=== PATIENT | female | born 1970 | race African-American/Black ===

== ENCOUNTER 2016-11-18 11:47 | Inpatient (IN) | payer OTHER ==
[2016-11-18 12:18] VITALS: BMI 35.2
--- NOTE | 2016-11-18 12:35 | PDOC ---
History of Present Illness - History of Present Illness Initial Comments: 11/18/16 12:42 The patient is a 46 year old female with a past medical hx of lung, liver, and colon cancer stage IV with recent resections who presents to the ED complaining of dizziness and nausea for three days. The patient states she has a hx of liver and colon cancer that has resolved after 12 weeks of chemotherapy. She reports her recent CT scan shows a small spot on her lung. She started her first round of chemo on Tuesday. She reports since then she has been vomiting and been feeling dizzy. She states she has not been able to tolerate and liquid or food and notes no relief of nausea with Zofran. She states she was at her Oncologist office today to remove her pump when she had a syncopal episode. The patient reports an intermittent nose bleed since Tuesday. She states her symptoms were not this severe the first time she received chemo. She reports weakness, tingling in her hands and feet. The patient denies chest pain, fever, chills Allergies: Sulfa Surgical:[facility] 09/11/2014; 03/2015 liver surgery Social: No toxic habits reported Oncologist: Dr. Almaguer <Cherry Dailey - Last Filed: 11/18/16 13:37> <Faraz Buckley - Last Filed: 11/18/16 17:28> - General Chief Complaint: Nausea/Vomiting Stated Complaint: DIZZINESS Time Seen by Provider: 11/18/16 12:35 Past History <Cherry Dailey - Last Filed: 11/18/16 13:37> - Past Medical History Anemia: Yes Asthma: No Cancer: Yes ([facility] 09/11/2014 LUNG) Cardiac Disorders: Yes (tachycardia) CVA: No COPD: No CHF: No Dementia: No Diabetes: No GI Disorders: Yes (gerd) Disorders: No HTN: No Hypercholesterolemia: No Liver Disease: Yes (mets to liver) Psychiatric Problems: Yes (ANXIETY) Suicide Attempt (Hx): No Seizures: No Thyroid Disease: No Lung CA: Yes (bilateral lung) - Surgical History Abdominal Surgery: Yes ([facility] 09/11/2014;03/2015 liver surgery) Appendectomy: No Cardiac Surgery: No Cholecystectomy: No GI Surgery: Yes ([facility]ERY 09/11/2014) Lung Surgery: No Neurologic Surgery: No Orthopedic Surgery: No - Psycho/Social/Smoking Cessation Hx Anxiety: No Suicidal Ideation: No Smoking Status: No Smoking History: Never smoked Have you smoked in the past 12 months: No Number of Cigarettes Smoked Daily: 0 Information on smoking cessation initiated: No Hx Alcohol Use: No Drug/Substance Use Hx: No Substance Use Type: None Hx Substance Use Treatment: No <Faraz Buckley - Last Filed: 11/18/16 17:28> - Past Medical History Allergies/Adverse Reactions: Allergies Allergy/AdvReac Type Severity Reaction Status Date / Time latex Allergy Severe Itching Verified 07/16/16 17:48 Sulfa (Sulfonamide AdvReac generalized Verified 07/16/16 17:48 Antibiotics) weakness Home Medications: Ambulatory Orders Metoprolol Tartrate [Lopressor -] 25 mg PO DAILY 02/03/16 Pantoprazole Sodium [Protonix -] 40 mg PO DAILY #30 tablet.ec 02/06/16 Lorazepam [Ativan] 1 mg PO BID MDD 3mg 11/18/16 Review of Systems - Review of Systems Able to Perform ROS?: Yes Comments:: 11/18/16 12:42 CONSTITUTIONAL: +Weakness. Absent: fever, chills, diaphoresis, malaise, loss of appetite HEENT: +Epistaxis. Absent: rhinorrhea, nasal congestion, throat pain, throat swelling, difficulty swallowing, mouth swelling, ear pain, eye pain, visual Changes CARDIOVASCULAR: Absent: chest pain, syncope, palpitations, irregular heart rate, lightheadedness , peripheral edema RESPIRATORY: Absent: cough, shortness of breath, dyspnea with exertion, orthopnea, wheezing, stridor, hemoptysis GASTROINTESTINAL: +Nausea, vomiting. Absent: abdominal pain, abdominal distension, diarrhea, constipation, melena, hematochezia GENITOURINARY: Absent: dysuria, frequency, urgency, hesitancy, hematuria, flank pain, genital pain MUSCULOSKELETAL: Absent: myalgia, arthralgia, joint swelling SKIN: Absent: rash, itching, pallor HEMATOLOGIC/IMMUNOLOGIC: Absent: easy bleeding, easy bruising, lymphadenopathy, frequent infections ENDOCRINE: Absent: unexplained weight gain, unexplained weight loss, heat intolerance, cold intolerance NEUROLOGIC: +Dizziness, tingling in hands and feet. Absent: headache, unsteady gait, seizure , mental status changes, bladder or bowel incontinence PSYCHIATRIC: Absent: anxiety, depression, suicidal or homicidal ideation, hallucinations. <Cherry Dailey - Last Filed: 11/18/16 13:37> *Physical Exam - Vital Signs Last Vital Signs Temp Pulse Resp BP Pulse Ox 97.8 F 85 20 135/95 99 11/18/16 12:16 11/18/16 12:16 11/18/16 12:16 11/18/16 12:16 11/18/16 12:16 - Physical Exam Comments: 11/18/16 13:37 GENERAL: +Appears dehydrated. Well developed, well nourished. Awake and alert. In no acute distress. HEENT: + Dry mucous membranes. Normocephalic, atraumatic. PERRLA, EOMI. No conjunctival pallor. Sclera are non-icteric. Moist mucous membranes. Oropharynx is clear. NECK: Supple. Full ROM. No JVD. Carotid pulses 2+ and symmetric, without bruits. No thyromegaly. No lymphadenopathy. CARDIOVASCULAR: Regular rate and rhythm. No murmurs, rubs, or gallops. Distal pulses are 2+ and symmetric. PULMONARY: No evidence of respiratory distress. Lungs clear to auscultation bilaterally. No wheezing, rales or rhonchi. ABDOMINAL: Soft. Non-tender. Non-distended. No rebound or guarding. No organomegaly. Normoactive bowel sounds. MUSCULOSKELETAL Normal range of motion at all joints. No bony deformities or tenderness. No CVA tenderness. EXTREMITIES: No cyanosis. No clubbing. No edema. No calf tenderness. SKIN: Warm and dry. Normal capillary refill. No rashes. No jaundice. NEUROLOGICAL: Alert, awake, appropriate. Cranial nerves 2-12 intact. No deficits to light touch and temperature in face, upper extremities and lower extremities. No motor deficits in the in face, upper extremities and lower extremities. Normoreflexic in the upper and lower extremities. Normal speech. Toes are downgoing bilaterally. Gait is normal without ataxia. PSYCHIATRIC: Cooperative. Good eye contact. Appropriate mood and affect. <Cherry Dailey - Last Filed: 11/18/16 13:37> - Vital Signs Last Vital Signs Temp Pulse Resp BP Pulse Ox 97.8 F 85 20 135/95 99 11/18/16 12:16 11/18/16 12:16 11/18/16 12:16 11/18/16 12:16 11/18/16 12:16 <Faraz Buckley - Last Filed: 11/18/16 17:28> ED Treatment Course - LABORATORY CBC & Chemistry Diagram: 11/18/16 12:49 11/18/16 12:49 <Cherry Dailey - Last Filed: 11/18/16 13:37> - LABORATORY CBC & Chemistry Diagram: 11/18/16 12:49 11/18/16 12:49 <Faraz Buckley - Last Filed: 11/18/16 17:28> *DC/Admit/Observation/Transfer - Attestations Scribe Attestion: 11/18/16 12:43 Documentation prepared by Cherry Dailey, acting as medical receptionist assistant for Faraz Buckley MD, /DO. <Cherry Dailey - Last Filed: 11/18/16 13:37> - Discharge Dispostion Admit: Yes <Faraz Buckley - Last Filed: 11/18/16 17:28> Diagnosis at time of Disposition: Epigastric abdominal pain, Nausea and vomiting - Discharge Dispostion Condition at time of disposition: Stable
[2016-11-18] MEDS ORDERED: ONDANSETRON 4 MG/2 ML VIAL IVPUSH ONE (12:36)
[2016-11-18] MEDS ORDERED: SODIUM CHLORIDE 2,000 ML IV STA (12:36)
[2016-11-18] MEDS ORDERED: METOCLOPRAMIDE HCL INJECTION 10 MG/2 ML VIAL IVPUSH ONE (12:37)
[2016-11-18 13:12] LABS: BASOPHIL 0.5 % (0-2.0); EOSINOPHIL 0.7 % (0-4.5); MCH 29.2 pg (25.7-33.7); MEAN CELL VOLUME 88.5 fl (80-96); MEAN PLT VOLUME 9.1 fl (7.5-11.1); NEUTROPHILS 68.5 % (42.8-82.8); PLATELET COUNT 186 K/MM3 (134-434); RDW 13.9 % (11.6-15.6); WHITE BLOOD COUNT 7.4 K/mm3 (4.0-10.0)
[2016-11-18 13:26] LABS: ALBUMIN 3.7 g/dl (3.4-5.0); ANION GAP 8 (8-16); CALCIUM 8.7 mg/dL (8.5-10.1); CO2 28 mmol/L (21-32); CREATININE 0.7 mg/dL (0.55-1.02); GLUCOSE,RANDOM 95 mg/dL (74-106); SGOT/AST 13 U/L (15-37); SGPT/ALT 23 U/L (12-78)
[2016-11-18 13:28] LABS: ALK PHOS 73 U/L (45-117); BILIRUBIN,TOTAL 0.5 mg/dL (0.2-1.0); TOT PROT 7.3 g/dl (6.4-8.2)
[2016-11-18] MEDS ORDERED: ONDANSETRON 4 MG/2 ML VIAL ONE ×2 (13:47→20:29)
[2016-11-18] MEDS ORDERED: METOCLOPRAMIDE HCL INJECTION 10 MG/2 ML VIAL ONE (13:47)
--- NOTE | 2016-11-18 17:25 | CONSULT ---
Consult - text type - Consultation Consultation Note: The patient is a 46 year old female with a past medical hx colon cancer with lung and liver mets s/p resection who was sent in for nausea, vomiting for 3 days.She was noted to have recurrence at the site of wedge resection of rt. lung bnodule. She was started on FOLFIRI-08/16. She as extremely nauseous for last 2 days. She has been retching and not keeping anything down. today in the office she came in to get the pump disconnected.She developed nausea/retching. Was extremely tearful and then became presyncopal. She was sent to ER via ACLS. She felt better after IV fluids Allergies: Sulfa Surgical:[facility] Social: No toxic habits reported - Past Medical History Anemia: Yes Cancer: Yes ([facility] 09/11/2014 LUNG) Cardiac Disorders: Yes (tachycardia) GI Disorders: Yes (gerd) Liver Disease: Yes (mets to liver) Psychiatric Problems: Yes (ANXIETY) Lung CA: Yes (bilateral lung) - Surgical History Abdominal Surgery: Yes ([facility] 09/11/2014;03/2015 liver surgery) GI Surgery: Yes ([facility] 09/11/2014) - Psycho/Social/Smoking Cessation Hx Smoking History: Never smoked - Past Medical History Allergies/Adverse Reactions: Allergies Allergy/AdvReac Type Severity Reaction Status Date / Time latex Allergy Severe Itching Verified 07/16/16 17:48 Sulfa (Sulfonamide AdvReac generalized Verified 07/16/16 17:48 Antibiotics) weakness Home Medications: Ambulatory Orders Metoprolol Tartrate [Lopressor -] 25 mg PO DAILY 02/03/16 Pantoprazole Sodium [Protonix -] 40 mg PO DAILY #30 tablet.ec 02/06/16 Lorazepam [Ativan] 1 mg PO BID MDD 3mg 11/18/16 Current Medications Potassium Chloride/Dextrose/Sod Cl (D5-1/2ns+20 Meq Kcl -) 1,000 mls @ 60 mls/ hr IV ASDIR [facility] Last Admin: 11/18/16 19:00 Dose: 60 mls/hr Ondansetron HCl (Zofran Injection) 8 mg IVPB Q12H PRN PRN Reason: NAUSEA Prochlorperazine Maleate (Compazine -) 10 mg PO Q8H PRN PRN Reason: NAUSEA AND/OR VOMITING - Vital Signs Last Vital Signs Temp Pulse Resp BP Pulse Ox 97.8 F 85 20 135/95 99 11/18/16 12:16 11/18/16 12:16 11/18/16 12:16 11/18/16 12:16 11/18/16 12:16 HEENT: ELIDA, EOM Intact Oropharynx: No thrush, No mucositis Cor: RSR, No murmurs, No gallops Lungs: Clear to P&A Abd: Soft, Normal bowel sounds, No organomegaly, mid line incision + Ext:No significant edema Abnormal Lab Results 11/18/16 12:49 AST 13 L D A/P The patient is a 46 year old female with a past medical hx colon cancer with lung and liver mets s/p resection who was sent in for nausea, vomiting for 3 days.She was noted to have recurrence at the site of wedge resection of rt. lung nodule on recent PET-CT. She was started on FOLFIRI-08/16. She was extremely nauseous for last 2 days. She has been retching and not keeping anything down. HAd a near syncopal episode today in the office Not able to keep anything down IV hydration/antiemetics check cultures
[2016-11-18] MEDS ORDERED: D5-1/2NS+20 MEQ KCL - 1,000 ML IV SCH ×3 (18:45→20:41)
[2016-11-18] MEDS ORDERED: PROCHLORPERAZINE MALEATE 5 MG TABLET PO PRN (19:22)
[2016-11-18] MEDS ORDERED: LORazepam 1 MG TABLET PO PRN (19:42)
[2016-11-18] MEDS: ONDANSETRON 4 MG/2 ML VIAL IVPB PRN (20:31)
--- NOTE | 2016-11-18 20:36 | HP ---
Admitting History and Physical - Admission History of Present Illness: colon ca mets to lungs (bilateral nodules wedge resected 01/13 and 07/16?, now recurrent lesion on right per PET scan) and liver (resected 2014 no recurrence) sent to er from oncology office for severe nausea vomiting x 3 days severe retching after first round chemo she was very upset and presyncopal while in the office she went through one cycle of chemo one year ago PMHx HTN on metoprolol GERD on pantoprazole Anxiety on Ativan History Source: Patient, Medical Record - Past Medical History Cardiovascular: Yes: HTN, Other (tachycardia) Pulmonary: Yes: Other (resection of metasttic lung nodules on left , January 21, 2016) Gastrointestinal: Yes: Constipation, GERD Hepatobiliary: Yes: Other (liver mets s/p resection 2014.) ...LMP: 08/12/15 Heme/Onc: Yes: Anemia, Other (colon cancer) Psych: Yes: Anxiety Endocrine: Yes: Other (Thyroid Nodules) - Past Surgical History Past Surgical History: Yes: None - Smoking History Smoking history: Never smoked Have you smoked in the past 12 months: No Aproximately how many cigarettes per day: 0 - Alcohol/Substance Use Hx Alcohol Use: No History of Substance Use: reports: None - Social History 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 [employer] History of Recent Travel: No Home Medications - Allergies Allergies/Adverse Reactions: Allergies Allergy/AdvReac Type Severity Reaction Status Date / Time latex Allergy Severe Itching Verified 07/16/16 17:48 Sulfa (Sulfonamide AdvReac generalized Verified 07/16/16 17:48 Antibiotics) weakness - Home Medications Home Medications: Ambulatory Orders Metoprolol Tartrate [Lopressor -] 25 mg PO DAILY 02/03/16 Pantoprazole Sodium [Protonix -] 40 mg PO DAILY #30 tablet.ec 02/06/16 Lorazepam [Ativan] 1 mg PO BID MDD 3mg 11/18/16 Physical Examination Vital Signs: Vital Signs Temperature 97.8 F 11/18/16 12:16 Pulse Rate 80 11/18/16 20:08 Respiratory Rate 18 11/18/16 20:08 Blood Pressure 100/62 11/18/16 20:08 O2 Sat by Pulse Oximetry (%) 97 11/18/16 20:08 Constitutional: Yes: Well Nourished, No Distress, Calm Eyes: Yes: WNL, Conjunctiva Clear, EOM Intact HENT: Yes: WNL, Atraumatic, Normocephalic Neck: Yes: WNL, Supple, Trachea Midline Cardiovascular: Yes: WNL, Regular Rate and Rhythm Respiratory: Yes: WNL, Regular, CTA Bilaterally Gastrointestinal: Yes: WNL, Normal Bowel Sounds Musculoskeletal: Yes: WNL Extremities: Yes: WNL Edema: No Integumentary: Yes: WNL Neurological: Yes: WNL, Alert, Oriented ...Motor Strength: WNL Psychiatric: Yes: WNL Assessment/Plan colon ca mets to lungs and liver -recurrence in rt lung no recurrence in liver severe nausea vomiting x 3 days increased anxiety and psychological distress low BPs, ruling out sepsis HTN will hold BP meds for systolic less than 110l GERD continue pantoprazole Anxiety cont Ativan all meds IV for now discussed with dr sommer oncol consult appreciated
[2016-11-18] MEDS ORDERED: DEXAMETHASONE SOD PHOSPHATE 10 MG/1 ML VIAL IVPB ONE (20:57)
[2016-11-18] MEDS: LORAZEPAM CARPU-JECT 2 MG/ML DISP.SYRIN IVPB PRN (22:10)
[2016-11-19 08:05] LABS: INR 1.06 (0.82-1.09); PROTHROMBIN TIME (PATIENT) 11.7 SEC (9.98-11.88)
[2016-11-19 08:07] LABS: ACTIVATED PTT 30.3 SECONDS (26.9-34.4)
[2016-11-19 08:18] LABS: ALBUMIN 3.6 g/dl (3.4-5.0); ANION GAP 8 (8-16); CALCIUM 8.9 mg/dL (8.5-10.1); CO2 25 mmol/L (21-32); GLUCOSE,RANDOM 136 mg/dL (74-106); MAGNESIUM 2.3 mg/dL (1.8-2.4)
[2016-11-19 08:21] LABS: BASOPHIL 0.1 % (0-2.0); MCH 29.6 pg (25.7-33.7); MCHC 33.7 g/dl (32.0-36.0); MEAN CELL VOLUME 87.7 fl (80-96); MEAN PLT VOLUME 9.9 fl (7.5-11.1); NEUTROPHILS 85.7 % (42.8-82.8); PLATELET COUNT 197 K/MM3 (134-434); RDW 13.7 % (11.6-15.6); WHITE BLOOD COUNT 6.2 K/mm3 (4.0-10.0)
[2016-11-19 08:22] LABS: ALK PHOS 80 U/L (45-117); BILIRUBIN,TOTAL 0.4 mg/dL (0.2-1.0); CREATININE 0.8 mg/dL (0.55-1.02); LDH 189 U/L (84-246); SGOT/AST 13 U/L (15-37); SGPT/ALT 21 U/L (12-78); TOT PROT 7.5 g/dl (6.4-8.2)
[2016-11-19] MEDS ORDERED: PANTOPRAZOLE SODIUM 40 MG in SODIUM CHLORIDE 100 ML IVPB SCH (10:00)
[2016-11-19] MEDS ORDERED: METOPROLOL TARTRATE 25 MG TABLET (FP) PO SCH (10:00)
[2016-11-19] MEDS ORDERED: PANTOPRAZOLE 40 MG TABLET (FP) PO SCH (10:00)
[2016-11-19] MEDS: D5-1/2NS+20 MEQ KCL - 1,000 ML IV SCH ×2 (11:00→22:23)
[2016-11-19] MEDS: METOPROLOL TARTRATE 25 MG TABLET (FP) PO SCH (11:02)
[2016-11-19] MEDS: PANTOPRAZOLE SODIUM 40 MG/100 ML PRE-DOCKED IVPB SCH (11:02)
--- NOTE | 2016-11-19 11:10 | PN ---
Progress Note (short form) - Note Progress Note: Patient seen and examined Still with nausea and poor p.o. intake. No emesis, abdominal pains. No fevers. Remains on IV hydration. Last Vital Signs Temp Pulse Resp BP Pulse Ox 98.0 F 73 20 106/63 98 11/19/16 05:32 11/19/16 05:32 11/19/16 05:32 11/19/16 05:32 11/19/16 04:49 HEENT: ELIDA, EOM Intact Oropharynx: No thrush, No mucositis Cor: RSR, No murmurs, No gallops Lungs: Clear to P&A Abd: Soft, Normal bowel sounds, No organomegaly Ext:No significant edema Skin: No rashes, Integument intact CBC, BMP 11/19/16 06:25 11/19/16 06:25 Current Medications Generic Name Dose Route Start Last Admin Trade Name Freq PRN Reason Stop Dose Admin Potassium Chloride/Dextrose/Sod Cl 1,000 mls @ 75 mls/hr 11/19/16 09:45 11:00 D5-1/2ns+20 Meq Kcl - IV 75 mls/hr ASDIR RUTH Administration Lorazepam 0.5 mg 11/18/16 20:54 11/18/16 22:10 Ativan Injection - IVPB 0.5 mg BID PRN Administration ANXIETY Metoprolol Tartrate 25 mg 11/19/16 10:00 11/19/16 11:02 Lopressor - PO 25 mg DAILY RUTH Administration Ondansetron HCl 8 mg 11/18/16 18:33 11/18/16 20:31 Zofran Injection IVPB 8 mg Q12H PRN Administration NAUSEA Pantoprazole Sodium 40 mg 11/19/16 10:00 11/19/16 11:02 Protonix 40mg Ivpb (Pre-Docked) IVPB 40 mg DAILY RUTH Administration Prochlorperazine Maleate 10 mg 11/18/16 19:22 Compazine - PO Q8H PRN NAUSEA AND/OR VOMITING Impression: Recurrent metastatic colon ca s/p lung and liver resection S/P resumption of chemotherapy with FOLFIRI Near syncope GI toxicity from chemotherapy Dehydration and hypovolemia-improved with hydration Plan: Continue with hydration Afebrile - no obvious occult infection as ppt of hypovolemia Monitor cbc, chemistries , s/p chemotherapy. "Cultured" and I.D. f/u.
[2016-11-19] MEDS: LORAZEPAM CARPU-JECT 2 MG/ML DISP.SYRIN IVPB PRN ×2 (11:59→22:16)
[2016-11-19 12:54] LABS: URINE MARIJUANA THC NEGATIVE ng/ml (CUTOFF=50)
--- NOTE | 2016-11-19 13:27 | PN ---
Progress Note, Physician Chief Complaint: ID Full note dictated - Current Medication List Current Medications: Active Medications Potassium Chloride/Dextrose/Sod Cl (D5-1/2ns+20 Meq Kcl -) 1,000 mls @ 75 mls/ hr IV ASDIR [facility] Last Admin: 11/19/16 11:00 Dose: 75 mls/hr Lorazepam (Ativan Injection -) 0.5 mg IVPB BID PRN PRN Reason: ANXIETY Last Admin: 11/19/16 11:59 Dose: 0.5 mg Metoprolol Tartrate (Lopressor -) 25 mg PO DAILY [facility] Last Admin: 11/19/16 11:02 Dose: 25 mg Ondansetron HCl (Zofran Injection) 8 mg IVPB Q12H PRN PRN Reason: NAUSEA Last Admin: 11/18/16 20:31 Dose: 8 mg Pantoprazole Sodium (Protonix 40mg Ivpb (Pre-Docked)) 40 mg IVPB DAILY [facility] Last Admin: 11/19/16 11:02 Dose: 40 mg Prochlorperazine Maleate (Compazine -) 10 mg PO Q8H PRN PRN Reason: NAUSEA AND/OR VOMITING - Objective Vital Signs: Vital Signs Temperature 98.0 F 11/19/16 05:32 Pulse Rate 73 11/19/16 05:32 Respiratory Rate 20 11/19/16 05:32 Blood Pressure 106/63 11/19/16 05:32 O2 Sat by Pulse Oximetry (%) 98 11/19/16 04:49 Labs: CBC, BMP 11/19/16 06:25 11/19/16 06:25 INR, PTT INR 1.06 (0.82-1.09) 11/19/16 06:25 Fibrinogen 324.0 mg/dL (238-498) 11/19/16 06:25 Problem List - Problems (1) Colon cancer Code(s): C18.9 - MALIGNANT NEOPLASM OF COLON, UNSPECIFIED Assessment/Plan Microbiology Laboratory Tests 11/19/16 06:25 WBC 6.2 Hgb 11.5 Plt Count 197 Assessment Metastatic CA Hypotension resolved Doubt infection sepsis related Plan Reasurrance offered patient Cultures ordered per Dr Rosina Ibarra MD
--- NOTE | 2016-11-19 13:46 | PN ---
Progress Note (short form) - Note Progress Note: seen by ID discussed with Dr Ibarra- no indication of infection so far hold off abx coverage oncol f/u appreciated Active Medications Potassium Chloride/Dextrose/Sod Cl (D5-1/2ns+20 Meq Kcl -) 1,000 mls @ 75 mls/ hr IV ASDIR [facility] Last Admin: 11/19/16 11:00 Dose: 75 mls/hr Lorazepam (Ativan Injection -) 0.5 mg IVPB BID PRN PRN Reason: ANXIETY Last Admin: 11/19/16 11:59 Dose: 0.5 mg Metoprolol Tartrate (Lopressor -) 25 mg PO DAILY [facility] Last Admin: 11/19/16 11:02 Dose: 25 mg Ondansetron HCl (Zofran Injection) 8 mg IVPB Q12H PRN PRN Reason: NAUSEA Last Admin: 11/18/16 20:31 Dose: 8 mg Pantoprazole Sodium (Protonix 40mg Ivpb (Pre-Docked)) 40 mg IVPB DAILY [facility] Last Admin: 11/19/16 11:02 Dose: 40 mg Prochlorperazine Maleate (Compazine -) 10 mg PO Q8H PRN PRN Reason: NAUSEA AND/OR VOMITING Last Vital Signs Temp Pulse Resp BP Pulse Ox 98.0 F 73 20 106/63 98 11/19/16 05:32 11/19/16 05:32 11/19/16 05:32 11/19/16 05:32 11/19/16 04:49 alert in nad Lungs clear heart reg rate and rhythm Abd soft nontender Ext no edema CBC, BMP 11/19/16 06:25 11/19/16 06:25 IMP/Problems/Plan colon ca mets to lungs and liver -recurrence in rt lung- getting no recurrence in liver -admitted severe nausea vomiting x 3 days increased anxiety and psychological distress -low BPs persisting, ruling out sepsis Plan HTN will hold BP meds for systolic less than 110l GERD continue pantoprazole Anxiety cont Ativan continue all meds IV for now
--- NOTE | 2016-11-19 15:34 | CONS ---
DATE OF CONSULTATION: DATE OF DICTATION: 11/19/2016 INFECTIOUS DISEASE CONSULTATION HISTORY OF PRESENT ILLNESS: This is a 46-year-old -[place] female with metastatic colon cancer, who I am asked to see for evaluation of hypotension and possible sepsis. She is status post resection with known liver and lung metastases, and presented to the hospital for complaints of nausea and vomiting for several days. She was noted to have a recurrence at the site of a wedge resection of a right lung nodule. She was started on chemotherapy on August 16 and developed extreme nausea for the last 2 days. She has been retching and unable to keep anything down. In the office, she came to have her pump disconnected and appeared presyncopal according to Dr. Almaguer. She was brought to the hospital and given for intravenous fluid replacement. She denied any diarrhea, abdominal pain, hematemesis, or bleeding per rectum. She had no chills, shortness of breath, cough, or urinary complaints. 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 PAST MEDICAL HISTORY: Includes colon cancer with surgery August 2014 with lung resection. MEDICATION: Metoprolol, Protonix, and Ativan. ALLERGIES: BACTRIM. SOCIAL HISTORY: . Lives with a son. No travel. Never smoked. No history of substance abuse. HIV status unknown. FAMILY HISTORY: Reviewed and noncontributory. REVIEW OF SYSTEMS: Respiratory: No cough, shortness of breath. Cardiac: No chest pain, palpitations, syncope. Gastrointestinal: No nausea, vomiting, diarrhea. Currently, no abdominal pain. No blood per rectum. Genitourinary: No dysuria, hematuria. PHYSICAL EXAMINATION: General: She was a heavyset woman, alert, pleasant, in no acute distress. Vital signs: Temperature 98.0, pulse 73, blood pressure 106/63, respirations 20. Neck: Supple. Oropharynx: No thrush. Lungs: Clear. Heart: S1, S2. Regular rhythm. No murmur. Chest: Symmetrical with a right port. Abdomen: Soft. Nontender. No hepatosplenomegaly. Extremities: Without edema. LABORATORY: The white count was 6.2, hemoglobin 11.5, platelets 197. BUN of 9, creatinine 0.8, liver enzymes within normal limits. Chest x-ray was obtained which shows minimal increased density abutting the hemidiaphragm, marked improvement in the aeration of the left lung compared to previous studies . ASSESSMENT: A 46-year-old female with metastatic colon cancer with liver and lung metastases, recent chemotherapy, presents now with severe nausea and presyncope with apparently hypotension noted in Dr. Almaguer's office. There is nothing to indicate sepsis at this time, most likely hypotension related to intravascular volume depletion. Cultures were ordered for Dr. Almaguer, but I would elected to observe her off antibiotic therapy, as she appears well and afebrile at this time. WONG BRAGA M.D. [id number]
[2016-11-20] MEDS: PANTOPRAZOLE SODIUM 40 MG/100 ML PRE-DOCKED IVPB SCH (10:26)
[2016-11-20] MEDS: METOPROLOL TARTRATE 25 MG TABLET (FP) PO SCH (10:26)
[2016-11-20] MEDS: D5-1/2NS+20 MEQ KCL - 1,000 ML IV SCH (10:35)
--- NOTE | 2016-11-20 14:24 | PN ---
Progress Note (short form) - Note Progress Note: Oncology follow-up note Patient today has no dizziness, weakness but she did have nausea and vomitted after breakfast this am. Last Vital Signs Temp Pulse Resp BP Pulse Ox 98.2 F 76 18 126/73 100 11/20/16 06:00 11/20/16 06:00 11/20/16 12:00 11/20/16 06:00 11/20/16 12:00 HEENT: ELIDA, EOM Intact Oropharynx: No thrush, No mucositis Cor: RSR, No murmurs, No gallops Lungs: Clear to P&A Abd: Soft, Normal bowel sounds, No organomegaly, mid line incision + Ext:No significant edema A/P Labs CBC, BMP 11/19/16 06:25 11/19/16 06:25 Meds Current Medications Generic Name Dose Route Start Last Admin Trade Name Freq PRN Reason Stop Dose Admin Potassium Chloride/Dextrose/Sod Cl 1,000 mls @ 75 mls/hr 11/19/16 09:45 10:35 D5-1/2ns+20 Meq Kcl - IV 75 mls/hr ASDIR [facility] Administration Lorazepam 0.5 mg 11/18/16 20:54 11/19/16 22:16 Ativan Injection - IVPB 0.5 mg BID PRN Administration ANXIETY Metoprolol Tartrate 25 mg 11/19/16 10:00 11/20/16 10:26 Lopressor - PO 25 mg DAILY RUTH Administration Ondansetron HCl 8 mg 11/18/16 18:33 11/18/16 20:31 Zofran Injection IVPB 8 mg Q12H PRN Administration NAUSEA Pantoprazole Sodium 40 mg 11/19/16 10:00 11/20/16 10:26 Protonix 40mg Ivpb (Pre-Docked) IVPB 40 mg DAILY [facility] Administration Prochlorperazine Maleate 10 mg 11/18/16 19:22 Compazine - PO Q8H PRN NAUSEA AND/OR VOMITING A/P : 46 y/o female with Hx of metastatic colon cancer with new recurrence at site of previous lung nodule, was started on FOLFIRI chemotherapy on 08/16 with a lot of nausea, retching as an outpatient. Was admitted earlier this week when she came to have her pump disconnected in the office and had a near syncopal episode -weakness is improved, but nausea/vomitting and decreased appetite persist- on zofran and compazine, will monitor overnight and see how she feels tomorrow, patient is very eager to go home -continue IV fluids and electrolyte repletion as necessary -supportive care while inpatient -Has an appointment with on 11/23
[2016-11-20] MEDS: ONDANSETRON 4 MG/2 ML VIAL IVPB PRN (15:34)
[2016-11-20] MEDS: LORAZEPAM CARPU-JECT 2 MG/ML DISP.SYRIN IVPB PRN (21:01)
--- NOTE | 2016-11-20 21:36 | PN ---
Progress Note (short form) - Note Progress Note: feeling better will plan to d/c tomorrow tentatively seen by ID discussed with Dr Ibarra- no indication of infection so far hold off abx coverage oncol f/u appreciated Current Medications Potassium Chloride/Dextrose/Sod Cl (D5-1/2ns+20 Meq Kcl -) 1,000 mls @ 75 mls/ hr IV ASDIR [facility] Last Admin: 11/20/16 10:35 Dose: 75 mls/hr Lorazepam (Ativan Injection -) 0.5 mg IVPB BID PRN PRN Reason: ANXIETY Last Admin: 11/20/16 21:01 Dose: 0.5 mg Metoprolol Tartrate (Lopressor -) 25 mg PO DAILY [facility] Last Admin: 11/20/16 10:26 Dose: 25 mg Ondansetron HCl (Zofran Injection) 8 mg IVPB Q12H PRN PRN Reason: NAUSEA Last Admin: 11/20/16 15:34 Dose: 8 mg Pantoprazole Sodium (Protonix 40mg Ivpb (Pre-Docked)) 40 mg IVPB DAILY [facility] Last Admin: 11/20/16 10:26 Dose: 40 mg Prochlorperazine Maleate (Compazine -) 10 mg PO Q8H PRN PRN Reason: NAUSEA AND/OR VOMITING Last Vital Signs Temp Pulse Resp BP Pulse Ox 98.2 F 72 16 136/88 100 11/20/16 21:00 11/20/16 21:00 11/20/16 21:00 11/20/16 21:00 11/20/16 12:00 alert in nad Lungs clear heart reg rate and rhythm Abd soft nontender Ext no edema CBC, BMP 11/19/16 06:25 11/19/16 06:25 IMP/Problems/Plan colon ca mets to lungs and liver -recurrence in rt lung- getting no recurrence in liver -admitted severe nausea vomiting x 3 days increased anxiety and psychological distress -low BPs persisting, ruling out sepsis Plan HTN will hold BP meds for systolic less than 110l GERD continue pantoprazole Anxiety cont Ativan
[2016-11-20] MEDS ORDERED: LORazepam 1 MG TABLET PO PRN (21:37)
[2016-11-20] MEDS: PANTOPRAZOLE 40 MG TABLET (FP) PO SCH (22:21)
[2016-11-21 09:36] VITALS: BP 121/83; PULSE 79; TEMP 98.3
[2016-11-21] MEDS: PANTOPRAZOLE 40 MG TABLET (FP) PO SCH (09:54)
[2016-11-21] MEDS: METOPROLOL TARTRATE 25 MG TABLET (FP) PO SCH (09:54)
--- NOTE | 2016-11-21 11:54 | PN ---
Progress Note (short form) - Note Progress Note: Oncology follow-up note S : Patient feels well today, her nausea and appetite have both improved. She will be discharged today Last Vital Signs Temp Pulse Resp BP Pulse Ox 98.3 F 79 18 121/83 100 11/21/16 09:00 11/21/16 09:00 11/21/16 09:00 11/21/16 09:00 11/21/16 04:00 HEENT: ELIDA, EOM Intact Oropharynx: No thrush, No mucositis Cor: RSR, No murmurs, No gallops Lungs: Clear to P&A Abd: Soft, Normal bowel sounds, No organomegaly, mid line incision + Ext:No significant edema Labs : CBC, BMP 11/19/16 06:25 11/19/16 06:25 Current Medications Generic Name Dose Route Start Last Admin Trade Name Freq PRN Reason Stop Dose Admin Lorazepam 1 mg 11/20/16 21:37 11/21/16 09:54 Ativan - PO 1 mg BID PRN Administration ANXIETY Metoprolol Tartrate 25 mg 11/19/16 10:00 11/21/16 09:54 Lopressor - PO 25 mg DAILY RUTH Administration Ondansetron HCl 8 mg 11/18/16 18:33 11/20/16 15:34 Zofran Injection IVPB 8 mg Q12H PRN Administration NAUSEA Pantoprazole Sodium 40 mg 11/20/16 21:38 11/21/16 09:54 Protonix - PO 40 mg DAILY RUTH Administration Prochlorperazine Maleate 10 mg 11/18/16 19:22 Compazine - PO Q8H PRN NAUSEA AND/OR VOMITING A/P : 46 y/o female with Hx of metastatic colon cancer with new recurrence at site of previous lung nodule, was started on FOLFIRI chemotherapy on 08/16 with a lot of nausea, retching as an outpatient. Was admitted earlier this week when she came to have her pump disconnected in the office and had a near syncopal episode -weakness/nausea all improved today, plan for d/c today -Has an appointment with on 11/23
--- NOTE | 2016-11-21 20:13 | DS ---
Physical Examination Vital Signs: Vital Signs Temperature 98.3 F 11/21/16 09:00 Pulse Rate 79 11/21/16 09:00 Respiratory Rate 18 11/21/16 09:00 Blood Pressure 121/83 11/21/16 09:00 O2 Sat by Pulse Oximetry (%) 100 11/21/16 04:00 Constitutional: Yes: Well Nourished, No Distress, Calm Eyes: Yes: WNL, Conjunctiva Clear, EOM Intact HENT: Yes: WNL, Atraumatic, Normocephalic Neck: Yes: WNL, Supple, Trachea Midline Cardiovascular: Yes: WNL, Regular Rate and Rhythm Respiratory: Yes: WNL, Regular, CTA Bilaterally Gastrointestinal: Yes: WNL, Normal Bowel Sounds Musculoskeletal: Yes: WNL Extremities: Yes: WNL Edema: No Integumentary: Yes: WNL Neurological: Yes: WNL, Alert, Oriented ...Motor Strength: WNL Psychiatric: Yes: WNL Discharge Summary Reason For Visit: DEHYDRATION,HYPOTENSION,NAUSEA AND VOMITING Current Active Problems Abdominal pain (Acute) Adnexal cyst (Acute) Colitis (Acute) Colon cancer (Acute) Colon wall thickening (Acute) Epigastric abdominal pain (Acute) Nausea and vomiting (Acute) Hospital Course: admitted with hypotension, presyncope and history of vomiting and nausea x few days PMHx htn gerd anxiety she was r/o for sepsis kept on ivf and iv meds she gradually improved tolerated regular diet yeasterday dinnertime will d/c on po meds f/u pmd and oncology Condition: Stable - Instructions Referrals: Ann-Marie Kothari MD [Primary Care Provider] - Rosina Mandujano MD [Staff Physician] - Disposition: HOME - Home Medications Comprehensive Discharge Medication List: Ambulatory Orders Metoprolol Tartrate [Lopressor -] 25 mg PO DAILY 02/03/16 Pantoprazole Sodium [Protonix -] 40 mg PO DAILY #30 tablet.ec 02/06/16 Lorazepam [Ativan] 1 mg PO BID MDD 3mg 11/18/16 Ondansetron [Ondansetron Odt] 8 mg PO TID PRN #30 tab.rapdis 11/20/16
== END 2016-11-21 11:58 | disposition home or self-care (01) | DRG 312 ==
LOC: JER 11:47 → JERBED 17:53 → UNDOADMOB 17:53 → JERBED 20:48 → UNDOADMOB 20:48 → JERBED 21:13 → J7W 21:13 → INTOOBSV 11-20 21:29 → OBSVTOIN 11-20 21:29 → J7W 11-20 21:29 → JERBED 11-20 21:29
PROVIDERS: ADMIT Internal Medicine Nephrology; ATTEND Internal Medicine Nephrology
DX: I95.1 Orthostatic hypotension (principal); C78.02 Secondary malignant neoplasm of left lung; E86.0 Dehydration; R11.2 Nausea with vomiting, unspecified; T45.1X5A Adverse effect of antineoplastic and immunosuppressive drugs, initial encounter; K21.9 Gastro-esophageal reflux disease without esophagitis; Z85.118 Personal history of other malignant neoplasm of bronchus and lung; Z85.038 Personal history of other malignant neoplasm of large intestine; Z85.05 Personal history of malignant neoplasm of liver; D64.9 Anemia, unspecified; F41.9 Anxiety disorder, unspecified
CPT/HCPCS: 36415; 71010-TC; 80053; 80307; 83605; 83615; 83735; 85025; 85384; 85610; 85730; 87040; 87086; 99283-25

== ENCOUNTER 2016-11-22 08:27 | Inpatient (IN) | payer OTHER ==
[2016-11-22] MEDS ORDERED: SODIUM CHLORIDE 1,000 ML IV ONE ×2 (08:53→10:18)
--- NOTE | 2016-11-22 08:58 | PDOC ---
History of Present Illness - General History Source: Patient, Old Records Exam Limitations: No Limitations - History of Present Illness Initial Comments: 11/22/16 09:09 The patient is a 46-year-old woman, accompanied by family, with a significant past medical history of colon Ca stage IV with metastasis to the liver and bilateral lungs (status post colon partial resection and chemotherapy (08/2014, 03/2015;left lung resection with chest tube placement (12/2015)), tachycardia, hypertension, gastroesophageal reflux disease, anemia and anxiety who presents to the emergency department via EMS for further evaluation of generalized weakness. She was recently admitted for severe nausea and vomiting on 2016 after chemotherapy treatment. She was discharged yesteray and states she developed suparpubic abdominal cramping with associated cold sweats and loose watery stools that was initially intermittent but now constant (reported every 5 minutes). No nausea, vomiting. Patient denies experiencing diarrhea post chemotherapy and during admission. She denies fever, chest pain, shortness of breath, cough She denies dysuria, hematuria, hematochezia. Allergies: Latex. Sulfa. Past Surgical History: Colon Ca metastasis to the liver and lungs status post resection and chemotherapy (2013;2014;2015). Social History: No tobacco, ETOH and recreational drug use Primary Care Physician: Dr. Ann-Marie Kothari Caterer'S Aide: Dr. Riley Mcfarlane [phone] Clay Burner: Dr. Satinder Andre [phone] Oncology/Hematology: Dr. Nazia Almaguer [phone] <Chandrika Daniel - Last Filed: 11/22/16 11:23> <Toni Lovelace - Last Filed: 11/22/16 11:53> - General Chief Complaint: Weakness Stated Complaint: WEANKESS Time Seen by Provider: 11/22/16 08:34 Past History <Chandrika Daniel - Last Filed: 11/22/16 11:23> - Past Medical History Anemia: Yes Asthma: No Cancer: Yes (COLON CA-SURGERY 09/11/2014 LUNG) Cardiac Disorders: Yes (tachycardia) CVA: No COPD: No CHF: No Dementia: No Diabetes: No GI Disorders: Yes (gerd) Disorders: No HTN: No Hypercholesterolemia: No Liver Disease: Yes (mets to liver) Psychiatric Problems: Yes (ANXIETY) Suicide Attempt (Hx): No Seizures: No Thyroid Disease: No Lung CA: Yes (bilateral lung) - Surgical History Abdominal Surgery: Yes (COLON CA-SURGERY 09/11/2014;03/2015 liver surgery) Appendectomy: No Cardiac Surgery: No Cholecystectomy: No GI Surgery: Yes (COLON CA-SURGERY 09/11/2014) Lung Surgery: No Neurologic Surgery: No Orthopedic Surgery: No - Psycho/Social/Smoking Cessation Hx Anxiety: No Suicidal Ideation: No Smoking Status: No Smoking History: Never smoked Have you smoked in the past 12 months: No Number of Cigarettes Smoked Daily: 0 Information on smoking cessation initiated: No Hx Alcohol Use: No Drug/Substance Use Hx: No Substance Use Type: None Hx Substance Use Treatment: No <Toni Lovelace - Last Filed: 11/22/16 11:53> - Past Medical History Allergies/Adverse Reactions: Allergies Allergy/AdvReac Type Severity Reaction Status Date / Time latex Allergy Severe Itching Verified 07/16/16 17:48 Sulfa (Sulfonamide AdvReac generalized Verified 07/16/16 17:48 Antibiotics) weakness Home Medications: Ambulatory Orders Metoprolol Tartrate [Lopressor -] 25 mg PO DAILY 02/03/16 Pantoprazole Sodium [Protonix -] 40 mg PO DAILY #30 tablet.ec 02/06/16 Lorazepam [Ativan] 1 mg PO BID MDD 3mg 11/18/16 Ondansetron [Ondansetron Odt] 8 mg PO TID PRN #30 tab.rapdis 11/20/16 Review of Systems - Review of Systems Constitutional: Yes: Weakness. No: Chills, Fever Respiratory: No: Cough, Shortness of Breath ABD/GI: Yes: See HPI, Diarrhea : No: Dysuria All Other Systems: Reviewed and Negative <Toni Lovelace - Last Filed: 11/22/16 11:53> *Physical Exam - Vital Signs Last Vital Signs Temp Pulse Resp BP Pulse Ox 97.4 F L 91 H 18 117/88 100 11/22/16 08:45 11/22/16 08:45 11/22/16 08:45 11/22/16 08:45 11/22/16 08:45 - Physical Exam Comments: 11/22/16 09:09 GENERAL: The patient is awake, alert, and fully oriented, in no acute distress. HEAD: Normal with no signs of trauma. EYES: Pupils equal, round and reactive to light, extraocular movements intact, sclera anicteric, conjunctiva clear with no pallor. ENT: Ears normal, nares patent, oropharynx clear without exudates. Moist mucous membranes. NECK: Normal range of motion, supple without lymphadenopathy, JVD, or masses. LUNGS: Breath sounds equal, clear to auscultation bilaterally. No wheeze/ crackles. HEART: Regular rate and rhythm, normal S1 and S2 without murmur or rub. ABDOMEN: Soft. +There is some discomfort to palpation over the suprapubic area. nondistended. BS wnl. No guarding or rebound. No palpable masses. No hepatosplenomegaly. EXTREMITIES: Normal range of motion, no edema. No clubbing or cyanosis. No cords, erythema, or tenderness. NEUROLOGICAL: Cranial nerves II through XII grossly intact. Normal speech. PSYCH: Normal mood, normal affect. SKIN: Warm, Dry, normal turgor, no rashes or lesions noted. <Chandrika Daniel - Last Filed: 11/22/16 11:23> - Vital Signs Last Vital Signs Temp Pulse Resp BP Pulse Ox 97.4 F L 91 H 18 117/88 100 11/22/16 08:45 11/22/16 08:45 11/22/16 08:45 11/22/16 08:45 11/22/16 08:45 <Toni Lovelace - Last Filed: 11/22/16 11:53> Heart Score/ECG Review #1 ECG reviewed & interpreted by me at: 09:04 General ECG Interpretation: Sinus Rhythm, Normal Rate (83), Normal Intervals, No acute ischemic changes Compared to previous ECG there are: No significant change (02/03/16) <Toni Lovelace - Last Filed: 11/22/16 11:53> ED Treatment Course - LABORATORY CBC & Chemistry Diagram: 11/22/16 09:56 11/22/16 09:03 - RADIOLOGY Radiograph Interpretation: 11/22/16 10:17 EXAM: RAD/CHEST X-RAY PORTABLE IMPRESSION: Portable chest x-ray AP sitting. Since , there are mild atelectatic changes in the right lung base, medially without definite infiltrates. The rest of the lung is clear. Heart is within normal limits in size. Right internal jugular central venous catheter tip again seen in satisfactory position <DanielChandrika - Last Filed: 11/22/16 11:23> - LABORATORY CBC & Chemistry Diagram: 11/22/16 09:56 11/22/16 09:03 - RADIOLOGY Radiology Studies Ordered: Category Date Time Status CHEST X-RAY PORTABLE* [RAD] Stat Radiology 11/22/16 08:53 Ordered <Toni Lovelace - Last Filed: 11/22/16 11:53> Medical Decision Making - Medical Decision Making 11/22/16 10:37 A page was sent to covering physician, Ronny hCavez at [phone]. No answer. Left voicemail. 11/22/16 11:[address] Ronny Bosch. Case was discussed. Accepts case. <MaríaChandrika - Last Filed: 11/22/16 11:23> - Medical Decision Making 11/22/16 09:46 A portion of this note was documented by scribe services under my direction. I have reviewed the details of the note, within reason, and agree with the documentation with the following case summary and management plan written by me. 46-year-old female with history of metastatic colon cancer, recurrence recently noted now status post first round of chemotherapy last week, complicated by post chemotherapy nausea/vomiting requiring admission, discharged yesterday now presents for readmission sent by Dr. Almaguer for profuse watery diarrhea that began last night, associated with intermittent abdominal cramping. This is a known side effect of the chemotherapy, no other travel or recent antibiotics. Vitals as noted. Exam as noted. 46-year-old female with persistent diarrhea following chemotherapy, dehydrated and generally weak appearing. Afebrile, cultures sent including stool Will begin Imodium as directed by Dr. Almaguer IV fluid rehydration Check labs, then admit 11/22/16 10:18 Sodium 133, remaining chemistries and urinalysis are within normal limits. Lactate slightly elevated at 2.02. Receiving IV fluid resuscitation. CBC clotted, will repeat. Proceed with admission. 11/22/16 10:47 No leukocytosis, Hgb stable. Awaiting callback from Dr. Bosch for admission. 11/22/16 11:10 Accepted for inpatient med/surg by Dr. Bosch. Will consult ID. Discussed again with Dr. Almaguer, requests CTAP w/ IV contrast given elevated lactate. She will consult GI. <Toni Lovelace - Last Filed: 11/22/16 11:53> *DC/Admit/Observation/Transfer - Attestations Scribe Attestion: 11/22/16 09:10 Documentation prepared by Chandrika Daniel, acting as program medical director for Toni Lovelace MD. <Chandrika Daniel - Last Filed: 11/22/16 11:23> - Discharge Dispostion Admit: Yes <Toni Lovelace - Last Filed: 11/22/16 11:53> Diagnosis at time of Disposition: Diarrhea Qualifiers: Diarrhea type: unspecified type Qualified Code(s): R19.7 - Diarrhea, unspecified Colon cancer Qualifiers: Colon location: unspecified part of colon Qualified Code(s): C18.9 - Malignant neoplasm of colon, unspecified - Referrals Referrals: Ann-Marie Kothari MD [Primary Care Provider] -
[2016-11-22] MEDS ORDERED: LOPERAMIDE HCL 2 MG CAPSULE PO ONE (09:18)
[2016-11-22] MEDS ORDERED: LOPERAMIDE HCL 2 MG CAPSULE ONE ×2 (09:37→13:37)
[2016-11-22 10:05] LABS: ALBUMIN 3.8 g/dl (3.4-5.0); ANION GAP 4 (8-16); CALCIUM 8.8 mg/dL (8.5-10.1); CO2 24 mmol/L (21-32); GLUCOSE,RANDOM 119 mg/dL (74-106); SGPT/ALT 35 U/L (12-78)
[2016-11-22 10:09] LABS: URINE APPEARANCE CLEAR; URINE BILIRUBIN NEGATIVE (NEGATIVE); URINE BLOOD TRACE-INTA (NEGATIVE); URINE GLUCOSE (UA) NEGATIVE (NEGATIVE); URINE KETONE NEGATIVE (NEGATIVE); URINE LEUK ESTERASE NEGATIVE (NEGATIVE); URINE NITRITE NEGATIVE (NEGATIVE); URINE PROTEIN TRACE (NEGATIVE); URINE UROBILINOGEN 0.2 E.U/dl E.U./dl (0.2-1.0)
[2016-11-22 10:10] LABS: ALK PHOS 69 U/L (45-117); BILIRUBIN,TOTAL 0.3 mg/dL (0.2-1.0); CREATININE 0.8 mg/dL (0.55-1.02); SGOT/AST 22 U/L (15-37); TOT PROT 7.4 g/dl (6.4-8.2); TROPONIN I < 0.02 ng/ml (0.00-0.05)
[2016-11-22 10:11] LABS: INR 1.14 (0.82-1.09); PROTHROMBIN TIME (PATIENT) 12.6 SEC (9.98-11.88)
[2016-11-22 10:15] LABS: URINE COLOR LT. YELLOW
[2016-11-22 10:27] LABS: BASOPHIL 0.4 % (0-2.0); EOSINOPHIL 0.4 % (0-4.5); MCH 29.2 pg (25.7-33.7); MCHC 33.4 g/dl (32.0-36.0); MEAN CELL VOLUME 87.3 fl (80-96); MEAN PLT VOLUME 9.1 fl (7.5-11.1); NEUTROPHILS 80.8 % (42.8-82.8); PLATELET COUNT 194 K/MM3 (134-434); RDW 13.9 % (11.6-15.6); WHITE BLOOD COUNT 8.4 K/mm3 (4.0-10.0)
[2016-11-22] MEDS ORDERED: morphine CARPU-JECT 4 MG/1 ML DISP.SYRIN IVPUSH ONE (10:45)
[2016-11-22] MEDS ORDERED: morphine CARPU-JECT 4 MG/1 ML DISP.SYRIN ONE (10:47)
--- NOTE | 2016-11-22 10:59 | EKG ---
Test Reason : Blood Pressure : / mmHG Vent. Rate : 083 BPM Atrial Rate : 083 BPM P-R Int : 158 ms QRS Dur : 074 ms QT Int : 380 ms P-R-T Axes : 036 016 023 degrees QTc Int : 446 ms NORMAL SINUS RHYTHM POSSIBLE LEFT ATRIAL ENLARGEMENT BORDERLINE ECG WHEN COMPARED WITH ECG OF 03-FEB-2016 12:33, NO SIGNIFICANT CHANGE WAS FOUND Confirmed by ERIC FELIX MD ([id number]) on 11/22/2016 10:59:25 AM Referred By: Confirmed By:ERIC FELIX MD
[2016-11-22] MEDS ORDERED: LOPERAMIDE HCL 2 MG CAPSULE PO PRN (12:26)
[2016-11-22] MEDS ORDERED: METRONIDAZOLE 500 MG PREMIXED 100 ML IVPB SCH (12:30)
[2016-11-22] MEDS ORDERED: LORazepam 1 MG TABLET PO PRN (12:40)
--- NOTE | 2016-11-22 12:43 | CONSULT ---
Consult - text type - Consultation Consultation Note: The patient is a 46-year-old woman, a, with a significant past medical history of colon Ca stage IV with metastasis to the liver and bilateral lungs s/p resection of liver/lung mets, tachycardia, hypertension, gastroesophageal reflux disease, anemia and anxiety who presents for further evaluation of generalized weakness. She was recently admitted for severe nausea and vomiting on 11/18/2016 after chemotherapy treatment. She was discharged yesteray and states she developed suparpubic abdominal cramping with associated cold sweats and loose watery stools that was initially intermittent but now constant . No nausea, vomiting. She denies fever, chest pain, shortness of breath, cough She denies dysuria, hematuria, hematochezia. Allergies: Latex. Sulfa. Past Surgical History: Colon Ca metastasis to the liver and lungs status post resection and chemotherapy (2013;2014;2015). Social History: No tobacco, ETOH and recreational drug use - Past Medical History Anemia: Yes Cancer: Yes (COLON CA-SURGERY 09/11/2014 LUNG) Cardiac Disorders: Yes (tachycardia) GI Disorders: Yes (gerd) Liver Disease: Yes (mets to liver) Psychiatric Problems: Yes (ANXIETY) Lung CA: Yes (bilateral lung) - Surgical History Abdominal Surgery: Yes (COLON CA-SURGERY 09/11/2014;03/2015 liver surgery) GI Surgery: Yes (COLON CA-SURGERY 09/11/2014) - Psycho/Social/Smoking Cessation Hx Smoking History: Never smoked - Past Medical History Allergies/Adverse Reactions: Allergies Allergy/AdvReac Type Severity Reaction Status Date / Time latex Allergy Severe Itching Verified 07/16/16 17:48 Sulfa (Sulfonamide AdvReac generalized Verified 07/16/16 17:48 Antibiotics) weakness Home Medications: Ambulatory Orders Metoprolol Tartrate [Lopressor -] 25 mg PO DAILY 02/03/16 Pantoprazole Sodium [Protonix -] 40 mg PO DAILY #30 tablet.ec 02/06/16 Lorazepam [Ativan] 1 mg PO BID MDD 3mg 11/18/16 Ondansetron [Ondansetron Odt] 8 mg PO TID PRN #30 tab.rapdis 11/20/16 Current Medications Sodium Chloride (Normal Saline -) 1,000 mls @ 83 mls/hr IV ASDIR [facility] Last Admin: 11/23/16 01:55 Dose: 83 mls/hr Metronidazole (Flagyl 500mg Premixed Ivpb -) 100 mls @ 100 mls/hr IVPB Q8H-IV [facility] Last Admin: 11/23/16 01:55 Dose: 100 mls/hr Loperamide HCl (Imodium -) 2 mg PO Q4H PRN PRN Reason: DIARRHEA Lorazepam (Ativan -) 1 mg PO BID [facility] Last Admin: 11/22/16 21:57 Dose: 1 mg Metoprolol Tartrate (Lopressor -) 25 mg PO DAILY [facility] Ondansetron HCl (Zofran Odt -) 8 mg SL Q8H PRN Pantoprazole Sodium (Protonix -) 40 mg PO DAILY [facility] - Vital Signs Last Vital Signs Temp Pulse Resp BP Pulse Ox 97.4 F L 91 H 18 117/88 100 11/22/16 08:45 11/22/16 08:45 11/22/16 08:45 11/22/16 08:45 11/22/16 08:45 Cor: RSR, No murmurs, No gallops Lungs: Clear to P&A Abd: Soft, Normal bowel sounds, No organomegaly Ext:No significant edema Skin: No rashes, Integument intact A/P 46-year-old female with history of metastatic colon cancer, s/p resection of lung/liver mets. recurrence recently noted on PET-CT at site of wedge resection on rt. lung. Also with risingn CEA . s/p 1st round of FOLFIRI C1 D7 Recent admission upto 11/21 for n/v following chemotherapy. Now with profuse diarrhea started this am Abdominal cramping Lactic acid mildly elevated Irinotecan induced diarrhea. Patient didnot take immodiumas instructed previously. Also reports having eatedn food f/u CT scan F/u c.diff/ ova and parasites/blood cx IV hydration immodium empiric antibiotics will consult gi/ID
[2016-11-22] MEDS ORDERED: LEVOFLOXACIN 500 MG IVPB 100 ML IVPB SCH (13:00)
--- NOTE | 2016-11-22 13:17 | CONSULT ---
Consult Consult Specialty:: colorectal surgery Reason for Consultation:: diarrhea/abd pain/lactate - History of Present Illness Chief Complaint: abd pain/lactate History of Present Illness: pt is a 46F recently discharged from hospital. she had chemo recently. she comes back to ER with c/o diarrhea/crampy suprapubic pain. pain comes and goes. she had lactate 2 and now it is 1.7 CT scan in ER shows no acute pathology. she had initial colon resection (L [facility] dr townsend in 2013). she then developed liver mets and got resection in 2014. She had L lung mets resection and then R lung mets resection. the mets resections were done at [facility]. she had PET 1 mo ago showing small area in R lung and thats why she was on chemo again. - Past Medical History Cardio/Vascular: Yes: HTN, Other (tachycardia) Pulmonary: Yes: Other (resection of metasttic lung nodules on left , January 21, 2016) Gastrointestinal: Yes: Constipation, GERD Hepatobiliary: Yes: Other (liver mets s/p resection 2014.) ...LMP: 08/12/15 Psych: Yes: Anxiety Endocrine: Yes: Other (Thyroid Nodules) - Past Surgical History Past Surgical History: Yes: None - Alcohol/Substance Use Hx Alcohol Use: No History of Substance Use: reports: None - Smoking History Smoking history: Never smoked Have you smoked in the past 12 months: No Aproximately how many cigarettes per day: 0 - Social History Usual Living Arrangement: With Spouse 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 History of Recent Travel: No Home Medications - Allergies Allergies/Adverse Reactions: Allergies Allergy/AdvReac Type Severity Reaction Status Date / Time latex Allergy Severe Itching Verified 07/16/16 17:48 Sulfa (Sulfonamide AdvReac generalized Verified 07/16/16 17:48 Antibiotics) weakness - Home Medications Home Medications: Ambulatory Orders Metoprolol Tartrate [Lopressor -] 25 mg PO DAILY 02/03/16 Pantoprazole Sodium [Protonix -] 40 mg PO DAILY #30 tablet.ec 02/06/16 Lorazepam [Ativan] 1 mg PO BID MDD 3mg 11/18/16 Ondansetron [Ondansetron Odt] 8 mg PO TID PRN #30 tab.rapdis 11/20/16 Review of Systems - Review of Systems Constitutional: reports: Weakness. denies: Chills, Fever Eyes: denies: Blind Spots, Blurred Vision HENT: denies: Difficult Swallowing, Ear Discharge Neck: denies: Decreased ROM, Swollen Glands Cardiovascular: denies: Chest Pain, Edema Respiratory: denies: Cough, SOB Gastrointestinal: reports: Abdominal Pain, Diarrhea Breasts: denies: Breast Implants, Pain Musculoskeletal: denies: Crepitus, Joint Swelling Integumentary: denies: Blister, Bruising Neurological: reports: Other (tingling in fingers) Endocrine: denies: Excessive Sweating, Intolerance to Cold Hematology/Lymphatic: denies: Easily Bruised, Excessive Bleeding Psychiatric: denies: Altered Sleep Pattern, Anxiety Physical Exam Vital Signs: Vital Signs Temperature 97.4 F L 11/22/16 08:45 Pulse Rate 91 H 11/22/16 12:00 Respiratory Rate 20 11/22/16 12:00 Blood Pressure 121/83 11/22/16 12:00 O2 Sat by Pulse Oximetry (%) 100 11/22/16 12:00 Constitutional: Yes: No Distress, Calm Eyes: Yes: Conjunctiva Clear, EOM Intact HENT: Yes: Atraumatic, Normocephalic Neck: Yes: Supple, Trachea Midline Cardiovascular: Yes: Regular Rate and Rhythm Respiratory: Yes: Regular, CTA Bilaterally Gastrointestinal: Yes: Soft. No: Distention, Tenderness ...Rectal Exam: Yes: Deferred Renal/: No: CVA Tenderness - Left, CVA Tenderness - Right Breast(s): No: Gynecomastia, Mass Musculoskeletal: No: Back Pain, Joint Stiffness Extremities: No: Calf Tenderness, Erythema Integumentary: No: Bruising, Erythema Neurological: Yes: Alert, Oriented Psychiatric: Yes: Alert, Oriented Imaging - Results Cat Scan: Report Reviewed (reviewed with radiogist. no evidence of mets. no obvious colitis/enteritis or acute process. ovarian cysts/fibroids.), Image Reviewed Problem List - Problems (1) Abdominal pain Code(s): R10.9 - UNSPECIFIED ABDOMINAL PAIN (2) Adnexal cyst Code(s): N94.9 - UNSP COND ASSOC W FEMALE GENITAL ORGANS AND MENSTRUAL CYCLE (3) Colon cancer Code(s): C18.9 - MALIGNANT NEOPLASM OF COLON, UNSPECIFIED Qualifiers: Colon location: unspecified part of colon Qualified Code(s): C18.9 - Malignant neoplasm of colon, unspecified (4) Diarrhea Assessment/Plan: check Cdiff no surgical intervention planned IV hydration okay for regular diet reconsult prn Code(s): R19.7 - DIARRHEA, UNSPECIFIED Qualifiers: Diarrhea type: unspecified type Qualified Code(s): R19.7 - Diarrhea, unspecified (5) Fibroid Code(s): D25.9 - LEIOMYOMA OF UTERUS, UNSPECIFIED
[2016-11-22] MEDS ORDERED: LEVOFLOXACIN 500 MG IVPB 100 ML IVPB ONE (13:28)
[2016-11-22] MEDS: SODIUM CHLORIDE 1,000 ML IV SCH (13:29)
[2016-11-22] MEDS ORDERED: CIPROFLOXACIN 400 MG/D5W 200 ML IVPB ONE (13:55)
--- NOTE | 2016-11-22 15:22 | PN ---
Progress Note (short form) - Note Progress Note: Just discharged from the hospital after she developed dehydration with nausea and vomiting was here to 11/21 recent chemo last Tuesday this am developed profuse non bloody diarrhea had chicken soup last night, a muffin and jello later, no raw foods or seaf[place] multiple episodes, small quantitiy +sweats no recent antibiotics no abdominal pain, some cramping that has resolved received cipro and flagyl in the ED blood cultures sent Vital Signs Period Temp Pulse Resp BP Sys/[facility] Pulse Ox Last 24 Hr 97.4 F 87-91 18-20 117-122/78-88 100-100 no thrush cor-rrr lungs clear abd soft,nt ext no edema CBC, BMP 11/22/16 09:56 11/22/16 09:03 ct scan d/w Dr Davis- no evidence of typhilitis or colitis imp/reccd not neutropenic s/p chemo last week metastatic colon cancer profuse diarrhea- suspect due to chemotherapy f/u stool studies continue hydration will d/w Dr Almaguer need to continue antibiotics
--- NOTE | 2016-11-22 15:36 | CON.GI ---
Consult Consult Specialty:: Gastroenterology Referred by:: Dr Ann-Marie CABRERA - History of Present Illness History of Present Illness: pt is a 46F recently discharged from hospital. she had chemo recently. she comes back to ER with c/o diarrhea/crampy suprapubic pain. pain comes and goes. she had lactate 2 and now it is 1.7 CT scan in ER shows no acute pathology. she had initial colon resection (L j[facility] dr townsend in 2013). she then developed liver mets and got resection in 2014. She had L lung mets resection and then R lung mets resection. the mets resections were done at [facility]. she had PET 1 mo ago showing small area in R lung and thats why she was on chemo again. Diarrhea 10 times today. non-bloody,associated with abdominal cramping. No diarrhea athis time - Past Medical History Cardio/Vascular: Yes: HTN, Other (tachycardia) Pulmonary: Yes: Other (resection of metasttic lung nodules on left , January 21, 2016) Gastrointestinal: Yes: Constipation, GERD Hepatobiliary: Yes: Other (liver mets s/p resection 2014.) ...LMP: 08/12/15 Psych: Yes: Anxiety Endocrine: Yes: Other (Thyroid Nodules) - Past Surgical History Past Surgical History: Yes: None - Alcohol/Substance Use Hx Alcohol Use: No History of Substance Use: reports: None - Smoking History Smoking history: Never smoked Have you smoked in the past 12 months: No Aproximately how many cigarettes per day: 0 - Social History Usual Living Arrangement: With Spouse 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 History of Recent Travel: No Home Medications - Allergies Allergies/Adverse Reactions: Allergies Allergy/AdvReac Type Severity Reaction Status Date / Time latex Allergy Severe Itching Verified 07/16/16 17:48 Sulfa (Sulfonamide AdvReac generalized Verified 07/16/16 17:48 Antibiotics) weakness - Home Medications Home Medications: Ambulatory Orders Metoprolol Tartrate [Lopressor -] 25 mg PO DAILY 02/03/16 Pantoprazole Sodium [Protonix -] 40 mg PO DAILY #30 tablet.ec 02/06/16 Lorazepam [Ativan] 1 mg PO BID MDD 3mg 11/18/16 Ondansetron [Ondansetron Odt] 8 mg PO TID PRN #30 tab.rapdis 11/20/16 Physical Exam-GI Vital Signs: Vital Signs Temperature 97.4 F L 11/22/16 08:45 Pulse Rate 87 11/22/16 15:16 Respiratory Rate 20 11/22/16 15:16 Blood Pressure 122/78 11/22/16 15:16 O2 Sat by Pulse Oximetry (%) 100 11/22/16 15:16 Constitutional: Yes: Well Nourished, Poor Hygeine HENT: Yes: Atraumatic, Tonsillar Exudate Cardiovascular: Yes: Regular Rate and Rhythm Respiratory: Yes: CTA Bilaterally ...Palpate: Yes: Soft. No: Firm/Rigid, Guarding, Hepatomegaly, Mass, Pulsatile Mass, Splenomegaly, Tenderness Labs: INR, PTT INR 1.14 (0.82-1.09) 11/22/16 09:03 Problem List - Problems (1) Diarrhea Assessment/Plan: R>mostC.diff likely secondary to chemotherapy check for Code(s): R19.7 - DIARRHEA, UNSPECIFIED Qualifiers: Diarrhea type: unspecified type Qualified Code(s): R19.7 - Diarrhea, unspecified
[2016-11-22 17:30] VITALS: BMI 27.3
[2016-11-22] MEDS: METRONIDAZOLE 500 MG PREMIXED 100 ML IVPB SCH (17:49)
--- NOTE | 2016-11-22 20:04 | HP ---
Admitting History and Physical - Admission History of Present Illness: acute diarrhea, abd pains fecal incontinence at home admitted to r/o infectious diarrhea and to manage fluids discussed with dr sommer agree with plans for gi, ID, and gen surgery eval - Past Medical History Cardiovascular: Yes: HTN, Other (tachycardia) Pulmonary: Yes: Other (resection of metasttic lung nodules on left , January 21, 2016) Gastrointestinal: Yes: Constipation, GERD Hepatobiliary: Yes: Other (liver mets s/p resection 2015.) ...LMP: 08/12/15 ...: No Heme/Onc: Yes: Anemia, Other (colon cancer) Psych: Yes: Anxiety Endocrine: Yes: Other (Thyroid Nodules) - Past Surgical History Past Surgical History: Yes: None - Smoking History Smoking history: Never smoked Have you smoked in the past 12 months: No Aproximately how many cigarettes per day: 0 - Alcohol/Substance Use Hx Alcohol Use: No History of Substance Use: reports: None - Social History 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 History of Recent Travel: No Home Medications - Allergies Allergies/Adverse Reactions: Allergies Allergy/AdvReac Type Severity Reaction Status Date / Time latex Allergy Severe Itching Verified 07/16/16 17:48 Sulfa (Sulfonamide AdvReac generalized Verified 07/16/16 17:48 Antibiotics) weakness - Home Medications Home Medications: Ambulatory Orders Metoprolol Tartrate [Lopressor -] 25 mg PO DAILY 02/03/16 Pantoprazole Sodium [Protonix -] 40 mg PO DAILY #30 tablet.ec 02/06/16 Lorazepam [Ativan] 1 mg PO BID MDD 3mg 11/18/16 Ondansetron [Ondansetron Odt] 8 mg PO TID PRN #30 tab.rapdis 11/20/16 Physical Examination Vital Signs: Vital Signs Temperature 98.1 F 11/22/16 17:26 Pulse Rate 87 11/22/16 17:26 Respiratory Rate 18 11/22/16 17:26 Blood Pressure 119/83 11/22/16 17:26 O2 Sat by Pulse Oximetry (%) 100 11/22/16 16:00
[2016-11-22] MEDS ORDERED: PATIENT'S OWN MEDICATION (NON-FORMULARY) (Ondansetron [Zofran *Odt*] 8 MG) PO PRN (20:22)
[2016-11-22] MEDS ORDERED: ONDANSETRON *ODT* 4 MG TABLET SL PRN (20:42)
[2016-11-22] MEDS: LORazepam 1 MG TABLET PO SCH (21:57)
[2016-11-22] MEDS ORDERED: METOPROLOL TARTRATE 25 MG TABLET (FP) PO SCH (22:00)
[2016-11-22] MEDS ORDERED: CIPROFLOXACIN 400 MG/D5W 200 ML IVPB SCH (22:00)
[2016-11-22 23:12] LABS: ALBUMIN 3.1 g/dl (3.4-5.0); ANION GAP 6 (8-16); BILIRUBIN,TOTAL 0.5 mg/dL (0.2-1.0); CALCIUM 8.2 mg/dL (8.5-10.1); CO2 27 mmol/L (21-32); CREATININE 0.6 mg/dL (0.55-1.02); GLUCOSE,RANDOM 95 mg/dL (74-106); MAGNESIUM 1.9 mg/dL (1.8-2.4); SGOT/AST 12 U/L (15-37); SGPT/ALT 28 U/L (12-78); TOT PROT 6.4 g/dl (6.4-8.2)
[2016-11-22 23:13] LABS: ALK PHOS 68 U/L (45-117)
[2016-11-23] MEDS: METRONIDAZOLE 500 MG PREMIXED 100 ML IVPB SCH ×2 (01:55→09:47)
[2016-11-23] MEDS: SODIUM CHLORIDE 1,000 ML IV SCH ×2 (01:55→21:07)
[2016-11-23] MEDS ORDERED: LOPERAMIDE HCL 2 MG CAPSULE PO PRN (07:20)
[2016-11-23 08:47] LABS: ALBUMIN 3.2 g/dl (3.4-5.0); ANION GAP 9 (8-16); CALCIUM 8.5 mg/dL (8.5-10.1); CO2 26 mmol/L (21-32); CREATININE 0.7 mg/dL (0.55-1.02); GLUCOSE,RANDOM 106 mg/dL (74-106); SGOT/AST 11 U/L (15-37); SGPT/ALT 26 U/L (12-78)
[2016-11-23 08:50] LABS: ALK PHOS 61 U/L (45-117); BILIRUBIN,TOTAL 0.3 mg/dL (0.2-1.0); TOT PROT 6.3 g/dl (6.4-8.2)
[2016-11-23] MEDS: LORazepam 1 MG TABLET PO SCH ×2 (09:47→21:13)
[2016-11-23] MEDS: METOPROLOL TARTRATE 25 MG TABLET (FP) PO SCH (09:47)
[2016-11-23] MEDS: PANTOPRAZOLE 40 MG TABLET (FP) PO SCH (09:47)
[2016-11-23] MEDS ORDERED: PANTOPRAZOLE SODIUM 100 ML IVPB SCH (10:00)
--- NOTE | 2016-11-23 12:53 | PN ---
Progress Note (short form) - Note Progress Note: c/o mild cramping in upper quadrants no diarrhea since admission last imodium dose was yesterday tolerating liquid diet so far Current Medications Sodium Chloride (Normal Saline -) 1,000 mls @ 83 mls/hr IV ASDIR [facility] Last Admin: 11/23/16 01:55 Dose: 83 mls/hr Metronidazole (Flagyl 500mg Premixed Ivpb -) 100 mls @ 100 mls/hr IVPB Q8H-IV [facility] Last Admin: 11/23/16 09:47 Dose: 100 mls/hr Loperamide HCl (Imodium -) 2 mg PO Q4H PRN PRN Reason: DIARRHEA Lorazepam (Ativan -) 1 mg PO BID [facility] Last Admin: 11/23/16 09:47 Dose: 1 mg Metoprolol Tartrate (Lopressor -) 25 mg PO DAILY [facility] Last Admin: 11/23/16 09:47 Dose: 25 mg Ondansetron HCl (Zofran Odt -) 8 mg SL Q8H PRN Pantoprazole Sodium (Protonix -) 40 mg PO DAILY [facility] Last Admin: 11/23/16 09:47 Dose: 40 mg Last Vital Signs Temp Pulse Resp BP Pulse Ox 97.6 F 77 18 121/56 100 11/23/16 05:15 11/23/16 05:15 11/23/16 05:15 11/23/16 05:15 11/23/16 04:21 abd soft nontender CBC, BMP 11/22/16 09:56 11/23/16 07:00 IMP- acute diarrhea potassium trending down s/p chemo colon ca with mets Plan- continue iv support
--- NOTE | 2016-11-23 15:00 | PN ---
Progress Note (short form) - Note Progress Note: no complaints no diarrhea since ED no abdominal cramps hungry wants to eat Vital Signs Period Temp Pulse Resp BP Sys/[facility] Pulse Ox Last 24 Hr 97.4 F-98.1 F 77-93 17-20 118-125/56-83 100-100 cor-rrr lungs clear abd soft,nt ext no edema CBC, BMP 11/22/16 09:56 11/23/16 07:00 Microbiology 11/22/16 09:03 Blood - Peripheral Venous Blood Culture - Preliminary NO GROWTH OBTAINED AFTER 24 HOURS, INCUBATION TO CONTINUE FOR 4 DAYS. 11/22/16 09:03 Blood - Peripheral Venous Blood Culture - Preliminary NO GROWTH OBTAINED AFTER 24 HOURS, INCUBATION TO CONTINUE FOR 4 DAYS. a/p diarrhea resolved ct scan no acute pathology no stool studies sent would d/c flagyl and advance diet suspect diarrhea secondary to chemo- send stool studies if diarrhea recurs please call back if needed
--- NOTE | 2016-11-23 16:47 | PN ---
Progress Note (short form) - Note Progress Note: Patient seen and examined Received Immodium and no further diarrhea. Better spirits Last Vital Signs Temp Pulse Resp BP Pulse Ox 98.0 F 87 18 119/73 100 11/23/16 14:54 11/23/16 14:54 11/23/16 14:54 11/23/16 14:54 11/23/16 12:00 HEENT: ELIDA, EOM Intact Oropharynx: No thrush, No mucositis Neck: Supple Cor: RSR, No murmurs, No gallops Lungs: Clear to P&A Abd: Soft, Normal bowel sounds, No organomegaly, diminished bowel sounds Ext:No significant edema Skin: No rashes, Integument intact CBC, BMP 11/22/16 09:56 11/23/16 07:00 Current Medications Generic Name Dose Route Start Last Admin Trade Name Freq PRN Reason Stop Dose Admin Sodium Chloride 1,000 mls @ 83 mls/hr 11/22/16 12:45 11/23/16 01:55 Normal Saline - IV 83 mls/hr ASDIR [facility] Administration Loperamide HCl 2 mg 11/23/16 07:20 Imodium - PO Q4H PRN DIARRHEA Lorazepam 1 mg 11/22/16 22:00 11/23/16 09:47 Ativan - PO 1 mg BID [facility]UTH Administration Metoprolol Tartrate 25 mg 11/23/16 10:00 11/23/16 09:47 Lopressor - PO 25 mg DAILY [facility]UTH Administration Ondansetron HCl 8 mg 11/22/16 20:42 Zofran Odt - SL Q8H PRN Pantoprazole Sodium 40 mg 11/23/16 10:00 11/23/16 09:47 Protonix - PO 40 mg DAILY [facility]UTH Administration Impression: Diarrhea- likely secondary to CPT-11. Responsive to immodium To monitor.
[2016-11-24] MEDS: SODIUM CHLORIDE 1,000 ML IV SCH ×2 (04:23→22:22)
[2016-11-24] MEDS: METOPROLOL TARTRATE 25 MG TABLET (FP) PO SCH (09:40)
[2016-11-24] MEDS: LORazepam 1 MG TABLET PO SCH ×2 (09:40→22:23)
[2016-11-24] MEDS: PANTOPRAZOLE 40 MG TABLET (FP) PO SCH (09:40)
--- NOTE | 2016-11-24 14:39 | PN ---
Progress Note (short form) - Note Progress Note: eating more no bm yet she is apprehensive about leaving hosp without having a bm we will try prune juice and milk ID f/u appreciated- raymond;l d/c flagyl Oncology f/u appreciated- will plan to d/c in am if no further inpatient mgmt or procedure 11/23 c/o mild cramping in upper quadrants no diarrhea since admission last imodium dose was yesterday tolerating liquid diet so far Active Medications Sodium Chloride (Normal Saline -) 1,000 mls @ 83 mls/hr IV ASDIR [facility] Last Admin: 11/24/16 04:23 Dose: 83 mls/hr Lorazepam (Ativan -) 1 mg PO BID [facility] Last Admin: 11/24/16 09:40 Dose: 1 mg Metoprolol Tartrate (Lopressor -) 25 mg PO DAILY [facility] Last Admin: 11/24/16 09:40 Dose: 25 mg Ondansetron HCl (Zofran Odt -) 8 mg SL Q8H PRN Pantoprazole Sodium (Protonix -) 40 mg PO DAILY [facility] Last Admin: 11/24/16 09:40 Dose: 40 mg Last Vital Signs Temp Pulse Resp BP Pulse Ox 98.2 F 82 20 116/67 100 11/24/16 14:29 11/24/16 14:29 11/24/16 14:29 11/24/16 14:29 11/24/16 04:00 abd soft nontender CBC, BMP 11/22/16 09:56 11/23/16 07:00 IMP- acute diarrhea- resolved s/p chemo colon ca with mets Plan- continue iv support
--- NOTE | 2016-11-24 15:30 | PN ---
Progress Note (short form) - Note Progress Note: Patient seen and examined No diarrhea constipated Last Vital Signs Temp Pulse Resp BP Pulse Ox 98.2 F 82 20 116/67 100 11/24/16 14:29 11/24/16 14:29 11/24/16 14:29 11/24/16 14:29 11/24/16 04:00 Neck: Supple Cor: RSR, No murmurs, No gallops Lungs: Clear to P&A Abd: Soft, Normal bowel sounds, No organomegaly Ext:No significant edema Labs reviewed Current Medications Sodium Chloride (Normal Saline -) 1,000 mls @ 83 mls/hr IV ASDIR [facility] Last Admin: 11/24/16 04:23 Dose: 83 mls/hr Lorazepam (Ativan -) 1 mg PO BID [facility] Last Admin: 11/24/16 09:40 Dose: 1 mg Metoprolol Tartrate (Lopressor -) 25 mg PO DAILY [facility] Last Admin: 11/24/16 09:40 Dose: 25 mg Ondansetron HCl (Zofran Odt -) 8 mg SL Q8H PRN Pantoprazole Sodium (Protonix -) 40 mg PO DAILY [facility] Last Admin: 11/24/16 09:40 Dose: 40 mg A/P 46-year-old female with history of metastatic colon cancer, s/p resection of lung/liver mets. recurrence recently noted on PET-CT at site of wedge resection on rt. lung. Also with risingn CEA . s/p 1st round of FOLFIRI C1 D9 Recent admission upto 11/21 for n/v following chemotherapy. was admitted with diarrhea on 11/23 Irinotecan induced diarrhea. Patient did not take immodium as instructed previously. Also reports having eatedn food resolved with immodium now constipated no cramping on full diet continue gentle hydration discussed with PMD
[2016-11-25 07:18] LABS: BASOPHIL 0.2 % (0-2.0); EOSINOPHIL 1.7 % (0-4.5); MCH 29.3 pg (25.7-33.7); MCHC 33.3 g/dl (32.0-36.0); MEAN PLT VOLUME 8.8 fl (7.5-11.1); NEUTROPHILS 49.5 % (42.8-82.8); PLATELET COUNT 192 K/MM3 (134-434); RDW 13.7 % (11.6-15.6); WHITE BLOOD COUNT 5.7 K/mm3 (4.0-10.0)
[2016-11-25 08:10] LABS: ALBUMIN 3.3 g/dl (3.4-5.0); ALK PHOS 62 U/L (45-117); ANION GAP 12 (8-16); BILIRUBIN,TOTAL 0.3 mg/dL (0.2-1.0); CALCIUM 8.7 mg/dL (8.5-10.1); CO2 25 mmol/L (21-32); CREATININE 0.7 mg/dL (0.55-1.02); GLUCOSE,RANDOM 103 mg/dL (74-106); SGOT/AST 11 U/L (15-37); SGPT/ALT 22 U/L (12-78); TOT PROT 6.8 g/dl (6.4-8.2)
[2016-11-25] MEDS: METOPROLOL TARTRATE 25 MG TABLET (FP) PO SCH (09:20)
[2016-11-25] MEDS: PANTOPRAZOLE 40 MG TABLET (FP) PO SCH (09:20)
[2016-11-25] MEDS: LORazepam 1 MG TABLET PO SCH (09:20)
[2016-11-25 09:22] VITALS: BP 122/76; PULSE 83; TEMP 98.1
== END 2016-11-25 09:22 | disposition home or self-care (01) | DRG 394 ==
LOC: JER 08:27 → JERBED 11:45 → UNDOADMIN 11:45 → JERBED 15:40 → J7W 15:40 → JERBED 20:21
PROVIDERS: ADMIT Internal Medicine Nephrology; ATTEND Internal Medicine Nephrology
DX: K52.1 Toxic gastroenteritis and colitis (principal); C18.9 Malignant neoplasm of colon, unspecified; C78.7 Secondary malignant neoplasm of liver and intrahepatic bile duct; C78.02 Secondary malignant neoplasm of left lung; C78.01 Secondary malignant neoplasm of right lung; R53.1 Weakness; I10 Essential (primary) hypertension; K21.9 Gastro-esophageal reflux disease without esophagitis; D64.9 Anemia, unspecified; F41.8 Other specified anxiety disorders; T45.1X5A Adverse effect of antineoplastic and immunosuppressive drugs, initial encounter; Y92.098 Other place in other non-institutional residence as the place of occurrence of the external cause; N94.9 Unspecified condition associated with female genital organs and menstrual cycle; D25.9 Leiomyoma of uterus, unspecified; R10.9 Unspecified abdominal pain; E86.0 Dehydration
CPT/HCPCS: 36415; 71010-TC; 74177-TC; 80053; 81003; 82550; 83605; 83735; 84484; 85025; 85610; 85730; 86850; 86900; 86901; 87040; 87086; 93005; 93010; 99285-25

== ENCOUNTER 2016-12-21 06:30 | Day surgery (SDC) | payer OTHER ==
[~2016-12-21 06:30] MED LIST: ATROPINE SO4 0.4 MG/1 ML VIAL SQ ONE; DEXTROSE 5% IVPB ONE; FLUOROURACIL CP ONE; IRINOTECAN HCL IVPB ONE; LEUCOVORIN INJECTION - 852 MG in DEXTROSE 5%-WATER - 250 ML IVPB ONE; ONDANSETRON INJECTION 12 MG, DEXAMETHASONE INJECTION 10 MG in SODIUM CHLORIDE 100 ML IVPB ONE; SODIUM CHLORIDE CP ONE; WATER IVPB ONE
[2016-12-21] MEDS ORDERED: DEXAMETHASONE INJECTION 12 MG, ONDANSETRON INJECTION 8 MG in SODIUM CHLORIDE 100 ML IVPB ONE (08:00)
[2016-12-21] MEDS ORDERED: ATROPINE SO4 0.4 MG/1 ML VIAL IVPUSH ONE (08:00)
[2016-12-21] MEDS ORDERED: ATROPINE SO4 0.4 MG/1 ML VIAL SQ ONE (08:00)
[2016-12-21] MEDS ORDERED: WATER IVPB ONE (08:30)
[2016-12-21] MEDS ORDERED: DEXTROSE 5% IVPB ONE (08:30)
[2016-12-21] MEDS ORDERED: IRINOTECAN HCL 250 MG in DEXTROSE 5%-WATER - 500 ML IVPB ONE (08:30)
[2016-12-21] MEDS ORDERED: LEUCOVORIN IVPB ONE (08:30)
[2016-12-21] MEDS ORDERED: FLUOROURACIL CP ONE (10:00)
[2016-12-21] MEDS ORDERED: SODIUM CHLORIDE CP ONE (10:00)
[2016-12-21] MEDS ORDERED: ONDANSETRON 4 MG/2 ML VIAL IVPB ONE ×2 (15:15→15:30)
[2016-12-21] MEDS ORDERED: SODIUM CHLORIDE 1,000 ML IV SCH (15:30)
[2016-12-21] MEDS ORDERED: LORazepam 0.5 MG TABLET PO STA (15:32)
[2016-12-21 17:16] VITALS: BMI 32.2
[2016-12-21 18:11] VITALS: BP 136/84; PULSE 87; TEMP 98
== END 2016-12-21 16:50 | disposition home or self-care (01) ==
LOC: JONCCHEMO 06:30 → J7W 10:17 → JONCCHEMO 16:50
PROVIDERS: ATTEND Internal Medicine Hematology & Oncology
DX: Z51.11 Encounter for antineoplastic chemotherapy (principal); C18.7 Malignant neoplasm of sigmoid colon; C78.7 Secondary malignant neoplasm of liver and intrahepatic bile duct
CPT/HCPCS: 96413; 96415; G0498; J9190

== ENCOUNTER 2017-01-13 06:57 | Day surgery (SDC) | payer OTHER ==
[2017-01-13] MEDS ORDERED: ONDANSETRON INJECTION 12 MG, DEXAMETHASONE INJECTION 10 MG in SODIUM CHLORIDE 100 ML IVPB ONE (08:00)
[2017-01-13] MEDS ORDERED: ATROPINE SO4 0.4 MG/1 ML VIAL SQ ONE (08:00)
[2017-01-13] MEDS ORDERED: LEUCOVORIN IVPB ONE (09:30)
[2017-01-13] MEDS ORDERED: DEXTROSE 5% IVPB ONE ×3 (09:30→13:45)
[2017-01-13] MEDS ORDERED: WATER IVPB ONE ×3 (09:30→13:45)
[2017-01-13] MEDS ORDERED: IRINOTECAN HCL IVPB ONE ×2 (10:00→13:45)
[2017-01-13 10:24] LABS: MCH 26.8 pg (25.7-33.7); MCHC 32.4 g/dl (32.0-36.0); MEAN CELL VOLUME 82.8 fl (80-96); RDW 16.3 % (11.6-15.6); WHITE BLOOD COUNT 6.5 K/mm3 (4.0-10.0)
[2017-01-13 10:25] LABS: BASOPHIL 0.5 % (0-2.0); EOSINOPHIL 1.2 % (0-4.5); NEUTROPHILS 55.7 % (42.8-82.8); PLATELET COUNT 298 K/MM3 (134-434)
[2017-01-13 10:46] LABS: ALBUMIN 3.8 g/dl (3.4-5.0); ALK PHOS 83 U/L (45-117); ANION GAP 10 (8-16); BILIRUBIN,TOTAL 0.2 mg/dL (0.2-1.0); CALCIUM 9.8 mg/dL (8.5-10.1); CO2 22 mmol/L (21-32); CREATININE 0.7 mg/dL (0.55-1.02); GLUCOSE,RANDOM 118 mg/dL (74-106); MAGNESIUM 2.2 mg/dL (1.8-2.4); SGOT/AST 24 U/L (15-37); SGPT/ALT 35 U/L (12-78); TOT PROT 7.8 g/dl (6.4-8.2)
[2017-01-13 10:49] LABS: BILIRUBIN,DIRECT < 0.1 mg/dL (0.0-0.2)
[2017-01-13] MEDS ORDERED: SODIUM CHLORIDE CP ONE (11:30)
[2017-01-13] MEDS ORDERED: FLUOROURACIL CP ONE (11:30)
[2017-01-13] MEDS ORDERED: SODIUM CHLORIDE 500 ML IV ONE ×2 (11:45→15:30)
[2017-01-13 13:43] VITALS: TEMP 97.9
[2017-01-13 13:52] VITALS: BP 120/76; PULSE 74
--- NOTE | 2017-01-13 14:50 | CON.PSL ---
Psychology Consult Consult Specialty:: Psychology Referred by:: Reason for Consultation:: Patient depressed and anxious due to Cancer Diagnosis. History Provided By: Patient Limitations to Obtaining History: No Limitations Current Medications: Active Medications Fluorouracil 3,825 mg/ Sodium (Chloride) 92 mls @ 2 mls/hr CP ONCE ONE Stop: 01/15/17 09:29 Irinotecan HCl 200 mg/ (Dextrose) 394.6 mls @ 263.067 mls/hr IVPB ONCE ONE PRN Reason: Protocol Stop: 01/13/17 15:14 Last Admin: 01/13/17 13:20 Dose: 263.067 mls/hr Sodium Chloride (Normal Saline -) 500 mls @ 250 mls/hr IV ONCE ONE Stop: 01/13/17 17:29 Allergies: Allergies Allergy/AdvReac Type Severity Reaction Status Date / Time latex Allergy Severe Itching Verified 07/16/16 17:48 Sulfa (Sulfonamide AdvReac generalized Verified 07/16/16 17:48 Antibiotics) weakness Does patient have pain?: No (Pt. denied experiencing pain.) Hx Alcohol Use: No Hx Substance Use: No Hx Substance Use Treatment: No - Family History Family History: Denies (She lives with her huband and her son has his own apartment in the same building. She denied significant health issues in family members.) Current Medical Exam-Psy Orientation: Time, Person, Place Immediate Term Memory: 12/31 Expressive: Coherent Receptive: Age Appropriate Comprehension of Spoken Words Hallucinations: Absent Thought Process: Intact Depression: Severe (Pt. shared that she has no support from her or son. this too is adding to her depressed feelings.) Hopelessness: No Loss of Interest: No (She indicated that she does not have any particular interests.) Anxiety Level: Severe (She did mention that she has a history of anxiety prior to this admission.) Danger to Self and Others: No Sleep: Difficulty falling asleep Appetite: Good (She states that she has no loss of appetite.) Serial Sevens Intact: No (She was able to spell WORLD backwards. 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 HRV biofeedback will be employed for both anxiety and depression. The patient indicated that she was receptive to the interventions.
== END 2017-01-13 16:15 | disposition home or self-care (01) ==
LOC: JONCCHEMO 06:57 → J7W 11:09 → JONCCHEMO 16:15
PROVIDERS: ATTEND Internal Medicine Hematology & Oncology
PROC: 3E04305 Introduction of Other Antineoplastic into Central Vein, Percutaneous Approach (ICD-10-PCS; principal; 2017-01-13)
PROC: 3E04305 Introduction of Other Antineoplastic into Central Vein, Percutaneous Approach (ICD-10-PCS; 2017-01-13)
PROC: 3E043GC Introduction of Other Therapeutic Substance into Central Vein, Percutaneous Approach (ICD-10-PCS; 2017-01-13)
PROC: 3E0437Z Introduction of Electrolytic and Water Balance Substance into Central Vein, Percutaneous Approach (ICD-10-PCS; 2017-01-13)
DX: Z51.11 Encounter for antineoplastic chemotherapy (principal); C18.7 Malignant neoplasm of sigmoid colon; C78.7 Secondary malignant neoplasm of liver and intrahepatic bile duct; F32.9 Major depressive disorder, single episode, unspecified; F41.8 Other specified anxiety disorders; F06.31 Mood disorder due to known physiological condition with depressive features
CPT/HCPCS: 96361; 96375; 96413; 96415; 96416; 96417; J0640; J1100; J2405; J7030; J9190; J9206; 36415; 71010-TC; 80053; 80076; 83735; 85025; 96367; G0498

== ENCOUNTER 2017-01-14 00:07 | Inpatient (IN) | payer OTHER ==
[2017-01-14 00:21] VITALS: BMI 33.1
[2017-01-14] MEDS ORDERED: SODIUM CHLORIDE 1,000 ML IV STA (00:37)
[2017-01-14] MEDS ORDERED: ONDANSETRON 4 MG/2 ML VIAL IVPB ONE (00:37)
[2017-01-14] MEDS ORDERED: HYDROmorphone HCL CARPU-JECT 1 MG/1 ML DISP.SYRIN IVPB ONE (00:37)
[2017-01-14] MEDS ORDERED: HYDROmorphone HCL CARPU-JECT 1 MG/1 ML DISP.SYRIN ONE (00:38)
[2017-01-14] MEDS ORDERED: ONDANSETRON 4 MG/2 ML VIAL ONE (00:38)
[2017-01-14 01:08] LABS: BASOPHIL 0.5 % (0-2.0); MCH 26.8 pg (25.7-33.7); MCHC 32.3 g/dl (32.0-36.0); MEAN CELL VOLUME 82.9 fl (80-96); MEAN PLT VOLUME 8.6 fl (7.5-11.1); NEUTROPHILS 83.6 % (42.8-82.8); PLATELET COUNT 331 K/MM3 (134-434); RDW 16.6 % (11.6-15.6); WHITE BLOOD COUNT 8.7 K/mm3 (4.0-10.0)
[2017-01-14 01:21] LABS: INR 1.15 (0.82-1.09); PROTHROMBIN TIME (PATIENT) 12.7 SEC (9.98-11.88)
[2017-01-14 01:23] LABS: ACTIVATED PTT 30.7 SECONDS (26.9-34.4)
[2017-01-14 01:32] LABS: ALBUMIN 3.7 g/dl (3.4-5.0); ANION GAP 12 (8-16); CALCIUM 9.5 mg/dL (8.5-10.1); CO2 23 mmol/L (21-32); CREATININE 0.8 mg/dL (0.55-1.02); GLUCOSE,RANDOM 125 mg/dL (74-106); MAGNESIUM 1.9 mg/dL (1.8-2.4); PHOSPHOROUS 2.4 mg/dL (2.5-4.9); SGOT/AST 11 U/L (15-37); SGPT/ALT 28 U/L (12-78); URIC ACID 3.6 mg/dL (2.6-7.2)
[2017-01-14 01:34] LABS: ALK PHOS 83 U/L (45-117); BILIRUBIN,TOTAL 0.4 mg/dL (0.2-1.0); TOT PROT 7.4 g/dl (6.4-8.2); TROPONIN I < 0.02 ng/ml (0.00-0.05)
[2017-01-14] MEDS ORDERED: LORAZEPAM CARPU-JECT 2 MG/ML DISP.SYRIN IVPUSH ONE ×2 (01:43→13:05)
--- NOTE | 2017-01-14 01:53 | PDOC ---
History of Present Illness - General History Source: Patient Exam Limitations: No Limitations <Cm Eugene - Last Filed: 01/14/17 01:58> - History of Present Illness Initial Comments: 01/14/17 02:05 Patient is a 46 year old female with significant medical hx of anemia, colon CA stage IV w/ metastasis to the liver and bilateral lungs (see surgical hx below) , chemotherapy, HTN, GERD, and anxiety who is presenting to the ED with nausea and vomiting for two days. Yesterday the patient was started on IV fluorouracil via chest port by Dr. Almaguer and began developing symptoms afterwards. Since then, the patient endorses feeling tired and restless with some diffuse body aches. She complains of some anxiety as well. The patient states that the last time she was started on new chemotherapy she was hospitalized for nausea and vomiting. Allergies: Latex, sulfa Surgical Hx: partial colon resection secondary to colon CA (08/2014), left lung resection w/ chest tube placement (12/2015) secondary to colon CA w/ mets to lung Social Hx: Denies tobacco, ETOH and recreational drug use. PMD: Martin Erickson MD [phone] Roll Sheeting Cutter: Riley Mcfarlane MD [phone] Implant Polisher: Satinder Andre MD [phone] Oncology/Hematology: Nazia Almaguer MD [phone] <Mulu Cameron - Last Filed: 01/14/17 02:12> - General Chief Complaint: Nausea/Vomiting Stated Complaint: HEADACHE Time Seen by Provider: 01/14/17 00:33 Past History - Past Medical History Anemia: Yes Asthma: No Cancer: Yes (COLON CA-SURGERY 09/11/2014 LUNG) Cardiac Disorders: Yes (tachycardia) CVA: No COPD: No CHF: No Dementia: No Diabetes: No GI Disorders: Yes (gerd) Disorders: No HTN: No Hypercholesterolemia: No Liver Disease: Yes (mets to liver) Psychiatric Problems: Yes (ANXIETY) Suicide Attempt (Hx): No Seizures: No Thyroid Disease: No Lung CA: Yes (bilateral lung) - Surgical History Abdominal Surgery: Yes (COLON CA-SURGERY 09/11/2014;03/2015 liver surgery) Appendectomy: No Cardiac Surgery: No Cholecystectomy: No GI Surgery: Yes (COLON CA-SURGERY 09/11/2014) Lung Surgery: No Neurologic Surgery: No Orthopedic Surgery: No - Psycho/Social/Smoking Cessation Hx Anxiety: No Suicidal Ideation: No Smoking Status: No Smoking History: Never smoked Have you smoked in the past 12 months: No Number of Cigarettes Smoked Daily: 0 Hx Alcohol Use: No Drug/Substance Use Hx: No Substance Use Type: None Hx Substance Use Treatment: No <Cm Eugene - Last Filed: 01/14/17 01:58> <Mulu Cameron - Last Filed: 01/14/17 02:12> - Past Medical History Allergies/Adverse Reactions: Allergies Allergy/AdvReac Type Severity Reaction Status Date / Time latex Allergy Severe Itching Verified 01/14/17 00:18 Sulfa (Sulfonamide AdvReac generalized Verified 01/14/17 00:18 Antibiotics) weakness Home Medications: Ambulatory Orders Metoprolol Tartrate [Lopressor -] 25 mg PO DAILY 02/03/16 Pantoprazole Sodium [Protonix -] 40 mg PO DAILY #30 tablet.ec 02/06/16 Lorazepam [Ativan] 1 mg PO BID MDD 3mg 11/18/16 Ondansetron [Ondansetron Odt] 8 mg PO TID PRN #30 tab.rapdis 11/20/16 Loperamide HCl [Imodium -] 1 tab PO ASDIR PRN 12/21/16 Prochlorperazine Maleate 10 mg PO Q8H PRN 12/21/16 Review of Systems - Review of Systems Comments:: 01/14/17 02:09 GENERAL/CONSTITUTIONAL: Body aches, fatigue. No fever or chills. HEAD, EYES, EARS, NOSE AND THROAT: No change in vision. No ear pain or discharge. No sore throat. CARDIOVASCULAR: No chest pain or shortness of breath. RESPIRATORY: No cough, wheezing, or hemoptysis. GASTROINTESTINAL: Nausea, vomiting. No diarrhea or constipation. GENITOURINARY: No dysuria, frequency, or change in urination. MUSCULOSKELETAL: No joint or muscle swelling or pain. No neck or back pain. SKIN: No rash NEUROLOGIC: No headache, vertigo, loss of consciousness, or change in strength/ sensation. PSYCHIATRIC: Anxiety. <Mulu Cameron - Last Filed: 01/14/17 02:12> *Physical Exam - Vital Signs Last Vital Signs Temp Pulse Resp BP Pulse Ox 98.3 F 85 18 115/94 100 01/14/17 00:18 01/14/17 00:18 01/14/17 00:18 01/14/17 00:18 01/14/17 00:18 <ValorieCm - Last Filed: 01/14/17 01:58> - Vital Signs Last Vital Signs Temp Pulse Resp BP Pulse Ox 98.3 F 85 18 115/94 100 01/14/17 00:18 01/14/17 00:18 01/14/17 00:18 01/14/17 00:18 01/14/17 00:18 - Physical Exam Comments: 01/14/17 02:10 GENERAL: Uncomfortable appearing, crying. Awake, alert, and fully oriented HEAD: No signs of trauma EYES: PERRLA, EOMI, sclera anicteric, conjunctiva clear ENT: Auricles normal inspection, hearing grossly normal, nares patent, oropharynx clear without exudates. Dry mucosa NECK: Normal ROM, supple, no lymphadenopathy, JVD, or masses LUNGS: Breath sounds equal, clear to auscultation bilaterally. No wheezes, and no crackles CHEST: Right sided chest port that is clean, dry, and intact. HEART: Regular rate and rhythm, normal S1 and S2, no murmurs, rubs or gallops ABDOMEN: Soft, nontender, normoactive bowel sounds. No guarding, no rebound. No masses EXTREMITIES: Normal range of motion, no edema. No clubbing or cyanosis. No cords, erythema, or tenderness NEUROLOGICAL: Cranial nerves II through XII grossly intact. Normal speech, normal gait SKIN: Warm, Dry, normal turgor, no rashes or lesions noted. ENDOCRINE: No increased thirst. No abnormal weight change. HEMATOLOGIC/LYMPHATIC: No anemia, easy bleeding, or history of blood clots. ALLERGIC/IMMUNOLOGIC: No hives or skin allergy. <Mulu Cameron - Last Filed: 01/14/17 02:12> ED Treatment Course - LABORATORY CBC & Chemistry Diagram: 01/14/17 00:55 01/14/17 00:55 - ADDITIONAL ORDERS Additional order review: Laboratory Results 01/14/17 01/14/17 01/14/17 00:55 00:55 00:55 INR 1.15 H PTT (Actin FS) 30.7 Sodium 140 Potassium 3.8 Chloride 105 Carbon Dioxide 23 Anion Gap 12 BUN 13 Creatinine 0.8 Creat Clearance w eGFR > 60 Random Glucose 125 H Uric Acid 3.6 Calcium 9.5 Phosphorus 2.4 L Magnesium 1.9 Total Bilirubin 0.4 D AST 11 L D ALT 28 Alkaline Phosphatase 83 Creatine Kinase 133 Troponin I < 0.02 Total Protein 7.4 Albumin 3.7 Serum , Qual Negative 01/14/17 00:55 RBC 3.54 L MCV 82.9 MCHC 32.3 RDW 16.6 H MPV 8.6 Neutrophils % 83.6 H D Lymphocytes % 12.1 D Monocytes % 3.8 Eosinophils % 0.0 D Basophils % 0.5 - Medications Given in the ED: ED Medications Discontinued Medications Generic Name Dose Route Start Last Admin Trade Name Freq PRN Reason Stop Dose Admin Hydromorphone HCl 1 mg 01/14/17 00:37 01/14/17 00:40 Dilaudid Injection - IVPB 01/14/17 00:38 1 mg ONCE ONE Administration Sodium Chloride 1,000 mls @ 1,000 mls/hr 01/14/17 00:37 01/14/17 00:40 Normal Saline - IV 01/14/17 01:36 1,000 mls/hr ASDIR STA Administration Ondansetron HCl 4 mg 01/14/17 00:37 01/14/17 00:41 Zofran Injection IVPB 01/14/17 00:38 4 mg ONCE ONE Administration <Cm Eugene - Last Filed: 01/14/17 01:58> - LABORATORY CBC & Chemistry Diagram: 01/14/17 00:55 01/14/17 00:55 - ADDITIONAL ORDERS Additional order review: Laboratory Results 01/14/17 01/14/17 01/14/17 00:55 00:55 00:55 INR 1.15 H PTT (Actin FS) 30.7 Sodium 140 Potassium 3.8 Chloride 105 Carbon Dioxide 23 Anion Gap 12 BUN 13 Creatinine 0.8 Creat Clearance w eGFR > 60 Random Glucose 125 H Uric Acid 3.6 Calcium 9.5 Phosphorus 2.4 L Magnesium 1.9 Total Bilirubin 0.4 D AST 11 L D ALT 28 Alkaline Phosphatase 83 Creatine Kinase 133 Troponin I < 0.02 Total Protein 7.4 Albumin 3.7 Serum , Qual Negative 01/14/17 00:55 RBC 3.54 L MCV 82.9 MCHC 32.3 RDW 16.6 H MPV 8.6 Neutrophils % 83.6 H D Lymphocytes % 12.1 D Monocytes % 3.8 Eosinophils % 0.0 D Basophils % 0.5 - Medications Given in the ED: ED Medications Discontinued Medications Generic Name Dose Route Start Last Admin Trade Name Filibertoq PRN Reason Stop Dose Admin Hydromorphone HCl 1 mg 01/14/17 00:37 01/14/17 00:40 Dilaudid Injection - IVPB 01/14/17 00:38 1 mg ONCE ONE Administration Sodium Chloride 1,000 mls @ 1,000 mls/hr 01/14/17 00:37 01/14/17 00:40 Normal Saline - IV 01/14/17 01:36 1,000 mls/hr ASDIR STA Administration Ondansetron HCl 4 mg 01/14/17 00:37 01/14/17 00:41 Zofran Injection IVPB 01/14/17 00:38 4 mg ONCE ONE Administration <Mulu Cameron - Last Filed: 01/14/17 02:12> Medical Decision Making - Medical Decision Making 01/14/17 01:58 A portion of this note was documented by scribe services under my direction. I have reviewed the details of the note, within reason, and agree with the documentation with the following case summary and management plan written by me. Patient treated in the ED. Nursing notes are reviewed and incorporated into the medical decision-making. Vital signs reviewed. Peripheral IV access obtained by the nurse, laboratory studies are drawn and sent, reviewed and interpreted by myself. Vital Signs Temp Pulse Resp BP Pulse Ox 98.3 F 85 18 115/94 100 01/14/17 00:18 01/14/17 00:18 01/14/17 00:18 01/14/17 00:18 01/14/17 00:18 46 year old female with past medical history of colon ca stage IV with metastasis to the liver and bilateral lungs, currently on chemotherapy, presents with nausea, vomiting, and diffuse body aches. Yesterday, the patient was initiated on IV chemotherapy via port (fluouroacil) in an outpatient unit by Dr. Almaguer. Since leaving the unit, the patient was experiencing diffuse body aches and pains with persistent nausea and vomiting. The patient has been unable to tolerate PO. She reports that the last time she had chemotherapy, she had to be admitted for these symptoms. The patient still remains on continuous chemotherapy. She is unable to tolerate PO medications. These symptoms are likely a side effect from the chemotherapy itself. Labs reviewed. IVF ordered. Patient unable to tolerate PO here in the ED. Case discussed with Dr. Erickson. He accepts the patient to med/surg admission under Dr. Grace. Case discussed in detail with admitting physician including history, physical exam and ancillary studies. Admitting physician has assumed care for the patient, will follow all pending diagnostics and will complete the evaluation and treatment. <Cm Eugene - Last Filed: 01/14/17 01:58> *DC/Admit/Observation/Transfer - Discharge Dispostion Admit: Yes <Cm Eugene - Last Filed: 01/14/17 01:58> - Attestations Scribe Attestion: 01/14/17 02:12 Documentation prepared by Mulu Cameron, acting as mobile paramedical examiner for Cm Eugene MD. <Mulu Cameron - Last Filed: 01/14/17 02:12> Diagnosis at time of Disposition: Vomiting Qualifiers: Vomiting type: unspecified Vomiting Intractability: intractable Nausea presence : with nausea Qualified Code(s): R11.2 - Nausea with vomiting, unspecified
[2017-01-14] MEDS ORDERED: LORAZEPAM CARPU-JECT 2 MG/ML DISP.SYRIN ONE (01:55)
[2017-01-14] MEDS: HYDROmorphone HCL CARPU-JECT 1 MG/1 ML DISP.SYRIN IVPB PRN ×3 (05:06→17:42)
[2017-01-14] MEDS ORDERED: DEXAMETHASONE SOD PHOSPHATE 10 MG/1 ML VIAL IVPB ONE (09:00)
--- NOTE | 2017-01-14 09:36 | EKG ---
Test Reason : Blood Pressure : / mmHG Vent. Rate : 080 BPM Atrial Rate : 080 BPM P-R Int : 168 ms QRS Dur : 076 ms QT Int : 386 ms P-R-T Axes : 031 014 012 degrees QTc Int : 445 ms NORMAL SINUS RHYTHM WITH SINUS ARRHYTHMIA WHEN COMPARED WITH ECG OF 22-NOV-2016 09:04, NO SIGNIFICANT CHANGE WAS FOUND Confirmed by FAUSTINO REINA MD ([id number]) on 01/14/2017 9:35:54 AM Referred By: Confirmed By:FAUSTINO REINA MD
[2017-01-14] MEDS: LORazepam 1 MG TABLET PO PRN ×2 (10:16→21:39)
[2017-01-14] MEDS: ONDANSETRON 4 MG/2 ML VIAL IVPB PRN (10:16)
[2017-01-14] MEDS: PANTOPRAZOLE 40 MG TABLET (FP) PO SCH (10:16)
--- NOTE | 2017-01-14 10:34 | CONSULT ---
Consult Consult Specialty:: Oncology Referred by:: Dr. 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) Cardio/Vascular: Yes: HTN, Other (tachycardia) Pulmonary: Yes: Other (resection of metasttic lung nodules on left , January 21, 2016;) Gastrointestinal: Yes: Constipation, GERD Hepatobiliary: Yes: Other (liver mets s/p resection 2015.) ...LMP: 08/12/15 ...: No Psych: Yes: Anxiety Endocrine: Yes: Other (Thyroid Nodules) - Past Surgical History Past Surgical History: Yes: None Additional Surgical History: Prior history of colon resection, liver resection, and lung resection - Alcohol/Substance Use Hx Alcohol Use: No History of Substance Use: reports: None - Smoking History Smoking history: Never smoked Have you smoked in the past 12 months: No Aproximately how many cigarettes per day: 0 - Social History Usual Living Arrangement: With Spouse 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 History of Recent Travel: No Home Medications - Allergies Allergies/Adverse Reactions: Allergies Allergy/AdvReac Type Severity Reaction Status Date / Time latex Allergy Severe Itching Verified 01/14/17 00:18 Sulfa (Sulfonamide AdvReac generalized Verified 01/14/17 00:18 Antibiotics) weakness - Home Medications Home Medications: Ambulatory Orders Metoprolol Tartrate [Lopressor -] 25 mg PO DAILY 02/03/16 Pantoprazole Sodium [Protonix -] 40 mg PO DAILY #30 tablet.ec 02/06/16 Lorazepam [Ativan] 1 mg PO BID MDD 3mg 11/18/16 Ondansetron [Ondansetron Odt] 8 mg PO TID PRN #30 tab.rapdis 11/20/16 Loperamide HCl [Imodium -] 1 tab PO ASDIR PRN 12/21/16 Prochlorperazine Maleate 10 mg PO Q8H PRN 12/21/16 Review of Systems - Review of Systems Constitutional: reports: Malaise, Weakness Eyes: denies: Blurred Vision, Photophobia HENT: denies: Throat Pain Neck: denies: Pain on Movement, Swollen Glands, Tenderness Cardiovascular: denies: Chest Pain, Shortness of Breath Respiratory: denies: SOB, SOB on Exertion Gastrointestinal: reports: Vomiting Genitourinary: denies: Burning, Dysuria Breasts: reports: No Symptoms Reported Musculoskeletal: reports: Muscle Weakness Integumentary: reports: No Symptoms Neurological: reports: Weakness, Other (near syncope) Endocrine: reports: No Symptoms Hematology/Lymphatic: denies: Easily Bruised, Excessive Bleeding, Swollen Glands Psychiatric: reports: Anxiety Physical Exam Vital Signs: Vital Signs Temperature 98 F 01/14/17 05:15 Pulse Rate 88 01/14/17 05:15 Respiratory Rate 20 01/14/17 05:15 Blood Pressure 114/68 01/14/17 05:15 O2 Sat by Pulse Oximetry (%) 98 01/14/17 05:15 Constitutional: Yes: Anxious, Mild Distress Eyes: Yes: EOM Intact, PERRL. No: Diplopia, Ptosis, Sclera Icterus HENT: Yes: Atraumatic, Normocephalic. No: Tonsillar Exudate Neck: Yes: Supple, Trachea Midline. No: Lymphadenopathy, Thyromegaly Cardiovascular: Yes: Regular Rate and Rhythm Respiratory: Yes: Regular, CTA Bilaterally Gastrointestinal: Yes: Normal Bowel Sounds, Soft. No: Hepatomegaly, Splenomegaly Renal/: No: CVA Tenderness - Left, CVA Tenderness - Right Breast(s): Yes: WNL Musculoskeletal: No: Back Pain, Muscle Pain Extremities: Yes: WNL Edema: No Integumentary: No: Bruising, Erythema, Jaundice Neurological: Yes: WNL ...Motor Strength: WNL Psychiatric: Yes: WNL Problem List - Problems (1) Vomiting Assessment/Plan: On chemotherapy with FOLFIRI - developed nausea, emesis despite anti-emetics and presented to E.R. Code(s): R11.10 - VOMITING, UNSPECIFIED Qualifiers: Vomiting type: unspecified Vomiting Intractability: intractable Nausea presence: with nausea Qualified Code(s): R11.2 - Nausea with vomiting , unspecified (2) Colon cancer Assessment/Plan: Metastatic colon ca with liver mets, s/p resection. and lung mets, s/p resection. Recurrence of ca at surgical lung resection margin. Begun on FOLFIRI with GI toxicity, nausea, emesis ,near syncope requiring admission. Code(s): C18.9 - MALIGNANT NEOPLASM OF COLON, UNSPECIFIED Qualifiers: Colon location: unspecified part of colon Qualified Code(s): C18.9 - Malignant neoplasm of colon, unspecified (3) Intractable pain Assessment/Plan: Back pain- discogenic disease- for N.S. assessment. Code(s): R52 - PAIN, UNSPECIFIED
[2017-01-14] MEDS: METOPROLOL SUCCINATE 25 MG TAB.SR.24H (FP) PO SCH (13:19)
--- NOTE | 2017-01-14 17:06 | HP ---
Admitting History and Physical - Primary Care Physician PCP: Martin Erickson - Admission Chief Complaint: I am having an anxiety attack History of Present Illness: Ms Arreaga is a very pleasant 46 year old female who came in for severe nausea and vomiting after chemotherapy. She has a history of metastatic colon cancer and is currently undergoing chemotherapy. She has a history of having nausea/ vomiting after chemotherapy that is usually followed by diarrhea. She received chemotherapy yesterday at the [facility]. At first she was doing well and was able to go home. In the evening she developed severe nausea with intractable vomiting which forced her to come into the hospital. She is currently not having diarrhea. Upon seeing she says she is having a severe anxiety attack. She says she has a history of these and they are often severe. In speaking with her I was able to calm her down however she did require IV ativan. She says aside from the nausea/vomiting and anxiety she is doing well. She has anorexia secondary to the nausea. She denies fevers, chills, lightheadedness, dizziness, passing out, chest pain, shortness of breath, diarrhea, difficulty or pain on urination, or swelling. She is hopeful that she will feel better and be able to go home tomorrow. 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) Cardiovascular: Yes: HTN, Other (tachycardia) Pulmonary: Yes: Other (resection of metasttic lung nodules on left , January 21, 2016;) Gastrointestinal: Yes: Constipation, GERD Hepatobiliary: Yes: Other (liver mets s/p resection 2015.) ...LMP: 08/12/15 ...: No Heme/Onc: Yes: Anemia, Other (colon cancer) Psych: Yes: Anxiety Endocrine: Yes: Other (Thyroid Nodules) - Past Surgical History Past Surgical History: Yes: Colectomy (partial) Additional Past Surgical History: liver and lung resection - Smoking History Smoking history: Never smoked Have you smoked in the past 12 months: No Aproximately how many cigarettes per day: 0 - Alcohol/Substance Use Hx Alcohol Use: No History of Substance Use: reports: None - Social History Usual Living Arrangement: Yes: With Spouse ADL: Independent 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 History of Recent Travel: No Home Medications - Allergies Allergies/Adverse Reactions: Allergies Allergy/AdvReac Type Severity Reaction Status Date / Time latex Allergy Severe Itching Verified 01/14/17 00:18 Sulfa (Sulfonamide AdvReac generalized Verified 01/14/17 00:18 Antibiotics) weakness - Home Medications Home Medications: Ambulatory Orders Metoprolol Tartrate [Lopressor -] 25 mg PO DAILY 02/03/16 Pantoprazole Sodium [Protonix -] 40 mg PO DAILY #30 tablet.ec 02/06/16 Lorazepam [Ativan] 1 mg PO BID MDD 3mg 11/18/16 Ondansetron [Ondansetron Odt] 8 mg PO TID PRN #30 tab.rapdis 11/20/16 Loperamide HCl [Imodium -] 1 tab PO ASDIR PRN 12/21/16 Prochlorperazine Maleate 10 mg PO Q8H PRN 12/21/16 Family Disease History - Family Disease History Family History: Unremarkable Review of Systems Findings/Remarks: Full review of systems obtained, as per HPI and otherwise negative Physical Examination Vital Signs: Vital Signs Temperature 98.5 F 01/14/17 15:16 Pulse Rate 80 01/14/17 15:16 Respiratory Rate 18 01/14/17 15:16 Blood Pressure 134/74 01/14/17 15:16 O2 Sat by Pulse Oximetry (%) 98 01/14/17 09:00 Constitutional: Yes: Anxious Eyes: Yes: Conjunctiva Clear, EOM Intact, PERRL HENT: Yes: Atraumatic, Normocephalic Cardiovascular: Yes: Regular Rate and Rhythm. No: Gallop, Murmur, Rub Respiratory: Yes: Regular, CTA Bilaterally. No: Rales, Rhonchi, Wheezes Gastrointestinal: Yes: Normal Bowel Sounds, Soft. No: Distention, Tenderness Extremities: Yes: WNL Edema: No Labs: Laboratory Results - last 24 hr 01/14/17 01/14/17 01/14/17 00:55 00:55 00:55 WBC 8.7 D RBC 3.54 L Hgb 9.5 L D Hct 29.4 L MCV 82.9 MCHC 32.3 RDW 16.6 H Plt Count 331 MPV 8.6 Neutrophils % 83.6 H D Lymphocytes % 12.1 D Monocytes % 3.8 Eosinophils % 0.0 D Basophils % 0.5 INR 1.15 H PTT (Actin FS) 30.7 Sodium 140 Potassium 3.8 Chloride 105 Carbon Dioxide 23 Anion Gap 12 BUN 13 Creatinine 0.8 Creat Clearance w eGFR > 60 Random Glucose 125 H Uric Acid 3.6 Calcium 9.5 Phosphorus 2.4 L Magnesium 1.9 Total Bilirubin 0.4 D AST 11 L D ALT 28 Alkaline Phosphatase 83 Creatine Kinase 133 Troponin I < 0.02 Total Protein 7.4 Albumin 3.7 Serum , Qual 01/14/17 00:55 WBC RBC Hgb Hct MCV MCHC RDW Plt Count MPV Neutrophils % Lymphocytes % Monocytes % Eosinophils % Basophils % INR PTT (Actin FS) Sodium Potassium Chloride Carbon Dioxide Anion Gap BUN Creatinine Creat Clearance w eGFR Random Glucose Uric Acid Calcium Phosphorus Magnesium Total Bilirubin AST ALT Alkaline Phosphatase Creatine Kinase Troponin I Total Protein Albumin Serum , Qual Negative Problem List - Problems (1) Nausea and vomiting Assessment/Plan: -secondary to chemotherapy -admitted for control and hydration -on anti-emetics -monitor for improvement -appreciate oncology assistance Code(s): R11.2 - NAUSEA WITH VOMITING, UNSPECIFIED (2) Anxiety Assessment/Plan: -given IV ativan, much improved -continue oral ativan Code(s): F41.9 - ANXIETY DISORDER, UNSPECIFIED (3) Metastatic colorectal cancer Assessment/Plan: -oncology following and managing chemotherapy -metastatic to liver and lung Code(s): C78.5 - SECONDARY MALIGNANT NEOPLASM OF LARGE INTESTINE AND RECTUM (4) HTN (hypertension) Assessment/Plan: -continue toprol Code(s): I10 - ESSENTIAL (PRIMARY) HYPERTENSION (5) Herniated disc Assessment/Plan: -Dr Almaguer stated had recent MRI showing herniated disc -will request neurosurgical consult Code(s): [id number] - Qualifiers: Mid-cervical spinal level: unspecified
[2017-01-14] MEDS: PROCHLORPERAZINE MALEATE 5 MG TABLET PO PRN (17:49)
[2017-01-14 22:40] LABS: URINE APPEARANCE CLEAR; URINE BILIRUBIN NEGATIVE (NEGATIVE); URINE BLOOD NEGATIVE (NEGATIVE); URINE COLOR YELLOW; URINE GLUCOSE (UA) NEGATIVE (NEGATIVE); URINE KETONE NEGATIVE (NEGATIVE); URINE LEUK ESTERASE NEGATIVE (NEGATIVE); URINE NITRITE NEGATIVE (NEGATIVE); URINE PROTEIN NEGATIVE (NEGATIVE); URINE UROBILINOGEN NEGATIVE E.U./dl (0.2-1.0)
[2017-01-15 07:34] LABS: BASOPHIL 0.1 % (0-2.0); MCHC 32.8 g/dl (32.0-36.0); MEAN CELL VOLUME 82.3 fl (80-96); MEAN PLT VOLUME 9.1 fl (7.5-11.1); NEUTROPHILS 74.5 % (42.8-82.8); PLATELET COUNT 255 K/MM3 (134-434); WHITE BLOOD COUNT 7.9 K/mm3 (4.0-10.0)
[2017-01-15 08:58] LABS: MAGNESIUM 2.2 mg/dL (1.8-2.4)
[2017-01-15 09:01] LABS: CREATININE 0.7 mg/dL (0.55-1.02)
--- NOTE | 2017-01-15 09:19 | PN ---
Progress Note (short form) - Note Progress Note: NEUROSURGERY CONSULT DICTATED H/o metastatic colon cancer with mets to liver and lungs diagnosed initially 2 1 /2 years ago s/p colon resection and subsequent lung wedge resection, was undergoing chemotherapy c/o nausea/vomiting. She received chemotherapy 2 days ago at the infusion center. No diarrhea. c/o anorexia secondary to the nausea. She denies fevers, chills, lightheadedness, dizziness, passing out, chest pain, shortness of breath, diarrhea, difficulty or pain on urination, or swelling. Had fallen several months ago and c/o LBP. Fell again the other day secondary to mild dizziness with mild low back stiffness but none presently. No sciatica, leg weakness/numbness. No B/B incontinence. PE: AF, VSS HEENT- NC/AT; Neck -supple; Cor- RRR; Lungs- CTA B; Abd- mildly obese, benign; Ext- no sign of DVT A/A/Ox4; speech normal CN- intact; Motor- 5/5 B UE/LE; Sensation- intact LT/vibration; DTR- hyporeflexia B UE/LE Back- no significant tenderness, negative SLR to 50 degrees B MRI LS spine (07/2016)- L L5-S1 paracentral disc protrusion with mild thecal sac and L S1 root impingement Currently asymptomatic L L5-S1 HNP No neurosurgical intervention indicated nor recommended given pt is not currently symptomatic Pros and cons of potential future tx discussed Neurontin, PT and pain management if significant recurrence LBP/radiculopathy Fall precaution urged
--- NOTE | 2017-01-15 09:59 | PN ---
Progress Note (short form) - Note Progress Note: PATIENT ADMITTED WITH CHEMO INDUCED GASTRITIS <> NAUSEA / VOMITING / DIARRHEA. FEELS BETTER TODAY <> STILL WITH NAUSEA / HASN'T EATEN YET. PATIENT RECEIVING CHEMO FOR COLON CA WITH METS . FOLLOWED BY DR DEE. Selected Entries 01/15/17 05:41 Temperature 98.4 F Pulse Rate 74 Respiratory 20 Rate Blood Pressure 118/69 Laboratory Tests 01/14/17 01/14/17 01/15/17 00:55 21:55 06:00 WBC 7.9 RBC 3.45 L Hgb 9.3 L Hct 28.4 L Plt Count 255 D Sodium Potassium Chloride Carbon Dioxide Anion Gap BUN Creatinine Random Glucose Calcium Phosphorus Magnesium Serum , Qual Negative Urine Color Yellow Urine Appearance Clear Urine pH 6.0 Ur Specific [place] 1.025 Urine Protein Negative Urine Glucose (UA) Negative Urine Ketones Negative Urine Blood Negative Urine Nitrite Negative Urine Bilirubin Negative Urine Urobilinogen Negative Ur Leukocyte Esterase Negative 01/15/17 06:00 WBC RBC Hgb Hct Plt Count Sodium 138 Potassium 3.8 Chloride 104 Carbon Dioxide 27 Anion Gap 7 L BUN 17 D Creatinine 0.7 Random Glucose 101 Calcium 9.0 Phosphorus 4.0 D Magnesium 2.2 Serum , Qual Urine Color Urine Appearance Urine pH Ur Specific [place] Urine Protein Urine Glucose (UA) Urine Ketones Urine Blood Urine Nitrite Urine Bilirubin Urine Urobilinogen Ur Leukocyte Esterase P/E AWAKE / COMFORTABLE / NO RESP / NO CARDIAC DISTRESS. HEENT <> NECK SUPPLE / CAROTIDS 2 + COR <> S 1 S 2 <> NO M / NO GALLOPS CHEST <> NO RHONCHI / NO CREPS ABD <> SOFT / NON TENDER IMP <> CHEMO INDUCED GASTRITIS COLON CA / METS LIVER LUNG. S/P RESECTION LUNG / LIVER METS <> NOW RECURRENCE AT LUNG RESECTION SITE. HTN PLAN : PER ONCOLOGY CONTINUE TOPROL FOR HTN ZOFRAN FOR NAUSEA. AWAIT ONCOLOGY EVAL FOLLOW LABS.
--- NOTE | 2017-01-15 10:23 | CONS ---
DATE OF CONSULTATION: DATE OF DICTATION: 01/15/2017 REQUESTING PHYSICIAN: Alcides Grace MD MANAGER OF SUSTAINABILITY: Vik Nayak MD, Neurosurgery. CHIEF COMPLAINT: Status post fall, initially with lower back pain. HISTORY OF PRESENT ILLNESS: The patient is a 46-year-old right-handed female with history of stage 4 colon CA with metastasis to the liver and lungs undergoing chemotherapy regimen, anemia, hypertension, gastroesophageal reflux disease, anxiety disorder, who was presented to the emergency room for 2-day history of increasing nausea and vomiting after chemotherapy treatments she had received. She had started on IV flurouracil through a port. She has had to be under the care of Dr. Andrade and Dr. Almaguer. The patient had felt some dizziness after treatment and fallen. She previously had experienced some lower back pain after a fall several months ago and had an MRI back in July. She denies any lower extremity weakness, numbness or tingling, has no sciatica. She has no bowel or bladder dysfunction. She has no fever or chills. PAST MEDICAL HISTORY: Significant for a colon resection for colon CA about 2-1/ 2 years ago, left lung resection for colonic metastasis. MEDICATIONS: Compazine, Zofran, Toprol XL, Dilaudid p.r.n., Protix. ALLERGIES: LATEX and SULFA. SOCIAL HISTORY: She does not smoke or drink. She lives at home. She does not work. REVIEW OF SYSTEMS: Otherwise negative for other major cardiovascular, pulmonary , gastrointestinal, genitourinary, endocrinologic, neurologic, or psychologic problems except for the above. She has no fever or chills at this time or other recent infection. PHYSICAL EXAMINATION: Vital signs: Temperature is 98.4, blood pressure is 118/69 with pulse rate of 74, O2 saturation 98% on room air. HEENT: Examination shows her to be normocephalic, atraumatic, anicteric. Neck: Supple with no nuchal rigidity. There is no carotid bruit. Coronary: Examination demonstrates a regular rhythm. Lungs: Clear bilaterally. Abdomen: Benign. Extremities: Examination shows no signs of DVT. She has brisk capillary refill. Neurologic: She is awake, alert, and is oriented x4. Her speech is normal. There is no other higher cortical dysfunction. Cranial nerve examination is intact 2- 12. Motor examination shows 5/5 strength without drift. Sensory examination intact to light touch. Deep tendon reflexes are hyporeflexic throughout. There is no pathological long tract sign. Her gait was not tested for safety reasons. Examination of the lower back demonstrated minimal paraspinal muscle spasm. She had negative straight leg raise to 50 degrees bilaterally. LABORATORY EXAMINATION: Shows white blood cell count is 7900, hemoglobin is 9.3 , hematocrit is 28.4, platelet count is 255,000. INR is 1.15, PTT 30.7. Serum sodium is 1386, potassium 3.8, BUN 17, creatinine 0.7. LFTs are normal. Troponin is less than 0.02. Albumin is 3.7. Nuclear bone scan last July demonstrated no significant osteoblastic bony metastasis. Slight uptake between the left posterior 7th and 8th rib space was noted, which might be related to prior surgery. MRI of the lumbar spine from August 03, 2016, demonstrated L5-S1 degenerative disc disease with left L5-S1 paracentral disc protrusion with mild thecal sac of left S1 nerve root impingement. There is osteophyte formation near the implant at L5-S1, right greater than left. There is facet arthrosis on multiple levels, but there is no significant neurological impingement at the other levels. IMPRESSION: 1. Stage 4 colon cancer with metastasis to the liver and the lungs. 2. Left L5-S1 paracentral disc protrusion, asymptomatic presently. 3. Anxiety disorder. 4. Hypertension. 5. Gastroesophageal reflux disease. RECOMMENDATIONS: The patient presents with no significant lower back pain or lumbar radiculopathy at this time. She has a negative straight leg raise bilaterally and has no focal neurological deficit at the time of my examination of the lower extremities today. She has generalized hyporeflexia. MRI demonstrated essential and left-sided L4-S1 paracentral disc protrusion with mild thecal sac of the left S1 nerve root impingement. However, since she has minimal to no symptoms at this time, no neurosurgical intervention is recommended, nor indicated. If she has recurrent symptoms, of course, the medical treatment including pharmacologic treatment with Neurontin, physical therapy, and potential pain management could be considered. That is not the case, at this time, however. The above was discussed with the patient at bedside. All questions were answered. The pros and cons of treatment approaches were reviewed. VIK NAYAK M.D. [id number] MTDD
[2017-01-15] MEDS: METOPROLOL SUCCINATE 25 MG TAB.SR.24H (FP) PO SCH (10:41)
[2017-01-15] MEDS: PANTOPRAZOLE 40 MG TABLET (FP) PO SCH (10:41)
[2017-01-15] MEDS: LORazepam 1 MG TABLET PO PRN ×2 (10:46→20:06)
--- NOTE | 2017-01-15 13:05 | PN ---
Progress Note (short form) - Note Progress Note: Patient seen and examined Completed infusional chemotherapy and pump disconnected. Still with nausea and emesis. Anxious Last Vital Signs Temp Pulse Resp BP Pulse Ox 98.4 F 74 20 118/69 98 01/15/17 05:41 01/15/17 05:41 01/15/17 05:41 01/15/17 05:41 01/14/17 21:00 HEENT: ELIDA, EOM Intact Oropharynx: No thrush, No mucositis Neck: Supple Cor: RSR, No murmurs, No gallops Lungs: Clear to P&A Abd: Soft, Normal bowel sounds, No organomegaly Ext:No significant edema Skin: No rashes, Integument intact CBC, BMP 01/15/17 06:00 01/15/17 06:00 Current Medications Generic Name Dose Route Start Last Admin Trade Name Freq PRN Reason Stop Dose Admin Hydromorphone HCl 1 mg 01/14/17 04:41 01/14/17 17:42 Dilaudid Injection - IVPB 1 mg Q3H PRN Administration PAIN Lorazepam 1 mg 01/14/17 08:47 01/15/17 10:46 Ativan - PO 1 mg BID PRN Administration Metoprolol Succinate 25 mg 01/14/17 10:30 01/15/17 10:41 Toprol Xl - PO 25 mg DAILY RUTH Administration Ondansetron HCl 8 mg 01/14/17 04:42 01/14/17 10:16 Zofran Injection IVPB 8 mg Q8H PRN Administration NAUSEA AND/OR VOMITING Pantoprazole Sodium 40 mg 01/14/17 10:00 01/15/17 10:41 Protonix - PO 40 mg DAILY RUTH Administration Prochlorperazine Maleate 10 mg 01/14/17 08:49 01/14/17 17:49 Compazine - PO 10 mg Q8H PRN Administration Impression: Metastatic colon ca with lung and liver mets. S/P lung and liver resection Chemotherapy induced GI toxicity. Anemia secondary to chemotherapy Plan: Continue to monitor p.o.intake I.V.S and anti- emetics. Discharge when adequate p.o.and no longer vomiting. Problem List - Problems (1) Vomiting Code(s): R11.10 - VOMITING, UNSPECIFIED Qualifiers: Vomiting type: unspecified Vomiting Intractability: intractable Nausea presence: with nausea Qualified Code(s): R11.2 - Nausea with vomiting , unspecified (2) Colon cancer Code(s): C18.9 - MALIGNANT NEOPLASM OF COLON, UNSPECIFIED Qualifiers: Colon location: unspecified part of colon Qualified Code(s): C18.9 - Malignant neoplasm of colon, unspecified (3) Intractable pain Code(s): R52 - PAIN, UNSPECIFIED
[2017-01-15] MEDS: ONDANSETRON 4 MG/2 ML VIAL IVPB PRN (19:02)
[2017-01-16] MEDS: ONDANSETRON 4 MG/2 ML VIAL IVPB PRN ×2 (06:50→16:56)
[2017-01-16] MEDS: LORazepam 1 MG TABLET PO PRN ×2 (06:57→22:48)
[2017-01-16 07:27] LABS: BASOPHIL 0.9 % (0-2.0); EOSINOPHIL 0.8 % (0-4.5); MCH 27.1 pg (25.7-33.7); MCHC 32.8 g/dl (32.0-36.0); MEAN CELL VOLUME 82.7 fl (80-96); MEAN PLT VOLUME 8.7 fl (7.5-11.1); PLATELET COUNT 253 K/MM3 (134-434); RDW 16.3 % (11.6-15.6); WHITE BLOOD COUNT 5.7 K/mm3 (4.0-10.0)
[2017-01-16 07:50] LABS: ALBUMIN 3.7 g/dl (3.4-5.0); ANION GAP 10 (8-16); BILIRUBIN,TOTAL 0.4 mg/dL (0.2-1.0); CALCIUM 8.9 mg/dL (8.5-10.1); CO2 26 mmol/L (21-32); CREATININE 0.7 mg/dL (0.55-1.02); GLUCOSE,RANDOM 100 mg/dL (74-106); MAGNESIUM 2.2 mg/dL (1.8-2.4); SGOT/AST 11 U/L (15-37); SGPT/ALT 23 U/L (12-78); TOT PROT 7.3 g/dl (6.4-8.2)
[2017-01-16 07:51] LABS: ALK PHOS 74 U/L (45-117)
--- NOTE | 2017-01-16 08:57 | PN ---
Progress Note (short form) - Note Progress Note: PATIENT STILL NAUSEOUS / CLAMS SHE VOMITED THIS AM. K + LOW <> IV K + ORDERED. CBC STABLE / ONCOLOGY FOLLOWUP APPRECIATED. COMPLETED CHEMO FOR COLON CA . Selected Entries Laboratory Tests Selected Entries 01/15/17 01/16/17 21:00 02:00 Temperature 99.9 F H Pulse Rate 78 Respiratory 18 Rate Blood Pressure 103/50 O2 Sat by Pulse 98 Oximetry (%) Oxygen Delivery Room Air Method Laboratory Tests 01/16/17 01/16/17 06:15 06:15 WBC 5.7 RBC 3.70 Hgb 10.0 L Hct 30.5 L MCV 82.7 MCHC 32.8 RDW 16.3 H Plt Count 253 Sodium 139 Potassium 3.2 L Chloride 103 Carbon Dioxide 26 Anion Gap 10 BUN 16 Creatinine 0.7 Creat Clearance w eGFR > 60 Random Glucose 100 Calcium 8.9 Magnesium 2.2 Total Bilirubin 0.4 AST 11 L ALT 23 Alkaline Phosphatase 74 Total Protein 7.3 Albumin 3.7 P/E AWAKE / COMFORTABLE / NO RESP / NO CARDIAC DISTRESS. HEENT <> NECK SUPPLE / CAROTIDS 2 + COR <> S 1 S 2 <> NO M / NO GALLOPS CHEST <> CLEAR P & A . ABD <> SOFT / NON TENDER IMP <> CHEMO INDUCED GASTRITIS HYPOK+ COLON CA / METS LIVER LUNG. S/P RESECTION LUNG / LIVER METS <> NOW RECURRENCE AT LUNG RESECTION SITE. HTN PLAN :REPLACE K+ SHE STATES SHE WANTS TO TRY TO EAT TODAY <> MAY NEED IV FLUIDS IF UNABLE TO TOLERATE DIET. I.V. K+ ORDERED. ONCOLOGY FOLLOWUP. HTN WELL CONTROLLED <> CONTINUE TOPROL. CONTINUE ZOFRAN FOR NAUSEA. REPEAT LABS IN AM.
[2017-01-16] MEDS: PANTOPRAZOLE 40 MG TABLET (FP) PO SCH (09:12)
[2017-01-16] MEDS: METOPROLOL SUCCINATE 25 MG TAB.SR.24H (FP) PO SCH (09:12)
[2017-01-16] MEDS ORDERED: KCL 10 MEQ IVPB 100 ML IVPB SCH (09:15)
--- NOTE | 2017-01-16 09:35 | PN ---
Progress Note (short form) - Note Progress Note: NEUROSURGERY In telemetry Some nausea still No LBP. No sciatica, leg weakness/numbness. No B/B incontinence. PE: Tmax 99.9, AF, VSS HEENT- NC/AT; Neck -supple; Cor- RRR; Lungs- CTA B; Abd- mildly obese, benign; Ext- no sign of DVT A/A/Ox4; speech normal CN- intact; Motor- 5/5 B UE/LE; Sensation- intact LT/vibration; DTR- hyporeflexia B UE/LE Back- no significant tenderness. MRI LS spine (07/2016)- L L5-S1 paracentral disc protrusion with mild thecal sac and L S1 root impingement WBC 5,7 (down from 8.7); Hgb 10 Currently asymptomatic L L5-S1 HNP No neurosurgical intervention indicated nor recommended given pt is not currently symptomatic Pros and cons of potential future tx discussed previously Neurontin, PT and pain management if significant recurrence LBP/radiculopathy Blood culture x2 given recent chemo and low grade temp
--- NOTE | 2017-01-16 10:01 | PN ---
Progress Note (short form) - Note Progress Note: Patient seen and examined Sleepy, but has received Ativan. States she had 3 episodes of nausea and emesis. Receiving IV Zofran and IV's. Denies abdominal pains. Last Vital Signs Temp Pulse Resp BP Pulse Ox 99.9 F H 78 18 103/50 98 01/16/17 02:00 01/16/17 02:00 01/16/17 02:00 01/16/17 02:00 01/15/17 21:00 HEENT: ELIDA, EOM Intact Oropharynx: No thrush, No mucositis Cor: RSR, No murmurs, No gallops Lungs: Clear to P&A Abd: Soft, Normal bowel sounds, No organomegaly Ext:No significant edema Skin: No rashes, Integument intact CBC, BMP 01/16/17 06:15 01/16/17 06:15 Current Medications Generic Name Dose Route Start Last Admin Trade Name Freq PRN Reason Stop Dose Admin Hydromorphone HCl 1 mg 01/14/17 04:41 01/14/17 17:42 Dilaudid Injection - IVPB 1 mg Q3H PRN Administration PAIN Potassium Chloride 100 mls @ 100 mls/hr 01/16/17 09:15 01/16/17 09:13 Potassium Chloride 10 Meq Premix Ivpb - IVPB 01/16/17 10:14 100 mls/hr Q60M RUTH Administration Lorazepam 1 mg 01/14/17 08:47 01/16/17 06:57 Ativan - PO 1 mg BID PRN Administration Metoprolol Succinate 25 mg 01/14/17 10:30 01/16/17 09:12 Toprol Xl - PO 25 mg DAILY RUTH Administration Ondansetron HCl 8 mg 01/14/17 04:42 01/16/17 06:50 Zofran Injection IVPB 8 mg Q8H PRN Administration NAUSEA AND/OR VOMITING Pantoprazole Sodium 40 mg 01/14/17 10:00 01/16/17 09:12 Protonix - PO 40 mg DAILY RUTH Administration Prochlorperazine Maleate 10 mg 01/14/17 08:49 01/14/17 17:49 Compazine - PO 10 mg Q8H PRN Administration Impression: Metastatic colon ca with lung and liver mets. S/p lung and liver resection Recurrence at lung resection margin. S/p CHEMOTHERAPY WITH FOLFIRI GI toxicity with nausea and emesis. Anemia secondary to disease and chemotherapy Hypokalemia- secondary to emesis. Plan: Monitor p.o. Replete K+. IV's and anti-emetics as is necessary. Problem List - Problems (1) Vomiting Code(s): R11.10 - VOMITING, UNSPECIFIED Qualifiers: Vomiting type: unspecified Vomiting Intractability: intractable Nausea presence: with nausea Qualified Code(s): R11.2 - Nausea with vomiting , unspecified (2) Colon cancer Code(s): C18.9 - MALIGNANT NEOPLASM OF COLON, UNSPECIFIED Qualifiers: Colon location: unspecified part of colon Qualified Code(s): C18.9 - Malignant neoplasm of colon, unspecified (3) Intractable pain Code(s): R52 - PAIN, UNSPECIFIED
[2017-01-16] MEDS ORDERED: PT OWN MED DRAWER 7, Y5N ONE (16:20)
[2017-01-16] MEDS: PROCHLORPERAZINE MALEATE 5 MG TABLET PO PRN (16:24)
[2017-01-16] MEDS: HYDROmorphone HCL CARPU-JECT 1 MG/1 ML DISP.SYRIN IVPB PRN (16:38)
[2017-01-17 07:03] LABS: BASOPHIL 0.6 % (0-2.0); EOSINOPHIL 1.8 % (0-4.5); MCH 26.7 pg (25.7-33.7); MCHC 32.5 g/dl (32.0-36.0); MEAN CELL VOLUME 82.2 fl (80-96); MEAN PLT VOLUME 8.5 fl (7.5-11.1); NEUTROPHILS 58.1 % (42.8-82.8); PLATELET COUNT 254 K/MM3 (134-434); RDW 16.5 % (11.6-15.6); WHITE BLOOD COUNT 5.7 K/mm3 (4.0-10.0)
[2017-01-17 07:30] LABS: ALBUMIN 3.5 g/dl (3.4-5.0); ANION GAP 11 (8-16); BILIRUBIN,TOTAL 0.6 mg/dL (0.2-1.0); CALCIUM 8.9 mg/dL (8.5-10.1); CO2 27 mmol/L (21-32); CREATININE 0.7 mg/dL (0.55-1.02); GLUCOSE,RANDOM 105 mg/dL (74-106); SGOT/AST 16 U/L (15-37); SGPT/ALT 24 U/L (12-78)
[2017-01-17 07:31] LABS: ALK PHOS 69 U/L (45-117)
--- NOTE | 2017-01-17 08:57 | PN ---
Progress Note (short form) - Note Progress Note: NEUROSURGERY In telemetry Some nausea still No new back complaint or sciatica PE: Tmax 98.3, AF, VSS HEENT- NC/AT; Neck -supple; Cor- RRR; Lungs- CTA B; Abd- mildly obese, benign; Ext- no sign of DVT A/A/Ox4; speech normal CN- intact; Motor- 5/5 B UE/LE; Sensation- intact LT/vibration; DTR- hyporeflexia B UE/LE Back- no significant tenderness. MRI LS spine (07/2016)- L L5-S1 paracentral disc protrusion with mild thecal sac and L S1 root impingement WBC 5,7 (down from 8.7); Hgb 10 Blood culture pending Urine culture negative Currently asymptomatic L L5-S1 HNP No neurosurgical intervention indicated nor recommended given pt is not currently symptomatic Will sign off, reconsult PRN Neurontin, PT and pain management if significant recurrent LBP/radiculopathy
[2017-01-17] MEDS: PANTOPRAZOLE 40 MG TABLET (FP) PO SCH (09:28)
[2017-01-17] MEDS: METOPROLOL SUCCINATE 25 MG TAB.SR.24H (FP) PO SCH (09:28)
--- NOTE | 2017-01-17 12:39 | PN ---
Progress Note, Physician Chief Complaint: Mrs Arreaga says she is feeling better today. Nausea currently resolved and trying a regular diet. No cp or sob. - Current Medication List Current Medications: Active Medications Hydromorphone HCl (Dilaudid Injection -) 1 mg IVPB Q3H PRN PRN Reason: PAIN Last Admin: 01/16/17 16:38 Dose: 1 mg Lorazepam (Ativan -) 1 mg PO BID PRN Last Admin: 01/16/17 22:48 Dose: 1 mg Metoprolol Succinate (Toprol Xl -) 25 mg PO DAILY [facility] Last Admin: 01/17/17 09:28 Dose: 25 mg Ondansetron HCl (Zofran Injection) 8 mg IVPB Q8H PRN PRN Reason: NAUSEA AND/OR VOMITING Last Admin: 01/16/17 16:56 Dose: 8 mg Pantoprazole Sodium (Protonix -) 40 mg PO DAILY [facility] Last Admin: 01/17/17 09:28 Dose: 40 mg Prochlorperazine Maleate (Compazine -) 10 mg PO Q8H PRN Last Admin: 01/16/17 16:24 Dose: 10 mg - Objective Vital Signs: Vital Signs Temperature 98.5 F 01/17/17 10:00 Pulse Rate 83 01/17/17 10:00 Respiratory Rate 18 01/17/17 10:00 Blood Pressure 132/82 01/17/17 10:00 O2 Sat by Pulse Oximetry (%) 99 01/17/17 09:00 Constitutional: Yes: Well Nourished, No Distress, Calm Cardiovascular: Yes: Regular Rate and Rhythm. No: Gallop, Murmur, Rub Respiratory: Yes: Regular, CTA Bilaterally. No: Rales, Rhonchi, Wheezes Gastrointestinal: Yes: Normal Bowel Sounds, Soft. No: Distention, Tenderness Extremities: Yes: WNL Edema: No Labs: CBC, BMP 01/17/17 05:35 01/17/17 05:35 INR, PTT INR 1.15 (0.82-1.09) H 01/14/17 00:55 Problem List - Problems (1) Nausea and vomiting Code(s): R11.2 - NAUSEA WITH VOMITING, UNSPECIFIED (2) Anxiety Code(s): F41.9 - ANXIETY DISORDER, UNSPECIFIED (3) Metastatic colorectal cancer Code(s): C78.5 - SECONDARY MALIGNANT NEOPLASM OF LARGE INTESTINE AND RECTUM (4) HTN (hypertension) Code(s): I10 - ESSENTIAL (PRIMARY) HYPERTENSION (5) Herniated disc Code(s): [id number] - Qualifiers: Mid-cervical spinal level: unspecified Assessment/Plan (1) Nausea and vomiting Assessment/Plan: -much improved today -trying regular diet -possible discharge tomorrow Code(s): R11.2 - NAUSEA WITH VOMITING, UNSPECIFIED (2) Anxiety Assessment/Plan: -continue oral ativan Code(s): F41.9 - ANXIETY DISORDER, UNSPECIFIED (3) Metastatic colorectal cancer Assessment/Plan: -oncology following and managing chemotherapy -metastatic to liver and lung Code(s): C78.5 - SECONDARY MALIGNANT NEOPLASM OF LARGE INTESTINE AND RECTUM (4) HTN (hypertension) Assessment/Plan: -continue toprol Code(s): I10 - ESSENTIAL (PRIMARY) HYPERTENSION (5) Herniated disc Assessment/Plan: -appreciate neurosurgical assistance -no current intervention needed Code(s): [id number] - Qualifiers: Mid-cervical spinal level: unspecified
[2017-01-17] MEDS ORDERED: PT OWN MED DRAWER 7, Y5N ONE (16:38)
[2017-01-17] MEDS: PROCHLORPERAZINE MALEATE 5 MG TABLET PO PRN (16:39)
[2017-01-17] MEDS: LORazepam 1 MG TABLET PO PRN (16:44)
[2017-01-17] MEDS ORDERED: KCL 10 MEQ IVPB 100 ML IVPB SCH (18:00)
--- NOTE | 2017-01-17 18:12 | PN ---
Progress Note (short form) - Note Progress Note: PAtient seen and examined c/o nausea very tearful denies any cough/SOB/abdomnal pain/diarrhea very tearful and anxious and scared Last Vital Signs Temp Pulse Resp BP Pulse Ox 98.5 F 84 18 120/90 99 01/17/17 17:01 01/17/17 17:01 01/17/17 17:01 01/17/17 17:01 01/17/17 09:00 Cor: RSR, No murmurs, No gallops Lungs: Clear to P&A Abd: Soft, Normal bowel sounds, No organomegaly Ext:No significant edema Skin: No rashes, Integument intact Abnormal Lab Results 01/17/17 05:35 Hgb 9.9 L Hct 30.6 L RDW 16.5 H Monocytes % 2.9 L Current Medications Duloxetine HCl (Cymbalta -) 30 mg PO DAILY [facility] Hydromorphone HCl (Dilaudid Injection -) 1 mg IVPB Q3H PRN PRN Reason: PAIN Last Admin: 01/16/17 16:38 Dose: 1 mg Potassium Chloride (Potassium Chloride 10 Meq Premix Ivpb -) 100 mls @ 100 mls/ hr IVPB Q60M [facility] Stop: 01/17/17 18:59 Lorazepam (Ativan -) 1 mg PO BID PRN Last Admin: 01/17/17 16:44 Dose: 1 mg Metoprolol Succinate (Toprol Xl -) 25 mg PO DAILY [facility] Last Admin: 01/17/17 09:28 Dose: 25 mg Ondansetron HCl (Zofran Injection) 8 mg IVPB Q8H PRN PRN Reason: NAUSEA AND/OR VOMITING Last Admin: 01/16/17 16:56 Dose: 8 mg Pantoprazole Sodium (Protonix -) 40 mg PO DAILY [facility] Last Admin: 01/17/17 09:28 Dose: 40 mg Prochlorperazine Maleate (Compazine -) 10 mg PO Q8H PRN Last Admin: 01/17/17 16:39 Dose: 10 mg A/P 46 y/o patient with metastatic rectal cancer C3 D5 FOLFIRI, dose reduced, came in with nausea vomiting On Zofran. Slowly improving Will consult psych/palliative care regaring depression/anxiety. PAtient reports that she is very scared of her diagnosis and fearful about recurrence. Counselled her and asked her to take it day at a time. She is anxious about the PET scan thats coming up start cymbalta Replete potassium monitor lytes
[2017-01-18 06:58] LABS: BASOPHIL 0.6 % (0-2.0); EOSINOPHIL 1.6 % (0-4.5); MCH 26.7 pg (25.7-33.7); MCHC 32.4 g/dl (32.0-36.0); MEAN CELL VOLUME 82.5 fl (80-96); MEAN PLT VOLUME 9.1 fl (7.5-11.1); NEUTROPHILS 54.5 % (42.8-82.8); PLATELET COUNT 286 K/MM3 (134-434); RDW 15.9 % (11.6-15.6); WHITE BLOOD COUNT 5.9 K/mm3 (4.0-10.0)
[2017-01-18 07:12] LABS: ALBUMIN 3.6 g/dl (3.4-5.0); ALK PHOS 69 U/L (45-117); ANION GAP 10 (8-16); BILIRUBIN,TOTAL 0.4 mg/dL (0.2-1.0); CALCIUM 8.9 mg/dL (8.5-10.1); CO2 28 mmol/L (21-32); CREATININE 0.8 mg/dL (0.55-1.02); GLUCOSE,RANDOM 113 mg/dL (74-106); MAGNESIUM 2.3 mg/dL (1.8-2.4); PHOSPHOROUS 4.2 mg/dL (2.5-4.9); SGOT/AST 33 U/L (15-37); SGPT/ALT 42 U/L (12-78)
[2017-01-18] MEDS: PANTOPRAZOLE 40 MG TABLET (FP) PO SCH (09:38)
[2017-01-18] MEDS: METOPROLOL SUCCINATE 25 MG TAB.SR.24H (FP) PO SCH (09:38)
[2017-01-18] MEDS: LORazepam 1 MG TABLET PO PRN (09:38)
[2017-01-18] MEDS ORDERED: DULoxetine HCL 20 MG CAPSULE.DR (FP) PO SCH ×2 (10:00)
[2017-01-18] MEDS ORDERED: DULoxetine HCL 30 MG CAPSULE.DR (FP) PO SCH (10:00)
--- NOTE | 2017-01-18 10:40 | DS ---
Physical Examination Vital Signs: Vital Signs Temperature 98 F 01/18/17 05:59 Pulse Rate 78 01/18/17 05:59 Respiratory Rate 18 01/18/17 05:59 Blood Pressure 110/69 01/18/17 05:59 O2 Sat by Pulse Oximetry (%) 99 01/17/17 20:18 Constitutional: Yes: Well Nourished, No Distress, Calm Cardiovascular: Yes: Regular Rate and Rhythm. No: Gallop, Murmur, Rub Respiratory: Yes: Regular, CTA Bilaterally. No: Rales, Rhonchi, Wheezes Gastrointestinal: Yes: Normal Bowel Sounds, Soft. No: Distention, Tenderness Extremities: Yes: WNL Edema: No Labs: CBC, BMP 01/18/17 05:35 01/18/17 05:35 Discharge Summary Reason For Visit: UNCONTROLLABLE VOMITING Current Active Problems Abdominal pain (Acute) Adnexal cyst (Acute) Anxiety (Acute) Colitis (Acute) Colon wall thickening (Acute) Epigastric abdominal pain (Acute) HTN (hypertension) (Acute) Herniated disc (Acute) Metastatic colorectal cancer (Acute) Nausea and vomiting (Acute) Vomiting (Acute) Hospital Course: (1) Nausea and vomiting Code(s): R11.2 - NAUSEA WITH VOMITING, UNSPECIFIED (2) Anxiety Code(s): F41.9 - ANXIETY DISORDER, UNSPECIFIED (3) Metastatic colorectal cancer Code(s): C78.5 - SECONDARY MALIGNANT NEOPLASM OF LARGE INTESTINE AND RECTUM (4) HTN (hypertension) Code(s): I10 - ESSENTIAL (PRIMARY) HYPERTENSION (5) Herniated disc Code(s): [id number] - Qualifiers: Mid-cervical spinal level: unspecified Mrs Arreaga is a very pleasant 46 year old female who comes in with intractable nausea/vomiting secondary to chemotherapy. She was admitted and given IVF, IV antiemetics, and started on a clear liquid diet. She was continued on this and her diet was advanced. Today she says she is feeling better and tolerating a regular diet. She is only taking oral antiemtics as well. She was seen by neurosurgery and will be followed up as an outpatient. Psychiatry consult was broached but patient is currently declining. Can be done as an outpatient if patient feels she needs this. Currently stable for discharge home. Condition: Good - Instructions Diet, Activity, Other Instructions: resume previous diet and activity Referrals: Martin Erickson MD [Staff Physician] - Rosina Mandujano MD [Staff Physician] - Disposition: HOME - Home Medications Comprehensive Discharge Medication List: Ambulatory Orders Metoprolol Tartrate [Lopressor -] 25 mg PO DAILY 02/03/16 Pantoprazole Sodium [Protonix -] 40 mg PO DAILY #30 tablet.ec 02/06/16 Lorazepam [Ativan] 1 mg PO BID MDD 3mg 11/18/16 Ondansetron [Zofran *Odt*] 8 mg PO TID PRN #30 tab.rapdis 11/20/16 Loperamide HCl [Imodium -] 1 tab PO ASDIR PRN 12/21/16 Prochlorperazine Maleate 10 mg PO Q8H PRN 12/21/16
[2017-01-18 11:28] VITALS: BP 123/71; PULSE 96; TEMP 97.8
--- NOTE | 2017-01-18 12:09 | PN ---
Progress Note (short form) - Note Progress Note: The patient was seen today. She was smiling and communicative. She did not complain of pain and her mood was euthymic. She is accepting her diagnosis and intends to seek support through various resources. The patient will inquire of a support group for cancer patients. In addition, she indicated that she plans to continue with psychological counseling. We discussed the possible treatments available in psychological practice that can be of benefit to her. The patient was receptive to the suggestions. Zachariah Sharpe Psy.D.
== END 2017-01-18 14:09 | disposition home or self-care (01) | DRG 392 ==
LOC: JER 00:07 → JERBED 02:04 → UNDOADMIN 02:32 → J7W 04:50 → J4S 01-15 15:41
PROVIDERS: ADMIT Internal Medicine; ATTEND Internal Medicine
DX: K29.60 Other gastritis without bleeding (principal); C18.9 Malignant neoplasm of colon, unspecified; C78.7 Secondary malignant neoplasm of liver and intrahepatic bile duct; C78.02 Secondary malignant neoplasm of left lung; C78.01 Secondary malignant neoplasm of right lung; E87.6 Hypokalemia; D64.9 Anemia, unspecified; T45.1X5A Adverse effect of antineoplastic and immunosuppressive drugs, initial encounter; K21.9 Gastro-esophageal reflux disease without esophagitis; F41.9 Anxiety disorder, unspecified; R63.0 Anorexia; M51.27 Other intervertebral disc displacement, lumbosacral region; I10 Essential (primary) hypertension; D64.81 Anemia due to antineoplastic chemotherapy
CPT/HCPCS: 36415; 80048; 80053; 81003; 82550; 83735; 84100; 84484; 84550; 84703; 85025; 85610; 85730; 87040; 87086; 93005; 93010; 99282-25

== ENCOUNTER 2017-03-30 07:21 | Day surgery (SDC) | payer OTHER ==
[2017-03-29 10:35] VITALS: BMI 32.8
[2017-03-30 07:52] LABS: BASOPHIL 0.6 % (0-2.0); EOSINOPHIL 1.8 % (0-4.5); MCH 24.4 pg (25.7-33.7); MCHC 31.7 g/dl (32.0-36.0); MEAN CELL VOLUME 76.9 fl (80-96); MEAN PLT VOLUME 8.8 fl (7.5-11.1); PLATELET COUNT 236 K/MM3 (134-434); RDW 18.6 % (11.6-15.6); WHITE BLOOD COUNT 6.9 K/mm3 (4.0-10.0)
[2017-03-30 08:22] LABS: INR 1.04 (0.82-1.09); PROTHROMBIN TIME (PATIENT) 11.5 SEC (9.98-11.88)
[2017-03-30 13:47] VITALS: TEMP 98.2
[2017-03-30 15:23] VITALS: BP 137/79; PULSE 82
--- NOTE | 2017-04-01 14:29 | PATH ---
Surgical Pathology Report Patient Name: KARLA MORENO [facility]. Rec. #: [id number] /Age/Gender: 1970 (Age: 46) / F Account: [id number] Location: RADIOLOGY Taken: 03/30/2017 Received: 03/30/2017 Reported: 04/01/2017 Physicians: Jimbo Dial M.D. Genet Dial M.D. Specimen(s) Received RIGHT LUNG CORE BIOPSY Clinical History 46-year-old female with history of colon cancer and right lung mets status post wedge resection now with increased density in surgical bed (PET+). Final Diagnosis LUNG, RIGHT LOWER LOBE, CT GUIDED CORE BIOPSY: INVOLVEMENT BY ADENOCARCINOMA, CONSISTENT WITH LOWER GI ORIGIN (SEE COMMENT). Comment: Prior history of colon cancer with lung metastasis, s/p wedge resection is noted. Immunohistochemical stains performed and interpreted [facility] show the following: the tumor cells are positive for CK20 immunostain and are negative for CK7 and TTF1. Additional immunohistochemical stains performed at [place], [place] ([id number]) and interpreted at [facility] show that tumor cells are positive for CDX2 and SATB2 immunostains. The morphologic findings and the immunoprofile are consistent with involvement by metastatic adenocarcinoma of lower GI origin. The case was discussed with Dr. Mandujano on . Electronically Signed Juan Manuel Martinez M.D. Gross Description Received in formalin labeled "right lung biopsy" are 2 jack, cylindrical portions of soft tissue measuring 0.6 and 0.8 cm in length and averaging 0.1 cm in diameter. The specimens are submitted in toto in one cassette. DL/03/30/2017 saudi03/30/2017
== END 2017-03-30 15:05 | disposition home or self-care (01) ==
LOC: JRADIR 07:21
PROVIDERS: ATTEND Surgery
PROC: BB24ZZZ Computerized Tomography (CT Scan) of Bilateral Lungs (ICD-10-PCS; principal; 2017-03-30)
PROC: 0BBF3ZX Excision of Right Lower Lung Lobe, Percutaneous Approach, Diagnostic (ICD-10-PCS; 2017-03-30)
DX: D38.1 Neoplasm of uncertain behavior of trachea, bronchus and lung (principal); Z85.038 Personal history of other malignant neoplasm of large intestine; Z85.118 Personal history of other malignant neoplasm of bronchus and lung
CPT/HCPCS: 32405; 36415; 71010-TC; 77012-TC; 84703; 85025; 85610; 88305-TC; 88341-TC; 88342-TC

== ENCOUNTER 2017-05-14 11:53 | Day surgery (SDC) | payer OTHER, BC ==
[~2017-05-14 11:53] MED LIST changes: -ATROPINE SO4 0.4 MG/1 ML VIAL SQ ONE; -DEXTROSE 5% IVPB ONE; -FLUOROURACIL CP ONE; -IRINOTECAN HCL IVPB ONE; +IRON SUCROSE INJECTION 100 MG in SODIUM CHLORIDE 100 ML IVPB ONE; -LEUCOVORIN INJECTION - 852 MG in DEXTROSE 5%-WATER - 250 ML IVPB ONE; -ONDANSETRON INJECTION 12 MG, DEXAMETHASONE INJECTION 10 MG in SODIUM CHLORIDE 100 ML IVPB ONE; -SODIUM CHLORIDE CP ONE; -WATER IVPB ONE
[2017-05-14] MEDS ORDERED: IRON SUCROSE INJECTION 100 MG in SODIUM CHLORIDE 100 ML IVPB ONE (12:15)
[2017-05-14 12:30] VITALS: TEMP 98.7
[2017-05-14 12:31] LABS: MCH 25.2 pg (25.7-33.7); MCHC 31.6 g/dl (32.0-36.0); MEAN CELL VOLUME 79.6 fl (80-96); MEAN PLT VOLUME 9.1 fl (7.5-11.1); PLATELET COUNT 175 K/MM3 (134-434); RDW 22.3 % (11.6-15.6); WHITE BLOOD COUNT 6.6 K/mm3 (4.0-10.0)
[2017-05-14 12:49] LABS: INR 1.04 (0.82-1.09); PROTHROMBIN TIME (PATIENT) 11.4 SEC (9.98-11.88)
[2017-05-14 12:51] LABS: ACTIVATED PTT 33.2 SECONDS (26.9-34.4)
[2017-05-14 12:56] LABS: ALBUMIN 3.5 g/dl (3.4-5.0); ANION GAP 6 (8-16); BILIRUBIN,TOTAL 0.2 mg/dL (0.2-1.0); CALCIUM 8.5 mg/dL (8.5-10.1); CO2 26 mmol/L (21-32); CREATININE 0.6 mg/dL (0.55-1.02); GLUCOSE,RANDOM 96 mg/dL (74-106); SGOT/AST 15 U/L (15-37); SGPT/ALT 23 U/L (12-78); TOT PROT 6.9 g/dl (6.4-8.2)
[2017-05-14 12:57] LABS: ALK PHOS 61 U/L (45-117)
[2017-05-14 13:05] LABS: HYPOCHROMIA 1+
[2017-05-14 13:06] LABS: ANISOCYTOSIS 2+; PLATELET ESTIMATE ADEQUATE (NORMAL)
[2017-05-14 15:36] VITALS: BP 130/70; PULSE 74
== END 2017-05-14 14:58 | disposition home or self-care (01) ==
LOC: JONCNONCHE 11:53 → J7W 11:54 → JONCNONCHE 14:58
PROVIDERS: ATTEND Internal Medicine Hematology & Oncology
PROC: 3E033GC Introduction of Other Therapeutic Substance into Peripheral Vein, Percutaneous Approach (ICD-10-PCS; principal; 2017-05-14)
DX: D50.9 Iron deficiency anemia, unspecified (principal); C18.7 Malignant neoplasm of sigmoid colon; K90.9 Intestinal malabsorption, unspecified
CPT/HCPCS: 36415; 80053; 85027; 85610; 85730; 86850; 86900; 86901; 96365; J1756

== ENCOUNTER 2017-05-16 05:09 | Inpatient (IN) | payer OTHER, BC ==
[2017-05-13 11:21] VITALS: BMI 31.9
[2017-05-16] MEDS ORDERED: DESFLURANE GAS 240 ML BOTTLE IH ONE (06:56)
[2017-05-16] MEDS ORDERED: ROCURONIUM BROMIDE 50 MG/5 ML VIAL ONE ×3 (06:59→10:37)
[2017-05-16] MEDS ORDERED: PROPOFOL 20 ML ONE ×2 (06:59)
[2017-05-16] MEDS ORDERED: MIDAZOLAM HCL 2 MG/2 ML SINGLE DOSE VIAL ONE ×3 (07:00)
[2017-05-16] MEDS ORDERED: LIDOCAINE HCL 2% 100 MG/5 ML DISP.SYRIN ONE (07:00)
[2017-05-16] MEDS ORDERED: LIDOCAINE HCL/PF 2% SDV 5ML VIAL ONE (07:08)
[2017-05-16] MEDS ORDERED: BUPIVACAINE HCL/PF 0.5% (5MG/ML) 10 ML VIAL ONE (07:18)
[2017-05-16] MEDS ORDERED: ceFAZolin SODIUM 1 GM VIAL IVPB ONE (09:10)
[2017-05-16] MEDS ORDERED: BUPIVACAINE HCL/PF 0.5% (5MG/ML) 10 ML VIAL IJ ONE (09:14)
[2017-05-16] MEDS ORDERED: PHENYLEPHRINE HCL 10 MG/1 ML SINGLE DOSE VIAL ONE (09:42)
[2017-05-16] MEDS ORDERED: PROMETHAZINE HCL 25 MG/1 ML VIAL IVPUSH PRN (09:49)
[2017-05-16] MEDS ORDERED: ONDANSETRON 4 MG/2 ML VIAL IVPUSH PRN ×2 (09:49→14:38)
[2017-05-16] MEDS ORDERED: FENTANYL/BUPIVACAINE/NS/PF - PCEA - 50 ML DISP.SYRIN EP SCH (10:00)
[2017-05-16] MEDS ORDERED: LACTATED RINGERS SOLUTION 1,000 ML IV SCH ×2 (10:00→14:30)
[2017-05-16] MEDS ORDERED: BUPIVACAINE HCL/PF 0.25% (2.5MG/ML) 10 ML VIAL ONE (11:22)
[2017-05-16] MEDS ORDERED: GLYCOPYRROLATE 0.2 MG/1 ML VIAL ONE (13:05)
[2017-05-16] MEDS ORDERED: ONDANSETRON 4 MG/2 ML VIAL ONE (13:05)
[2017-05-16] MEDS ORDERED: NEOSTIGMINE METHYLSULFATE 0.5 MG/ML - 10 ML MDV ONE (13:06)
[2017-05-16] MEDS ORDERED: PROMETHAZINE HCL 25 MG/1 ML VIAL IVPB PRN (14:38)
[2017-05-16] MEDS ORDERED: HYDROmorphone *PCA* 10MG/50ML DISP.SYRIN PCA SCH (14:45)
[2017-05-16] MEDS ORDERED: HYDROmorphone HCL CARPU-JECT 2 MG/1 ML DISP.SYRIN ONE (15:05)
[2017-05-16] MEDS: HYDROmorphone HCL CARPU-JECT 1 MG/1 ML DISP.SYRIN IVPUSH PRN ×2 (15:07→15:40)
[2017-05-16] MEDS ORDERED: LORAZEPAM CARPU-JECT 2 MG/ML DISP.SYRIN IVPUSH PRN (15:49)
[2017-05-16] MEDS ORDERED: LORAZEPAM CARPU-JECT 2 MG/ML DISP.SYRIN ONE (16:01)
--- NOTE | 2017-05-16 17:24 | OP ---
Operative Note - Note: Operative Date: 05/16/17 Pre-Operative Diagnosis: Lung metastasis Operation: Bronchoscopy, reoperative right VATS, lower lobectomy Findings: Normal bronchoscopy; no pleural mets; margin negative on RLL Post-Operative Diagnosis: Same as Pre-op Surgeon: Derik Arenas Copying Machine Repairer: Daniel Menon Anesthesia: General Specimens Removed: RLL Estimated Blood Loss (mls): 200 Drains & Tubes with Location: 1 chest tube Operative Report Dictated: Yes
[2017-05-16] MEDS: IPRATROPIUM BR 0.02% 0.5 MG/2.5 ML VIAL.NEB. NEB SCH ×2 (17:57→20:07)
[2017-05-16] MEDS: METOPROLOL TARTRATE 50 MG TABLET (FP) PO SCH (18:36)
[2017-05-16] MEDS: HEPARIN NA (PORCINE) 5,000 UNITS/ML 1ML VIAL SQ SCH (18:36)
[2017-05-16] MEDS: LACTATED RINGERS SOLUTION 1,000 ML IV SCH (18:37)
--- NOTE | 2017-05-16 18:48 | CONSULT ---
Consult - text type - Consultation Consultation Note: Patient well known to our service 46 y/o patient with metastatic colon cancer, sigmoid cancer, s/p resection, FOLFOX, s/p resction of solitary liver metasatsis. s/p wedge resection of lung mets x2 --once on rt. and once on left. Most recently received FOLFIRI x 3 cycles--last in 01/14 s/p rt. lower lobectomy for biopsy proven metastasis c/o some pain at the operative site PMH colon cancer iron deficiency fibroid uterus HTN Anxiety PSH wedge resctions --Lt. lung/Rt. lung resection of liver lesion Last Vital Signs Temp Pulse Resp BP Pulse Ox 98 F 95 H 17 124/80 100 05/16/17 17:00 05/16/17 18:00 05/16/17 18:00 05/16/17 18:00 05/16/17 17:57 Cor: RSR, No murmurs, No gallops Lungs: Clear to P&A Abd: Soft, Normal bowel sounds, No organomegaly Ext:No significant edema Skin: No rashes, Integument intact Labs/Meds reviewed A/P 46 y/o patient with metastatic colon cancer --with recurrent solitary metastasis at site of previous RLL wedge resection. No evidence of disease else where s/p Rt. lower lobectomy Patient was diagnosed with colon cancer around 04/2014, when she presented with obstructive symptoms, anemia---s/p lt. hemicolectomy. Noted to have synchronous liver metastais. s/p FOLFOX x6 followed by resection of liver lesion. Received 6 more cycles of FOLFOX post op. LAst 4 wothout oxali due to neuropathy. She theen developed lung mets--s/p wedge resections of Lt. lung lesions and rt. lung lesions Patient has been very reluctant to get chemotherapy wAs in [place] for some time and more recently recurrence at rt. lower lobe wedge resection site. Received FOLFIRI 3 cycles --last December. Very reluctant to get any further chemotherapy. s/p Rt. lower lobectomy today will send path for next gen. sequencing. Was KRAS mutant and not MMR deficient. Iron deficiency anemia--on weekly iv iron will follow
[2017-05-16] MEDS: KETOROLAC TROMETHAMINE 30 MG/1 ML VIAL IVPUSH SCH (19:00)
--- NOTE | 2017-05-16 20:38 | CONSULT ---
Consult Consult Specialty:: Pulm/CCM Reason for Consultation:: colon ca w/ mets to lung s/p resection - History of Present Illness Chief Complaint: surgical site pain History of Present Illness: This is a 46 yo woman with metastatic colon cancer to liver and lung s/p multiple resections to lung and liver, s/p chemo: FOLFIRI last 12/2016 who is now POD# 0 s/p right sided VATS w/ right lower lobectomy. Patient received in ICU extubated on NC awake, alert and cooperative. Chest to to LWS w/o airleak. VSS: HR 80, BP 120/80, RR 18-20 sat 100%. Denies: HOBBS, CP, n/v, SOB. c/o mild pain at surgical site. - History Source History Provided By: Patient, Medical Record Limitations to Obtaining History: No Limitations - Past Medical History PMP: Yes: Other (near syncope) Cardio/Vascular: Yes: HTN, Other (tachycardia) Pulmonary: Yes: Other (resection of metasttic lung nodules on left , January 21, 2016;) Gastrointestinal: Yes: Constipation, GERD Hepatobiliary: Yes: Other (liver mets s/p resection 2014.) ...LMP: 03/04/17 ...: No Psych: Yes: Anxiety Endocrine: Yes: Other (Thyroid Nodules) - Past Surgical History Past Surgical History: Yes: Colectomy (partial) - Alcohol/Substance Use Hx Alcohol Use: No (rarely) History of Substance Use: reports: None - Smoking History Smoking history: Never smoked Have you smoked in the past 12 months: No Aproximately how many cigarettes per day: 0 - Social History Usual Living Arrangement: With Spouse ADL: Independent 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 History of Recent Travel: No Home Medications - Allergies Allergies/Adverse Reactions: Allergies Allergy/AdvReac Type Severity Reaction Status Date / Time latex Allergy Severe Itching Verified 05/16/17 06:33 carrot Allergy Verified 05/16/17 06:33 nut - unspecified Allergy Verified 05/16/17 06:33 Sulfa (Sulfonamide AdvReac generalized Verified 05/16/17 06:33 Antibiotics) weakness - Home Medications Home Medications: Ambulatory Orders Metoprolol Tartrate [Lopressor -] 25 mg PO DAILY 02/03/16 Pantoprazole Sodium [Protonix -] 40 mg PO DAILY #30 tablet.ec 02/06/16 Lorazepam [Ativan] 2 mg PO BID MDD 3mg 11/18/16 Family Disease History - Family Disease History Family History: Unremarkable Review of Systems - Review of Systems Constitutional: reports: No Symptoms Cardiovascular: reports: Chest Pain (at chest tube site) Respiratory: reports: No Symptoms Neurological: reports: No Symptoms Pain Intensity: 2 Physical Exam Vital Signs: Vital Signs Temperature 98 F 05/16/17 17:00 Pulse Rate 88 05/16/17 19:30 Respiratory Rate 16 05/16/17 19:30 Blood Pressure 118/88 05/16/17 19:30 O2 Sat by Pulse Oximetry (%) 100 05/16/17 17:57 Active Medications Diphenhydramine HCl (Benadryl Injection -) 12.5 mg IVPUSH ONCE PRN PRN Reason: FOR ITCHING Fentanyl (Sublimaze Injection -) 50 mcg IVPUSH [id number] PRN PRN Reason: PAIN Stop: 05/19/17 09:50 Last Admin: 05/16/17 14:48 Dose: 50 mcg Fentanyl/Bupivacaine/Sodium Chlor (Bupivicaine 0.125%/Fentanyl 2mcg/Ml Pcea -) 50 ml EP ASDIR [facility] PRN Reason: Protocol Last Admin: 05/16/17 20:06 Dose: Not Given Heparin Sodium (Porcine) (Heparin -) 5,000 unit SQ Q8H [facility] Last Admin: 05/16/17 18:36 Dose: 5,000 unit Hydromorphone HCl (Dilaudid [employer] -) 10 mg YARD CALLER YARD CALLER [facility] PRN Reason: Protocol Stop: 05/23/17 14:38 Last Admin: 05/16/17 17:30 Dose: 10 mg Hydromorphone HCl (Dilaudid Injection -) 1 mg IVPUSH [id number] PRN PRN Reason: PAIN Stop: 05/19/17 16:59 Last Admin: 05/16/17 15:40 Dose: 1 mg Lactated Ringer's (Lactated Ringers Solution) 1,000 mls @ 75 mls/hr IV ASDIR [facility] Last Admin: 05/16/17 18:37 Dose: 75 mls/hr Pantoprazole Sodium 40 mg/ (Sodium Chloride) 100 mls @ 200 mls/hr IVPB DAILY [facility] Ipratropium [place] (Atrovent 0.02% Nebulizer -) 1 amp NEB QIDR [facility] Last Admin: 05/16/17 20:07 Dose: Not Given Ketorolac Tromethamine (Toradol Injection -) 15 mg IVPUSH Q8H-IV RUTH Stop: 05/21/17 17:59 Last Admin: 05/16/17 19:00 Dose: 15 mg Lorazepam (Ativan Injection -) 0.5 mg IVPUSH ONCE PRN PRN Reason: ANXIETY Stop: 05/17/17 15:48 Last Admin: 05/16/17 16:05 Dose: 0.5 mg Metoprolol Tartrate (Lopressor -) 12.5 mg PO Q8H [facility] Last Admin: 05/16/17 18:36 Dose: 12.5 mg Ondansetron HCl (Zofran Injection) 4 mg IVPUSH Q4H PRN PRN Reason: NAUSEA AND/OR VOMITING Stop: 05/17/17 02:39 Promethazine HCl (Phenergan Injection -) 12.5 mg IVPB Q6H PRN PRN Reason: NAUSEA AND/OR VOMITING Constitutional: Yes: Well Nourished, Calm Eyes: Yes: Conjunctiva Clear, EOM Intact HENT: Yes: Normocephalic Neck: Yes: Trachea Midline Cardiovascular: Yes: Regular Rate and Rhythm, S1, S2 Respiratory: Yes: Diminished, Other (chest tube right side to LWS, sero-sang drainage, no air leak) Gastrointestinal: Yes: Normal Bowel Sounds, Soft, Abdomen, Obese Edema: No Wound/Incision: Yes: Clean/Dry Neurological: Yes: WNL, Alert, Oriented Psychiatric: Yes: Oriented Labs: Labs pending Imaging - Results Chest X-ray: Report Reviewed, Image Reviewed Problem List - Problems (1) Colon cancer Code(s): C18.9 - MALIGNANT NEOPLASM OF COLON, UNSPECIFIED (2) Constipation Code(s): K59.00 - CONSTIPATION, UNSPECIFIED (3) Lung nodule Code(s): R91.1 - SOLITARY PULMONARY NODULE (4) S/P lobectomy of lung Code(s): Z90.2 - ACQUIRED ABSENCE OF LUNG [PART OF] Assessment/Plan This is a 46 yo woman with metastatic colon cancer to liver and lung s/p multiple resections to lung and liver, s/p chemo: FOLFIRI last 12/2016 who is now POD# 0 s/p right sided VATS w/ right lower lobectomy. Patient received in ICU extubated on NC awake, alert and cooperative. Chest to to LWS w/o airleak. VSS: HR 80, BP 120/80, RR 18-20 sat 100%. Denies: HOBBS, CP, n/v, SOB. ? mild pain at surgical site. a/p: 46 yo woman with metastatic colon c/a s/p RLL ectomy for lung nodule -Oncology following -CT to LWS per surgery -CXR prn -advance diet -O2 for sat >90% -Incentive spirometry -prn bronchodilators -genital fluids -PT in AM -trend cbc -bowel regimen -pain management with YARD CALLER -DVT prophylaxis Boe[place] ACNP Pulm/CCM CCT: 35m
[2017-05-16 22:22] LABS: MCH 25.2 pg (25.7-33.7); MCHC 31.3 g/dl (32.0-36.0); MEAN CELL VOLUME 80.5 fl (80-96); MEAN PLT VOLUME 9.2 fl (7.5-11.1); PLATELET COUNT 169 K/MM3 (134-434); RDW 23.7 % (11.6-15.6); WHITE BLOOD COUNT 15.7 K/mm3 (4.0-10.0)
[2017-05-16 23:36] LABS: ANISOCYTOSIS 3+; MICROCYTOSIS 1+; PLATELET ESTIMATE DECREASED (NORMAL)
[2017-05-16 23:43] LABS: BASOPHIL 0.1 % (0-2.0); MCHC 31.3 g/dl (32.0-36.0); MEAN CELL VOLUME 79.9 fl (80-96); MEAN PLT VOLUME 9.2 fl (7.5-11.1); NEUTROPHILS 85.8 % (42.8-82.8); PLATELET COUNT 176 K/MM3 (134-434); RDW 23.3 % (11.6-15.6)
[2017-05-17] MEDS: IPRATROPIUM BR 0.02% 0.5 MG/2.5 ML VIAL.NEB. NEB SCH ×4 (00:06→18:59)
[2017-05-17 00:10] LABS: ALBUMIN 3.2 g/dl (3.4-5.0); ALK PHOS 56 U/L (45-117); ANION GAP 8 (8-16); BILIRUBIN,TOTAL 0.4 mg/dL (0.2-1.0); CO2 27 mmol/L (21-32); CREATININE 0.5 mg/dL (0.55-1.02); GLUCOSE,RANDOM 112 mg/dL (74-106); SGOT/AST 35 U/L (15-37); SGPT/ALT 27 U/L (12-78); TOT PROT 6.3 g/dl (6.4-8.2)
[2017-05-17] MEDS: HEPARIN NA (PORCINE) 5,000 UNITS/ML 1ML VIAL SQ SCH ×3 (01:16→19:05)
[2017-05-17] MEDS: METOPROLOL TARTRATE 50 MG TABLET (FP) PO SCH (01:16)
[2017-05-17] MEDS ORDERED: PT OWN MED DRAWER 7, Y5N ONE (04:03)
[2017-05-17] MEDS: KETOROLAC TROMETHAMINE 30 MG/1 ML VIAL IVPUSH SCH ×4 (04:12→19:00)
[2017-05-17 05:57] LABS: BASOPHIL 0.2 % (0-2.0); EOSINOPHIL 0.2 % (0-4.5); MCH 25.2 pg (25.7-33.7); MCHC 31.3 g/dl (32.0-36.0); MEAN CELL VOLUME 80.3 fl (80-96); MEAN PLT VOLUME 9.4 fl (7.5-11.1); NEUTROPHILS 82.2 % (42.8-82.8); PLATELET COUNT 176 K/MM3 (134-434); RDW 23.2 % (11.6-15.6)
[2017-05-17] MEDS: LACTATED RINGERS SOLUTION 1,000 ML IV SCH (06:17)
[2017-05-17 06:22] LABS: ALBUMIN 2.9 g/dl (3.4-5.0); ANION GAP 7 (8-16); CALCIUM 7.9 mg/dL (8.5-10.1); CO2 28 mmol/L (21-32); CREATININE 0.5 mg/dL (0.55-1.02); GLUCOSE,RANDOM 105 mg/dL (74-106); SGOT/AST 29 U/L (15-37); SGPT/ALT 23 U/L (12-78)
[2017-05-17 06:24] LABS: ALK PHOS 50 U/L (45-117); BILIRUBIN,TOTAL 0.5 mg/dL (0.2-1.0); TOT PROT 5.9 g/dl (6.4-8.2)
[2017-05-17] MEDS: METOPROLOL TARTRATE 25 MG TABLET (FP) PO SCH ×2 (09:12→16:00)
[2017-05-17] MEDS: PANTOPRAZOLE SODIUM 100 ML IVPB SCH (09:49)
--- NOTE | 2017-05-17 10:11 | PN ---
Progress Note (short form) - Note Progress Note: Thoracic Attending. POD#1 s/p vats reoperative RLLobectomy. Doing well. 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 Epidural not working. VSS/AF but slight episodic tachycardia. CXR lung well-expanded. Imp/Plan: Water seal tube since no air-leak (possibly tiny one). -Pain meds: std toradol and tylenol. oxycodone prn. senna colace on board. -DVT prophylaxis with GI protection. -Afib prophylaxis--can titrate lopressor up as bp tolerates. Tends to be low after major pulmonary resection. -OK to transfer to floor, to hospitalist service if Dr. Grace and Dr. Erickson prefer. -Daily cxr. Monitor 24 hour drainage. If no leak will probably dc chest tube on . --OOB tid with physical therapy, incentive spirometry.
--- NOTE | 2017-05-17 10:31 | HP ---
Admitting History and Physical - Primary Care Physician PCP: Martin Erickson - Admission Chief Complaint: I'm ok History of Present Illness: Mrs Arreaga is a very pleasant 46 year old female who is s/p lower lobectomy and VATS for lung cancer. This was a scheduled surgery. She says she is feeling better. She is having pain in her right side where the surgery and the chest tube is. Aside from this she is without complaint. She denies fevers, chills, lightheadedness, dizziness, chest pressure, shortness of breath, nausea, vomiting, diarrhea, difficulty or pain on urination (sal in place but no irritation), or swelling. 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) Cardiovascular: Yes: HTN, Other (tachycardia) Pulmonary: Yes: Other (resection of metasttic lung nodules on left , January 21, 2016;) Gastrointestinal: Yes: Constipation, GERD Hepatobiliary: Yes: Other (liver mets s/p resection 2014.) ...LMP: 03/04/17 ...: No Heme/Onc: Yes: Anemia, Other (colon cancer) Psych: Yes: Anxiety Endocrine: Yes: Other (Thyroid Nodules) - Past Surgical History Past Surgical History: Yes: Colectomy (partial) Additional Past Surgical History: Lobectomy - Smoking History Smoking history: Never smoked Have you smoked in the past 12 months: No Aproximately how many cigarettes per day: 0 - Alcohol/Substance Use Hx Alcohol Use: No (rarely) History of Substance Use: reports: None - Social History Usual Living Arrangement: Yes: With Spouse ADL: Independent 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 History of Recent Travel: No Home Medications - Allergies Allergies/Adverse Reactions: Allergies Allergy/AdvReac Type Severity Reaction Status Date / Time latex Allergy Severe Itching Verified 05/16/17 06:33 carrot Allergy Verified 05/16/17 06:33 nut - unspecified Allergy Verified 05/16/17 06:33 Sulfa (Sulfonamide AdvReac generalized Verified 05/16/17 06:33 Antibiotics) weakness - Home Medications Home Medications: Ambulatory Orders Metoprolol Tartrate [Lopressor -] 25 mg PO DAILY 02/03/16 Pantoprazole Sodium [Protonix -] 40 mg PO DAILY #30 tablet.ec 02/06/16 Lorazepam [Ativan] 2 mg PO BID MDD 3mg 11/18/16 Family Disease History - Family Disease History Family History: Unremarkable Review of Systems Findings/Remarks: Full review of systems obtained, as per HPI and otherwise negative Physical Examination Vital Signs: Vital Signs Temperature 98.5 F 05/17/17 05:50 Pulse Rate 88 05/17/17 07:21 Respiratory Rate 20 05/17/17 07:21 Blood Pressure 103/69 05/17/17 08:00 O2 Sat by Pulse Oximetry (%) 100 05/17/17 07:25 Constitutional: Yes: Well Nourished, No Distress, Calm Eyes: Yes: Conjunctiva Clear, EOM Intact, PERRL HENT: Yes: Atraumatic, Normocephalic Cardiovascular: Yes: Tachycardia. No: Gallop, Murmur, Rub Respiratory: Yes: Regular, Rhonchi, Other (chest tube in place). No: Rales, Wheezes Gastrointestinal: Yes: Normal Bowel Sounds, Soft. No: Distention, Tenderness Extremities: Yes: WNL Edema: Yes Edema: LLE: Trace, RLE: Trace Labs: CBC, BMP 05/17/17 05:10 05/17/17 05:10 Imaging - Results Chest X-ray: Report Reviewed, Image Reviewed Problem List - Problems (1) S/P lobectomy of lung Assessment/Plan: -case d/w Dr Arenas -chest tube in place, clamped -possible chest tube removal tomorrow -remove sal, up to ambulate -continue bronchodilators and I/S Code(s): Z90.2 - ACQUIRED ABSENCE OF LUNG [PART OF] (2) Anxiety Assessment/Plan: -on lower dose since on narcotics -monitor -currently well controlled Code(s): F41.9 - ANXIETY DISORDER, UNSPECIFIED (3) HTN (hypertension) Assessment/Plan: -low normal -can titrate metoprolol Code(s): I10 - ESSENTIAL (PRIMARY) HYPERTENSION (4) Lung cancer Assessment/Plan: -lobectomy Code(s): C34.90 - MALIGNANT NEOPLASM OF UNSP PART OF UNSP BRONCHUS OR LUNG (5) Anemia Assessment/Plan: -chronic -at baseline Code(s): D64.9 - ANEMIA, UNSPECIFIED Qualifiers: Anemia type: other cause Other causes of anemia: chronic disease, neoplastic Qualified Code(s): D63.0 - Anemia in neoplastic disease
[2017-05-17] MEDS ORDERED: BUPIVACAINE HCL/PF 0.25% (2.5MG/ML) 10 ML VIAL ONE ×2 (10:34→19:25)
[2017-05-17] MEDS: ACETAMINOPHEN 325 MG TABLET (FP) PO SCH ×3 (10:34→21:28)
[2017-05-17] MEDS: oxyCODONE HCL 5 MG TABLET PO PRN (10:35)
[2017-05-17] MEDS ORDERED: oxyCODONE HCL 5 MG TABLET PO PRN (11:12)
--- NOTE | 2017-05-17 12:43 | PN ---
Teaching Attending Note Name of Resident: Riley Hassan ATTENDING PHYSICIAN STATEMENT I saw and evaluated the patient. I reviewed the resident's note and discussed the case with the resident. I agree with the resident's findings and plan as documented. SUBJECTIVE: Patient seen and examined in the ICU. Awake and alert. Some mild discomfort at the CT site. No air leak noted. Intake & Output 05/14/17 05/15/17 05/16/17 05/17/17 23:59 23:59 23:59 23:59 Intake Total 2760 1030 Output Total 2345 985 Balance 415 45 Weight 234 lb 5 oz Last Vital Signs Temp Pulse Resp BP Pulse Ox 98.5 F 92 H 18 100/64 100 05/17/17 05:50 05/17/17 12:03 05/17/17 12:03 05/17/17 12:03 05/17/17 07:25 Active Medications Acetaminophen (Tylenol -) 650 mg PO Q6H [facility] Last Admin: 05/17/17 10:34 Dose: 650 mg Diphenhydramine HCl (Benadryl Injection -) 12.5 mg IVPUSH ONCE PRN PRN Reason: FOR ITCHING Diphenhydramine HCl (Benadryl Injection -) 25 mg IVPUSH Q4H PRN PRN Reason: FOR ITCHING Last Admin: 05/17/17 11:35 Dose: 25 mg Docusate Sodium (Colace Liquid -) 100 mg PO TID [facility] Heparin Sodium (Porcine) (Heparin -) 5,000 unit SQ Q8H [facility] Last Admin: 05/17/17 09:18 Dose: 5,000 unit Pantoprazole Sodium (Protonix 40mg Ivpb (Pre-Docked)) 100 mls @ 200 mls/hr IVPB DAILY [facility] Last Admin: 05/17/17 09:49 Dose: 200 mls/hr Ipratropium [place] (Atrovent 0.02% Nebulizer -) 1 amp NEB QIDR [facility] Last Admin: 05/17/17 11:38 Dose: 1 amp Ketorolac Tromethamine (Toradol Injection -) 15 mg IVPUSH Q8H-IV RUTH Stop: 05/21/17 17:59 Last Admin: 05/17/17 10:39 Dose: Not Given Lorazepam (Ativan -) 0.5 mg PO BID PRN PRN Reason: ANXIETY Metoprolol Tartrate (Lopressor -) 12.5 mg PO Q8H R[facility] Last Admin: 05/17/17 09:12 Dose: 12.5 mg Oxycodone HCl (Roxicodone -) 5 mg PO Q4H PRN PRN Reason: PAIN Last Admin: 05/17/17 10:35 Dose: 5 mg Oxycodone HCl (Roxicodone -) 10 mg PO Q4H PRN Promethazine HCl (Phenergan Injection -) 12.5 mg IVPB Q6H PRN PRN Reason: NAUSEA AND/OR VOMITING Senna (Senna -) 1 tab PO BID RUTH Constitutional: Yes: Awake and alert, NAD Eyes: Yes: Conjunctiva Clear, EOM Intact HENT: Yes: Normocephalic Neck: Yes: Trachea Midline Cardiovascular: Yes: Regular Rate and Rhythm, S1, S2 Respiratory: Yes: Diminished at the bases, Chest tube right side LWS, (+) sero- sang drainage/no air leak Gastrointestinal: Yes: Normal Bowel Sounds, Soft, Abdomen, Obese Edema: No Wound/Incision: Yes: Clean/Dry Neurological: Yes: WNL, Alert, Oriented Psychiatric: Yes: Oriented Labs: Laboratory Results - last 24 hr 05/16/17 05/16/17 05/16/17 22:00 22:00 23:00 WBC 15.7 H D RBC 3.94 Hgb 9.9 L Hct 31.7 L MCV 80.5 MCH 25.2 L MCHC 31.3 L RDW 23.7 H Plt Count 169 MPV 9.2 Neutrophils % Lymphocytes % Monocytes % Eosinophils % Basophils % Platelet Estimate Decreased Platelet Comment No clumping noted Basophilic Stippling 1+ Anisocytosis 3+ Microcytosis 1+ Sodium Cancelled 136 Potassium Cancelled 3.8 Chloride Cancelled 101 Carbon Dioxide Cancelled 27 Anion Gap Cancelled 8 BUN Cancelled 11 Creatinine Cancelled 0.5 L Creat Clearance w eGFR Cancelled > 60 Random Glucose Cancelled 112 H Calcium Cancelled 8.0 L Total Bilirubin Cancelled 0.4 D AST Cancelled 35 D ALT Cancelled 27 Alkaline Phosphatase Cancelled 56 Total Protein Cancelled 6.3 L Albumin Cancelled 3.2 L 05/16/17 05/17/17 05/17/17 23:00 05:10 05:10 WBC 15.0 H 13.0 H RBC 3.78 3.64 Hgb 9.5 L 9.2 L Hct 30.2 L 29.2 L MCV 79.9 L 80.3 MCH 25.0 L 25.2 L MCHC 31.3 L 31.3 L RDW 23.3 H 23.2 H Plt Count 176 176 MPV 9.2 9.4 Neutrophils % 85.8 H D 82.2 Lymphocytes % 5.8 L D 8.0 D Monocytes % 8.3 9.4 Eosinophils % 0.0 D 0.2 D Basophils % 0.1 0.2 Platelet Estimate Platelet Comment Basophilic Stippling Anisocytosis Microcytosis Sodium 137 Potassium 3.7 Chloride 102 Carbon Dioxide 28 Anion Gap 7 L BUN 11 Creatinine 0.5 L Creat Clearance w eGFR > 60 Random Glucose 105 Calcium 7.9 L Total Bilirubin 0.5 D AST 29 ALT 23 Alkaline Phosphatase 50 Total Protein 5.9 L Albumin 2.9 L Problem List - Problems (1) Colon cancer Code(s): C18.9 - MALIGNANT NEOPLASM OF COLON, UNSPECIFIED (2) Constipation Code(s): K59.00 - CONSTIPATION, UNSPECIFIED (3) Lung nodule Code(s): R91.1 - SOLITARY PULMONARY NODULE (4) S/P lobectomy of lung Code(s): Z90.2 - ACQUIRED ABSENCE OF LUNG [PART OF] Assessment/Plan S/P RLL lobectomy for suspected lung metastasis from primary colon CA History of liver metastasis S/P Lung wedge resection x 2 Pain control O2 as needed Incentive Spirometry PO as tolerated BD TX PRN Bowel regimen VTE prophylaxis Dr Tate CCTime 40"
--- NOTE | 2017-05-17 12:45 | PN ---
Physical Exam: SUBJECTIVE: Patient stated she felt OK overnight, a little restless, painful when taking deep breaths, still no bowel movement, but no fever, chills, severe chest pain or shortness of breath, abd pain, urinary symptoms. OBJECTIVE: Vital Signs Period Temp Pulse Resp BP Sys/[facility] Pulse Ox Last 24 Hr 97 F-98.7 F 80-107 14-24 97-124/55-88 96-100 GENERAL: AAO x 3, in good spirits, speak in full sentences, in no cardiopulmonary distress LUNGS: Decreased breath sounds in bases. Chest tube below right breast, non- erythematous, dressing in place, 400ml serosanguinous drainage since last night 930pm. HEART: Slightly tachycardic, S1, S2 without murmur, rub or gallop. ABDOMEN: Soft, nontender, nondistended, normoactive bowel sounds EXTREMITIES: no edema. SKIN: no rashes or lesions noted CBCD WBC 13.0 K/mm3 (4.0-10.0) H 05/17/17 05:10 RBC 3.64 M/mm3 (3.60-5.2) 05/17/17 05:10 Hgb 9.2 GM/dL (10.7-15.3) L 05/17/17 05:10 Hct 29.2 % (32.4-45.2) L 05/17/17 05:10 MCV 80.3 fl (80-96) 05/17/17 05:10 MCHC 31.3 g/dl (32.0-36.0) L 05/17/17 05:10 RDW 23.2 % (11.6-15.6) H 05/17/17 05:10 Plt Count 176 K/MM3 (134-434) 05/17/17 05:10 MPV 9.4 fl (7.5-11.1) 05/17/17 05:10 CMP Sodium 137 mmol/L (136-145) 05/17/17 05:10 Potassium 3.7 mmol/L (3.5-5.1) 05/17/17 05:10 Chloride 102 mmol/L (98-107) 05/17/17 05:10 Carbon Dioxide 28 mmol/L (21-32) 05/17/17 05:10 Anion Gap 7 (8-16) L 05/17/17 05:10 BUN 11 mg/dL (7-18) 05/17/17 05:10 Creatinine 0.5 mg/dL (0.55-1.02) L 05/17/17 05:10 Creat Clearance w eGFR > 60 (>60) 05/17/17 05:10 Calcium 7.9 mg/dL (8.5-10.1) L 05/17/17 05:10 Total Bilirubin 0.5 mg/dL (0.2-1.0) D 05/17/17 05:10 AST 29 U/L (15-37) 05/17/17 05:10 ALT 23 U/L (12-78) 05/17/17 05:10 Alkaline Phosphatase 50 U/L (45-117) 05/17/17 05:10 Total Protein 5.9 g/dl (6.4-8.2) L 05/17/17 05:10 Albumin 2.9 g/dl (3.4-5.0) L 05/17/17 05:10 Intake & Output 05/14/17 05/15/17 05/16/17 05/17/17 23:59 23:59 23:59 23:59 Intake Total 2760 1030 Output Total 2345 985 Balance 415 45 Weight 106.282 kg IMAGING CXR on 05/17: bibasilar atectalsis ASSESSMENT/PLAN: 46 yo F h/o metastatic colon cancer to liver and lung s/p multiple lung and liver resections. She's admitted to the ICU after bronchoscopy, right VATS and lower lobectomy. Pulm: s/p bronchoscopy, R VATS and RLL lobectomy - POD #1 - Chest tube clamped * remove tomorrow - Cont. atrovent - Pain control with toradol and tylenol * oxycodone PRN - OOB and incentive spirometer FEN - Not indicated - Normal lytes - Regular diet Prophylaxis - DVT: heparin SQ - GI: protonix Dispo - Cont. to monitor in ICU - Transfer to floor once CT removed Riley Hassan, ICU Resident PGY-2 Pager: [phone] Visit type - Emergency Visit Emergency Visit: No - New Patient This patient is new to me today: Yes Date on this admission: 05/17/17 - Critical Care Critical Care patient: Yes Total Critical Care Time (in minutes): 30 Critical Care Statement: The care of this patient involved high complexity decision making to prevent further life threatening deterioration of the patient 's condition and/or to evalute & treat vital organ system(s) failure or risk of failure.
[2017-05-17] MEDS ORDERED: DOCUSATE NA 100 MG/10 ML UNIT-DOSE CUPS PO SCH (14:00)
[2017-05-17] MEDS: LORazepam 0.5 MG TABLET PO PRN (14:20)
[2017-05-17] MEDS ORDERED: KETOROLAC TROMETHAMINE 15 MG/ML VIAL IVPUSH ONE (14:45)
--- NOTE | 2017-05-17 14:57 | CONSULT ---
Consult Consult Specialty:: Endocrinology Referred by:: Dr Barber Reason for Consultation:: Thyroid nodule - History of Present Illness Chief Complaint: S/P Rt lower lobe resection History of Present Illness: This is a 46 y/o patient with HTN, Fibroids, anemia, B/L Thyroid nodules metastatic colon cancer, s/p resection, s/p resction of solitary liver metasatsis. s/p wedge resection of lung mets x2 (once on rt. and once on left) admitted after Rt. lower lobectomy for biopsy proven metastasis. Pt was on chemo most recently received FOLFIRI x 3 cycles in in 01/14. Pt is referred for management of thyroid nodules. Denies any neck pain. No difficulty swallowing. No CP/SOB/Palpitations. 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) Cardio/Vascular: Yes: HTN, Other (tachycardia) Pulmonary: Yes: Other (resection of metasttic lung nodules on left , January 21, 2016;) Gastrointestinal: Yes: Constipation, GERD Hepatobiliary: Yes: Other (liver mets s/p resection 2014.) ...LMP: 03/04/17 ...: No Psych: Yes: Anxiety Endocrine: Yes: Other (Thyroid Nodules) - Past Surgical History Past Surgical History: Yes: Colectomy (partial) - Alcohol/Substance Use Hx Alcohol Use: No (rarely) History of Substance Use: reports: None - Smoking History Smoking history: Never smoked Have you smoked in the past 12 months: No Aproximately how many cigarettes per day: 0 - Social History Usual Living Arrangement: With Spouse ADL: Independent 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 History of Recent Travel: No Home Medications - Allergies Allergies/Adverse Reactions: Allergies Allergy/AdvReac Type Severity Reaction Status Date / Time latex Allergy Severe Itching Verified 05/16/17 06:33 carrot Allergy Verified 05/16/17 06:33 nut - unspecified Allergy Verified 05/16/17 06:33 Sulfa (Sulfonamide AdvReac generalized Verified 05/16/17 06:33 Antibiotics) weakness - Home Medications Home Medications: Ambulatory Orders Metoprolol Tartrate [Lopressor -] 25 mg PO DAILY 02/03/16 Pantoprazole Sodium [Protonix -] 40 mg PO DAILY #30 tablet.ec 02/06/16 Lorazepam [Ativan] 2 mg PO BID MDD 3mg 11/18/16 Family Disease History - Family Disease History Other Family History: Aunt has hyperthyroidism. No colon Ca in her mother's side of family. Doesn't know medical history of her father or his side of family Review of Systems - Review of Systems Constitutional: reports: No Symptoms Eyes: reports: No Symptoms HENT: reports: No Symptoms Neck: reports: No Symptoms Cardiovascular: reports: No Symptoms Respiratory: reports: Other (Pain at site of chest tube) Gastrointestinal: reports: No Symptoms Genitourinary: reports: No Symptoms Musculoskeletal: reports: No Symptoms Integumentary: reports: No Symptoms Endocrine: reports: No Symptoms Physical Exam Vital Signs: Vital Signs Temperature 97.6 F 05/17/17 14:26 Pulse Rate 86 05/17/17 14:26 Respiratory Rate 17 05/17/17 14:26 Blood Pressure 121/68 05/17/17 14:26 O2 Sat by Pulse Oximetry (%) 100 05/17/17 07:25 Constitutional: Yes: No Distress, Calm Eyes: Yes: Conjunctiva Clear, EOM Intact HENT: Yes: Atraumatic, Normocephalic Neck: Yes: Supple, Trachea Midline Cardiovascular: Yes: Regular Rate and Rhythm Respiratory: Yes: CTA Bilaterally, Other (Rt chest tube in place) Gastrointestinal: Yes: Normal Bowel Sounds, Soft Musculoskeletal: Yes: WNL Extremities: Yes: WNL Edema: No Neurological: Yes: Alert, Oriented Labs: CBC, BMP 05/17/17 05:10 05/17/17 05:10 Problem List - Problems (1) Anemia Code(s): D64.9 - ANEMIA, UNSPECIFIED Qualifiers: Anemia type: other cause Other causes of anemia: chronic disease, neoplastic Qualified Code(s): D63.0 - Anemia in neoplastic disease (2) HTN (hypertension) Code(s): I10 - ESSENTIAL (PRIMARY) HYPERTENSION (3) Metastatic colorectal cancer Code(s): C78.5 - SECONDARY MALIGNANT NEOPLASM OF LARGE INTESTINE AND RECTUM Assessment/Plan AP: Metastatic Colon Ca S/P b/l lung wedge resection s/p resection of liver lesion S/P Rt lower lobe lung resection HTN B/L Thyroid nodules: Chart reviewed. Sonogram done on 10.15.15 showed Rt nodule 1.4x1.2x1.3 and Left nodule 3.5x2.9x3.8, without significant change from 12.10.14 5 to 10% risk of malignancy discussed with patient. Will need to repeat sonogram of thyroid before deciding on further course of action. Will do once pt is off chest tube Check TFT. TSH 1.47 and FT4 1.49 on 02.26.15 Will f/u
--- NOTE | 2017-05-17 15:12 | PN ---
Progress Note, Physician Chief Complaint: s/p right lower lobectomy under general anesthesia. History of Present Illness: post op day one - Current Medication List Current Medications: Active Medications Acetaminophen (Tylenol -) 650 mg PO Q6H RUTH Last Admin: 05/17/17 10:34 Dose: 650 mg Diphenhydramine HCl (Benadryl Injection -) 12.5 mg IVPUSH ONCE PRN PRN Reason: FOR ITCHING Diphenhydramine HCl (Benadryl Injection -) 25 mg IVPUSH Q4H PRN PRN Reason: FOR ITCHING Last Admin: 05/17/17 11:35 Dose: 25 mg Docusate Sodium (Colace Liquid -) 100 mg PO TID RUTH Last Admin: 05/17/17 14:12 Dose: 100 mg Heparin Sodium (Porcine) (Heparin -) 5,000 unit SQ Q8H RUTH Last Admin: 05/17/17 09:18 Dose: 5,000 unit Pantoprazole Sodium (Protonix 40mg Ivpb (Pre-Docked)) 100 mls @ 200 mls/hr IVPB DAILY RUTH Last Admin: 05/17/17 09:49 Dose: 200 mls/hr Ipratropium [place] (Atrovent 0.02% Nebulizer -) 1 amp NEB QIDR RUTH Last Admin: 05/17/17 11:38 Dose: 1 amp Ketorolac Tromethamine (Toradol Injection -) 15 mg IVPUSH Q8H-IV RUTH Stop: 05/21/17 17:59 Last Admin: 05/17/17 10:39 Dose: Not Given Lorazepam (Ativan -) 0.5 mg PO BID PRN PRN Reason: ANXIETY Last Admin: 05/17/17 14:20 Dose: 0.5 mg Metoprolol Tartrate (Lopressor -) 12.5 mg PO Q8H RUTH Last Admin: 05/17/17 09:12 Dose: 12.5 mg Oxycodone HCl (Roxicodone -) 5 mg PO Q4H PRN PRN Reason: PAIN Last Admin: 05/17/17 10:35 Dose: 5 mg Oxycodone HCl (Roxicodone -) 10 mg PO Q4H PRN Last Admin: 05/17/17 14:11 Dose: 10 mg Promethazine HCl (Phenergan Injection -) 12.5 mg IVPB Q6H PRN PRN Reason: NAUSEA AND/OR VOMITING Senna (Senna -) 1 tab PO BID RUTH - Objective Vital Signs: Vital Signs Temperature 97.6 F 05/17/17 14:26 Pulse Rate 86 05/17/17 14:26 Respiratory Rate 17 05/17/17 14:26 Blood Pressure 121/68 05/17/17 14:26 O2 Sat by Pulse Oximetry (%) 100 05/17/17 07:25 Constitutional: Yes: Well Nourished, Mild Distress Cardiovascular: Yes: WNL Respiratory: Yes: WNL Gastrointestinal: Yes: WNL (Chest tube in place draining) Labs: CBC, BMP 05/17/17 05:10 05/17/17 05:10 Assessment/Plan Patient with no post anesthetic complications. complaining of pain but was not placed on epidural infusion overnight because of question of whether it was correctly placed. Today, the epidural was bolused with 10ml of 0.25% marcaine which seemed to lower the pain level to a 4/10. Might not have adequate spread because of multiple incisions on different levels. Patient given PO percocet for pain as well. will contact pharmacy to find if an infusion with only local anesthetic can be made so the patient can continue to receive PO percocet as well and continue the epidural analgesia. Dept of anesthesia will continue to follow.
--- NOTE | 2017-05-17 15:41 | OPR ---
Patient Name: Dea Arreaga MR#: [id number] Procedure Date: 05/16/2017 Preoperative Diagnosis: Metastatic colorectal cancer to lung Postoperative Diagnosis: Same Procedure: 1. Flexible bronchoscopy; 2. Right VATS; 3. Pneumolysis; 4. Intercostal nerve block; 5. Lymph node sampling. Indication: as above Surgeon(s): Dr. Derik Arenas; Cosurgeon: Dr. Daniel Menon. Anesthesia: General Endotracheal Wound Classification: Clean Antibiotic Prophylaxis: Cefazolin Findings: Normal bronchoscopy; middle lobe vein draining into lower lobe vein; adhesions of right lower lobe to posterior mediastinum; bronchial margin negative. Specimens Sent: right lower lobe. Complications: none Drains / Tubes / Catheters: 1 chest tube Hardware / Implants: n/a Blood / Fluid Losses: 200cc Blood / Fluids Administered: per anesthesia Post-Operative Condition: stable, extubated to PACU Indications: This patient is a 46 year-old female with metastatic colorectal cancer s/p partial colectomy, liver resection, and b/l lung wedge resections. She had confirmed local recurrence at the right lower lobe wedge resection site that grew after further chemotherapy. She was referred by Dr. Mandujano for resection. She was made aware of the risks, benefits, and alternatives of a bronchoscopy, right VATS lobectomy, and agreed and understood. Details of Procedure: The patient was taken into the operating room and placed supine on the table. She was monitored with pulse oximetry and blood pressure monitoring. She was given sedation and double-lumen endotracheal tube was placed. A bronchoscopy was performed to view her airway. A sal catheter was then placed. She was then positioned in the left lateral decubitus position and the tube position was reconfirmed. Her chest was prepared and draped in sterile fashion. We began with the careful insertion of three ports. We assessed the chest and saw no pleural metastases. We then lysed some adhesions from the right lower lobe to the posterior mediastinum, presumably from lymph node sampling in the last surgery at the inferior pulmonary ligament. We then dissected the inferior pulmonary vein, sparing the middle lobe vein which drained into the lower lobe vein. We divided this with the vascular stapler. Next, we divided the anterior major fissure with the pulmonary stapler. After this, we dissected the basilar and superior segment arteries and divided these. Finally, we divided the bronchus to the lower lobe, after test-clamping and being sure the middle lobe bronchus was not involved. We then removed the specimen with a sack. Hemostasis was obtained and there was no bronchial stump leak. The bronchial margin was negative on frozen. A chest tube was placed and secured. Absorbable sutures were placed in the muscle layers and subcutaneous tissues, and then the skin. Sterile dressings were placed. The patient was then awakened and extubated. She tolerated the procedure well and was taken to the PACU.
--- NOTE | 2017-05-17 15:59 | PN ---
Progress Note (short form) - Note Progress Note: Patient seen and examined. Pt is in tears as she was experiencing a lot of pain. She just then received percocet Cor: RSR, No murmurs, No gallops Lungs: Clear to P&A Abd: Soft, Normal bowel sounds, No organomegaly Ext:No significant edema Skin: No rashes, Integument intact CBC, BMP 05/17/17 05:10 05/17/17 05:10 Last Vital Signs Temp Pulse Resp BP Pulse Ox 97.6 F 86 17 121/68 100 05/17/17 14:26 05/17/17 14:26 05/17/17 14:26 05/17/17 14:26 05/17/17 07:25 Current Medications Generic Name Dose Route Start Last Admin Trade Name Freq PRN Reason Stop Dose Admin Acetaminophen 650 mg 05/17/17 10:00 05/17/17 10:34 Tylenol - PO 650 mg Q6H RUTH Administration Diphenhydramine HCl 12.5 mg 05/16/17 14:38 Benadryl Injection - IVPUSH ONCE PRN FOR ITCHING Diphenhydramine HCl 25 mg 05/17/17 12:08 05/17/17 11:35 Benadryl Injection - IVPUSH 25 mg Q4H PRN Administration FOR ITCHING Docusate Sodium 100 mg 05/17/17 14:00 05/17/17 14:12 Colace Liquid - PO 100 mg TID RUTH Administration Heparin Sodium (Porcine) 5,000 unit 05/16/17 17:30 05/17/17 09:18 Heparin - SQ 5,000 unit Q8H RUTH Administration Pantoprazole Sodium 100 mls @ 200 mls/hr 05/17/17 10:00 05/17/17 09:49 Protonix 40mg Ivpb (Pre-Docked) IVPB 200 mls/hr DAILY RUTH Administration Bupivacaine HCl 8.4 ml/ Sodium 50 mls @ 8 mls/hr 05/17/17 16:00 Chloride NR Q6H RUTH Ipratropium [place] 1 amp 05/16/17 14:15 05/17/17 11:38 Atrovent 0.02% Nebulizer - NEB 1 amp QIDR RUTH Administration Ketorolac Tromethamine 15 mg 05/16/17 18:00 05/17/17 10:39 Toradol Injection - IVPUSH 05/21/17 17:59 Not Given Q8H-IV RUTH Lorazepam 0.5 mg 05/17/17 10:06 05/17/17 14:20 Ativan - PO 0.5 mg BID PRN Administration ANXIETY Metoprolol Tartrate 12.5 mg 05/17/17 09:00 05/17/17 09:12 Lopressor - PO 12.5 mg Q8H RUTH Administration Oxycodone HCl 5 mg 05/17/17 10:00 05/17/17 10:35 Roxicodone - PO 5 mg Q4H PRN Administration PAIN Oxycodone HCl 10 mg 05/17/17 11:12 05/17/17 14:11 Roxicodone - PO 10 mg Q4H PRN Administration Promethazine HCl 12.5 mg 05/16/17 14:38 Phenergan Injection - IVPB Q6H PRN NAUSEA AND/OR VOMITING Senna 1 tab 05/17/17 22:00 Senna - PO BID RUTH A/P 46 y/o patient with metastatic colon cancer --with recurrent solitary metastasis at site of previous RLL wedge resection.No evidence of disease else where s/p Rt. lower lobectomy on 05/16. Onc Hx: Patient was diagnosed with colon cancer around 04/2014, when she presented with obstructive symptoms, anemia---s/p lt. hemicolectomy. Noted to have synchronous liver metastais. s/p FOLFOX x6 followed by resection of liver lesion. Received 6 more cycles of FOLFOX post op. 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 lung lesions and rt. lung lesions .Patient has been very reluctant to get chemotherapy wAs in [place] for some time and more recently recurrence at rt. lower lobe wedge resection site.Received FOLFIRI 3 cycles --last December. Very reluctant to get any further chemotherapy. s/p Rt. lower lobectomy on 05/16/2017. Likely chest tube removal tomorrow will send path for next gen. sequencing. Was KRAS mutant and not MMR deficient. Iron deficiency anemia--on weekly iv iron Pain control: Appreciate anethesiology input. on percocet Will follow through course.
[2017-05-17] MEDS: BUPIVACAINE HCL/PF 8.4 ML in SODIUM CHLORIDE 41.6 ML NR SCH ×2 (19:30→21:29)
[2017-05-17] MEDS ORDERED: LOPERAMIDE HCL 2 MG CAPSULE PO ONE (20:19)
[2017-05-17] MEDS ORDERED: LOPERAMIDE HCL 2 MG CAPSULE PO PRN (20:21)
[2017-05-17] MEDS ORDERED: SENNOSIDES 8.6MG TABLET (FP) PO SCH (22:00)
[2017-05-18] MEDS: IPRATROPIUM BR 0.02% 0.5 MG/2.5 ML VIAL.NEB. NEB SCH ×4 (00:11→18:17)
[2017-05-18] MEDS: HEPARIN NA (PORCINE) 5,000 UNITS/ML 1ML VIAL SQ SCH ×3 (01:26→17:14)
[2017-05-18] MEDS: METOPROLOL TARTRATE 25 MG TABLET (FP) PO SCH ×3 (01:26→17:15)
[2017-05-18] MEDS: KETOROLAC TROMETHAMINE 30 MG/1 ML VIAL IVPUSH SCH ×3 (01:32→17:12)
[2017-05-18] MEDS: BUPIVACAINE HCL/PF 8.4 ML in SODIUM CHLORIDE 41.6 ML NR SCH ×6 (04:00→23:05)
[2017-05-18 05:41] LABS: BASOPHIL 0.2 % (0-2.0); EOSINOPHIL 0.6 % (0-4.5); MCH 25.1 pg (25.7-33.7); MCHC 30.9 g/dl (32.0-36.0); MEAN CELL VOLUME 81.3 fl (80-96); MEAN PLT VOLUME 9.2 fl (7.5-11.1); NEUTROPHILS 80.9 % (42.8-82.8); PLATELET COUNT 169 K/MM3 (134-434); RDW 23.6 % (11.6-15.6); WHITE BLOOD COUNT 12.6 K/mm3 (4.0-10.0)
[2017-05-18 06:00] LABS: ANION GAP 9 (8-16); CALCIUM 8.1 mg/dL (8.5-10.1); CO2 27 mmol/L (21-32); CREATININE 0.5 mg/dL (0.55-1.02); GLUCOSE,RANDOM 90 mg/dL (74-106); PHOSPHOROUS 1.9 mg/dL (2.5-4.9)
[2017-05-18] MEDS: ACETAMINOPHEN 325 MG TABLET (FP) PO SCH ×4 (06:37→21:10)
[2017-05-18] MEDS: LORazepam 0.5 MG TABLET PO PRN ×2 (06:55→21:10)
--- NOTE | 2017-05-18 08:37 | PN ---
Progress Note (short form) - Note Progress Note: 46F POD2 s/p right VATS and RL lobectomy under general anesthesia with epidural for post operative pain. Pt states that pain is well controlled with epidural and oral narcotics. Recommend continuing current pain management regimen. As patient is on tid heparin, not only will heparin need to be held, but PTT will need to be checked prior to catheter removal.
[2017-05-18] MEDS: PANTOPRAZOLE SODIUM 100 ML IVPB SCH (09:19)
[2017-05-18] MEDS ORDERED: POTASSIUM CHLORIDE TABS 20 MEQ TABLET.ER (FP) PO SCH (10:15)
--- NOTE | 2017-05-18 10:28 | PN ---
Progress Note, Physician Chief Complaint: Mrs Arreaga says her pain is controlled currently. Walked yesterday. Tired today because did not sleep well. No cp, sob, n/v. - Current Medication List Current Medications: Active Medications Acetaminophen (Tylenol -) 650 mg PO Q6H RUTH Last Admin: 05/18/17 09:23 Dose: 650 mg Diphenhydramine HCl (Benadryl Injection -) 12.5 mg IVPUSH ONCE PRN PRN Reason: FOR ITCHING Diphenhydramine HCl (Benadryl Injection -) 25 mg IVPUSH Q4H PRN PRN Reason: FOR ITCHING Last Admin: 05/17/17 11:35 Dose: 25 mg Heparin Sodium (Porcine) (Heparin -) 5,000 unit SQ Q8H RUTH Last Admin: 05/18/17 09:19 Dose: 5,000 unit Pantoprazole Sodium (Protonix 40mg Ivpb (Pre-Docked)) 100 mls @ 200 mls/hr IVPB DAILY RUTH Last Admin: 05/18/17 09:19 Dose: 200 mls/hr Bupivacaine HCl 8.4 ml/ Sodium (Chloride) 50 mls @ 8 mls/hr NR Q6H RUTH Last Admin: 05/18/17 04:00 Dose: 8 mls/hr Ipratropium [place] (Atrovent 0.02% Nebulizer -) 1 amp NEB QIDR RUTH Last Admin: 05/18/17 06:17 Dose: 1 amp Ketorolac Tromethamine (Toradol Injection -) 15 mg IVPUSH Q8H-IV RUTH Stop: 05/21/17 17:59 Last Admin: 05/18/17 01:32 Dose: 15 mg Loperamide HCl (Imodium -) 2 mg PO Q8H PRN PRN Reason: DIARRHEA Lorazepam (Ativan -) 0.5 mg PO BID PRN PRN Reason: ANXIETY Last Admin: 05/18/17 06:55 Dose: 0.5 mg Metoprolol Tartrate (Lopressor -) 12.5 mg PO Q8H RUTH Last Admin: 05/18/17 09:20 Dose: 12.5 mg Oxycodone HCl (Roxicodone -) 5 mg PO Q4H PRN PRN Reason: PAIN Last Admin: 05/17/17 10:35 Dose: 5 mg Oxycodone HCl (Roxicodone -) 10 mg PO Q4H PRN Last Admin: 05/17/17 14:11 Dose: 10 mg Potassium Chloride (K-Dur -) 40 meq PO ONCE ONE Stop: 05/18/17 10:31 Potassium Phos/Sodium Phos (Phos-Nak Packet -) 1 packet PO TID RUTH Stop: 05/18/17 22:01 Promethazine HCl (Phenergan Injection -) 12.5 mg IVPB Q6H PRN PRN Reason: NAUSEA AND/OR VOMITING - Objective Vital Signs: Vital Signs Temperature 98.6 F 05/18/17 06:00 Pulse Rate 103 H 05/18/17 06:00 Respiratory Rate 19 05/18/17 06:00 Blood Pressure 123/77 05/18/17 06:00 O2 Sat by Pulse Oximetry (%) 100 05/17/17 22:00 Constitutional: Yes: Well Nourished, No Distress, Calm Cardiovascular: Yes: Regular Rate and Rhythm. No: Gallop, Murmur, Rub Respiratory: Yes: Regular, On Nasal O2, Rhonchi. No: Rales, Wheezes Gastrointestinal: Yes: Normal Bowel Sounds, Soft. No: Distention, Tenderness Extremities: Yes: WNL Edema: No Labs: CBC, BMP 05/18/17 05:05 05/18/17 05:05 Problem List - Problems (1) S/P lobectomy of lung Code(s): Z90.2 - ACQUIRED ABSENCE OF LUNG [PART OF] (2) Anxiety Code(s): F41.9 - ANXIETY DISORDER, UNSPECIFIED (3) HTN (hypertension) Code(s): I10 - ESSENTIAL (PRIMARY) HYPERTENSION (4) Lung cancer Code(s): C34.90 - MALIGNANT NEOPLASM OF UNSP PART OF UNSP BRONCHUS OR LUNG (5) Anemia Code(s): D64.9 - ANEMIA, UNSPECIFIED Qualifiers: Anemia type: other cause Other causes of anemia: chronic disease, neoplastic Qualified Code(s): D63.0 - Anemia in neoplastic disease Assessment/Plan (1) S/P lobectomy of lung Assessment/Plan: -improving -Dr Arenas following and managing chest tube -currently sealed -possible removal tomorrow Code(s): Z90.2 - ACQUIRED ABSENCE OF LUNG [PART OF] (2) Anxiety Assessment/Plan: -on lower dose since on narcotics -monitor -currently well controlled Code(s): F41.9 - ANXIETY DISORDER, UNSPECIFIED (3) HTN (hypertension) Assessment/Plan: -well controlled -continue current metoprolol dose Code(s): I10 - ESSENTIAL (PRIMARY) HYPERTENSION (4) Lung cancer Assessment/Plan: -lobectomy Code(s): C34.90 - MALIGNANT NEOPLASM OF UNSP PART OF UNSP BRONCHUS OR LUNG (5) Anemia Assessment/Plan: -chronic but decreasing as expected with surgical intervention -monitor, no need for transfusion at this time Code(s): D64.9 - ANEMIA, UNSPECIFIED Qualifiers: Anemia type: other cause Other causes of anemia: chronic disease, neoplastic Qualified Code(s): D63.0 - Anemia in neoplastic disease (6) Hypokalemia -replace -recheck in am
[2017-05-18] MEDS: NAPH,MB-DB/K PH,MBDB POWDER PACKET PO SCH ×2 (10:30→14:05)
[2017-05-18] MEDS ORDERED: POTASSIUM CHLORIDE TABS 20 MEQ TABLET.ER (FP) PO ONE (10:30)
--- NOTE | 2017-05-18 10:50 | PN ---
Teaching Attending Note Name of Resident: Riley Hassan ATTENDING PHYSICIAN STATEMENT I saw and evaluated the patient. I reviewed the resident's note and discussed the case with the resident. I agree with the resident's findings and plan as documented. SUBJECTIVE: Pt seen and examined in the ICU. Pain adequately controlled. Using incentive spirometer sparingly. Denies shortness of breath. No cough. OBJECTIVE: Last Vital Signs Temp Pulse Resp BP Pulse Ox 98.6 F 103 H 19 123/77 100 05/18/17 06:00 05/18/17 06:00 05/18/17 06:00 05/18/17 06:00 05/17/17 22:00 Intake & Output 05/15/17 05/16/17 05/17/17 05/18/17 23:59 23:59 23:59 23:59 Intake Total 2760 2380 378 Output Total 2345 1560 40 Balance 415 820 338 Weight 234 lb 5 oz 231 lb 12.8 oz Gen: NAD at rest Heart: tachycardic, regular Lung: decreased breath sounds at the bases Abd: soft, nontender Ext: no edema Chest tube: serous drainage, no air leak CBC, BMP 05/18/17 05:05 05/18/17 05:05 Active Medications Acetaminophen (Tylenol -) 650 mg PO Q6H RUTH Last Admin: 05/18/17 09:23 Dose: 650 mg Diphenhydramine HCl (Benadryl Injection -) 12.5 mg IVPUSH ONCE PRN PRN Reason: FOR ITCHING Diphenhydramine HCl (Benadryl Injection -) 25 mg IVPUSH Q4H PRN PRN Reason: FOR ITCHING Last Admin: 05/17/17 11:35 Dose: 25 mg Heparin Sodium (Porcine) (Heparin -) 5,000 unit SQ Q8H RUTH Last Admin: 05/18/17 09:19 Dose: 5,000 unit Pantoprazole Sodium (Protonix 40mg Ivpb (Pre-Docked)) 100 mls @ 200 mls/hr IVPB DAILY RUTH Last Admin: 05/18/17 09:19 Dose: 200 mls/hr Bupivacaine HCl 8.4 ml/ Sodium (Chloride) 50 mls @ 8 mls/hr NR Q6H RUTH Last Admin: 05/18/17 04:00 Dose: 8 mls/hr Ipratropium [place] (Atrovent 0.02% Nebulizer -) 1 amp NEB QIDR RUTH Last Admin: 05/18/17 06:17 Dose: 1 amp Ketorolac Tromethamine (Toradol Injection -) 15 mg IVPUSH Q8H-IV RUTH Stop: 05/21/17 17:59 Last Admin: 05/18/17 10:31 Dose: Not Given Loperamide HCl (Imodium -) 2 mg PO Q8H PRN PRN Reason: DIARRHEA Lorazepam (Ativan -) 0.5 mg PO BID PRN PRN Reason: ANXIETY Last Admin: 05/18/17 06:55 Dose: 0.5 mg Metoprolol Tartrate (Lopressor -) 12.5 mg PO Q8H RUTH Last Admin: 05/18/17 09:20 Dose: 12.5 mg Oxycodone HCl (Roxicodone -) 5 mg PO Q4H PRN PRN Reason: PAIN Last Admin: 05/17/17 10:35 Dose: 5 mg Oxycodone HCl (Roxicodone -) 10 mg PO Q4H PRN Last Admin: 05/17/17 14:11 Dose: 10 mg Potassium Phos/Sodium Phos (Phos-Nak Packet -) 1 packet PO TID RUTH Stop: 05/18/17 22:01 Promethazine HCl (Phenergan Injection -) 12.5 mg IVPB Q6H PRN PRN Reason: NAUSEA AND/OR VOMITING ASSESSMENT AND PLAN: Metastatic Colon Ca s/p R VATS/RLL lobectomy for solitary met HTN Anxiety - pain control - incentive spirometry - daily CXR while chest tube in - CT per thoracic surgery - OOB, ambulate - replete lytes - DVT prophylaxis - can monitor on 8W/4S
--- NOTE | 2017-05-18 10:57 | OP ---
DATE OF OPERATION: DATE OF DICTATION: 05/17/2017 SURGEON: Derik Arenas MD CO-SURGEON: Daniel Menon MD PROCEDURE: Bronchoscopy, right lower lobe video-assisted lobectomy (VATS lobectomy). INDICATION: Metastasectomy. ANESTHESIA: General endotracheal. FINDINGS: Normal airway by bronchoscopy, massive adhesions in the thoracic cavity, pleural cavity, and around the vascular structures and airway. SPECIMENS SENT: Right lower lobe. COMPLICATIONS: None. DRAINS: One 28-Irish chest tube. BLOOD/FLUID LOSS: 200 mL blood. POSTOPERATIVE CONDITION: Hemodynamically stable, transferred to PACU. INDICATION: This is a 46-year-old female with a history of colorectal cancer, previously had a wedge resection of metastases from right lung, now recurrence at the staple line. Because of the location of the metastasis, unable to do a wedge resection, it was decided with Dr. Arenas and patient that the patient should have a right lower lobe lobectomy. PROCEDURE IN DETAIL: Patient was taken into the operating room, placed in a supine position, was intubated with a double-lumen tube. Bronchoscopy was performed. No intrabronchial lesion. The position of the double-lumen tube was also confirmed with bronchoscopy. Hereafter, patient was turned on the left lateral decubitus position, right side up, flexed position and was prepped and draped in a sterile fashion. VATS lobectomy incisions were made at the IC7 anterior axillary line, IC8 mid-axillary line, IC7 at angular line, and IC4 anterior access port at the anterior axillary line. The scope was introduced into the pleural cavity. Adhesions were observed. Inferior pulmonary ligament was dissected free. Meticulous dissection of pulmonary structures, pulmonary vein and pulmonary artery was done. Pneumolysis was performed. Inferior pulmonary vein was isolated after identifying middle lobe vein that was originating from right lower lobe from the inferior pulmonary vein and was respected here after the inferior pulmonary vein was transected after isolation with a vascular staple. Dissection was performed at the fissure, the pulmonary artery branches to the right lower lobe were identified, and they were sequentially isolated and transected using vascular stapler. At the end, bronchus to right lower lobe was isolated, dissected, and transected using stapler. It has to be noted, also anterior and posterior fissure were transected using a stapler. The lobe was taken out in an Endobag from the anterior access port. The hemostasis was performed. Lung was inflated. Both upper lobe and middle lobe were inflated without any problems. The incisions were closed using 0 Vicryl at the level of fascia, 2-0 Vicryl subcutaneous, and 3-0 Monocryl at the level of skin. Again, 28-Irish chest tube was placed prior to closing the incision line. No air leak was observed after surgery. Patient was transferred to PACU in stable condition and extubated. Genet [id number]
--- NOTE | 2017-05-18 13:11 | PN ---
Physical Exam: SUBJECTIVE: Patient stated she feels the same. Denies fever, chills, severe chest pain or shortness of breath, abd pain, urinary symptoms. OBJECTIVE: Vital Signs Period Temp Pulse Resp BP Sys/Kaiser Pulse Ox Last 24 Hr 97.6 F-98.9 F 80-104 14-24 104-124/59-80 100-100 GENERAL: AAO x 3, in good spirits, speak in full sentences, in no cardiopulmonary distress LUNGS: Decreased breath sounds in bases. HEART: Slightly tachycardic, S1, S2 without murmur, rub or gallop. ABDOMEN: Soft, nontender, nondistended, normoactive bowel sounds EXTREMITIES: no edema. SKIN: no rashes or lesions noted Laboratory Results - last 24 hr 05/18/17 05/18/17 05:05 05:05 WBC 12.6 H RBC 3.51 L Hgb 8.8 L Hct 28.5 L MCV 81.3 MCH 25.1 L MCHC 30.9 L RDW 23.6 H Plt Count 169 MPV 9.2 Neutrophils % 80.9 Lymphocytes % 7.7 L Monocytes % 10.6 H Eosinophils % 0.6 D Basophils % 0.2 Sodium 138 Potassium 3.2 L Chloride 102 Carbon Dioxide 27 Anion Gap 9 BUN 9 Creatinine 0.5 L Random Glucose 90 Calcium 8.1 L Phosphorus 1.9 L D Magnesium 2.0 Active Medications Generic Name Dose Route Start Last Admin Trade Name Freq PRN Reason Stop Dose Admin Acetaminophen 650 mg 05/17/17 10:00 05/18/17 09:23 Tylenol - PO 650 mg Q6H RUTH Administration Diphenhydramine HCl 12.5 mg 05/16/17 14:38 Benadryl Injection - IVPUSH ONCE PRN FOR ITCHING Diphenhydramine HCl 25 mg 05/17/17 12:08 05/17/17 11:35 Benadryl Injection - IVPUSH 25 mg Q4H PRN Administration FOR ITCHING Heparin Sodium (Porcine) 5,000 unit 05/16/17 17:30 05/18/17 09:19 Heparin - SQ 5,000 unit Q8H RUTH Administration Pantoprazole Sodium 100 mls @ 200 mls/hr 05/17/17 10:00 05/18/17 09:19 Protonix 40mg Ivpb (Pre-Docked) IVPB 200 mls/hr DAILY RUTH Administration Bupivacaine HCl 8.4 ml/ Sodium 50 mls @ 8 mls/hr 05/17/17 16:00 05/18/17 09:30 Chloride NR 8 mls/hr Q6H RUTH Administration Ipratropium [place] 1 amp 05/16/17 14:15 05/18/17 11:44 Atrovent 0.02% Nebulizer - NEB 1 amp QIDR RUTH Administration Ketorolac Tromethamine 15 mg 05/16/17 18:00 05/18/17 10:31 Toradol Injection - IVPUSH 05/21/17 17:59 Not Given Q8H-IV RUTH Loperamide HCl 2 mg 05/17/17 20:21 Imodium - PO Q8H PRN DIARRHEA Lorazepam 0.5 mg 05/17/17 10:06 05/18/17 06:55 Ativan - PO 0.5 mg BID PRN Administration ANXIETY Metoprolol Tartrate 12.5 mg 05/17/17 09:00 05/18/17 09:20 Lopressor - PO 12.5 mg Q8H RUTH Administration Oxycodone HCl 5 mg 05/17/17 10:00 05/17/17 10:35 Roxicodone - PO 5 mg Q4H PRN Administration PAIN Oxycodone HCl 10 mg 05/17/17 11:12 05/17/17 14:11 Roxicodone - PO 10 mg Q4H PRN Administration Potassium Phos/Sodium Phos 1 packet 05/18/17 10:15 05/18/17 10:30 Phos-Nak Packet - PO 05/18/17 22:01 1 packet TID RUTH Administration Promethazine HCl 12.5 mg 05/16/17 14:38 Phenergan Injection - IVPB Q6H PRN NAUSEA AND/OR VOMITING ASSESSMENT/PLAN: 46 yo F h/o metastatic colon cancer to liver and lung s/p multiple lung and liver resections. She's admitted to the ICU after bronchoscopy, right VATS and lower lobectomy. Pulm: s/p bronchoscopy, R VATS and RLL lobectomy - POD #2 - Chest tube removal tomorrow - Cont. atrovent - Pain control with toradol and tylenol * oxycodone PRN - OOB and incentive spirometer FEN - Not indicated - Normal lytes - Regular diet Prophylaxis - DVT: heparin SQ - GI: protonix Dispo - Transfer to floor Riley Hassan, ICU Resident PGY-2 Pager: [phone] Visit type - Emergency Visit Emergency Visit: No - New Patient This patient is new to me today: No - Critical Care Critical Care patient: Yes Total Critical Care Time (in minutes): 30 Critical Care Statement: The care of this patient involved high complexity decision making to prevent further life threatening deterioration of the patient 's condition and/or to evalute & treat vital organ system(s) failure or risk of failure.
--- NOTE | 2017-05-18 13:59 | PN ---
Progress Note (short form) - Note Progress Note: Patient seen and examined. Pt is feeling much better than yesterday interms of her pain. Seen by Endo Cor: RSR, No murmurs, No gallops Lungs: Clear to P&A Abd: Soft, Normal bowel sounds, No organomegaly Ext:No significant edema Skin: No rashes, Integument intact Last Vital Signs Temp Pulse Resp BP Pulse Ox 98.7 F 84 18 126/69 98 05/18/17 13:21 05/18/17 13:21 05/18/17 13:21 05/18/17 13:21 05/18/17 13:21 Current Medications Generic Name Dose Route Start Last Admin Trade Name Freq PRN Reason Stop Dose Admin Acetaminophen 650 mg 05/17/17 10:00 05/18/17 09:23 Tylenol - PO 650 mg Q6H RUTH Administration Diphenhydramine HCl 12.5 mg 05/16/17 14:38 Benadryl Injection - IVPUSH ONCE PRN FOR ITCHING Diphenhydramine HCl 25 mg 05/17/17 12:08 05/17/17 11:35 Benadryl Injection - IVPUSH 25 mg Q4H PRN Administration FOR ITCHING Heparin Sodium (Porcine) 5,000 unit 05/16/17 17:30 05/18/17 09:19 Heparin - SQ 5,000 unit Q8H RUTH Administration Pantoprazole Sodium 100 mls @ 200 mls/hr 05/17/17 10:00 05/18/17 09:19 Protonix 40mg Ivpb (Pre-Docked) IVPB 200 mls/hr DAILY RUTH Administration Bupivacaine HCl 8.4 ml/ Sodium 50 mls @ 8 mls/hr 05/17/17 16:00 05/18/17 09:30 Chloride NR 8 mls/hr Q6H RUTH Administration Ipratropium [place] 1 amp 05/16/17 14:15 05/18/17 11:44 Atrovent 0.02% Nebulizer - NEB 1 amp QIDR RUTH Administration Ketorolac Tromethamine 15 mg 05/16/17 18:00 05/18/17 10:31 Toradol Injection - IVPUSH 05/21/17 17:59 Not Given Q8H-IV RUTH Loperamide HCl 2 mg 05/17/17 20:21 Imodium - PO Q8H PRN DIARRHEA Lorazepam 0.5 mg 05/17/17 10:06 05/18/17 06:55 Ativan - PO 0.5 mg BID PRN Administration ANXIETY Metoprolol Tartrate 12.5 mg 05/17/17 09:00 05/18/17 09:20 Lopressor - PO 12.5 mg Q8H RUTH Administration Oxycodone HCl 5 mg 05/17/17 10:00 05/17/17 10:35 Roxicodone - PO 5 mg Q4H PRN Administration PAIN Oxycodone HCl 10 mg 05/17/17 11:12 05/17/17 14:11 Roxicodone - PO 10 mg Q4H PRN Administration Potassium Phos/Sodium Phos 1 packet 05/18/17 10:15 05/18/17 10:30 Phos-Nak Packet - PO 05/18/17 22:01 1 packet TID RUTH Administration Promethazine HCl 12.5 mg 05/16/17 14:38 Phenergan Injection - IVPB Q6H PRN NAUSEA AND/OR VOMITING Abnormal Lab Results 05/18/17 05/18/17 05:05 05:05 WBC 12.6 H RBC 3.51 L Hgb 8.8 L Hct 28.5 L MCH 25.1 L MCHC 30.9 L RDW 23.6 H Lymphocytes % 7.7 L Monocytes % 10.6 H Potassium 3.2 L Creatinine 0.5 L Calcium 8.1 L Phosphorus 1.9 L D A/P 46 y/o patient with metastatic colon cancer --with recurrent solitary metastasis at site of previous RLL wedge resection.No evidence of disease else where s/p Rt. lower lobectomy on 05/16. Onc Hx: Patient was diagnosed with colon cancer around 04/2014, when she presented with obstructive symptoms, anemia---s/p lt. hemicolectomy. Noted to have synchronous liver metastais. s/p FOLFOX x6 followed by resection of liver lesion. Received 6 more cycles of FOLFOX post op. 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 lung lesions and rt. lung lesions .Patient has been very reluctant to get chemotherapy wAs in [facility] for some time and more recently recurrence at rt. lower lobe wedge resection site.Received FOLFIRI 3 cycles --last December. Very reluctant to get any further chemotherapy. s/p Rt. lower lobectomy on 05/16/2017. Has chest tube will send path for next gen. sequencing. Was KRAS mutant and not MMR deficient. Iron deficiency anemia--on weekly iv iron,received last week, will check iron studies and if needed will re-dose withIV iron in the hospital Pain control: Appreciate anethesiology input. on percocet Thyroid nodule: appreciate Dr. Cox consult, will need US neck Will follow through course.
--- NOTE | 2017-05-18 17:43 | PATH ---
Surgical Pathology Report Patient Name: KARLA MORENO [facility]. Rec. #: [id number] /Age/Gender: 1970 (Age: 46) / F Account: [id number] Location: 4 SO PEDS/ADOL Taken: 05/16/2017 Received: 05/16/2017 Reported: 05/18/2017 Physicians: Genet Dial M.D. Specimen(s) Received RIGHT LOWER LOBE Clinical History Lung tumor Intraoperative Consult Diagnosis Right lower lobe, frozen section: Bronchial margin is negative for carcinoma. Dr. Martinez, 05/16/17. Final Diagnosis LUNG, RIGHT LOWER LOBE, LOBECTOMY: INVOLVEMENT BY METASTATIC ADENOCARCINOMA, MODERATELY DIFFERENTIATED, CONSISTENT WITH LOWER GI ORIGIN (2.5 CM). SURGICAL RESECTION MARGINS: BRONCHIAL AND VASCULAR RESECTION MARGINS ARE NEGATIVE FOR CARCINOMA (CARCINOMA IS 0.8 CM AWAY FROM BOTH MARGINS). SURROUNDING LUNG TISSUE: MILD PERITUMORAL INFLAMMATION. Comment: History of metastatic colon carcinoma is noted (refer to prior cases [id number], [id number], and [id number]). Immunohistochemical stains performed at [place], [place] ([id number]) on block #7 and interpreted [facility] show the following: The tumor cells are positive for CK20, CDX2, and SATB2 immunostains and that negative for CK7 and TTF1 immunostains. EVG elastin stain highlights intact pleura. The morphologic finding and the immunoprofile are consistent with involvement by metastatic carcinoma of lower GI origin. Electronically Signed Juan Manuel Martinez M.D. Gross Description Received fresh labeled "right lower lobe" is a 156 g, 13.5 x 9.2 x 7.5 cm lung lobectomy with a stapled margin of resection. The pleura is red-brown, smooth with focal scar-like area, appears intact. Sectioning reveals a 2.5 x 2.0 x 1.8 cm jack, well demarcated mass at 0.8 cm from the bronchial margin and is at 0.8 cm from the pleura. The remaining lung parenchyma is red-brown and unremarkable. There are possible black lymph nodes identified at the hilum. A sales representative door to door portion of the bronchial/vascular margins and staple line is submitted for frozen section. Heavy Equipment [employer] sections are submitted in 11 cassettes as follows: 1-frozen section residue from staple line; 2-frozen section residue from bronchial margin; 3-frozen section residue from deeper bronchus and vascular margin; 4-tumor; 5-tumor to hilum; 6-7-tumor to pleura; 8-uninvolved lung parenchyma; 5-61-pmhgbwyk lymph nodes; 11-additional staple line; 12-15- additional section of the hilum. 05/16/2017 saudi05/16/2017
[2017-05-18] MEDS ORDERED: PT OWN MED DRAWER 7, Y5N ONE (20:20)
[2017-05-18] MEDS: MEROPENEM 1 GM in DEXTROSE 5%-WATER - 100 ML IVPB SCH (22:27)
[2017-05-18] MEDS: oxyCODONE HCL 5 MG TABLET PO PRN (23:25)
[2017-05-19] MEDS: IPRATROPIUM BR 0.02% 0.5 MG/2.5 ML VIAL.NEB. NEB SCH ×4 (00:05→17:43)
[2017-05-19] MEDS ORDERED: PT OWN MED DRAWER 7, Y5N ONE ×5 (01:28→17:41)
[2017-05-19] MEDS: METOPROLOL TARTRATE 25 MG TABLET (FP) PO SCH ×3 (01:41→18:01)
[2017-05-19] MEDS: MEROPENEM 1 GM in DEXTROSE 5%-WATER - 100 ML IVPB SCH ×3 (01:41→17:43)
[2017-05-19] MEDS: KETOROLAC TROMETHAMINE 30 MG/1 ML VIAL IVPUSH SCH ×3 (01:42→18:01)
[2017-05-19] MEDS: BUPIVACAINE HCL/PF 8.4 ML in SODIUM CHLORIDE 41.6 ML NR SCH ×5 (02:30→21:39)
[2017-05-19] MEDS: ACETAMINOPHEN 325 MG TABLET (FP) PO SCH ×5 (02:59→21:40)
[2017-05-19] MEDS ORDERED: LOPERAMIDE HCL 2 MG CAPSULE PO PRN (03:35)
[2017-05-19] MEDS ORDERED: PROMETHAZINE HCL 25 MG/1 ML VIAL IVPB PRN (03:35)
[2017-05-19] MEDS ORDERED: oxyCODONE HCL 5 MG TABLET PO PRN (03:35)
[2017-05-19] MEDS: oxyCODONE HCL 5 MG TABLET PO PRN (04:39)
[2017-05-19 06:10] LABS: BASOPHIL 0.2 % (0-2.0); EOSINOPHIL 1.4 % (0-4.5); MCH 25.3 pg (25.7-33.7); MCHC 31.4 g/dl (32.0-36.0); MEAN CELL VOLUME 80.7 fl (80-96); MEAN PLT VOLUME 8.9 fl (7.5-11.1); NEUTROPHILS 66.9 % (42.8-82.8); PLATELET COUNT 167 K/MM3 (134-434); WHITE BLOOD COUNT 8.8 K/mm3 (4.0-10.0)
[2017-05-19 06:25] LABS: INR 1.17 (0.82-1.09); PROTHROMBIN TIME (PATIENT) 12.9 SEC (9.98-11.88)
[2017-05-19 06:40] LABS: ANION GAP 6 (8-16); CALCIUM 7.9 mg/dL (8.5-10.1); CO2 30 mmol/L (21-32); GLUCOSE,RANDOM 86 mg/dL (74-106)
[2017-05-19 06:41] LABS: CREATININE 0.6 mg/dL (0.55-1.02); PHOSPHOROUS 2.4 mg/dL (2.5-4.9)
--- NOTE | 2017-05-19 07:48 | PN ---
Progress Note (short form) - Note Progress Note: POD #3 s/p Bronchoscopy, reoperative right VATS, lower lobectomy Resting comfortably in bed. C/o mild incisional tenderness. Pain controlled well via narcotic and non-narcotic meds. On NC 3LPM. Pleurovac off suction x24hrs. Denies n/v/f/c, CP, SOB. Last Vital Signs Temp Pulse Resp BP Pulse Ox 98.9 F 78 18 114/79 99 05/19/17 06:00 05/19/17 06:00 05/19/17 06:00 05/19/17 06:00 05/18/17 21:00 CBC, BMP 05/19/17 05:05 05/19/17 05:05 INR, PTT INR 1.17 (0.82-1.09) H 05/19/17 05:05 Chest Tube Output 05/18/17 05/18/17 05/19/17 06:00 20:30 05:20 CxT 40 20 40 CXR 05/19: No ptx General: alert. nad. Pulm: Dressing c/d/i. CxT remains on waterseal. No airleak. Cor: RRR LE: SCDs b/l. Soft. NT. No edema Problem List - Problems (1) S/P lobectomy of lung Assessment/Plan: Spinal cath being managed by anesthesia Diet as tolerated Replete potassium CxT removed on rounds f/u CXR --> post-pull CxT Pain management Downgrade to floor at ICU discretion Above plan discussed with Dr. Arenas and agrees Code(s): Z90.2 - ACQUIRED ABSENCE OF LUNG [PART OF]
[2017-05-19 07:57] LABS: ANISOCYTOSIS 3+; MICROCYTOSIS 3+
--- NOTE | 2017-05-19 09:10 | PN ---
Progress Note (short form) - Note Progress Note: Feels better chest tube removed today Vital Signs Period Temp Pulse Resp BP Sys/Kaiser Pulse Ox Last 24 Hr 98.2 F-100.3 F 72-104 14-18 108-143/66-98 94-99 PE: AOx3 Neck: Supple, No JVD HEENT: EOMI Lungs: CTA Abd: Benign Ext: No edema Neuro: No focal deficit CMP Sodium 139 mmol/L (136-145) 05/19/17 05:05 Potassium 3.4 mmol/L (3.5-5.1) L 05/19/17 05:05 Chloride 103 mmol/L (98-107) 05/19/17 05:05 Carbon Dioxide 30 mmol/L (21-32) 05/19/17 05:05 Anion Gap 6 (8-16) L 05/19/17 05:05 BUN 8 mg/dL (7-18) 05/19/17 05:05 Creatinine 0.6 mg/dL (0.55-1.02) 05/19/17 05:05 Creat Clearance w eGFR > 60 (>60) 05/17/17 05:10 Random Glucose 86 mg/dL (74-106) 05/19/17 05:05 Calcium 7.9 mg/dL (8.5-10.1) L 05/19/17 05:05 Phosphorus 2.4 mg/dL (2.5-4.9) L D 05/19/17 05:05 Magnesium 2.0 mg/dL (1.8-2.4) 05/19/17 05:05 Total Bilirubin 0.5 mg/dL (0.2-1.0) D 05/17/17 05:10 AST 29 U/L (15-37) 05/17/17 05:10 ALT 23 U/L (12-78) 05/17/17 05:10 Alkaline Phosphatase 50 U/L (45-117) 05/17/17 05:10 Total Protein 5.9 g/dl (6.4-8.2) L 05/17/17 05:10 Albumin 2.9 g/dl (3.4-5.0) L 05/17/17 05:10 Current Medications Generic Name Dose Route Start Last Admin Trade Name Freq PRN Reason Stop Dose Admin Acetaminophen 650 mg 05/19/17 04:00 05/19/17 03:00 Tylenol - PO 650 mg Q6H RUTH Administration Diphenhydramine HCl 25 mg 05/19/17 03:35 Benadryl Injection - IVPUSH Q4H PRN FOR ITCHING Heparin Sodium (Porcine) 5,000 unit 05/19/17 09:30 Heparin - SQ Q8H RUTH Meropenem 1 gm/ Dextrose 100 mls @ 200 mls/hr 05/18/17 21:45 05/19/17 01:41 IVPB 200 mls/hr Q8H-IV RUTH Administration Bupivacaine HCl 8.4 ml/ Sodium 50 mls @ 8 mls/hr 05/19/17 04:00 05/19/17 02:30 Chloride NR 8 mls/hr Q6H RUTH Administration Pantoprazole Sodium 100 mls @ 200 mls/hr 05/19/17 10:00 Protonix 40mg Ivpb (Pre-Docked) IVPB DAILY RUTH Ipratropium [place] 1 amp 05/19/17 06:00 05/19/17 07:36 Atrovent 0.02% Nebulizer - NEB 1 amp QIDR RUTH Administration Ketorolac Tromethamine 15 mg 05/19/17 10:00 Toradol Injection - IVPUSH 05/21/17 17:59 Q8H-IV RUTH Loperamide HCl 2 mg 05/19/17 03:35 Imodium - PO Q8H PRN DIARRHEA Lorazepam 0.5 mg 05/19/17 03:35 Ativan - PO BID PRN ANXIETY Metoprolol Tartrate 12.5 mg 05/19/17 09:00 Lopressor - PO Q8H RUTH Oxycodone HCl 5 mg 05/19/17 03:35 05/19/17 04:39 Roxicodone - PO 5 mg Q4H PRN Administration PAIN Oxycodone HCl 10 mg 05/19/17 03:35 Roxicodone - PO Q4H PRN Promethazine HCl 12.5 mg 05/19/17 03:35 Phenergan Injection - IVPB Q6H PRN NAUSEA AND/OR VOMITING AP: Metastatic Colon Ca S/P b/l lung wedge resection s/p resection of liver lesion S/P Rt lower lobe lung resection HTN B/L Thyroid nodules: Sonogram done on 10.15.15 showed Rt nodule 1.4x1.2x1.3 and Left nodule 3.5x2.9x3.8, without significant change from 10.09.14 TFT done as outpt on 05.11.2107 by her oncologist shows TSH of 1.19 With Free T4 of 1.34 Thyroid nodules have 5 to 10% risk of malignancy. Will need to repeat sonogram of thyroid before deciding on further course of action. Pt to get sonogram as outpt and call office for appt. Will decide on FNA once results are available. Order for sonogram given to pt. Will f/u Problem List - Problems (1) Anemia Code(s): D64.9 - ANEMIA, UNSPECIFIED Qualifiers: Anemia type: other cause Other causes of anemia: chronic disease, neoplastic Qualified Code(s): D63.0 - Anemia in neoplastic disease (2) HTN (hypertension) Code(s): I10 - ESSENTIAL (PRIMARY) HYPERTENSION (3) Metastatic colorectal cancer Code(s): C78.5 - SECONDARY MALIGNANT NEOPLASM OF LARGE INTESTINE AND RECTUM
[2017-05-19] MEDS ORDERED: PANTOPRAZOLE SODIUM 100 ML IVPB SCH (10:00)
[2017-05-19 10:06] LABS: URINE APPEARANCE CLEAR; URINE BILIRUBIN NEGATIVE (NEGATIVE); URINE BLOOD NEGATIVE (NEGATIVE); URINE COLOR YELLOW; URINE GLUCOSE (UA) NEGATIVE (NEGATIVE); URINE KETONE 2+ (NEGATIVE); URINE LEUK ESTERASE NEGATIVE (NEGATIVE); URINE NITRITE NEGATIVE (NEGATIVE); URINE PROTEIN 1+ (NEGATIVE)
[2017-05-19 10:15] LABS: URINE MUCUS RARE; URINE RBC 3 /hpf (0-3); URINE WBC 1 /hpf (3-5)
[2017-05-19] MEDS: HEPARIN NA (PORCINE) 5,000 UNITS/ML 1ML VIAL SQ SCH ×2 (10:47→17:31)
[2017-05-19] MEDS: LORazepam 0.5 MG TABLET PO PRN (11:09)
--- NOTE | 2017-05-19 12:21 | PN ---
Teaching Attending Note Name of Resident: Riley Hassan ATTENDING PHYSICIAN STATEMENT I saw and evaluated the patient. I reviewed the resident's note and discussed the case with the resident. I agree with the resident's findings and plan as documented. SUBJECTIVE: Patient seen and examined in the ICU. Awake and alert. CT has been removed : CXR : No PTX Intake & Output 05/16/17 05/17/17 05/18/17 05/19/17 23:59 23:59 23:59 23:59 Intake Total 2760 2380 952 364 Output Total 2345 1560 60 40 Balance 415 820 892 324 Weight 234 lb 5 oz 231 lb 12.8 oz 240 lb 1.6 oz Last Vital Signs Temp Pulse Resp BP Pulse Ox 98.9 F 98 H 18 114/79 100 05/19/17 06:00 05/19/17 11:38 05/19/17 06:00 05/19/17 06:00 05/19/17 11:38 Active Medications Acetaminophen (Tylenol -) 650 mg PO Q6H [facility] Last Admin: 05/19/17 03:00 Dose: 650 mg Diphenhydramine HCl (Benadryl Injection -) 25 mg IVPUSH Q4H PRN PRN Reason: FOR ITCHING Heparin Sodium (Porcine) (Heparin -) 5,000 unit SQ Q8H [facility] Last Admin: 05/19/17 10:47 Dose: 5,000 unit Meropenem 1 gm/ Dextrose 100 mls @ 200 mls/hr IVPB Q8H-IV RUTH Last Admin: 05/19/17 01:41 Dose: 200 mls/hr Bupivacaine HCl 8.4 ml/ Sodium (Chloride) 50 mls @ 8 mls/hr NR Q6H RUTH Last Admin: 05/19/17 10:46 Dose: 8 mls/hr Pantoprazole Sodium (Protonix 40mg Ivpb (Pre-Docked)) 100 mls @ 200 mls/hr IVPB DAILY [facility] Last Admin: 05/19/17 10:48 Dose: 200 mls/hr Ipratropium [place] (Atrovent 0.02% Nebulizer -) 1 amp NEB QIDR [facility] Last Admin: 05/19/17 11:38 Dose: Not Given Ketorolac Tromethamine (Toradol Injection -) 15 mg IVPUSH Q8H-IV RUTH Stop: 05/21/17 17:59 Last Admin: 05/19/17 10:54 Dose: 15 mg Loperamide HCl (Imodium -) 2 mg PO Q8H PRN PRN Reason: DIARRHEA Lorazepam (Ativan -) 0.5 mg PO BID PRN PRN Reason: ANXIETY Last Admin: 05/19/17 11:09 Dose: 0.5 mg Metoprolol Tartrate (Lopressor -) 12.5 mg PO Q8H RUTH Last Admin: 05/19/17 10:49 Dose: 12.5 mg Oxycodone HCl (Roxicodone -) 5 mg PO Q4H PRN PRN Reason: PAIN Last Admin: 05/19/17 04:39 Dose: 5 mg Oxycodone HCl (Roxicodone -) 10 mg PO Q4H PRN Promethazine HCl (Phenergan Injection -) 12.5 mg IVPB Q6H PRN PRN Reason: NAUSEA AND/OR VOMITING Constitutional: Yes: Awake and alert, NAD Eyes: Yes: Conjunctiva Clear, EOM Intact HENT: Yes: Normocephalic Neck: Yes: Trachea Midline Cardiovascular: Yes: Regular Rate and Rhythm, S1, S2 Respiratory: Yes: Diminished at the bases Gastrointestinal: Yes: Normal Bowel Sounds, Soft, Abdomen, Obese Edema: No Wound/Incision: Yes: Clean/Dry Neurological: Yes: WNL, Alert, Oriented Psychiatric: Yes: Oriented Labs: Laboratory Results - last 24 hr 05/19/17 05/19/17 05/19/17 05:05 05:05 05:05 WBC 8.8 D RBC 3.20 L Hgb 8.1 L Hct 25.9 L MCV 80.7 MCH 25.3 L MCHC 31.4 L RDW 24.0 H Plt Count 167 MPV 8.9 Neutrophils % 66.9 Lymphocytes % 19.4 D Monocytes % 12.1 H Eosinophils % 1.4 D Basophils % 0.2 Anisocytosis 3+ Microcytosis 3+ INR PTT (Actin FS) 33.5 Sodium 139 Potassium 3.4 L Chloride 103 Carbon Dioxide 30 Anion Gap 6 L BUN 8 Creatinine 0.6 Random Glucose 86 Calcium 7.9 L Phosphorus 2.4 L D Magnesium 2.0 Urine Color Urine Appearance Urine pH Urine Protein Urine Glucose (UA) Urine Ketones Urine Blood Urine Nitrite Urine Bilirubin Urine Urobilinogen Ur Leukocyte Esterase Urine RBC Urine WBC Ur Epithelial Cells Urine Mucus 05/19/17 05/19/17 05:05 08:00 WBC RBC Hgb Hct MCV MCH MCHC RDW Plt Count MPV Neutrophils % Lymphocytes % Monocytes % Eosinophils % Basophils % Anisocytosis Microcytosis INR 1.17 H PTT (Actin FS) Sodium Potassium Chloride Carbon Dioxide Anion Gap BUN Creatinine Random Glucose Calcium Phosphorus Magnesium Urine Color Yellow Urine Appearance Clear Urine pH 6.0 Urine Protein 1+ H Urine Glucose (UA) Negative Urine Ketones 2+ H Urine Blood Negative Urine Nitrite Negative Urine Bilirubin Negative Urine Urobilinogen 2.0 H Ur Leukocyte Esterase Negative Urine RBC 3 Urine WBC 1 Ur Epithelial Cells Rare Urine Mucus Rare Problem List - Problems (1) Colon cancer Code(s): C18.9 - MALIGNANT NEOPLASM OF COLON, UNSPECIFIED (2) Constipation Code(s): K59.00 - CONSTIPATION, UNSPECIFIED (3) Lung nodule Code(s): R91.1 - SOLITARY PULMONARY NODULE (4) S/P lobectomy of lung Code(s): Z90.2 - ACQUIRED ABSENCE OF LUNG [PART OF] Assessment/Plan S/P RLL lobectomy for suspected lung metastasis from primary colon CA History of liver metastasis S/P Lung wedge resection x 2 Pain control O2 as needed Incentive Spirometry PO as tolerated BD TX PRN Bowel regimen VTE prophylaxis Dr Tate
--- NOTE | 2017-05-19 12:38 | PN ---
Physical Exam: SUBJECTIVE: Patient stated she was transferred back in the Unit because the [employer] pump wasn't working. Per nurse, she had a fever of 100.5F and chest tube was removed this AM. No chest pain, sob, abd pain, urinary symptoms. OBJECTIVE: Vital Signs Period Temp Pulse Resp BP Sys/Kaiser Pulse Ox Last 24 Hr 98.2 F-100.3 F 72-99 14-18 108-143/69-98 94-100 GENERAL: AAO x 3, in good spirits, speak in full sentences, in no cardiopulmonary distress LUNGS: Chest tube removed. Poor air entry, decreased breath sounds HEART: RRR, S1, S2 without murmur, rub or gallop. ABDOMEN: Soft, nontender, nondistended, normoactive bowel sounds EXTREMITIES: no edema. SKIN: no rashes or lesions noted CBCD WBC 8.8 K/mm3 (4.0-10.0) D 05/19/17 05:05 RBC 3.20 M/mm3 (3.60-5.2) L 05/19/17 05:05 Hgb 8.1 GM/dL (10.7-15.3) L 05/19/17 05:05 Hct 25.9 % (32.4-45.2) L 05/19/17 05:05 MCV 80.7 fl (80-96) 05/19/17 05:05 MCHC 31.4 g/dl (32.0-36.0) L 05/19/17 05:05 RDW 24.0 % (11.6-15.6) H 05/19/17 05:05 Plt Count 167 K/MM3 (134-434) 05/19/17 05:05 MPV 8.9 fl (7.5-11.1) 05/19/17 05:05 CMP Sodium 139 mmol/L (136-145) 05/19/17 05:05 Potassium 3.4 mmol/L (3.5-5.1) L 05/19/17 05:05 Chloride 103 mmol/L (98-107) 05/19/17 05:05 Carbon Dioxide 30 mmol/L (21-32) 05/19/17 05:05 Anion Gap 6 (8-16) L 05/19/17 05:05 BUN 8 mg/dL (7-18) 05/19/17 05:05 Creatinine 0.6 mg/dL (0.55-1.02) 05/19/17 05:05 Creat Clearance w eGFR > 60 (>60) 05/17/17 05:10 Calcium 7.9 mg/dL (8.5-10.1) L 05/19/17 05:05 Total Bilirubin 0.5 mg/dL (0.2-1.0) D 05/17/17 05:10 AST 29 U/L (15-37) 05/17/17 05:10 ALT 23 U/L (12-78) 05/17/17 05:10 Alkaline Phosphatase 50 U/L (45-117) 05/17/17 05:10 Total Protein 5.9 g/dl (6.4-8.2) L 05/17/17 05:10 Albumin 2.9 g/dl (3.4-5.0) L 05/17/17 05:10 Intake & Output 05/16/17 05/17/17 05/18/17 05/19/17 23:59 23:59 23:59 23:59 Intake Total 2760 2380 952 364 Output Total 2345 1560 60 40 Balance 415 820 892 324 Weight 106.282 kg 105.143 kg 108.908 kg ASSESSMENT/PLAN: 46 yo F h/o metastatic colon cancer to liver and lung s/p multiple lung and liver resections. She's admitted to the ICU after bronchoscopy, right VATS and lower lobectomy. Pulm: s/p bronchoscopy, R VATS and RLL lobectomy - POD #3 - Chest tube removed - Cont. atrovent - Pain control with toradol and tylenol * oxycodone PRN - OOB and incentive spirometer FEN - Not indicated - Normal lytes - Regular diet Prophylaxis - DVT: heparin SQ - GI: protonix Dispo - Transfer to floor Riley Hassan, ICU Resident PGY-2 Pager: [phone] Visit type - Emergency Visit Emergency Visit: No - New Patient This patient is new to me today: No - Critical Care Critical Care patient: Yes Total Critical Care Time (in minutes): 30 Critical Care Statement: The care of this patient involved high complexity decision making to prevent further life threatening deterioration of the patient 's condition and/or to evalute & treat vital organ system(s) failure or risk of failure.
--- NOTE | 2017-05-19 12:42 | PN ---
Progress Note (short form) - Note Progress Note: Patient seen and examined. pt mentioned that she feels tired. She had a brief stay out of the ICU last evening and then returned back to ICU. No events though. Cor: RSR, No murmurs, No gallops Lungs: Clear to P&A Abd: Soft, Normal bowel sounds, No organomegaly Ext:No significant edema Skin: No rashes, Integument intact Last Vital Signs Temp Pulse Resp BP Pulse Ox 98.9 F 98 H 18 114/79 100 05/19/17 06:00 05/19/17 11:38 05/19/17 06:00 05/19/17 06:00 05/19/17 11:38 Abnormal Lab Results 05/19/17 05/19/17 05/19/17 05:05 05:05 05:05 RBC 3.20 L Hgb 8.1 L Hct 25.9 L MCH 25.3 L MCHC 31.4 L RDW 24.0 H Monocytes % 12.1 H INR 1.17 H Potassium 3.4 L Anion Gap 6 L Calcium 7.9 L Phosphorus 2.4 L D Urine Protein Urine Ketones Urine Urobilinogen 05/19/17 08:00 RBC Hgb Hct MCH MCHC RDW Monocytes % INR Potassium Anion Gap Calcium Phosphorus Urine Protein 1+ H Urine Ketones 2+ H Urine Urobilinogen 2.0 H Current Medications Generic Name Dose Route Start Last Admin Trade Name Freq PRN Reason Stop Dose Admin Acetaminophen 650 mg 05/19/17 04:00 05/19/17 03:00 Tylenol - PO 650 mg Q6H RUTH Administration Diphenhydramine HCl 25 mg 05/19/17 03:35 Benadryl Injection - IVPUSH Q4H PRN FOR ITCHING Heparin Sodium (Porcine) 5,000 unit 05/19/17 09:30 05/19/17 10:47 Heparin - SQ 5,000 unit Q8H RUTH Administration Meropenem 1 gm/ Dextrose 100 mls @ 200 mls/hr 05/18/17 21:45 05/19/17 01:41 IVPB 200 mls/hr Q8H-IV RUTH Administration Bupivacaine HCl 8.4 ml/ Sodium 50 mls @ 8 mls/hr 05/19/17 04:00 05/19/17 10:46 Chloride NR 8 mls/hr Q6H RUTH Administration Pantoprazole Sodium 100 mls @ 200 mls/hr 05/19/17 10:00 05/19/17 10:48 Protonix 40mg Ivpb (Pre-Docked) IVPB 200 mls/hr DAILY RUTH Administration Ipratropium [place] 1 amp 05/19/17 06:00 05/19/17 11:38 Atrovent 0.02% Nebulizer - NEB Not Given QIDR RUTH Ketorolac Tromethamine 15 mg 05/19/17 10:00 05/19/17 10:54 Toradol Injection - IVPUSH 05/21/17 17:59 15 mg Q8H-IV RUTH Administration Loperamide HCl 2 mg 05/19/17 03:35 Imodium - PO Q8H PRN DIARRHEA Lorazepam 0.5 mg 05/19/17 03:35 05/19/17 11:09 Ativan - PO 0.5 mg BID PRN Administration ANXIETY Metoprolol Tartrate 12.5 mg 05/19/17 09:00 05/19/17 10:49 Lopressor - PO 12.5 mg Q8H RUTH Administration Oxycodone HCl 5 mg 05/19/17 03:35 05/19/17 04:39 Roxicodone - PO 5 mg Q4H PRN Administration PAIN Oxycodone HCl 10 mg 05/19/17 03:35 Roxicodone - PO Q4H PRN Promethazine HCl 12.5 mg 05/19/17 03:35 Phenergan Injection - IVPB Q6H PRN NAUSEA AND/OR VOMITING A/P 46 y/o patient with metastatic colon cancer --with recurrent solitary metastasis at site of previous RLL wedge resection.No evidence of disease else where s/p Rt. lower lobectomy on 05/16. Onc Hx: Patient was diagnosed with colon cancer around 04/2014, when she presented with obstructive symptoms, anemia---s/p lt. hemicolectomy. Noted to have synchronous liver metastais. s/p FOLFOX x6 followed by resection of liver lesion. Received 6 more cycles of FOLFOX post op. 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 lung lesions and rt. lung lesions .Patient has been very reluctant to get chemotherapy wAs in [place] for some time and more recently recurrence at rt. lower lobe wedge resection site.Received FOLFIRI 3 cycles --last December. Very reluctant to get any further chemotherapy. s/p Rt. lower lobectomy on 05/16/2017. s/p removal of chest tube.post CXR report reviewed will send path for next gen. sequencing. Was KRAS mutant and not MMR deficient. will follow-up pt in the office post discharge Iron deficiency anemia--on weekly iv iron,received last week, will follow-up on iron studies and if needed will re-dose with IV iron in the hospital Pain control: Appreciate anethesiology input., continues to receive epidural Thyroid nodule: appreciate Dr. Cox consult, will need US neck likely to be done as an OP Will follow through course.
--- NOTE | 2017-05-19 16:29 | CONSULT ---
Consult Consult Specialty:: infectious diseases Referred by:: dr lisa Reason for Consultation:: fever - History of Present Illness Chief Complaint: fever History of Present Illness: 46 y/o patient with HTN, Fibroids, anemia, B/L Thyroid nodules metastatic colon cancer, s/p resection, s/p resction of solitary liver metasatsis. s/p wedge resection of lung mets x2 (once on rt. and once on left) admitted after Rt. lower lobectomy for biopsy proven metastasis. Pt was on chemo most recently received FOLFIRI x 3 cycles in in 01/14. Pt is referred for management of thyroid nodules. 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) Cardio/Vascular: Yes: HTN, Other (tachycardia) Pulmonary: Yes: Other (resection of metasttic lung nodules on left , January 21, 2016;) Gastrointestinal: Yes: Constipation, GERD Hepatobiliary: Yes: Other (liver mets s/p resection 2014.) ...LMP: 03/04/17 ...: No Psych: Yes: Anxiety Endocrine: Yes: Other (Thyroid Nodules) - Past Surgical History Past Surgical History: Yes: Colectomy (partial) - Alcohol/Substance Use Hx Alcohol Use: No (rarely) History of Substance Use: reports: None - Smoking History Smoking history: Never smoked Have you smoked in the past 12 months: No Aproximately how many cigarettes per day: 0 - Social History Usual Living Arrangement: With Spouse ADL: Independent 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 History of Recent Travel: No Home Medications - Allergies Allergies/Adverse Reactions: Allergies Allergy/AdvReac Type Severity Reaction Status Date / Time latex Allergy Severe Itching Verified 05/16/17 06:33 carrot Allergy Verified 05/16/17 06:33 nut - unspecified Allergy Verified 05/16/17 06:33 Sulfa (Sulfonamide AdvReac generalized Verified 05/16/17 06:33 Antibiotics) weakness - Home Medications Home Medications: Ambulatory Orders Metoprolol Tartrate [Lopressor -] 25 mg PO DAILY 02/03/16 Pantoprazole Sodium [Protonix -] 40 mg PO DAILY #30 tablet.ec 02/06/16 Lorazepam [Ativan] 2 mg PO BID MDD 3mg 11/18/16 Family Disease History - Family Disease History Other Family History: Aunt has hyperthyroidism. No colon Ca in her mother's side of family. Doesn't know medical history of her father or his side of family Review of Systems - Review of Systems Constitutional: reports: Fever, Other Eyes: reports: No Symptoms HENT: reports: No Symptoms Neck: reports: No Symptoms Cardiovascular: reports: No Symptoms Respiratory: reports: No Symptoms Gastrointestinal: reports: No Symptoms Genitourinary: reports: No Symptoms Breasts: reports: No Symptoms Reported Musculoskeletal: reports: No Symptoms Integumentary: reports: No Symptoms Neurological: reports: No Symptoms Endocrine: reports: No Symptoms Hematology/Lymphatic: reports: No Symptoms Psychiatric: reports: No Symptoms Physical Exam Vital Signs: Vital Signs Temperature 98.1 F 05/19/17 12:00 Pulse Rate 87 05/19/17 14:00 Respiratory Rate 18 05/19/17 14:00 Blood Pressure 125/91 05/19/17 14:00 O2 Sat by Pulse Oximetry (%) 100 05/19/17 11:38 Constitutional: Yes: Well Nourished, Calm, Mild Distress, Obese Eyes: Yes: Conjunctiva Clear HENT: Yes: Atraumatic Neck: Yes: Supple, Trachea Midline Cardiovascular: Yes: Regular Rate and Rhythm Respiratory: Yes: Regular, Poor Air Entry (rt side) Gastrointestinal: Yes: Normal Bowel Sounds, Soft Musculoskeletal: Yes: WNL Extremities: Yes: WNL Wound/Incision: Yes: Well Approximated, Other Neurological: Yes: Alert, Oriented Psychiatric: Yes: Alert, Oriented Labs: CBC, BMP 05/19/17 05:05 05/19/17 05:05 Imaging - Results Chest X-ray: Report Reviewed, Image Reviewed X-ray: Report Reviewed, Image Reviewed Assessment/Plan Problem List - Problems (1) Colon cancer Code(s): C18.9 - MALIGNANT NEOPLASM OF COLON, UNSPECIFIED (2) Constipation Code(s): K59.00 - CONSTIPATION, UNSPECIFIED (3) Lung nodule Code(s): R91.1 - SOLITARY PULMONARY NODULE (4) S/P lobectomy of lung Code(s): Z90.2 - ACQUIRED ABSENCE OF LUNG [PART OF] fever S/P RLL lobectomy for suspected lung metastasis from primary colon CA History of liver metastasis S/P Lung wedge resection x 2 now spiking fever epidural catheter and chest tube removed plan conitnue abx pain controi await all cx reports rest as per primary continue to monitor cc time 40 min
--- NOTE | 2017-05-19 16:55 | PN ---
Progress Note, Physician Chief Complaint: Mrs Arreaga says her pain is controlled. No sob or n/v. Still with some pain from surgery but improving. - Current Medication List Current Medications: Active Medications Acetaminophen (Tylenol -) 650 mg PO Q6H RUTH Last Admin: 05/19/17 03:00 Dose: 650 mg Diphenhydramine HCl (Benadryl Injection -) 25 mg IVPUSH Q4H PRN PRN Reason: FOR ITCHING Heparin Sodium (Porcine) (Heparin -) 5,000 unit SQ Q8H RUTH Last Admin: 05/19/17 10:47 Dose: 5,000 unit Meropenem 1 gm/ Dextrose 100 mls @ 200 mls/hr IVPB Q8H-IV RUTH Last Admin: 05/19/17 01:41 Dose: 200 mls/hr Bupivacaine HCl 8.4 ml/ Sodium (Chloride) 50 mls @ 8 mls/hr NR Q6H RUTH Last Admin: 05/19/17 10:46 Dose: 8 mls/hr Pantoprazole Sodium (Protonix 40mg Ivpb (Pre-Docked)) 100 mls @ 200 mls/hr IVPB DAILY [facility] Last Admin: 05/19/17 10:48 Dose: 200 mls/hr Ipratropium [place] (Atrovent 0.02% Nebulizer -) 1 amp NEB QIDR [facility] Last Admin: 05/19/17 11:38 Dose: Not Given Ketorolac Tromethamine (Toradol Injection -) 15 mg IVPUSH Q8H-IV RUTH Stop: 05/21/17 17:59 Last Admin: 05/19/17 10:54 Dose: 15 mg Loperamide HCl (Imodium -) 2 mg PO Q8H PRN PRN Reason: DIARRHEA Lorazepam (Ativan -) 0.5 mg PO BID PRN PRN Reason: ANXIETY Last Admin: 05/19/17 11:09 Dose: 0.5 mg Metoprolol Tartrate (Lopressor -) 12.5 mg PO Q8H RUTH Last Admin: 05/19/17 10:49 Dose: 12.5 mg Oxycodone HCl (Roxicodone -) 5 mg PO Q4H PRN PRN Reason: PAIN Last Admin: 05/19/17 04:39 Dose: 5 mg Oxycodone HCl (Roxicodone -) 10 mg PO Q4H PRN Promethazine HCl (Phenergan Injection -) 12.5 mg IVPB Q6H PRN PRN Reason: NAUSEA AND/OR VOMITING - Objective Vital Signs: Vital Signs Temperature 98.1 F 05/19/17 12:00 Pulse Rate 87 05/19/17 14:00 Respiratory Rate 18 05/19/17 14:00 Blood Pressure 125/91 05/19/17 14:00 O2 Sat by Pulse Oximetry (%) 100 05/19/17 11:38 Constitutional: Yes: Well Nourished, No Distress, Calm Cardiovascular: Yes: Regular Rate and Rhythm. No: Gallop, Murmur, Rub Respiratory: Yes: Regular, Rhonchi (bibasilar), Other (chest tube removed). No : CTA Bilaterally, Rales, Wheezes Gastrointestinal: Yes: Normal Bowel Sounds, Soft. No: Distention, Tenderness Extremities: Yes: WNL Edema: No Labs: CBC, BMP 05/19/17 05:05 05/19/17 05:05 INR, PTT INR 1.17 (0.82-1.09) H 05/19/17 05:05 Problem List - Problems (1) S/P lobectomy of lung Code(s): Z90.2 - ACQUIRED ABSENCE OF LUNG [PART OF] (2) Anxiety Code(s): F41.9 - ANXIETY DISORDER, UNSPECIFIED (3) HTN (hypertension) Code(s): I10 - ESSENTIAL (PRIMARY) HYPERTENSION (4) Lung cancer Code(s): C34.90 - MALIGNANT NEOPLASM OF UNSP PART OF UNSP BRONCHUS OR LUNG (5) Anemia Code(s): D64.9 - ANEMIA, UNSPECIFIED Qualifiers: Qualified Code(s): D63.0 - Anemia in neoplastic disease Assessment/Plan (1) S/P lobectomy of lung Assessment/Plan: -improving -Dr Arenas following and managing chest tube -chest tube removed Code(s): Z90.2 - ACQUIRED ABSENCE OF LUNG [PART OF] (2) Anxiety Assessment/Plan: -on lower dose since on narcotics -monitor -currently well controlled Code(s): F41.9 - ANXIETY DISORDER, UNSPECIFIED (3) HTN (hypertension) Assessment/Plan: -well controlled -continue current metoprolol dose Code(s): I10 - ESSENTIAL (PRIMARY) HYPERTENSION (4) Lung cancer Assessment/Plan: -lobectomy Code(s): C34.90 - MALIGNANT NEOPLASM OF UNSP PART OF UNSP BRONCHUS OR LUNG (5) Anemia Assessment/Plan: -chronic but decreasing as expected with surgical intervention -monitor, no need for transfusion at this time -receives weekly iron infusions Code(s): D64.9 - ANEMIA, UNSPECIFIED Qualifiers: Anemia type: other cause Other causes of anemia: chronic disease, neoplastic Qualified Code(s): D63.0 - Anemia in neoplastic disease (6) Hypokalemia -replace -recheck in am (7) Fevers -occurred overnight -ID consulted -on meropenem currently
--- NOTE | 2017-05-19 21:05 | PN ---
Progress Note (short form) - Note Progress Note: Thoracic Attending: Pt seen and examined. POD #3. CT removed. Doing well except for episodic nausea and temp to 100.3 last PM. PE: Wounds clean CXR: shows bilateral atelectasis WBC wnl. Suspect atelectasis but abx started. UTI also possible. ABX as per ID. Titrate b -blockade up as tolerated. Encourage spirometery. Needs to walk more. Spending too much time in bed, not enough in chair and ambulating. Appreciate help of other physicians.
--- NOTE | 2017-05-19 22:40 | PN ---
Progress Note (short form) - Note Progress Note: Anesthesiology Pain Service POD#3 s/p Thoracotomy under GA with thoracic epidural. Pt. seen earlier this afternoon in ICU. At that time, she was resting comfortably in bed, complaining only of some pain at port site otherwise comfortable. Chest tube was removed this morning and pt. is tolerating PO. I d/c'd epidural; catheter tip was intact upon removal, epidural site clean and dry. I had ordered PO oxycodone for pain management. VSS.
[2017-05-20] MEDS: IPRATROPIUM BR 0.02% 0.5 MG/2.5 ML VIAL.NEB. NEB SCH ×4 (00:01→17:10)
[2017-05-20] MEDS ORDERED: PT OWN MED DRAWER 7, Y5N ONE ×3 (00:29→16:57)
[2017-05-20] MEDS: HEPARIN NA (PORCINE) 5,000 UNITS/ML 1ML VIAL SQ SCH ×3 (00:33→17:00)
[2017-05-20] MEDS: METOPROLOL TARTRATE 25 MG TABLET (FP) PO SCH ×3 (00:33→16:59)
[2017-05-20] MEDS: LORazepam 0.5 MG TABLET PO PRN ×2 (00:45→17:08)
[2017-05-20] MEDS: KETOROLAC TROMETHAMINE 30 MG/1 ML VIAL IVPUSH SCH ×3 (01:33→21:07)
[2017-05-20] MEDS: MEROPENEM 1 GM in DEXTROSE 5%-WATER - 100 ML IVPB SCH ×3 (01:34→17:01)
[2017-05-20] MEDS: oxyCODONE HCL 5 MG TABLET PO PRN (03:03)
[2017-05-20] MEDS: BUPIVACAINE HCL/PF 8.4 ML in SODIUM CHLORIDE 41.6 ML NR SCH (05:54)
[2017-05-20] MEDS: ACETAMINOPHEN 325 MG TABLET (FP) PO SCH ×2 (07:43→21:07)
[2017-05-20 08:07] LABS: SERUM IRON 19 ug/dL (27-159); TOTAL IRON BINDING CAPACITY 211 ug/dL (250-450); UIBC 192 ug/dL (131-425)
[2017-05-20] MEDS: PANTOPRAZOLE 40 MG TABLET (FP) PO SCH (10:06)
[2017-05-20] MEDS ORDERED: KETOROLAC TROMETHAMINE 30 MG/1 ML VIAL IVPUSH PRN (10:09)
[2017-05-20] MEDS: ACETAMINOPHEN 325 MG TABLET (FP) PO PRN ×2 (10:23→22:12)
[2017-05-20 10:30] LABS: BASOPHIL 0.3 % (0-2.0); EOSINOPHIL 1.8 % (0-4.5); MCH 25.6 pg (25.7-33.7); MCHC 32.1 g/dl (32.0-36.0); MEAN PLT VOLUME 8.8 fl (7.5-11.1); NEUTROPHILS 67.8 % (42.8-82.8); PLATELET COUNT 217 K/MM3 (134-434); RDW 23.3 % (11.6-15.6); WHITE BLOOD COUNT 7.5 K/mm3 (4.0-10.0)
[2017-05-20 10:33] LABS: ANION GAP 9 (8-16); CALCIUM 8.4 mg/dL (8.5-10.1); CO2 28 mmol/L (21-32); CREATININE 0.6 mg/dL (0.55-1.02); GLUCOSE,RANDOM 125 mg/dL (74-106); MAGNESIUM 2.1 mg/dL (1.8-2.4)
[2017-05-20] MEDS ORDERED: POTASSIUM CHLORIDE TABS 20 MEQ TABLET.ER (FP) PO ONE (11:27)
--- NOTE | 2017-05-20 11:35 | PN ---
Progress Note, Physician Chief Complaint: Mrs Arreaga says she is feeling really good today. She is not having pain. She has been walking around multiple times a day. She is also using her I/S. No cp, sob, n/v. - Current Medication List Current Medications: Active Medications Acetaminophen (Tylenol -) 650 mg PO Q6H PRN PRN Reason: PAIN Last Admin: 05/20/17 10:23 Dose: 650 mg Diphenhydramine HCl (Benadryl Injection -) 25 mg IVPUSH Q4H PRN PRN Reason: FOR ITCHING Heparin Sodium (Porcine) (Heparin -) 5,000 unit SQ Q8H RUTH Last Admin: 05/20/17 10:05 Dose: 5,000 unit Meropenem 1 gm/ Dextrose 100 mls @ 200 mls/hr IVPB Q8H-IV RUTH Last Admin: 05/20/17 10:05 Dose: 200 mls/hr Ipratropium [place] (Atrovent 0.02% Nebulizer -) 1 amp NEB QIDR [facility] Last Admin: 05/20/17 05:32 Dose: Not Given Ketorolac Tromethamine (Toradol Injection -) 15 mg IVPUSH Q8H-IV PRN PRN Reason: PAIN Stop: 05/21/17 17:59 Loperamide HCl (Imodium -) 2 mg PO Q8H PRN PRN Reason: DIARRHEA Lorazepam (Ativan -) 0.5 mg PO BID PRN PRN Reason: ANXIETY Last Admin: 05/20/17 00:45 Dose: 0.5 mg Metoprolol Tartrate (Lopressor -) 12.5 mg PO Q8H [facility] Last Admin: 05/20/17 10:05 Dose: 12.5 mg Oxycodone HCl (Roxicodone -) 5 mg PO Q4H PRN PRN Reason: PAIN Last Admin: 05/20/17 03:03 Dose: 5 mg Oxycodone HCl (Roxicodone -) 10 mg PO Q4H PRN Pantoprazole Sodium (Protonix -) 40 mg PO DAILY [facility] Last Admin: 05/20/17 10:06 Dose: 40 mg Potassium Chloride (K-Dur -) 40 meq PO ONCE ONE Stop: 05/20/17 11:28 Potassium Phos/Sodium Phos (Phos-Nak Packet -) 1 packet PO TID RUTH Stop: 05/22/17 06:01 Promethazine HCl (Phenergan Injection -) 12.5 mg IVPB Q6H PRN PRN Reason: NAUSEA AND/OR VOMITING Last Admin: 05/19/17 18:05 Dose: 12.5 mg - Objective Vital Signs: Vital Signs Temperature 98.7 F 05/20/17 11:23 Pulse Rate 72 05/20/17 11:23 Respiratory Rate 16 05/20/17 11:23 Blood Pressure 133/84 05/20/17 11:23 O2 Sat by Pulse Oximetry (%) 98 05/20/17 09:00 Constitutional: Yes: Well Nourished, No Distress, Calm Cardiovascular: Yes: Regular Rate and Rhythm. No: Gallop, Murmur, Rub Respiratory: Yes: Regular, CTA Bilaterally. No: Rales, Rhonchi, Wheezes Gastrointestinal: Yes: Normal Bowel Sounds, Soft. No: Distention, Tenderness Extremities: Yes: WNL Edema: No Labs: CBC, BMP 05/20/17 09:50 05/20/17 09:50 INR, PTT INR 1.17 (0.82-1.09) H 05/19/17 05:05 Problem List - Problems (1) S/P lobectomy of lung Code(s): Z90.2 - ACQUIRED ABSENCE OF LUNG [PART OF] (2) Anxiety Code(s): F41.9 - ANXIETY DISORDER, UNSPECIFIED (3) HTN (hypertension) Code(s): I10 - ESSENTIAL (PRIMARY) HYPERTENSION (4) Lung cancer Code(s): C34.90 - MALIGNANT NEOPLASM OF UNSP PART OF UNSP BRONCHUS OR LUNG (5) Anemia Code(s): D64.9 - ANEMIA, UNSPECIFIED Qualifiers: Anemia type: other cause Other causes of anemia: chronic disease, neoplastic Qualified Code(s): D63.0 - Anemia in neoplastic disease Assessment/Plan (1) S/P lobectomy of lung Assessment/Plan: -much improved -suspect stable for discharge for this Code(s): Z90.2 - ACQUIRED ABSENCE OF LUNG [PART OF] (2) Anxiety Assessment/Plan: -very well controlled -continue current medicatin Code(s): F41.9 - ANXIETY DISORDER, UNSPECIFIED (3) HTN (hypertension) Assessment/Plan: -controlled, but slightly elevated -normally on metoprolol 25 mg daily at home, receiving more here (metoprolol 12.5mg tid) -may benefit from increase, will monitor today if maintains elevation will change to metoprolol 25mg bid Code(s): I10 - ESSENTIAL (PRIMARY) HYPERTENSION (4) Lung cancer Assessment/Plan: -lobectomy Code(s): C34.90 - MALIGNANT NEOPLASM OF UNSP PART OF UNSP BRONCHUS OR LUNG (5) Anemia Assessment/Plan: -chronic but decreasing as expected with surgical intervention -no need for transfusion -consider iron infusion before discharge Code(s): D64.9 - ANEMIA, UNSPECIFIED Qualifiers: Anemia type: other cause Other causes of anemia: chronic disease, neoplastic Qualified Code(s): D63.0 - Anemia in neoplastic disease (6) Hypokalemia -replace -recheck in am (7) Fevers -? if infectious -ID following and on merrem -will d/w ID about possible cessation Possible discharge tomorrow
--- NOTE | 2017-05-20 12:14 | PN ---
Teaching Attending Note Name of Resident: Riley Hassan ATTENDING PHYSICIAN STATEMENT I saw and evaluated the patient. I reviewed the resident's note and discussed the case with the resident. I agree with the resident's findings and plan as documented. SUBJECTIVE: Patient seen and examined in the ICU. Awake and alert. Feels a little better today. Had some mild discomfort around her port site earlier when it accessed. Now feels better and I see no gross swelling in the area. Intake & Output 05/17/17 05/18/17 05/19/17 05/20/17 23:59 23:59 23:59 23:59 Intake Total 2380 952 1484 Output Total 1560 60 290 Balance 515 824 4842 Weight 234 lb 5 oz 231 lb 12.8 oz 240 lb 1.6 oz 240 lb 9.6 oz Last Vital Signs Temp Pulse Resp BP Pulse Ox 98.7 F 72 16 133/84 95 05/20/17 11:23 05/20/17 11:23 05/20/17 11:23 05/20/17 11:23 05/20/17 10:20 Active Medications Acetaminophen (Tylenol -) 650 mg PO Q6H PRN PRN Reason: PAIN Last Admin: 05/20/17 10:23 Dose: 650 mg Diphenhydramine HCl (Benadryl Injection -) 25 mg IVPUSH Q4H PRN PRN Reason: FOR ITCHING Heparin Sodium (Porcine) (Heparin -) 5,000 unit SQ Q8H RUTH Last Admin: 05/20/17 10:05 Dose: 5,000 unit Meropenem 1 gm/ Dextrose 100 mls @ 200 mls/hr IVPB Q8H-IV RUTH Last Admin: 05/20/17 10:05 Dose: 200 mls/hr Ipratropium [place] (Atrovent 0.02% Nebulizer -) 1 amp NEB QIDR RUTH Last Admin: 05/20/17 11:05 Dose: 1 amp Ketorolac Tromethamine (Toradol Injection -) 15 mg IVPUSH Q8H-IV PRN PRN Reason: PAIN Stop: 05/21/17 17:59 Loperamide HCl (Imodium -) 2 mg PO Q8H PRN PRN Reason: DIARRHEA Lorazepam (Ativan -) 0.5 mg PO BID PRN PRN Reason: ANXIETY Last Admin: 05/20/17 00:45 Dose: 0.5 mg Metoprolol Tartrate (Lopressor -) 12.5 mg PO Q8H RUTH Last Admin: 05/20/17 10:05 Dose: 12.5 mg Oxycodone HCl (Roxicodone -) 5 mg PO Q4H PRN PRN Reason: PAIN Last Admin: 05/20/17 03:03 Dose: 5 mg Oxycodone HCl (Roxicodone -) 10 mg PO Q4H PRN Pantoprazole Sodium (Protonix -) 40 mg PO DAILY RUTH Last Admin: 05/20/17 10:06 Dose: 40 mg Potassium Phos/Sodium Phos (Phos-Nak Packet -) 1 packet PO TID RUTH Stop: 05/22/17 06:01 Promethazine HCl (Phenergan Injection -) 12.5 mg IVPB Q6H PRN PRN Reason: NAUSEA AND/OR VOMITING Last Admin: 05/19/17 18:05 Dose: 12.5 mg Constitutional: Yes: Awake and alert, NAD Eyes: Yes: Conjunctiva Clear, EOM Intact HENT: Yes: Normocephalic Neck: Yes: Trachea Midline Cardiovascular: Yes: Regular Rate and Rhythm, S1, S2 Respiratory: Yes: Diminished at the bases Gastrointestinal: Yes: Normal Bowel Sounds, Soft, Abdomen, Obese Edema: No Wound/Incision: Yes: Clean/Dry Neurological: Yes: WNL, Alert, Oriented Psychiatric: Yes: Oriented Labs: Laboratory Results - last 24 hr 05/19/17 05/19/17 05/20/17 05:05 08:00 09:50 WBC 7.5 RBC 3.77 Hgb 9.7 L D Hct 30.1 L D MCV 80.0 MCH 25.6 L MCHC 32.1 RDW 23.3 H Plt Count 217 D MPV 8.8 Neutrophils % 67.8 Lymphocytes % 18.6 Monocytes % 11.5 H Eosinophils % 1.8 Basophils % 0.3 Sodium Potassium Chloride Carbon Dioxide Anion Gap BUN Creatinine Random Glucose Calcium Phosphorus Magnesium Iron 19 L TIBC 211 L Iron Saturation 9 L Urine Color Yellow Urine Appearance Clear Urine pH 6.0 Ur Specific [place] 1.020 Urine Protein 1+ H Urine Glucose (UA) Negative Urine Ketones 2+ H Urine Blood Negative Urine Nitrite Negative Urine Bilirubin Negative Urine Urobilinogen 2.0 H Ur Leukocyte Esterase Negative Urine RBC 3 Urine WBC 1 Ur Epithelial Cells Rare Urine Mucus Rare 05/20/17 09:50 WBC RBC Hgb Hct MCV MCH MCHC RDW Plt Count MPV Neutrophils % Lymphocytes % Monocytes % Eosinophils % Basophils % Sodium 137 Potassium 3.1 L Chloride 100 Carbon Dioxide 28 Anion Gap 9 BUN 8 Creatinine 0.6 Random Glucose 125 H D Calcium 8.4 L Phosphorus 2.0 L Magnesium 2.1 Iron TIBC Iron Saturation Urine Color Urine Appearance Urine pH Ur Specific [place] Urine Protein Urine Glucose (UA) Urine Ketones Urine Blood Urine Nitrite Urine Bilirubin Urine Urobilinogen Ur Leukocyte Esterase Urine RBC Urine WBC Ur Epithelial Cells Urine Mucus Problem List - Problems (1) Colon cancer Code(s): C18.9 - MALIGNANT NEOPLASM OF COLON, UNSPECIFIED (2) Constipation Code(s): K59.00 - CONSTIPATION, UNSPECIFIED (3) Lung nodule Code(s): R91.1 - SOLITARY PULMONARY NODULE (4) S/P lobectomy of lung Code(s): Z90.2 - ACQUIRED ABSENCE OF LUNG [PART OF] Assessment/Plan S/P RLL lobectomy for suspected lung metastasis from primary colon CA History of liver metastasis S/P Lung wedge resection x 2 Pain control O2 as needed Incentive Spirometry PO as tolerated BD TX PRN Bowel regimen VTE prophylaxis Dr Tate
[2017-05-20] MEDS ORDERED: PROMETHAZINE HCL 25 MG/1 ML VIAL IVPB PRN (12:55)
[2017-05-20] MEDS ORDERED: LOPERAMIDE HCL 2 MG CAPSULE PO PRN (12:55)
[2017-05-20] MEDS ORDERED: oxyCODONE HCL 5 MG TABLET PO PRN ×2 (12:55)
[2017-05-20] MEDS ORDERED: IRON SUCROSE INJECTION 100 MG in SODIUM CHLORIDE 95 ML IVPB ONE (14:08)
--- NOTE | 2017-05-20 14:11 | PN ---
Progress Note (short form) - Note Progress Note: Patient seen and examined. She feels well. s/p removal of the epidural catheter yesterday Pt says that there was a difficult with port access. Cor: RSR, No murmurs, No gallops Lungs: Clear to P&A Abd: Soft, Normal bowel sounds, No organomegaly Ext:No significant edema Skin: No rashes, Integument intact Last Vital Signs Temp Pulse Resp BP Pulse Ox 98.7 F 72 16 133/84 95 05/20/17 11:23 05/20/17 11:23 05/20/17 11:23 05/20/17 11:23 05/20/17 10:20 CBC, BMP 05/20/17 09:50 05/20/17 09:50 Current Medications Generic Name Dose Route Start Last Admin Trade Name Freq PRN Reason Stop Dose Admin Acetaminophen 650 mg 05/20/17 10:09 05/20/17 10:23 Tylenol - PO 650 mg Q6H PRN Administration PAIN Diphenhydramine HCl 25 mg 05/20/17 12:55 Benadryl Injection - IVPUSH Q4H PRN FOR ITCHING Heparin Sodium (Porcine) 5,000 unit 05/20/17 17:30 Heparin - SQ Q8H RUTH Meropenem 1 gm/ Dextrose 100 mls @ 200 mls/hr 05/20/17 18:00 IVPB Q8H-IV RUTH Iron Sucrose 100 mg/ Sodium 100 mls @ 200 mls/hr 05/20/17 14:08 Chloride IVPB 05/20/17 14:37 ONCE ONE Ipratropium [place] 1 amp 05/20/17 18:00 Atrovent 0.02% Nebulizer - NEB QIDR RUTH Ketorolac Tromethamine 15 mg 05/20/17 10:09 Toradol Injection - IVPUSH 05/21/17 17:59 Q8H-IV PRN PAIN Loperamide HCl 2 mg 05/20/17 12:55 Imodium - PO Q8H PRN DIARRHEA Lorazepam 0.5 mg 05/20/17 12:55 Ativan - PO BID PRN ANXIETY Metoprolol Tartrate 12.5 mg 05/20/17 17:00 Lopressor - PO Q8H RUTH Oxycodone HCl 5 mg 05/20/17 12:55 Roxicodone - PO Q4H PRN PAIN Oxycodone HCl 10 mg 05/20/17 12:55 Roxicodone - PO Q4H PRN Pantoprazole Sodium 40 mg 05/20/17 10:00 05/20/17 10:06 Protonix - PO 40 mg DAILY RUTH Administration Potassium Phos/Sodium Phos 1 packet 05/20/17 14:00 Phos-Nak Packet - PO 05/22/17 06:01 TID RUTH Promethazine HCl 12.5 mg 05/20/17 12:55 Phenergan Injection - IVPB Q6H PRN NAUSEA AND/OR VOMITING A/P 46 y/o patient with metastatic colon cancer --with recurrent solitary metastasis at site of previous RLL wedge resection.No evidence of disease else where s/p Rt. lower lobectomy on 05/16. Onc Hx: Patient was diagnosed with colon cancer around 04/2014, when she presented with obstructive symptoms, anemia---s/p lt. hemicolectomy. Noted to have synchronous liver metastais. s/p FOLFOX x6 followed by resection of liver lesion. Received 6 more cycles of FOLFOX post op. 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 lung lesions and rt. lung lesions .Patient has been very reluctant to get chemotherapy wAs in [place] for some time and more recently recurrence at rt. lower lobe wedge resection site.Received FOLFIRI 3 cycles --last December. Very reluctant to get any further chemotherapy. s/p Rt. lower lobectomy on 05/16/2017. s/p removal of chest tube.post CXR report reviewed will send path for next gen. sequencing. Was KRAS mutant and not MMR deficient. will follow-up pt in the office post discharge Iron deficiency anemia--on weekly iv iron,received last week, will re-dose with IV iron x 1 ,in the hospital, ordered for today Pain control: she prefers just tylenol. Thyroid nodule: appreciate Dr. Cox consult, will need US neck likely to be done as an OP Port site issue? while accessing , no problem reported though. Will follow through course.
[2017-05-20] MEDS ORDERED: POTASSIUM CHLORIDE ORAL LIQUID 20 MEQ/15 ML PO ONE (14:43)
[2017-05-20] MEDS: NAPH,MB-DB/K PH,MBDB POWDER PACKET PO SCH ×2 (15:02→22:00)
--- NOTE | 2017-05-20 16:13 | PN ---
Physical Exam: SUBJECTIVE: Patient stated pain has been under control. Tolerating diet, no bowel movement in last 24 hours, no problem urinating. Denies fever, chills, chest pain, shortness of breath. OBJECTIVE: Vital Signs Period Temp Pulse Resp BP Sys/[facility] Pulse Ox Last 24 Hr 98.2 F-100.3 F 70-94 12-20 113-153/67-92 94-98 GENERAL: AAO x 3, in good spirits, speak in full sentences, in no cardiopulmonary distress LUNGS: Chest tube removed. Poor air entry, decreased breath sounds HEART: RRR, S1, S2 without murmur, rub or gallop. ABDOMEN: Soft, nontender, nondistended, normoactive bowel sounds EXTREMITIES: no edema. SKIN: no rashes or lesions noted CBCD WBC 7.5 K/mm3 (4.0-10.0) 05/20/17 09:50 RBC 3.77 M/mm3 (3.60-5.2) 05/20/17 09:50 Hgb 9.7 GM/dL (10.7-15.3) L D 05/20/17 09:50 Hct 30.1 % (32.4-45.2) L D 05/20/17 09:50 MCV 80.0 fl (80-96) 05/20/17 09:50 MCHC 32.1 g/dl (32.0-36.0) 05/20/17 09:50 RDW 23.3 % (11.6-15.6) H 05/20/17 09:50 Plt Count 217 K/MM3 (134-434) D 05/20/17 09:50 MPV 8.8 fl (7.5-11.1) 05/20/17 09:50 CMP Sodium 137 mmol/L (136-145) 05/20/17 09:50 Potassium 3.1 mmol/L (3.5-5.1) L 05/20/17 09:50 Chloride 100 mmol/L (98-107) 05/20/17 09:50 Carbon Dioxide 28 mmol/L (21-32) 05/20/17 09:50 Anion Gap 9 (8-16) 05/20/17 09:50 BUN 8 mg/dL (7-18) 05/20/17 09:50 Creatinine 0.6 mg/dL (0.55-1.02) 05/20/17 09:50 Creat Clearance w eGFR > 60 (>60) 05/17/17 05:10 Calcium 8.4 mg/dL (8.5-10.1) L 05/20/17 09:50 Total Bilirubin 0.5 mg/dL (0.2-1.0) D 05/17/17 05:10 AST 29 U/L (15-37) 05/17/17 05:10 ALT 23 U/L (12-78) 05/17/17 05:10 Alkaline Phosphatase 50 U/L (45-117) 05/17/17 05:10 Total Protein 5.9 g/dl (6.4-8.2) L 05/17/17 05:10 Albumin 2.9 g/dl (3.4-5.0) L 05/17/17 05:10 Intake & Output 05/17/17 05/18/17 05/19/17 05/20/17 23:59 23:59 23:59 23:59 Intake Total 2380 952 1484 Output Total 1560 60 290 Balance 181 238 9580 Weight 106.282 kg 105.143 kg 108.908 kg 109.134 kg ASSESSMENT/PLAN: 46 yo F h/o metastatic colon cancer to liver and lung s/p multiple lung and liver resections. She's admitted to the ICU after bronchoscopy, right VATS and lower lobectomy. Pulm: s/p bronchoscopy, R VATS and RLL lobectomy - POD #4 - Epidural removed - Cont. atrovent - Pain control with toradol and tylenol and oxycodone PRN - OOB and incentive spirometer FEN - Not indicated - Hypokalemia; repleted - Regular diet Prophylaxis - DVT: heparin SQ - GI: protonix Dispo - Transfer to floor Riley Hassan, ICU Resident PGY-2 Pager: [phone] Visit type - Emergency Visit Emergency Visit: No - New Patient This patient is new to me today: No - Critical Care Critical Care patient: Yes Total Critical Care Time (in minutes): 30 Critical Care Statement: The care of this patient involved high complexity decision making to prevent further life threatening deterioration of the patient 's condition and/or to evalute & treat vital organ system(s) failure or risk of failure.
--- NOTE | 2017-05-20 17:08 | PN ---
Progress Note, Physician History of Present Illness: patient doing well had a low grade fever no complaints patient says she is feeling well - Current Medication List Current Medications: Active Medications Acetaminophen (Tylenol -) 650 mg PO Q6H PRN PRN Reason: PAIN Last Admin: 05/20/17 10:23 Dose: 650 mg Diphenhydramine HCl (Benadryl Injection -) 25 mg IVPUSH Q4H PRN PRN Reason: FOR ITCHING Heparin Sodium (Porcine) (Heparin -) 5,000 unit SQ Q8H [facility] Last Admin: 05/20/17 17:00 Dose: 5,000 unit Meropenem 1 gm/ Dextrose 100 mls @ 200 mls/hr IVPB Q8H-IV RUTH Last Admin: 05/20/17 17:01 Dose: 200 mls/hr Ipratropium [place] (Atrovent 0.02% Nebulizer -) 1 amp NEB QIDR RUTH Ketorolac Tromethamine (Toradol Injection -) 15 mg IVPUSH Q8H-IV PRN PRN Reason: PAIN Stop: 05/21/17 17:59 Loperamide HCl (Imodium -) 2 mg PO Q8H PRN PRN Reason: DIARRHEA Lorazepam (Ativan -) 0.5 mg PO BID PRN PRN Reason: ANXIETY Metoprolol Tartrate (Lopressor -) 12.5 mg PO Q8H [facility] Last Admin: 05/20/17 16:59 Dose: 12.5 mg Oxycodone HCl (Roxicodone -) 5 mg PO Q4H PRN PRN Reason: PAIN Oxycodone HCl (Roxicodone -) 10 mg PO Q4H PRN Pantoprazole Sodium (Protonix -) 40 mg PO DAILY [facility] Last Admin: 05/20/17 10:06 Dose: 40 mg Potassium Phos/Sodium Phos (Phos-Nak Packet -) 1 packet PO TID [facility] Stop: 05/22/17 06:01 Last Admin: 05/20/17 15:02 Dose: Not Given Promethazine HCl (Phenergan Injection -) 12.5 mg IVPB Q6H PRN PRN Reason: NAUSEA AND/OR VOMITING - Objective Vital Signs: Vital Signs Temperature 99.1 F 05/20/17 13:00 Pulse Rate 72 05/20/17 15:00 Respiratory Rate 16 05/20/17 15:00 Blood Pressure 130/92 05/20/17 15:00 O2 Sat by Pulse Oximetry (%) 95 05/20/17 10:20 Constitutional: Yes: No Distress, Calm, Obese Cardiovascular: Yes: Regular Rate and Rhythm Respiratory: Yes: Regular, CTA Bilaterally Gastrointestinal: Yes: Normal Bowel Sounds, Soft Musculoskeletal: Yes: WNL Extremities: Yes: WNL Wound/Incision: Yes: Clean/Dry Neurological: Yes: Alert, Oriented Psychiatric: Yes: Alert Labs: CBC, BMP 05/20/17 09:50 05/20/17 09:50 INR, PTT INR 1.17 (0.82-1.09) H 05/19/17 05:05 Assessment/Plan Problem List - Problems (1) Colon cancer Code(s): C18.9 - MALIGNANT NEOPLASM OF COLON, UNSPECIFIED (2) Constipation Code(s): K59.00 - CONSTIPATION, UNSPECIFIED (3) Lung nodule Code(s): R91.1 - SOLITARY PULMONARY NODULE (4) S/P lobectomy of lung Code(s): Z90.2 - ACQUIRED ABSENCE OF LUNG [PART OF] fever S/P RLL lobectomy for suspected lung metastasis from primary colon CA History of liver metastasis S/P Lung wedge resection x 2 now spiking fever epidural catheter and chest tube removed plan conitnue abx pain controi blood cx result noted urine awaited rest as per primary continue to monitor cc time 40 min
--- NOTE | 2017-05-20 18:27 | PN ---
Progress Note (short form) - Note Progress Note: POD#4 s/p Right vats lower lobectomy. Doing well. No fever x 24 hours, but on abx. CXR improved, less atelectasis. OK for dc. Abx per ID/Lesly/Georgina-although wbc normal and appeared to be atelectasis but UCX pending (UA normal) Can shower. F/U with me in 1-2 weeks.
[2017-05-20] MEDS ORDERED: POTASSIUM PHOSPHATE 10 MM in DEXTROSE 5%-WATER - 250 ML IVPB ONE (21:54)
[2017-05-21] MEDS ORDERED: PT OWN MED DRAWER 7, Y5N ONE ×2 (00:40→08:53)
[2017-05-21] MEDS: MEROPENEM 1 GM in DEXTROSE 5%-WATER - 100 ML IVPB SCH ×2 (01:56→12:40)
[2017-05-21] MEDS: HEPARIN NA (PORCINE) 5,000 UNITS/ML 1ML VIAL SQ SCH ×2 (01:56→10:14)
[2017-05-21] MEDS: METOPROLOL TARTRATE 25 MG TABLET (FP) PO SCH ×2 (01:57→10:13)
[2017-05-21] MEDS: LORazepam 0.5 MG TABLET PO PRN (02:06)
[2017-05-21 05:49] LABS: BASOPHIL 0.3 % (0-2.0); EOSINOPHIL 2.4 % (0-4.5); MCH 25.5 pg (25.7-33.7); MEAN CELL VOLUME 79.5 fl (80-96); MEAN PLT VOLUME 8.5 fl (7.5-11.1); NEUTROPHILS 58.2 % (42.8-82.8); PLATELET COUNT 256 K/MM3 (134-434); RDW 23.7 % (11.6-15.6); WHITE BLOOD COUNT 8.1 K/mm3 (4.0-10.0)
[2017-05-21] MEDS: IPRATROPIUM BR 0.02% 0.5 MG/2.5 ML VIAL.NEB. NEB SCH ×3 (06:05→11:38)
[2017-05-21 06:11] LABS: ANION GAP 6 (8-16); CALCIUM 8.4 mg/dL (8.5-10.1); CO2 27 mmol/L (21-32); CREATININE 0.5 mg/dL (0.55-1.02); GLUCOSE,RANDOM 108 mg/dL (74-106); PHOSPHOROUS 2.7 mg/dL (2.5-4.9)
[2017-05-21] MEDS: NAPH,MB-DB/K PH,MBDB POWDER PACKET PO SCH ×2 (06:20→14:05)
[2017-05-21 07:21] LABS: FERRITIN 148.728 ng/ml (6.9-282.5)
[2017-05-21 09:48] VITALS: BP 120/73; TEMP 98.9
[2017-05-21] MEDS: PANTOPRAZOLE 40 MG TABLET (FP) PO SCH (10:12)
--- NOTE | 2017-05-21 10:36 | PN ---
Progress Note (short form) - Note Progress Note: Resting in NAD. No acute events overnight. No CP or SOB. No discomfort or swelling around Medi-port. Intake & Output 05/18/17 05/19/17 05/20/17 05/21/17 23:59 23:59 23:59 23:59 Intake Total 952 1484 1130 50 Output Total 60 290 Balance 892 1194 1130 50 Weight 231 lb 12.8 oz 240 lb 1.6 oz 240 lb 9.6 oz Last Vital Signs Temp Pulse Resp BP Pulse Ox 98.9 F 76 20 120/73 97 05/21/17 09:00 05/21/17 09:00 05/21/17 09:00 05/21/17 09:00 05/20/17 21:00 Active Medications Acetaminophen (Tylenol -) 650 mg PO Q6H PRN PRN Reason: PAIN Last Admin: 05/20/17 22:12 Dose: 650 mg Diphenhydramine HCl (Benadryl Injection -) 25 mg IVPUSH Q4H PRN PRN Reason: FOR ITCHING Heparin Sodium (Porcine) (Heparin -) 5,000 unit SQ Q8H RUTH Last Admin: 05/21/17 10:14 Dose: 5,000 unit Meropenem 1 gm/ Dextrose 100 mls @ 200 mls/hr IVPB Q8H-IV RUTH Last Admin: 05/21/17 01:56 Dose: 200 mls/hr Ipratropium [place] (Atrovent 0.02% Nebulizer -) 1 amp NEB QIDR RUTH Last Admin: 05/21/17 06:05 Dose: 1 amp Ketorolac Tromethamine (Toradol Injection -) 15 mg IVPUSH Q8H-IV PRN PRN Reason: PAIN Stop: 05/21/17 17:59 Loperamide HCl (Imodium -) 2 mg PO Q8H PRN PRN Reason: DIARRHEA Lorazepam (Ativan -) 0.5 mg PO BID PRN PRN Reason: ANXIETY Last Admin: 05/21/17 02:06 Dose: 0.5 mg Metoprolol Tartrate (Lopressor -) 12.5 mg PO Q8H [facility] Last Admin: 05/21/17 10:13 Dose: 12.5 mg Oxycodone HCl (Roxicodone -) 5 mg PO Q4H PRN PRN Reason: PAIN Last Admin: 05/20/17 22:13 Dose: 5 mg Oxycodone HCl (Roxicodone -) 10 mg PO Q4H PRN Pantoprazole Sodium (Protonix -) 40 mg PO DAILY [facility] Last Admin: 05/21/17 10:12 Dose: 40 mg Potassium Phos/Sodium Phos (Phos-Nak Packet -) 1 packet PO TID RUTH Stop: 05/22/17 06:01 Last Admin: 05/21/17 06:20 Dose: Not Given Promethazine HCl (Phenergan Injection -) 12.5 mg IVPB Q6H PRN PRN Reason: NAUSEA AND/OR VOMITING Last Admin: 05/21/17 07:03 Dose: 12.5 mg Constitutional: Yes: Awake and alert, NAD Eyes: Yes: Conjunctiva Clear, EOM Intact HENT: Yes: Normocephalic Neck: Yes: Trachea Midline Cardiovascular: Yes: Regular Rate and Rhythm, S1, S2 Respiratory: Yes: Diminished at the bases Gastrointestinal: Yes: Normal Bowel Sounds, Soft, Abdomen, Obese Edema: No Wound/Incision: Yes: Clean/Dry Neurological: Yes: WNL, Alert, Oriented Psychiatric: Yes: Oriented Labs: Laboratory Results - last 24 hr 05/21/17 05/21/17 05:10 05:10 WBC 8.1 RBC 3.52 L Hgb 9.0 L Hct 28.0 L MCV 79.5 L MCH 25.5 L MCHC 32.0 RDW 23.7 H Plt Count 256 MPV 8.5 Neutrophils % 58.2 Lymphocytes % 27.5 D Monocytes % 11.6 H Eosinophils % 2.4 Basophils % 0.3 Sodium 138 Potassium 3.7 Chloride 105 Carbon Dioxide 27 Anion Gap 6 L BUN 8 Creatinine 0.5 L Random Glucose 108 H Calcium 8.4 L Phosphorus 2.7 D Magnesium 2.0 Ferritin 148.728 Problem List - Problems (1) Colon cancer Code(s): C18.9 - MALIGNANT NEOPLASM OF COLON, UNSPECIFIED (2) Constipation Code(s): K59.00 - CONSTIPATION, UNSPECIFIED (3) Lung nodule Code(s): R91.1 - SOLITARY PULMONARY NODULE (4) S/P lobectomy of lung Code(s): Z90.2 - ACQUIRED ABSENCE OF LUNG [PART OF] Assessment/Plan S/P RLL lobectomy for suspected lung metastasis from primary colon CA History of liver metastasis S/P Lung wedge resection x 2 Pain control O2 as needed Incentive Spirometry PO as tolerated BD TX PRN Bowel regimen VTE prophylaxis D/C planning Dr Tate
--- NOTE | 2017-05-21 11:26 | PN ---
Progress Note (short form) - Note Progress Note: Patient seen and examined. She feels well. fells well. couldn't sleep last night, she wanted to take rest Cor: RSR, No murmurs, No gallops Lungs: Clear to P&A Abd: Soft, Normal bowel sounds, No organomegaly Ext:No significant edema Skin: No rashes, Integument intact Last Vital Signs Temp Pulse Resp BP Pulse Ox 98.9 F 76 20 120/73 97 05/21/17 09:00 05/21/17 09:00 05/21/17 09:00 05/21/17 09:00 05/20/17 21:00 Current Medications Generic Name Dose Route Start Last Admin Trade Name Freq PRN Reason Stop Dose Admin Acetaminophen 650 mg 05/20/17 10:09 05/20/17 22:12 Tylenol - PO 650 mg Q6H PRN Administration PAIN Diphenhydramine HCl 25 mg 05/20/17 12:55 Benadryl Injection - IVPUSH Q4H PRN FOR ITCHING Heparin Sodium (Porcine) 5,000 unit 05/20/17 17:30 05/21/17 10:14 Heparin - SQ 5,000 unit Q8H RUTH Administration Meropenem 1 gm/ Dextrose 100 mls @ 200 mls/hr 05/20/17 18:00 05/21/17 01:56 IVPB 200 mls/hr Q8H-IV RUTH Administration Ipratropium [place] 1 amp 05/20/17 18:00 05/21/17 06:05 Atrovent 0.02% Nebulizer - NEB 1 amp QIDR RUTH Administration Ketorolac Tromethamine 15 mg 05/20/17 10:09 Toradol Injection - IVPUSH 05/21/17 17:59 Q8H-IV PRN PAIN Loperamide HCl 2 mg 05/20/17 12:55 Imodium - PO Q8H PRN DIARRHEA Lorazepam 0.5 mg 05/20/17 12:55 05/21/17 02:06 Ativan - PO 0.5 mg BID PRN Administration ANXIETY Metoprolol Tartrate 12.5 mg 05/20/17 17:00 05/21/17 10:13 Lopressor - PO 12.5 mg Q8H RUTH Administration Oxycodone HCl 5 mg 05/20/17 12:55 05/20/17 22:13 Roxicodone - PO 5 mg Q4H PRN Administration PAIN Oxycodone HCl 10 mg 05/20/17 12:55 Roxicodone - PO Q4H PRN Pantoprazole Sodium 40 mg 05/20/17 10:00 05/21/17 10:12 Protonix - PO 40 mg DAILY RUTH Administration Potassium Phos/Sodium Phos 1 packet 05/20/17 14:00 05/21/17 06:20 Phos-Nak Packet - PO 05/22/17 06:01 Not Given TID RUTH Promethazine HCl 12.5 mg 05/20/17 12:55 05/21/17 07:03 Phenergan Injection - IVPB 12.5 mg Q6H PRN Administration NAUSEA AND/OR VOMITING Abnormal Lab Results 05/21/17 05/21/17 05:10 05:10 RBC 3.52 L Hgb 9.0 L Hct 28.0 L MCV 79.5 L MCH 25.5 L RDW 23.7 H Monocytes % 11.6 H Anion Gap 6 L Creatinine 0.5 L Random Glucose 108 H Calcium 8.4 L A/P 46 y/o patient with metastatic colon cancer --with recurrent solitary metastasis at site of previous RLL wedge resection.No evidence of disease else where s/p Rt. lower lobectomy on 05/16. Onc Hx: Patient was diagnosed with colon cancer around 04/2014, when she presented with obstructive symptoms, anemia---s/p lt. hemicolectomy. Noted to have synchronous liver metastais. s/p FOLFOX x6 followed by resection of liver lesion. Received 6 more cycles of FOLFOX post op. 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 lung lesions and rt. lung lesions .Patient has been very reluctant to get chemotherapy wAs in [place] for some time and more recently recurrence at rt. lower lobe wedge resection site.Received FOLFIRI 3 cycles --last December. Very reluctant to get any further chemotherapy. s/p Rt. lower lobectomy on 05/16/2017. s/p removal of chest tube.post CXR report reviewed will send path for next gen. sequencing. Was KRAS mutant and not MMR deficient. will follow-up pt in the office post discharge Iron deficiency anemia--on weekly iv iron,received last week, s/p IV iron on . Pain control: she prefers just tylenol. Thyroid nodule: appreciate Dr. Cox consult, will need US neck likely to be done as an OP d/c planning, will need to follow up in our office upon discharge
[2017-05-21 11:38] VITALS: PULSE 78
--- NOTE | 2017-05-21 12:41 | DS ---
Physical Examination Vital Signs: Vital Signs Temperature 98.9 F 05/21/17 09:00 Pulse Rate 78 05/21/17 11:37 Respiratory Rate 20 05/21/17 09:00 Blood Pressure 120/73 05/21/17 09:00 O2 Sat by Pulse Oximetry (%) 99 05/21/17 11:37 Labs: CBC, BMP 05/21/17 05:10 05/21/17 05:10 Discharge Summary Reason For Visit: LUNG CANCER Current Active Problems Abdominal pain (Acute) Adnexal cyst (Acute) Colitis (Acute) Colon wall thickening (Acute) Epigastric abdominal pain (Acute) Nausea and vomiting (Acute) S/P lobectomy of lung (Acute) Condition: Good - Instructions Diet, Activity, Other Instructions: resume previous diet Referrals: Martin Erickson MD [Staff Physician] - Derik Arenas MD [Staff Physician] - Disposition: HOME - Home Medications Comprehensive Discharge Medication List: Ambulatory Orders Metoprolol Tartrate [Lopressor -] 25 mg PO DAILY 02/03/16 Pantoprazole Sodium [Protonix -] 40 mg PO DAILY #30 tablet.ec 02/06/16 Lorazepam [Ativan] 2 mg PO BID MDD 3mg 11/18/16 Oxycodone HCl [Roxicodone -] 5 mg PO Q4H PRN #30 tablet MDD 30mg 05/21/17
== END 2017-05-21 14:00 | disposition home or self-care (01) | DRG 164 ==
LOC: JSAMEDAYSX 05:09 → EDSTATUS 07:30 → JICU 16:48 → J4S 05-18 13:07 → JICU 05-18 22:13 → J7W 05-21 06:12
PROVIDERS: ADMIT Internal Medicine; ATTEND Internal Medicine
PROC: 07B74ZX Excision of Thorax Lymphatic, Percutaneous Endoscopic Approach, Diagnostic (ICD-10-PCS; 2017-05-16)
PROC: 0W9940Z Drainage of Right Pleural Cavity with Drainage Device, Percutaneous Endoscopic Approach (ICD-10-PCS; 2017-05-16)
PROC: 0BJ08ZZ Inspection of Tracheobronchial Tree, Via Natural or Artificial Opening Endoscopic (ICD-10-PCS; 2017-05-16)
PROC: 0WP9X0Z Removal of Drainage Device from Right Pleural Cavity, External Approach (ICD-10-PCS; 2017-05-16)
PROC: 0BBF8ZZ Excision of Right Lower Lung Lobe, Via Natural or Artificial Opening Endoscopic (ICD-10-PCS; principal; 2017-05-16 07:30)
PROC: 0BNF4ZZ Release Right Lower Lung Lobe, Percutaneous Endoscopic Approach (ICD-10-PCS; 2017-05-16 07:30)
DX: C78.01 Secondary malignant neoplasm of right lung (principal); C78.7 Secondary malignant neoplasm of liver and intrahepatic bile duct; J98.11 Atelectasis; C19 Malignant neoplasm of rectosigmoid junction; I10 Essential (primary) hypertension; F41.9 Anxiety disorder, unspecified; D25.9 Leiomyoma of uterus, unspecified; D50.9 Iron deficiency anemia, unspecified; K59.00 Constipation, unspecified; K21.9 Gastro-esophageal reflux disease without esophagitis; E04.1 Nontoxic single thyroid nodule; E87.6 Hypokalemia; D63.0 Anemia in neoplastic disease; E66.9 Obesity, unspecified; R50.9 Fever, unspecified; Z88.2 Allergy status to sulfonamides; Z91.040 Latex allergy status; Z68.36 Body mass index [BMI] 36.0-36.9, adult
CPT/HCPCS: 36415; 71010-TC; 80048; 80053; 81003; 81015; 82728; 83540; 83550; 83735; 84100; 85025; 85027; 85610; 85730; 87040; 87086; 88309-TC; 88331-TC; 94640; 94760; 97116-GP; 97162-GP; J1644; J1756

== ENCOUNTER 2017-07-12 07:22 | Day surgery (SDC) | payer OTHER, BC ==
[2017-07-12] MEDS ORDERED: IRON SUCROSE INJECTION 100 MG in SODIUM CHLORIDE 100 ML IVPB ONE (08:00)
[2017-07-12 08:45] VITALS: BP 131/91; PULSE 89; TEMP 97.5
[2017-07-12] MEDS ORDERED: PORTA CATH FLUSH 10 ML IVPUSH ONE (08:50)
[2017-07-12 09:12] LABS: MCH 28.1 pg (25.7-33.7); MCHC 32.6 g/dl (32.0-36.0); MEAN PLT VOLUME 9.2 fl (7.5-11.1); PLATELET COUNT 194 K/MM3 (134-434); RDW 20.3 % (11.6-15.6)
[2017-07-12 09:30] LABS: ALBUMIN 3.7 g/dl (3.4-5.0); ALK PHOS 62 U/L (45-117); ANION GAP 11 (8-16); BILIRUBIN,TOTAL 0.2 mg/dL (0.2-1.0); CO2 25 mmol/L (21-32); CREATININE 0.6 mg/dL (0.55-1.02); GLUCOSE,RANDOM 105 mg/dL (74-106); SGOT/AST 14 U/L (15-37); SGPT/ALT 42 U/L (12-78); TOT PROT 7.2 g/dl (6.4-8.2)
== END 2017-07-12 09:06 | disposition home or self-care (01) ==
LOC: JONCNONCHE 07:22 → J7W 08:13 → JONCNONCHE 09:06
PROVIDERS: ATTEND Internal Medicine Hematology & Oncology
PROC: 3E033GC Introduction of Other Therapeutic Substance into Peripheral Vein, Percutaneous Approach (ICD-10-PCS; principal; 2017-07-12)
DX: D50.9 Iron deficiency anemia, unspecified (principal); K90.9 Intestinal malabsorption, unspecified
CPT/HCPCS: 36415; 80053; 82378; 82728; 85027; 96365; J1756

== ENCOUNTER 2017-09-30 07:25 | Day surgery (SDC) | payer OTHER, BC ==
[2017-09-30] MEDS ORDERED: IRON SUCROSE INJECTION 100 MG in SODIUM CHLORIDE 100 ML IVPB ONE (09:00)
[2017-09-30 09:07] VITALS: TEMP 98.2
[2017-09-30 10:58] VITALS: BP 129/88; PULSE 79
[2017-09-30] MEDS ORDERED: PORTA CATH FLUSH 10 ML IVPUSH ONE (11:04)
== END 2017-09-30 10:00 | disposition home or self-care (01) ==
LOC: JONCNONCHE 07:25 → J7W 08:22 → JONCNONCHE 10:00
PROVIDERS: ATTEND Internal Medicine Hematology & Oncology
PROC: 3E043GC Introduction of Other Therapeutic Substance into Central Vein, Percutaneous Approach (ICD-10-PCS; principal; 2017-09-30)
DX: D50.9 Iron deficiency anemia, unspecified (principal); K90.9 Intestinal malabsorption, unspecified; C18.9 Malignant neoplasm of colon, unspecified
CPT/HCPCS: 96365; J1756

== ENCOUNTER 2018-09-02 11:18 | Emergency (ER) | payer BC, OTHER ==
[2018-09-02 11:33] VITALS: BP 122/84; PULSE 80; TEMP 97.6; BMI 33.4
[2018-09-02] MEDS ORDERED: LORazepam 2 MG/ML SDV VIAL ONE (12:10)
--- NOTE | 2018-09-02 12:14 | PDOC ---
History of Present Illness - General Chief Complaint: Chest Pain Stated Complaint: VOMITING/CHEST PAIN Time Seen by Provider: 09/02/18 11:35 History Source: Patient Exam Limitations: Clinical Condition - History of Present Illness Initial Comments: 09/02/18 12:08 Patient with history of anxiety disorder present with complain of palpitations, intermittent shortness of breath, nausea and one episode of vomiting this morning after going out last night and unable to sleep overnight. Patient reported she was forcing herself to sleep and could not sleep and started having a panic attack. Patient reported taking a usual Ativan 1 mg by mouth which usually resolve her panic attack but did not help this time. Patient's reported patient have recurrent anxiety attacks and had advised her to follow up with psychology but patient never does. Patient with history of colon cancer on remission 3 years ago. Timing/Duration: 24 hours Past History - Past Medical History Allergies/Adverse Reactions: Allergies Allergy/AdvReac Type Severity Reaction Status Date / Time latex Allergy Severe Itching Verified 09/02/18 11:31 carrot Allergy Verified 09/02/18 11:31 nut - unspecified Allergy Verified 09/02/18 11:31 Sulfa (Sulfonamide AdvReac generalized Verified 09/02/18 11:31 Antibiotics) weakness Home Medications: Ambulatory Orders Metoprolol Tartrate [Lopressor -] 25 mg PO DAILY 02/03/16 Pantoprazole Sodium [Protonix -] 40 mg PO DAILY #30 tablet.ec 02/06/16 LORazepam [Ativan] 2 mg PO BID MDD 3mg 11/18/16 oxyCODONE HCL [Roxicodone -] 5 mg PO Q4H PRN #30 tablet MDD 30mg 05/21/17 Anemia: Yes Asthma: No Cancer: Yes (Metastatic Colon) Cardiac Disorders: Yes (tachycardia) CVA: No COPD: No CHF: No Dementia: No Diabetes: No GI Disorders: Yes (GERD) Disorders: No HTN: No Hypercholesterolemia: No Liver Disease: Yes (Liver metastasis) Psychiatric Problems: Yes (ANXIETY) Seizures: No Thyroid Disease: No Lung CA: Yes (bilateral lung) - Surgical History Abdominal Surgery: Yes (Colon resection (2013), liver resection (2014)) Appendectomy: No Cardiac Surgery: No Cholecystectomy: No GI Surgery: Yes (COLON CA-SURGERY 09/11/2014) Lung Surgery: Yes (thoracoscopy 12/2015) Neurologic Surgery: No Orthopedic Surgery: No - Suicide/Smoking/Psychosocial Hx Smoking Status: No Smoking History: Never smoked Have you smoked in the past 12 months: No Number of Cigarettes Smoked Daily: 0 Information on smoking cessation initiated: No Hx Alcohol Use: No Drug/Substance Use Hx: No Substance Use Type: None Hx Substance Use Treatment: No Review of Systems - Review of Systems Able to Perform ROS?: Yes Is the patient limited Thai proficient: No Constitutional: No: Chills, Fever, Night Sweats, Weakness HEENTM: No: Eye Pain, Blurred Vision, Tearing, Recent change in vision, Double Vision, Cataracts, Ear Pain, Ocular Prothesis, Ear Discharge, Nose Pain, Nose Congestion, Tinnitus, Nose Bleeding, Hearing Loss, Throat Pain, Throat Swelling , Mouth Pain, Dental Problems, Difficulty Swallowing, Mouth Swelling, Other Respiratory: Yes: Symptoms reported, See HPI, Shortness of Breath. No: Cough, Orthopnea, SOB with Exertion, SOB at Rest, Stridor, Wheezing, Productive cough, Hemoptysis, Other Cardiac (ROS): Yes: See HPI, Irregular Heart Rate, Palpitations. No: Chest Pain , Lightheadedness, Syncope, Chest Tightness ABD/GI: Yes: Nausea, Vomiting. No: Constipated, Diarrhea, Difficulty Swallowing , Rectal Bleeding, Abdominal cramping Neurological: Yes: Tremors. No: Headache, Numbness, Paresthesia, Tingling, Weakness, Unsteady Gait, Dizziness All Other Systems: Reviewed and Negative *Physical Exam - Vital Signs Last Vital Signs Temp Pulse Resp BP Pulse Ox 97.6 F 80 16 122/84 100 09/02/18 11:20 09/02/18 11:20 09/02/18 11:20 09/02/18 11:20 09/02/18 11:20 - Physical Exam Comments: 09/02/18 12:12 GENERAL: Well developed, well nourished. Awake and alert. No acute distress. anxious and crying HEENT: Normocephalic, atraumatic. PERRLA, EOMI. No conjunctival pallor. Sclera are non- icteric. Moist mucous membranes. Oropharynx is clear. NECK: Supple. Full ROM. No JVD. Carotid pulses 2+ and symmetric, without bruits. No thyromegaly. No lymphadenopathy. CARDIOVASCULAR: Regular rate and rhythm. No murmurs, rubs, or gallops. Distal pulses are 2+ and symmetric. PULMONARY: No evidence of respiratory distress. Lungs clear to auscultation bilaterally. No wheezing, rales or rhonchi. ABDOMINAL: Soft. Non-tender. Non-distended. No rebound or guarding. No organomegaly. Normoactive bowel sounds. MUSCULOSKELETAL Normal range of motion at all joints. No bony deformities or tenderness. No CVA tenderness. EXTREMITIES: No cyanosis. No clubbing. No edema. No calf tenderness. SKIN: Warm and dry. Normal capillary refill. No rashes. No jaundice. NEUROLOGICAL: Alert, awake, appropriate. Cranial nerves 2-12 intact. No deficits to light touch and temperature in face, upper extremities and lower extremities. No motor deficits in the in face, upper extremities and lower extremities. Normoreflexic in the upper and lower extremities. Normal speech. Toes are down- going bilaterally. Gait is normal without ataxia. PSYCHIATRIC: Cooperative. Good eye contact. Appropriate mood and affect. General Appearance: Yes: Nourished, Appropriately Dressed, Other (anxious and hysterical crying) ED Treatment Course - LABORATORY CBC & Chemistry Diagram: 09/02/18 13:50 09/02/18 13:50 Medical Decision Making - Medical Decision Making 09/02/18 12:13 Patient with history of anxiety disorder present with complain of palpitation, intermittent shortness of breath, nausea, vomiting and feeling very anxious since this morning. Patient taking a dose of home Ativan 1 mg with no improvement. On exams patient is very anxious and hysterically crying. EKG shows no acute pathology with normal sinus rhythm. Ativan 2 mg IM ordered for anxiety. CBC, CMP and cardiac profile ordered. Symptoms likely anxiety attack will be treated with psychologist follow-up if negative labs. 09/02/18 14:11 Patient reported feeling better after 2 mg Ativan. Patient reported no more shortness of breath, palpitations or feeling anxious. Patient reports she just wants to sleep for a few. For going home. Labs still pending 09/02/18 14:58 labs with no acute findings. patient symptoms now completely resolved. Patient stable for discharge with psychologist follow-up. advised patient on the importance of follow-up to help control anxiety *DC/Admit/Observation/Transfer Diagnosis at time of Disposition: Anxiety disorder Qualifiers: Anxiety disorder type: generalized anxiety disorder Qualified Code(s): F41.1 - Generalized anxiety disorder - Discharge Dispostion Disposition: HOME Condition at time of disposition: Improved Decision to Admit order: No - Referrals Referrals: Martin Erickson MD [Primary Care Provider] - Geeta Mckeon [Staff Physician] - - Patient Instructions Printed Discharge Instructions: Generalized Anxiety Disorder, Yoga May Help Reduce Anxiety and Stress, Anxiety and Panic Attacks (Alternative Therapy) Additional Instructions: Take home anxiety medication as prescribed. Follow up with preferred psychologist as soon as possible to help manage anxiety. It is important that you follow up with their psychologist to help prevent recurrent anxiety attacks. - Post Discharge Activity
--- NOTE | 2018-09-02 12:28 | EKG ---
Test Reason : Blood Pressure : / mmHG Vent. Rate : 080 BPM Atrial Rate : 080 BPM P-R Int : 164 ms QRS Dur : 076 ms QT Int : 392 ms P-R-T Axes : 021 019 018 degrees QTc Int : 452 ms NORMAL SINUS RHYTHM NORMAL ECG WHEN COMPARED WITH ECG OF 14-JAN-2017 00:55, NO SIGNIFICANT CHANGE WAS FOUND Confirmed by FAUSTINO REINA MD ([id number]) on 09/02/2018 12:28:42 PM Referred By: Confirmed By:FAUSTINO REINA MD
[2018-09-02 13:57] LABS: BASO % 0.7 % (0-2.0); EOS % 0.6 % (0-4.5); HEMATOCRIT 26.9 % (32.4-45.2); HEMOGLOBIN 8.8 GM/dL (10.7-15.3); LYMPH % 13.8 % (8-40); MCH 22.7 pg (25.7-33.7); MCHC 32.6 g/dl (32.0-36.0); MEAN CELL VOLUME 69.7 fl (80-96); MEAN PLT VOLUME 8.1 fl (7.5-11.1); MONO % 4.5 % (3.8-10.2); NEUT % 80.4 % (42.8-82.8); PLATELET COUNT 345 K/MM3 (134-434); RBC 3.86 M/mm3 (3.60-5.2); RDW 20.9 % (11.6-15.6); WHITE BLOOD COUNT 8.1 K/mm3 (4.0-10.0)
[2018-09-02 14:25] LABS: ALBUMIN 3.9 g/dl (3.4-5.0); ALK PHOS 59 U/L (45-117); ANION GAP 7 MMOL/L (8-16); BILIRUBIN,TOTAL 0.2 mg/dL (0.2-1); BLOOD UREA NITROGEN 14 mg/dL (7-18); CALCIUM 9.1 mg/dL (8.5-10.1); CHLORIDE 106 mmol/L (98-107); CO2 25 mmol/L (21-32); CREATININE 0.7 mg/dL (0.55-1.3); GLUCOSE,RANDOM 98 mg/dL (74-106); POTASSIUM 3.9 mmol/L (3.5-5.1); SGOT/AST 17 U/L (15-37); SGPT/ALT 19 U/L (13-61); SODIUM 138 mmol/L (136-145); TOT PROT 8.1 g/dl (6.4-8.2)
[2018-09-02 15:12] LABS: ANISOCYTOSIS 1+; MACROCYTOSIS 1+; OVALOCYTE 1+
== END 2018-09-02 15:47 | disposition home or self-care (01) ==
LOC: JER 11:18
PROC: 3E033NZ Introduction of Analgesics, Hypnotics, Sedatives into Peripheral Vein, Percutaneous Approach (ICD-10-PCS; principal; 2018-09-02)
DX: F41.1 Generalized anxiety disorder (principal); Z85.038 Personal history of other malignant neoplasm of large intestine; Z85.05 Personal history of malignant neoplasm of liver; Z86.2 Personal history of diseases of the blood and blood-forming organs and certain disorders involving the immune mechanism; K21.9 Gastro-esophageal reflux disease without esophagitis
CPT/HCPCS: 36415; 80053; 82550; 82553; 84484; 85025; 93005; 93010; 99282-25

== ENCOUNTER 2018-11-13 10:12 | Emergency (ER) | payer BC ==
[2018-11-13 10:46] VITALS: BP 137/94; PULSE 89; TEMP 98.1; BMI 31.9
--- NOTE | 2018-11-13 11:05 | PDOC ---
History of Present Illness <Sierra Arredondo - Last Filed: 11/13/18 12:13> - General History Source: Patient <Eli Ferro - Last Filed: 11/13/18 15:10> - General Chief Complaint: Lightheaded Stated Complaint: VOMITING Time Seen by Provider: 11/13/18 10:54 Past History <Sierra Arredondo - Last Filed: 11/13/18 12:13> - Past Medical History Anemia: Yes Asthma: No Cancer: Yes (Metastatic Colon) Cardiac Disorders: Yes (tachycardia) CVA: No COPD: No CHF: No Dementia: No Diabetes: No GI Disorders: Yes (GERD) Disorders: No HTN: No Hypercholesterolemia: No Liver Disease: Yes (Liver metastasis) Psychiatric Problems: Yes (ANXIETY) Seizures: No Thyroid Disease: No Lung CA: Yes (bilateral lung) - Surgical History Abdominal Surgery: Yes (Colon resection (2013), liver resection (2014)) Appendectomy: No Cardiac Surgery: No Cholecystectomy: No GI Surgery: Yes (COLON CA-SURGERY 09/11/2014) Lung Surgery: Yes (thoracoscopy 12/2015) Neurologic Surgery: No Orthopedic Surgery: No - Immunization History Immunization Up to Date: Yes - Suicide/Smoking/Psychosocial Hx Smoking Status: No Smoking History: Never smoked Have you smoked in the past 12 months: No Number of Cigarettes Smoked Daily: 0 Hx Alcohol Use: No Drug/Substance Use Hx: No Substance Use Type: None Hx Substance Use Treatment: No <Eli Ferro - Last Filed: 11/13/18 15:10> - Past Medical History Allergies/Adverse Reactions: Allergies Allergy/AdvReac Type Severity Reaction Status Date / Time latex Allergy Severe Itching Verified 11/13/18 10:42 carrot Allergy Verified 11/13/18 10:42 nut - unspecified Allergy Verified 11/13/18 10:42 Sulfa (Sulfonamide AdvReac generalized Verified 11/13/18 10:42 Antibiotics) weakness Home Medications: Ambulatory Orders Metoprolol Tartrate [Lopressor -] 25 mg PO DAILY 02/03/16 Pantoprazole Sodium [Protonix -] 40 mg PO DAILY #30 tablet.ec 02/06/16 LORazepam [Ativan] 2 mg PO BID MDD 3mg 11/18/16 oxyCODONE HCL [Roxicodone -] 5 mg PO Q4H PRN #30 tablet MDD 30mg 05/21/17 Review of Systems - Review of Systems Constitutional: No: Chills, Fever Respiratory: No: Cough, Shortness of Breath Cardiac (ROS): No: Chest Pain ABD/GI: Yes: Nausea, Vomiting. No: Diarrhea, Abdominal cramping : No: Burning, Dysuria, Frequency, Flank Pain, Hematuria Neurological: No: Headache <BahrainiEli - Last Filed: 11/13/18 15:10> *Physical Exam - Vital Signs Last Vital Signs Temp Pulse Resp BP Pulse Ox 98.1 F 89 18 137/94 98 11/13/18 10:43 11/13/18 10:43 11/13/18 10:43 11/13/18 10:43 11/13/18 10:43 <Sierra Arredondo - Last Filed: 11/13/18 12:13> - Vital Signs Last Vital Signs Temp Pulse Resp BP Pulse Ox 98.1 F 89 18 137/94 98 11/13/18 10:43 11/13/18 10:43 11/13/18 10:43 11/13/18 10:43 11/13/18 10:43 - Physical Exam General Appearance: Yes: Appropriately Dressed. No: Apparent Distress HEENT: positive: Normal Voice Neck: positive: Supple Respiratory/Chest: positive: Lungs Clear, Normal Breath Sounds. negative: Respiratory Distress Cardiovascular: positive: Regular Rate, S1, S2 Gastrointestinal/Abdominal: positive: Soft. negative: Tender Musculoskeletal: negative: CVA Tenderness Extremity: positive: Normal Inspection Integumentary: positive: Dry, Warm Neurologic: positive: Fully Oriented, Alert, Normal Mood/Affect <BahrainiEli - Last Filed: 11/13/18 15:10> Moderate Sedation - Procedure Monitoring Vital Signs: Procedure Monitoring Vital Signs Temperature 98.1 F 11/13/18 10:43 Pulse Rate 89 11/13/18 10:43 Respiratory Rate 18 11/13/18 10:43 Blood Pressure 137/94 11/13/18 10:43 O2 Sat by Pulse Oximetry (%) 98 11/13/18 10:43 <Sierra Arredondo - Last Filed: 11/13/18 12:13> - Procedure Monitoring Vital Signs: Procedure Monitoring Vital Signs Temperature 98.1 F 11/13/18 10:43 Pulse Rate 89 11/13/18 10:43 Respiratory Rate 18 11/13/18 10:43 Blood Pressure 137/94 11/13/18 10:43 O2 Sat by Pulse Oximetry (%) 98 11/13/18 10:43 <Eli Ferro - Last Filed: 11/13/18 15:10> ED Treatment Course - LABORATORY CBC & Chemistry Diagram: 11/13/18 11:40 11/13/18 11:40 - ADDITIONAL ORDERS Additional order review: 11/13/18 11:40 RBC 4.40 MCV 76.5 L MCHC 32.7 RDW 22.9 H MPV 9.2 D Neutrophils % 77.4 Lymphocytes % 13.5 Monocytes % 7.3 Eosinophils % 0.9 Basophils % 0.9 - Medications Given in the ED: ED Medications Discontinued Medications Generic Name Dose Route Start Last Admin Trade Name Freq PRN Reason Stop Dose Admin Sodium Chloride 1,000 mls @ 1,000 mls/hr 11/13/18 11:07 11/13/18 11:57 Normal Saline - IV 11/13/18 12:06 1,000 mls/hr ASDIR STA Administration Metoclopramide HCl 10 mg 11/13/18 11:07 11/13/18 11:57 Reglan Injection - IVPB 11/13/18 11:08 10 mg ONCE ONE Administration <Sierra Arredondo - Last Filed: 11/13/18 12:13> - LABORATORY CBC & Chemistry Diagram: 11/13/18 11:40 11/13/18 11:40 <Eli Ferro - Last Filed: 11/13/18 15:10> Medical Decision Making - Medical Decision Making The patient was seen and evaluated in conjunction with midlevel provider under my direct supervision, ancillary studies were reviewed. I agree with the plan as outlined by J LUIS Ferro. HPI, workup/dispo as outlined. ancillary testing reviewed - reassuring, wnl. well appearing in vertical chair, VS wnl. discharge in stable condition, return precautions provided. 11/13/18 12:13 <Sierra Arredondo - Last Filed: 11/13/18 12:13> - Medical Decision Making 11/13/18 11:04 48 yo F, h/o colon ca w/ mets to liver and lungs (s/p L lung resection), no longer on chemo, currently receiving frequent PET scans w/ "some spots" seen but are not growing per pt, hypertension, anxiety, here with nausea, vomiting. Patient states last night she developed sudden onset nausea, vomiting that improved until she went to work and had some coffee after which she vomited again per patient. Complaining of mild dizziness. No abdominal pain, diarrhea, fever or chills and denies chest pain or shortness of breath. Denies unusual food or sick contacts. Also c/o possible foul smell to urine per pt. No dysuria , freq, flank pain, n/v/f/c See exam N/V Etiology unclear at this time -ekg -cxr -labs -IVF -reglan -reassess ?urine odor -ua/cx 11/13/18 13:39 Labs unremarkable. Case discussed with Dr. Erickson who states patient running low on B12 and recommend IM injection here. States patient can be discharged and follow-up with him in office <Eli Ferro - Last Filed: 11/13/18 15:10> *DC/Admit/Observation/Transfer <Maria ElenaSierra Angie - Last Filed: 11/13/18 12:13> <Eli Ferro - Last Filed: 11/13/18 15:10> Diagnosis at time of Disposition: Nausea and vomiting Qualifiers: Vomiting type: unspecified Vomiting Intractability: non-intractable Qualified Code(s): R11.2 - Nausea with vomiting, unspecified - Discharge Dispostion Disposition: HOME Condition at time of disposition: Improved - Referrals Referrals: Martin Erickson MD [Primary Care Provider] - - Patient Instructions Additional Instructions: The cause of your symptoms are unclear at this time, but your labs were normal. Please follow-up with Dr. Erickson - Post Discharge Activity
[2018-11-13] MEDS ORDERED: METOCLOPRAMIDE HCL INJECTION 10 MG/2 ML VIAL IVPB ONE (11:07)
[2018-11-13] MEDS ORDERED: SODIUM CHLORIDE 1,000 ML IV STA (11:07)
[2018-11-13] MEDS ORDERED: METOCLOPRAMIDE HCL INJECTION 10 MG/2 ML VIAL ONE (11:19)
[2018-11-13 12:02] LABS: BASO % 0.9 % (0-2.0); EOS % 0.9 % (0-4.5); HEMATOCRIT 33.7 % (32.4-45.2); LYMPH % 13.5 % (8-40); MCHC 32.7 g/dl (32.0-36.0); MEAN CELL VOLUME 76.5 fl (80-96); MEAN PLT VOLUME 9.2 fl (7.5-11.1); MONO % 7.3 % (3.8-10.2); NEUT % 77.4 % (42.8-82.8); PLATELET COUNT 290 K/MM3 (134-434); RDW 22.9 % (11.6-15.6); WHITE BLOOD COUNT 8.7 K/mm3 (4.0-10.0)
[2018-11-13 12:50] LABS: ALBUMIN 3.9 g/dl (3.4-5.0); ALK PHOS 65 U/L (45-117); ANION GAP 7 MMOL/L (8-16); BILIRUBIN,TOTAL 0.4 mg/dL (0.2-1); BLOOD UREA NITROGEN 15 mg/dL (7-18); CALCIUM 9.5 mg/dL (8.5-10.1); CHLORIDE 103 mmol/L (98-107); CO2 26 mmol/L (21-32); CREATININE 0.8 mg/dL (0.55-1.3); GLUCOSE,RANDOM 100 mg/dL (74-106); LIPASE 156 U/L (73-393); POTASSIUM 5.1 mmol/L (3.5-5.1); SGOT/AST 56 U/L (15-37); SGPT/ALT 30 U/L (13-61); SODIUM 135 mmol/L (136-145); TOT PROT 8.5 g/dl (6.4-8.2)
[2018-11-13] MEDS ORDERED: CYANOCOBALAMIN (VITAMIN B-12) 1000 MCG/1 ML VIAL IM ONE (13:38)
[2018-11-13 13:55] LABS: HCG,QUALITATIVE URINE Negative
[2018-11-13 14:05] LABS: URINE APPEARANCE SLCLOUDY; URINE BILIRUBIN NEGATIVE (<2.0 mg/dL); URINE COLOR YELLOW; URINE GLUCOSE (UA) NEGATIVE (NEGATIVE); URINE KETONE TRACE (NEGATIVE); URINE LEUK ESTERASE NEGATIVE (NEGATIVE); URINE NITRITE NEGATIVE (NEGATIVE); URINE PROTEIN 2+ (NEGATIVE); URINE UROBILINOGEN NEGATIVE mg/dL (0.2-1.0)
[2018-11-13 14:12] LABS: EPI CELLS RARE /HPF (FEW); URINE BACTERIA RARE /hpf (NONE SEEN); URINE MUCUS MODERATE
[2018-11-13 14:24] LABS: ANISOCYTOSIS 1+; MACROCYTOSIS 0; PLATELET ESTIMATE NORMAL
== END 2018-11-13 14:20 | disposition home or self-care (01) ==
LOC: JER 10:12
PROC: 3E033GC Introduction of Other Therapeutic Substance into Peripheral Vein, Percutaneous Approach (ICD-10-PCS; principal; 2018-11-13)
PROC: 3E023GC Introduction of Other Therapeutic Substance into Muscle, Percutaneous Approach (ICD-10-PCS; 2018-11-13)
DX: R11.2 Nausea with vomiting, unspecified (principal); E53.8 Deficiency of other specified B group vitamins; Z85.038 Personal history of other malignant neoplasm of large intestine; Z85.05 Personal history of malignant neoplasm of liver; Z85.118 Personal history of other malignant neoplasm of bronchus and lung; K21.9 Gastro-esophageal reflux disease without esophagitis; F41.9 Anxiety disorder, unspecified; Z88.2 Allergy status to sulfonamides; Z91.040 Latex allergy status
CPT/HCPCS: 36415; 71046-TC-FY; 80053; 81003; 81015; 82550; 82553; 83690; 84484; 84703; 85025; 87086; 87186; 99281-25; J7030

== ENCOUNTER 2019-04-25 21:39 | Emergency (ER) | payer OTHER, BC ==
[2019-04-25 21:58] VITALS: BMI 28.8
[2019-04-25] MEDS ORDERED: methylPREDNISolone NA SUCC 125 MG/2 ML VIAL IVPB ONE (22:06)
--- NOTE | 2019-04-25 22:10 | PDOC ---
Documentation entered by Pennie Oden SCRIBE, acting as scribe for Jonnie Munoz MD. Jonnie Munoz MD: This documentation has been prepared by the Akshat briggs Sammi, SCRIBE, under my direction and personally reviewed by me in its entirety. I confirm that the documentation accurately reflects all work, treatment, procedures, and medical decision making performed by me. History of Present Illness - General Chief Complaint: Allergic Reaction Stated Complaint: ALLERGIC REACTION History Source: Patient Exam Limitations: No Limitations - History of Present Illness Initial Comments: 04/25/19 21:43 The patient is a 48 year old female who presents to the emergency department for evaluation of an allergic reaction after eating a sandwich from [employer]. The patient complains of trouble breathing and diffuse itching. She notes an allergy to many nuts and that she realized there were nuts on the sandwich after the reaction had started. The patient had taken 2 Benadryl prior to arrival to the ED with little relief. PAST MEDICAL HISTORY: cancer PAST SURGICAL HISTORY: no significant history FAMILY HISTORY: no pertinent history SOCIAL HISTORY: Pt lives with family and is employed. MEDICATIONS: reviewed ALLERGIES: As per nursing notes Adult ROS General: No fevers or chills, no weakness, no weight loss HEENT: (+) Throat swelling. No change in vision. No ear pain CardioVascular: No chest pain. Respiratory: (+)SOB Gastrointestinal: no nausea, vomiting, diarrhea or constipation, No rectal bleeding Genitourinary: No dysuria, hematuria, or frequency Musculoskeletal: No joint or muscle pain or swelling Neurologic: No headache, vertigo, dizziness or loss of consciousness Psychiatric: nor depression Skin: No rashes or easy bruising Endocrine: no increased thirst or abnormal weight change Allergic: (+)diffuse itching All other systems reviewed and normal Adult Exam: General: Well-nourished well-developed individual, no acute distress HEENT: Throat: mild angioedema posterior oral pharynx and uvula. Neck: Supple, no meningeal signs, no lymphadenopathy Eyes::Pupils equal reactive and round, extraocular motion intact Chest: Nontender to palpation Cardiac: S1-S2 normal, regular rate and rhythm, no murmurs rubs or gallops Respiratory: Lungs clear to auscultation bilateral. No wheezing, no stridor. Abdomen: Soft, nondistended, normal bowel sounds, nontender to palpation diffusely Extremities: Warm, dry, no cyanosis, clubbing, or edema Skin: No rashes Neuro: Alert and oriented x3, nonfocal exam, grossly intact, normal gait Psych: Normal mood and affect Assessment and plan: This is a 48 her old female who comes in complaining of an ALLERGIC reaction to nuts. Patient was treated with Solu-Medrol and Benadryl and observed for 2 hours. Patient's symptoms resolved she felt better and was discharged home on a Solu-Medrol Dosepak 04/26/19 20:47 Past History - Past Medical History Allergies/Adverse Reactions: Allergies Allergy/AdvReac Type Severity Reaction Status Date / Time latex Allergy Severe Itching Verified 04/25/19 21:44 carrot Allergy Verified 04/25/19 21:44 nut - unspecified Allergy Verified 04/25/19 21:44 Sulfa (Sulfonamide AdvReac generalized Verified 04/25/19 21:44 Antibiotics) weakness Home Medications: Ambulatory Orders Metoprolol Tartrate [Lopressor -] 25 mg PO DAILY 02/03/16 Pantoprazole Sodium [Protonix -] 40 mg PO DAILY #30 tablet.ec 02/06/16 LORazepam [Ativan] 2 mg PO BID MDD 3mg 11/18/16 Gabapentin 300 mg PO DAILY 04/25/19 Methylprednisolone [Medrol Dose Joey] 4 mg PO ASDIR #21 tablet 04/25/19 Anemia: Yes Asthma: No Cancer: Yes (Metastatic Colon) Cardiac Disorders: Yes (tachycardia) CVA: No COPD: No CHF: No Dementia: No Diabetes: No GI Disorders: Yes (GERD) Disorders: No HTN: No Hypercholesterolemia: No Liver Disease: Yes (Liver metastasis) Psychiatric Problems: Yes (ANXIETY) Seizures: No Thyroid Disease: No Lung CA: Yes (bilateral lung) - Surgical History Abdominal Surgery: Yes (Colon resection (2013), liver resection (2014)) Appendectomy: No Cardiac Surgery: No Cholecystectomy: No GI Surgery: Yes (COLON CA-SURGERY 09/11/2014) Lung Surgery: Yes (thoracoscopy 12/2015) Neurologic Surgery: No Orthopedic Surgery: No - Immunization History Immunization Up to Date: Yes - Suicide/Smoking/Psychosocial Hx Smoking Status: No Smoking History: Never smoked Have you smoked in the past 12 months: No Number of Cigarettes Smoked Daily: 0 Hx Alcohol Use: No Drug/Substance Use Hx: No Substance Use Type: None Hx Substance Use Treatment: No *Physical Exam - Vital Signs Last Vital Signs Temp Pulse Resp BP Pulse Ox 112 H 20 144/98 98 04/25/19 21:54 04/25/19 21:54 04/25/19 21:54 04/25/19 21:54 *DC/Admit/Observation/Transfer Diagnosis at time of Disposition: Allergic reaction Qualifiers: Encounter type: initial encounter Qualified Code(s): T78.40XA - Allergy, unspecified, initial encounter - Discharge Dispostion Disposition: HOME Condition at time of disposition: Stable Decision to Admit order: No - Prescriptions Prescriptions: Methylprednisolone [Medrol Dose Joey] 4 mg PO ASDIR #21 tablet - Referrals - Patient Instructions Additional Instructions: Take the Medrol Dosepak and taper as directed on the pack. You can also take Benadryl 1 or 2 tablets every 4-6 hours if needed. Return to the emergency department immediately with ANY new, persistent or worsening symptoms. Continue any medications as previously prescribed by your physician. You should follow up with your primary doctor as soon as possible regarding today's emergency department visit. . Please make sure your doctor reviews the results of your emergency evaluation. Thank you for coming to the Emergency Department today for your care. It was a pleasure to see you today. Please note that your evaluation is INCOMPLETE until you follow-up with your doctor. - Post Discharge Activity
[2019-04-26 00:08] VITALS: BP 127/85; PULSE 90
== END 2019-04-26 00:07 | disposition home or self-care (01) ==
LOC: FER 21:39
PROC: 3E033GC Introduction of Other Therapeutic Substance into Peripheral Vein, Percutaneous Approach (ICD-10-PCS; principal; 2019-04-25)
DX: T78.40XA Allergy, unspecified, initial encounter (principal); K21.9 Gastro-esophageal reflux disease without esophagitis; Z85.05 Personal history of malignant neoplasm of liver; F41.9 Anxiety disorder, unspecified; Z85.118 Personal history of other malignant neoplasm of bronchus and lung
CPT/HCPCS: 99282-25

== ENCOUNTER 2019-06-01 15:47 | Inpatient (IN) | payer OTHER, BC ==
[2019-06-01] MEDS ORDERED: SODIUM CHLORIDE 1,000 ML IV STA (17:03)
[2019-06-01] MEDS ORDERED: morphine CARPU-JECT 4 MG/1 ML DISP.SYRIN IVPUSH ONE (17:03)
--- NOTE | 2019-06-01 17:37 | PDOC ---
History of Present Illness - General Chief Complaint: Back Pain Stated Complaint: ANXIETY,BACK AND SPINE PAIN Time Seen by Provider: 06/01/19 16:31 History Source: Patient Exam Limitations: No Limitations - History of Present Illness Initial Comments: 06/01/19 17:31 48yo F with PMH of Colon Ca s/p resection 2013 with metastasis to liver s/p resection 2013, Lung CA s/p thoracoscopy 2016, Chemo and Radiation therapy, Anxiety presenting to ED with complaints of generalized weakness, not feeling herself and pain at surgical sites. Pt states for the past 2 weeks she has been feeling down, not herself, decreased appetite, feelings of worthlessness, anhedonia. She has never felt like this before and does not know why she is feeling this way when she is usually energetic. She is also endorsing 10/10 pain at the surgical sites on her chest and abdomen that is intermittent. Pain started yesterday and is associated with pain during inspiration. She tried taking Tylenol but it did not help when it usually does. She states that for the past 2 weeks she has been seeing her father in her dreams who due to "broken heart". She denies fever, chills, chest pain, headache, fever, chills, abdominal pain, n/v/d, SI/HI, AH/VH. She states she had burning with urination and was prescribed Cipro; has been on it for 1-2days. PMD: Georgina Psych: Jj PMH: see hpi PSH: see hpi Meds: see med rec Allergies: sulfa Social: denies Past History - Past Medical History Allergies/Adverse Reactions: Allergies Allergy/AdvReac Type Severity Reaction Status Date / Time latex Allergy Severe Itching Verified 04/25/19 21:44 carrot Allergy Verified 04/25/19 21:44 nut - unspecified Allergy Verified 04/25/19 21:44 Sulfa (Sulfonamide AdvReac generalized Verified 04/25/19 21:44 Antibiotics) weakness Home Medications: Ambulatory Orders Metoprolol Tartrate [Lopressor -] 25 mg PO DAILY 02/03/16 Pantoprazole Sodium [Protonix -] 40 mg PO DAILY #30 tablet.ec 02/06/16 LORazepam [Ativan] 2 mg PO BID MDD 3mg 11/18/16 Gabapentin 300 mg PO DAILY 04/25/19 Anemia: Yes Asthma: No Cancer: Yes (Metastatic Colon) Cardiac Disorders: Yes (tachycardia) CVA: No COPD: No CHF: No Dementia: No Diabetes: No GI Disorders: Yes (GERD) Disorders: No HTN: No Hypercholesterolemia: No Liver Disease: Yes (Liver metastasis) Psychiatric Problems: Yes (ANXIETY) Seizures: No Thyroid Disease: No Lung CA: Yes (bilateral lung) - Surgical History Abdominal Surgery: Yes (Colon resection (2013), liver resection (2014)) Appendectomy: No Cardiac Surgery: No Cholecystectomy: No GI Surgery: Yes (COLON CA-SURGERY 09/11/2014) Lung Surgery: Yes (thoracoscopy 12/2015) Neurologic Surgery: No Orthopedic Surgery: No - Immunization History Immunization Up to Date: Yes - Suicide/Smoking/Psychosocial Hx Smoking Status: No Smoking History: Never smoked Have you smoked in the past 12 months: No Number of Cigarettes Smoked Daily: 0 Information on smoking cessation initiated: No Hx Alcohol Use: No Drug/Substance Use Hx: No Substance Use Type: None Hx Substance Use Treatment: No Review of Systems - Review of Systems Constitutional: Yes: Loss of Appetite, Weakness. No: Chills, Fever HEENTM: No: Symptoms Reported Respiratory: Yes: See HPI Cardiac (ROS): Yes: See HPI ABD/GI: No: Constipated, Diarrhea, Nausea, Vomiting, Abdominal cramping : Yes: Burning Musculoskeletal: No: Symptoms Reported Integumentary: No: Symptoms Reported Neurological: No: Symptoms reported Psychiatric: Yes: Anxiety, Depression, Frequent Crying, Sleep Pattern Change, Change in Appetite *Physical Exam - Vital Signs Last Vital Signs Temp Pulse Resp BP Pulse Ox 98.2 F 115 H 24 H 122/81 98 06/01/19 16:21 06/01/19 16:21 06/01/19 16:21 06/01/19 16:21 06/01/19 16:21 - Physical Exam General Appearance: Yes: Nourished, Appropriately Dressed, Moderate Distress, Other (tearful) HEENT: positive: EOMI, MARY KAY Neck: positive: Trachea midline, Supple. negative: Lymphadenopathy (R), Lymphadenopathy (L) Respiratory/Chest: positive: Lungs Clear, Normal Breath Sounds. negative: Crackles, Rales, Rhonchi, Wheezing Cardiovascular: positive: Regular Rhythm, S1, S2, Tachycardia. negative: Edema , JVD, Murmur Vascular Pulses: Dorsalis-Pedis (R): 2+, Doralis-Pedis (L): 2+ Gastrointestinal/Abdominal: positive: Normal Bowel Sounds, Soft, Other (old surgical incision). negative: Tender Musculoskeletal: negative: CVA Tenderness Extremity: positive: Normal Capillary Refill. negative: Swelling, Calf Tenderness Integumentary: positive: Normal Color, Dry, Warm, Other (mass on R upper back, not ttp. 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 negative: Normal Mood/Affect (tearful) ED Treatment Course - LABORATORY CBC & Chemistry Diagram: 06/01/19 17:26 06/01/19 17:26 Medical Decision Making - Medical Decision Making 06/01/19 18:41 48yo F with PMH of Colon Ca s/p resection 2013 with metastasis to liver s/p resection 2013, Lung CA s/p thoracoscopy 2015, Chemo and Radiation therapy, Anxiety presenting to ED with complaints of generalized weakness, not feeling herself and pain at surgical sites. Pt states for the past 2 weeks she has been feeling down, not herself, decreased appetite, feelings of worthlessness, anhedonia. She has never felt like this before and does not know why she is feeling this way when she is usually energetic. She is also endorsing 10/10 pain at the surgical sites on her chest and abdomen that is intermittent. Pain started yesterday and is associated with pain during inspiration. She tried taking Tylenol but it did not help when it usually does. She states that for the past 2 weeks she has been seeing her father in her dreams who due to "broken heart". She denies fever, chills, chest pain, headache, fever, chills, abdominal pain, n/v/d, SI/HI, AH/VH. She states she had burning with urination and was prescribed Cipro. Vitals: tachycardia, tachypnea, saturating well on RA, bp wnl PE: tearful, old, well healed surgical incisions on abdomen and chest no swelling, lungs cta. Ddx includes but not limited to MDD, anxiety, msk pain due to cancer. Pt likely has pain due to malignancy with superimposed anxiety/depression however given vital signs and h/o cancer, cannot rule out pe. Labs ordered, CTA, ekg. order ua and ucx bc of history of uti. iv fluids, morphine, ativan. pt vomited in ed, will give zofran. ekg: sinus tachycardia at 109. pr 148 qtc 455. no wendie or depressions. labs significant for wbc 15. all other labs wnl. d dimer elevated. pending ua. pt could be failing outpt therapy for uti. Called Dr. Wasserman, will be able to assess patient tomorrow am. Placed constant supervision due to patient stating she would be ok with dying. pending CTA. Dr. Erickson (PMD) came to ED, thinks patient would benefit from admission. Pending CTA and UA. Pt endorsed to Dr. Peña. *DC/Admit/Observation/Transfer Diagnosis at time of Disposition: Pain Depressed Qualifiers: Depression Type: unspecified Qualified Code(s): F32.9 - Major depressive disorder, single episode, unspecified Anxiety disorder Qualifiers: Anxiety disorder type: unspecified anxiety disorder Qualified Code(s): F41.9 - Anxiety disorder, unspecified - Referrals - Patient Instructions - Post Discharge Activity
[2019-06-01] MEDS ORDERED: ONDANSETRON 4 MG/2 ML VIAL IVPUSH ONE (17:44)
[2019-06-01 17:47] LABS: BASO % 0.6 % (0-2.0); EOS % 0.6 % (0-4.5); HEMATOCRIT 28.7 % (32.4-45.2); HEMOGLOBIN 9.1 GM/dL (10.7-15.3); LYMPH % 6.9 % (8-40); MCH 23.9 pg (25.7-33.7); MCHC 31.8 g/dl (32.0-36.0); MEAN CELL VOLUME 75.3 fl (80-96); MEAN PLT VOLUME 9.3 fl (7.5-11.1); MONO % 8.8 % (3.8-10.2); NEUT % 83.1 % (42.8-82.8); PLATELET COUNT 288 K/MM3 (134-434); RBC 3.81 M/mm3 (3.60-5.2); RDW 22.8 % (11.6-15.6); WHITE BLOOD COUNT 15.8 K/mm3 (4.0-10.0)
--- NOTE | 2019-06-01 17:57 | PDOC ---
Documentation entered by Sera Balderrama SCRIBE, acting as scribe for Aiden Flores MD. Aiden Flores MD: This documentation has been prepared by the Tacos briggs Xhesika, SCRIBE, under my direction and personally reviewed by me in its entirety. I confirm that the documentation accurately reflects all work, treatment, procedures, and medical decision making performed by me. Attending Attestation - Resident Resident Name: Lian Mclain - ED Attending Attestation I have performed the following: I have examined & evaluated the patient, The case was reviewed & discussed with the resident, I agree w/resident's findings & plan, Exceptions are as noted - HPI HPI: 06/01/19 17:48 The patient is a 48 year old female with a significant PMH of Colon Ca s/p resection 2013 with metastasis to liver s/p resection 2013, Lung CA s/p Chemo and Radiation therapy, hypertension, and anxiety, who presents to the emergency department with 2 weeks of weakness, anxiety, and 10/10, severe pain at her old surgical incisions from 2013. She states that she has chronic pain at these sites that is usually controlled with tylenol. However, the pain has worsened recently. Patient states her pain is worsened with deep breathing. Patient notes she has been feeling depressed, not like herself, and is endorsing decreased appetite. Patient states she has never experienced this type of pain before. Patient states that she would be ok with not waking up but denies any plans to hurt herself. Denies auditory or visual hallucinations. The patient denies shortness of breath, headache and dizziness. Denies fever, chills, cough, nausea, vomiting, diarrhea and constipation. Denies dysuria, frequency, urgency and hematuria. - Physicial Exam PE: 06/01/19 17:50 GENERAL: Awake, alert, and fully oriented, in no acute distress. HEAD: No signs of trauma EYES: PERRLA, EOMI, sclera anicteric, conjunctiva clear ENT: Auricles normal inspection, hearing grossly normal, nares patent, oropharynx clear without exudates. Moist mucosa NECK: Nontender, no stepoffs, Normal ROM, supple, no lymphadenopathy, JVD, or masses LUNGS: Breath sounds equal, clear to auscultation bilaterally. No wheezes, and no crackles HEART: Regular rate and rhythm, normal S1 and S2, no murmurs, rubs or gallops ABDOMEN: Soft, nontender, normoactive bowel sounds. No guarding, no rebound. No masses EXTREMITIES: Normal range of motion, no edema. No clubbing or cyanosis. No cords, erythema, or tenderness NEUROLOGICAL: Cranial nerves II through XII intact. 5/5 strength and sensation in all extremities, Normal speech, normal gait, normal cerebellar function SKIN: Warm, Dry, normal turgor, no rashes or lesions noted. - Medical Decision Making 06/01/19 18:08 48 F with anxiety, depression, suicidal ideation, and severe pain at old surgical incisions. Pt reports that her pain is worse with deep inspiration. Pt is tachypneic and tachycardic, likely 2/2 emotional distress, but will evaluate for PE. - Labs - CXR, UA - Ativan - Pain control - Psych consult
[2019-06-01] MEDS ORDERED: LORazepam 2 MG/ML SDV VIAL ONE (18:24)
[2019-06-01] MEDS ORDERED: ONDANSETRON 4 MG/2 ML VIAL ONE (18:25)
[2019-06-01] MEDS ORDERED: MORPHINE SULFATE 2 MG/ML VIAL ONE (18:25)
[2019-06-01 18:30] LABS: ALBUMIN 3.5 g/dl (3.4-5.0); ALK PHOS 65 U/L (45-117); ANION GAP 9 MMOL/L (8-16); BILIRUBIN,TOTAL 0.5 mg/dL (0.2-1); BLOOD UREA NITROGEN 12.2 mg/dL (7-18); CALCIUM 9.5 mg/dL (8.5-10.1); CHLORIDE 105 mmol/L (98-107); CO2 24 mmol/L (21-32); CREATININE 0.7 mg/dL (0.55-1.3); GLUCOSE,RANDOM 96 mg/dL (74-106); POTASSIUM 3.9 mmol/L (3.5-5.1); SGOT/AST 24 U/L (15-37); SGPT/ALT 21 U/L (13-61); SODIUM 138 mmol/L (136-145); TOT PROT 7.4 g/dl (6.4-8.2)
[2019-06-01 20:02] LABS: ANISOCYTOSIS 3+; MACROCYTOSIS 1+; OVALOCYTE 1+; PLATELET ESTIMATE ADEQUATE
--- NOTE | 2019-06-01 20:51 | PDOC ---
*Physical Exam - Vital Signs Last Vital Signs Temp Pulse Resp BP Pulse Ox 98.2 F 115 H 24 H 122/81 98 06/01/19 16:21 06/01/19 16:21 06/01/19 16:21 06/01/19 16:21 06/01/19 16:21 - Physical Exam Comments: Received sign out from Dr. Mclain ED Treatment Course - LABORATORY CBC & Chemistry Diagram: 06/02/19 05:25 06/02/19 05:25 - ADDITIONAL ORDERS Additional order review: Laboratory Results 06/01/19 06/01/19 06/01/19 18:00 17:35 17:26 D-Dimer 830 H Sodium Potassium Chloride Carbon Dioxide Anion Gap BUN Creatinine Est GFR (CKD-EPI)AfAm Est GFR (CKD-EPI)NonAf Random Glucose Calcium Total Bilirubin AST ALT Alkaline Phosphatase Troponin I < 0.02 Total Protein Albumin TSH 0.38 Serum , Qual Negative Salicylates Acetaminophen 06/01/19 17:26 D-Dimer Sodium 138 Potassium 3.9 Chloride 105 Carbon Dioxide 24 Anion Gap 9 BUN 12.2 Creatinine 0.7 Est GFR (CKD-EPI)AfAm 120.43 Est GFR (CKD-EPI)NonAf 103.90 Random Glucose 96 Calcium 9.5 Total Bilirubin 0.5 AST 24 ALT 21 Alkaline Phosphatase 65 Troponin I Total Protein 7.4 Albumin 3.5 TSH Serum , Qual Salicylates < 1.7 L Acetaminophen < 2.0 L 06/01/19 17:26 RBC 3.81 MCV 75.3 L MCHC 31.8 L RDW 22.8 H MPV 9.3 Neutrophils % 83.1 H Lymphocytes % 6.9 L D Monocytes % 8.8 Eosinophils % 0.6 Basophils % 0.6 - Medications Given in the ED: ED Medications Discontinued Medications Generic Name Dose Route Start Last Admin Trade Name Freq PRN Reason Stop Dose Admin Sodium Chloride 1,000 mls @ 1,000 mls/hr 06/01/19 17:03 06/01/19 18:34 Normal Saline - IV 06/01/19 18:02 1,000 mls/hr ASDIR STA Administration Lorazepam 2 mg 06/01/19 17:38 06/01/19 18:34 Ativan Injection - IVPUSH 06/01/19 17:39 2 mg ONCE ONE Administration Morphine Sulfate 2 mg 06/01/19 17:03 06/01/19 18:33 Morphine Injection - IVPUSH 06/01/19 17:04 2 mg ONCE ONE Administration Ondansetron HCl 8 mg 06/01/19 17:44 06/01/19 18:55 Zofran Injection IVPUSH 06/01/19 17:45 8 mg ONCE ONE Administration Medical Decision Making - Medical Decision Making 06/01/19 21:15 CT with IV contrast shows no evidence of pulmonary embolism. In comparison to a 2017 study, she had development of "very numerous bilateral upper and lower lobe pulmonary masses/nodules. Several of the lower lobe pulmonary nodules demonstrate central cavitation. Development of confluent mediastinal and right hilar lymphadenopathy is also noted with associated compression and narrowing of the right lower lobe bronchus and right pulmonary". Patient reassessed. Vitals 99/64, 91 bpm, and 100% O2 on RA. Spoke to Dr. Erickson who strongly suggests admission given her generalized weakness in the setting of metastatic colon cancer with last chemo in March (next one due in July). Per Dr. Erickson, will want admission for pain control, consultation placed to pulmonology (Dr. Tate), IV rocephin, and additional IV fluids. 06/01/19 21:37 *DC/Admit/Observation/Transfer Diagnosis at time of Disposition: Pain Depressed Qualifiers: Depression Type: unspecified Qualified Code(s): F32.9 - Major depressive disorder, single episode, unspecified Anxiety disorder Qualifiers: Anxiety disorder type: unspecified anxiety disorder Qualified Code(s): F41.9 - Anxiety disorder, unspecified - Referrals - Patient Instructions - Post Discharge Activity
[2019-06-01] MEDS ORDERED: CEFTRIAXONE 1,000 MG in DEXTROSE 5%-WATER - 50 ML IVPB ONE (21:42)
[2019-06-01] MEDS ORDERED: CEFTRIAXONE 1 GM/50 ML BAG ONE (21:56)
[2019-06-01] MEDS ORDERED: PIPERACILLIN/TAZOB 3.375 GM 3.375 GM/50 ML BAG IVPB ONE (22:50)
--- NOTE | 2019-06-01 23:11 | HP ---
<Mattie Weber - Last Filed: 06/05/19 06:33> CHIEF COMPLAINT: decreased appetite, back pain PCP: Dr. Erickson HISTORY OF PRESENT ILLNESS: 48F w/ significant pmhx for colon cx s/p resection 2013 with mets to liver and lung (s/p RLL lobectomy 2016) presents to the ED with 2 week hx of loss of appetite and fatigue. Pt was seen today by her PCP who advised prompt visit to the ED. She reports increase fatigue, depressed mood, chronic but worsening back pain as well as decreased appetite over the past 2 weeks. States she sees a psychiatrist and was recently prescribed anti-depressant med yesterday which she has not yet taken. Of not, Pt currently follows up with her oncologist at [facility] and has recently undergone 1 session of chemotherapy in March 2019 as well as 5 sessions of radiation therapy in April 2019. Also admits to recent onset cough. Denies f/c. Was recently started on Ciprofloxacin for treatment of UTI today; complains of dysuria. ER course was notable for: (1) Initial VS: HR 118, RR 24, WBC 15.8, H/H 9.1/28.7. (2) Morphine 2, Zofran 8 given (3) CTA showed no evid of PE. +cavitations Recent Travel: Denies PAST MEDICAL HISTORY: Colon cancer with lung and liver mets Depression PAST SURGICAL HISTORY: colonic resection in 2013 RLL lobectomy 2016 Social History: Smoking: Denies Alcohol: Denies Drugs: Denies Family History: Denies Allergies latex Allergy (Severe, Verified 04/25/19 21:44) Itching carrot Allergy (Verified 04/25/19 21:44) cannot be raw nut - unspecified Allergy (Verified 04/25/19 21:44) Sulfa (Sulfonamide Antibiotics) Adverse Reaction (Verified 04/25/19 21:44) generalized weakness HOME MEDICATIONS: Home Medications Medication Instructions Recorded Metoprolol Tartrate [Lopressor -] 25 mg PO DAILY 02/03/16 Pantoprazole Sodium [Protonix -] 40 mg PO DAILY #30 tablet.ec 02/06/16 LORazepam [Ativan] 2 mg PO BID MDD 3mg 11/18/16 Gabapentin 300 mg PO DAILY 04/25/19 REVIEW OF SYSTEMS CONSTITUTIONAL: +loss of appetite Absent: fever, chills, diaphoresis, generalized weakness, malaise,, weight change HEENT: Absent: rhinorrhea, nasal congestion, throat pain, throat swelling, difficulty swallowing, mouth swelling, ear pain, eye pain, visual changes CARDIOVASCULAR: Absent: chest pain, syncope, palpitations, irregular heart rate, lightheadedness , peripheral edema RESPIRATORY: +cough, +shortness of breath Absent: , dyspnea with exertion, orthopnea, wheezing, stridor, hemoptysis GASTROINTESTINAL: Absent: abdominal pain, abdominal distension, nausea, vomiting, diarrhea, constipation, melena, hematochezia GENITOURINARY: Absent: dysuria, frequency, urgency, hesitancy, hematuria, flank pain, genital pain MUSCULOSKELETAL: +back pain Absent: myalgia, arthralgia, joint swelling, neck pain SKIN: Absent: rash, itching, pallor HEMATOLOGIC/IMMUNOLOGIC: Absent: easy bleeding, easy bruising, lymphadenopathy, frequent infections ENDOCRINE: Absent: unexplained weight gain, unexplained weight loss, heat intolerance, cold intolerance NEUROLOGIC: Absent: headache, focal weakness or paresthesias, dizziness, unsteady gait, seizure, mental status changes, bladder or bowel incontinence PSYCHIATRIC: +depression Absent: anxiety, suicidal or homicidal ideation, hallucinations. PHYSICAL EXAMINATION Vital Signs - 24 hr 06/01/19 06/01/19 16:21 23:05 Temperature 98.2 F Pulse Rate 115 H Pulse Rate [ 98 H Right] Respiratory 24 H 18 Rate Blood Pressure 122/81 Blood Pressure 111/77 [Right Arm] O2 Sat by Pulse 98 98 Oximetry (%) AAOx3. NAD. AT/NC. Moist mucus membranes. Mild droop on L eyelid +Crackles b/l. Symmetric chest rise. Multiple well-healed surgical incisions noted on R side of abd and flank. RRR. Normal S1, S2. No murmurs noted. Soft, NT/ND. Hypoactive bowel sounds. R abd tenderness and R flank tenderness upon palpation No peripheral edema noted. 2+ dorsalis pedis pulses b/l. Neurologically intact. Laboratory Results - last 24 hr 06/01/19 06/01/19 06/01/19 17:26 17:26 17:26 WBC 15.8 H RBC 3.81 Hgb 9.1 L Hct 28.7 L MCV 75.3 L MCH 23.9 L MCHC 31.8 L RDW 22.8 H Plt Count 288 MPV 9.3 Absolute Neuts (auto) 13.1 H Neutrophils % 83.1 H Lymphocytes % 6.9 L D Monocytes % 8.8 Eosinophils % 0.6 Basophils % 0.6 Nucleated RBC % 0 Platelet Estimate Adequate Platelet Comment Polychromasia 1+ Poikilocytosis 1+ Anisocytosis 3+ Microcytosis 1+ Macrocytosis 1+ Ovalocytes 1+ D-Dimer Sodium 138 Potassium 3.9 Chloride 105 Carbon Dioxide 24 Anion Gap 9 BUN 12.2 Creatinine 0.7 Est GFR (CKD-EPI)AfAm 120.43 Est GFR (CKD-EPI)NonAf 103.90 Random Glucose 96 Calcium 9.5 Total Bilirubin 0.5 AST 24 ALT 21 Alkaline Phosphatase 65 Troponin I < 0.02 Total Protein 7.4 Albumin 3.5 TSH 0.38 Serum , Qual Salicylates < 1.7 L Acetaminophen < 2.0 L 06/01/19 06/01/19 17:35 18:00 WBC RBC Hgb Hct MCV MCH MCHC RDW Plt Count MPV Absolute Neuts (auto) Neutrophils % Lymphocytes % Monocytes % Eosinophils % Basophils % Nucleated RBC % Platelet Estimate Platelet Comment Polychromasia Poikilocytosis Anisocytosis Microcytosis Macrocytosis Ovalocytes D-Dimer 830 H Sodium Potassium Chloride Carbon Dioxide Anion Gap BUN Creatinine Est GFR (CKD-EPI)AfAm Est GFR (CKD-EPI)NonAf Random Glucose Calcium Total Bilirubin AST ALT Alkaline Phosphatase Troponin I Total Protein Albumin TSH Serum , Qual Negative Salicylates Acetaminophen IMAGING: * CTA: No CT evid of PE. Compared to 2017, development of numerous b/l u/l lobe pulm richy/nodules. Several LLL pulm nodules with central cavitation. Mediastinal and R hilar LAD noted with compression and narrowing of RLL bronchus and R pulm. 1.7 cm hepatic lobe lesion seen. * Head CT: (Initial read) No acute IC hemorrhage mass effect or midline shift. No evid of large territory of subacute stroke. Cannot exclude small acute stroke. ASSESSMENT/PLAN: 48F w/ significant pmhx for colon cx s/p resection 2013 with mets to liver and lung (s/p RLL lobectomy 2016) presents to the ED #Sepsis likely 2/2 Post-obstructive PNA vs. GB etiology -CTA chest showed +compression of bronchus. Contacted [facility] and spoke to physician at facility regarding CT finding of compression on bronchus; they noted that this is not a new finding and emergent transfer was not needed at this time. -Abd U/S (prelim read) showed increased echogenicity c/w hepatic steatosis. Cholelithiasis in GB neck w/ mod GB distension borderline GB wall thickening most likely a/w GB dysmotility. HIDA scan recommended if clinically indicated. -Given Abd u/s findings, will consult surg (Dr. Mehta) -HIDA scan ordered -IVf -empiric Zosyn 3.375 Q8H; will cover both pna and GB etiology -BCx, UCx pending -ID consult (Dr. Skinner) #Anorexia; could be 2/2 depression vs. GB etiology -Mirtazapine to treat depression; also will help with appetite stimulant #Hx of Colon ca +mets to liver/lung -recently underwent chemo and RT at [facility]; follow up outpatient -Oxycodone 5 Q6H PO for pain -Pulm consult ordered (Dr. Tate) #GB wall thickening; found on abd U/S -Surg consulted (Dr. Mehta) -Hepatic lesion noted, consider MRCP however may need to obtain previous records of this was already worked up #Anemia; has had hx of multiples blood transfusions in the past -H/H 9.1/28.7; continue to trend -Normal transfusion threshold; transfuse if <7 #Depression/Anxiety; expressed to ED staff that she does not want to live; however no suicidal ideation. -will start on Mirtazipine 15 mg PO HS as it is also an appetite stimulant -Constant supervision (suicide watch) with 1:1 -Psych consult ordered (Dr. Wasserman) -Cont home med: Ativan 1 mg PO BID #R Eye Mild Droop -Head CT (prelim read) showed no evid of acute IC pathology; may consider MRI give history Prophylaxis DVT: Lovenox 40 FEN -LR @ 100 -recheck lytes in AM -regular diet Dispo -Admit to med surg Visit type - Emergency Visit Emergency Visit: Yes ED Registration Date: 06/01/19 Care time: The patient presented to the Emergency Department on the above date and was hospitalized for further evaluation of their emergent condition. - New Patient This patient is new to me today: No - Critical Care Critical Care patient: No ATTENDING PHYSICIAN STATEMENT I saw and evaluated the patient. I reviewed the resident's note and discussed the case with the resident. I agree with the resident's findings and plan as documented. SUBJECTIVE: OBJECTIVE: ASSESSMENT AND PLAN: <Juan Manuel Fuentes - Last Filed: 07/26/19 03:11> Seen and examined,Please refer to my notes for further details. Agree with above , verified an was present for all lisa parts of history and physical exam PMH PSH,reviewed and are as per chart Social history is negative for active IVDU, red-flag social concerns. Family history negative for sudden cardiac , discussed at length and was otherwise noncontributory. ATTENDING PHYSICIAN STATEMENT I saw and evaluated the patient. I reviewed the resident's note and discussed the case with the resident. I agree with the resident's findings and plan as documented. SUBJECTIVE: OBJECTIVE: ASSESSMENT AND PLAN:
[2019-06-01] MEDS ORDERED: oxyCODONE HCL 5 MG TABLET ONE (23:16)
--- NOTE | 2019-06-01 23:16 | PN ---
Teaching Attending Note Name of Resident: Mattie Weber ATTENDING PHYSICIAN STATEMENT I saw and evaluated the patient. I reviewed the resident's note and discussed the case with the resident. I agree with the resident's findings and plan as documented. Seen and examined; please refer to the resident note for further historical details. Briefly, this is a 48 y/o female presenting to the ER with a CC of abdominal pain; she mentions her chronic back pain which has been worsening overall but is not acutely the issue. She was recently started on antidepressants (venlafaxine?) for her persistent depressive sx. She did make a vaguely suicidal remark in the ER but denies vania SI; is on 1:1 during our encounter. She is noted to have a somewhat of a L-eye droop with no prior neuroimaging avialable. She has metastatic colon cancer, follows at [facility] and has gotten chemo/rad/sgy with last radiation 04/2019 and chemo 03/2019. I spoke with their ER physician about the case; she is s/p RLL lobectomy, and in the R- middle lobe she has known compressive changes to the bronchi and pulm A. due to mass that were known at [facility] and no interventional pulmonary procedure was undertaken (prior to abd US being done with GB, etc.). They felt that her current presentation was unlikely related and recommended admission at our institution. She is agreeable, hemodynamically stable, and appropriate for the floor. VS, labs, imaging reviewed NAD, AAO, resting in bed Odd affect, normal mood, appropriate behavior. RRR s1/2 no mgr Lungs CTAB, w/ sym exp NT ND +BS CN2-12 wnl aside from droopy right eye and less robust but still present R- lower facial weakness on puffing cheeks out but had just woken up, no fnd EKG reviewed Prelim CT head shows no acute intracranial abnormalities US liver prelim shows steatosis with cholelithiasis in the GB neck with moderate GB distention and borderline GB wall thickening most likely 2/2 dysmotility. 5mm CBD with small R-pleural effusion. Recommended MRI for further workup of presumed liver mass seen on CT. Recommended HIDA as well with GB EF% ASSESSMENT AND PLAN: Patient with metastatic carcinoma of the colon presents to the ER with stated anorexia and was evaluated for depressive symptoms. She was found to have a cholecystitis with GB distention and has a cough with a white count, tachcardia , and tachypnea with some findings suspicious for potential post-obstructive process. # Sepsis -WBC+tachy+tachypnea; sources would be post obstructive pna vs. GB; both are adequately covered by zosyn so will broadly cover and followup cultures. Continue maintance fluids. Consulting Dr. Skinner given abx choice (he has seen in past; appreciate specialist input). # Anorexia -May be 2/2 depressive issues, but incidental finding of GB must not be ignored. Will place on liquid diet and control for nausea; can start mirtazapine and consult psych (never took home meds and this would help with sleep, appetite and depressive sx). -HIDA w/ EF ordered; consulting Dr. Mehta -Hepatic mass noted; holding off MRCP until ascertained if she had this recently done at [facility]. -Nutrition consult at [place], measure weights and lytes # Metastatic CA -Full records [facility] pending; consider oncology consult in AM for corrdinating care # GB thickening, likely 2/2 dysmotility, with cholelithiasis -HIDA scan w/ EF and sgy consult as per above # R-eye mild droop -Serial neuro exams; consider MRI given history. She just woke up and suspects it may be related to this; her partner only noted subtle difference. # Elevated D-dimer # Microcytic Anemia
[2019-06-01] MEDS ORDERED: LORazepam 1 MG TABLET PO PRN (23:30)
[2019-06-01] MEDS: oxyCODONE HCL 5 MG TABLET PO PRN (23:31)
[2019-06-01] MEDS: LACTATED RINGERS SOLUTION 1,000 ML IV SCH (23:47)
[2019-06-02] MEDS ORDERED: MIRTAZAPINE 15 MG TABLET (FP) ONE (01:06)
[2019-06-02] MEDS: MIRTAZAPINE 15 MG TABLET (FP) PO SCH ×4 (01:10→21:17)
[2019-06-02] MEDS ORDERED: PIPERACILLIN/TAZOBACTAM 3.375 GM VIAL IVPB ONE ×3 (03:30→16:51)
[2019-06-02] MEDS ORDERED: DEXTROSE 5%-WATER - 50 ML IVPB ONE ×3 (03:31→16:51)
[2019-06-02] MEDS: PIPERACILLIN/TAZOB 3.375 GM 3.375 GM in DEXTROSE 5%-WATER - 50 ML IVPB SCH ×3 (03:41→17:06)
[2019-06-02 04:05] VITALS: BMI 25.9
[2019-06-02 07:25] LABS: HEMATOCRIT 26.2 % (32.4-45.2); HEMOGLOBIN 8.5 GM/dL (10.7-15.3); MCH 24.3 pg (25.7-33.7); MCHC 32.4 g/dl (32.0-36.0); MEAN CELL VOLUME 74.9 fl (80-96); MEAN PLT VOLUME 9.2 fl (7.5-11.1); PLATELET COUNT 279 K/MM3 (134-434); RBC 3.49 M/mm3 (3.60-5.2); RDW 22.6 % (11.6-15.6); WHITE BLOOD COUNT 10.9 K/mm3 (4.0-10.0)
[2019-06-02 07:52] LABS: ALBUMIN 2.9 g/dl (3.4-5.0); BILIRUBIN,TOTAL 0.4 mg/dL (0.2-1); BLOOD UREA NITROGEN 12.3 mg/dL (7-18); CALCIUM 8.9 mg/dL (8.5-10.1); CREATININE 0.8 mg/dL (0.55-1.3); MAGNESIUM 2.2 mg/dL (1.8-2.4); POTASSIUM 3.5 mmol/L (3.5-5.1); TOT PROT 6.2 g/dl (6.4-8.2)
[2019-06-02] MEDS: ENOXAPARIN NA (PORCINE) 40 MG/0.4 ML DISP.SYRIN SQ SCH (09:54)
[2019-06-02] MEDS: oxyCODONE HCL 5 MG TABLET PO PRN (10:26)
[2019-06-02 11:49] LABS: IRON SERUM 29 ug/dL (50-175); TOTAL IRON BINDING CAPACITY 304 ug/dL (250-450)
[2019-06-02 12:13] LABS: COCAINE, UR NEGATIVE ng/ml (CUTOFF=300); METHADONE, UR NEGATIVE ng/ml (CUTOFF=300); PHENCYCLIDINE,URINE NEGATIVE ng/ml (CUTOFF=25); URINE AMPHETAMINES NEGATIVE ng/ml (CUTOFF=500); URINE BARBITURATES NEGATIVE ng/ml (CUTOFF=200); URINE BENZODIAZEPINES NEGATIVE ng/ml (CUTOFF=200)
[2019-06-02 12:33] LABS: OPIATES, URI POSITIVE ng/ml (CUTOFF=300)
[2019-06-02] MEDS: LACTATED RINGERS SOLUTION 1,000 ML IV SCH (13:05)
--- NOTE | 2019-06-02 13:37 | CON.PULM ---
Consult Consult Specialty:: PULMONARY Referred by:: Dr Vega Reason for Consultation:: lung masses - History of Present Illness Chief Complaint: generalized weakness History of Present Illness: 48yo female with h/o metastatic colon cancer to liver lung on chemotherapy at [facility] who was admitted with generalized weakness and poor appetite. Denies shortness of breath or chest pain. Does report back pain. No fevers, chills or sweats. +nonproductive cough. CTA chest was performed which showed innumerable nodules/masses. Does report dysuria, started on antibiotics for UTI. 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) Cardio/Vascular: Yes: HTN, Other (tachycardia) Pulmonary: Yes: Other (resection of metasttic lung nodules on left , January 21, 2016;) Gastrointestinal: Yes: Constipation, GERD Hepatobiliary: Yes: Other (liver mets s/p resection 2015.) ...LMP: 03/04/17 ...: No Psych: Yes: Anxiety Endocrine: Yes: Other (Thyroid Nodules) - Past Surgical History Past Surgical History: Yes: Colectomy (partial) - Alcohol/Substance Use Hx Alcohol Use: No History of Substance Use: reports: None - Smoking History Smoking history: Never smoked Have you smoked in the past 12 months: No Aproximately how many cigarettes per day: 0 - Social History Usual Living Arrangement: With Spouse ADL: Independent 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 History of Recent Travel: No Home Medications - Allergies Allergies/Adverse Reactions: Allergies Allergy/AdvReac Type Severity Reaction Status Date / Time latex Allergy Severe Itching Verified 04/25/19 21:44 carrot Allergy Verified 04/25/19 21:44 nut - unspecified Allergy Verified 04/25/19 21:44 Sulfa (Sulfonamide AdvReac generalized Verified 04/25/19 21:44 Antibiotics) weakness - Home Medications Home Medications: Ambulatory Orders Metoprolol Tartrate [Lopressor -] 25 mg PO DAILY 02/03/16 Pantoprazole Sodium [Protonix -] 40 mg PO DAILY #30 tablet.ec 02/06/16 LORazepam [Ativan] 2 mg PO BID MDD 3mg 11/18/16 Gabapentin 300 mg PO DAILY 04/25/19 Review of Systems - Review of Systems Constitutional: reports: Weakness. denies: Chills, Fever Eyes: denies: Recent Change in Vision HENT: denies: Nasal Congestion, Throat Pain Neck: denies: Stiffness, Tenderness Cardiovascular: denies: Chest Pain, Shortness of Breath Respiratory: reports: Cough. denies: Hemoptysis, SOB on Exertion, Wheezing Gastrointestinal: reports: Nausea. denies: Abdominal Pain, Vomiting Genitourinary: reports: Dysuria. denies: Hematuria Neurological: denies: Dizziness, Headache Endocrine: denies: Unexplained Weight Loss Physical Exam Vital Sings: Vital Signs Temperature 98.4 F 06/02/19 07:40 Pulse Rate 105 H 06/02/19 07:40 Respiratory Rate 18 06/02/19 07:40 Blood Pressure 132/66 06/02/19 07:40 O2 Sat by Pulse Oximetry (%) 97 06/02/19 09:00 Constitutional: Yes: Calm Eyes: Yes: Conjunctiva Clear, EOM Intact HENT: Yes: Atraumatic, Normocephalic Neck: Yes: Supple, Trachea Midline Cardiovascular: Yes: Regular Rate and Rhythm Respiratory: Yes: Diminished (decreased breath sounds at the bases) ...Clubbing: No Gastrointestinal: Yes: Normal Bowel Sounds, Soft. No: Tenderness Edema: No Neurological: Yes: Alert, Oriented Labs: CBC, BMP 06/02/19 05:25 06/02/19 05:25 Imaging - Results Chest X-ray: Report Reviewed, Image Reviewed Cat Scan: Report Reviewed, Image Reviewed (cannonball lesions, diffuse masses) Problem List - Problems (1) Colon cancer Code(s): C18.9 - MALIGNANT NEOPLASM OF COLON, UNSPECIFIED (2) HTN (hypertension) Code(s): I10 - ESSENTIAL (PRIMARY) HYPERTENSION (3) Metastatic colorectal cancer Code(s): C78.5 - SECONDARY MALIGNANT NEOPLASM OF LARGE INTESTINE AND RECTUM (4) Poor appetite Code(s): R63.0 - ANOREXIA Assessment/Plan Metastatic Colon Cancer to Liver/Lung HTN UTI - continue antibiotics - f/u cultures - CT chest findings likely chronic progression of disease - unfortunately nothing to do at this time, will need continued chemotherapy at [facility] upon discharge - DVT prophylaxis Thank you for this consult Lisandro Maynard MD
--- NOTE | 2019-06-02 14:29 | CONSULT ---
Consult Consult Specialty:: General Surgery Reason for Consultation:: SBO? - History of Present Illness Chief Complaint: abdominal pain History of Present Illness: 48yo female PMH Colon CA s/p resection 2013 with mets to liver and lung (s/p RLL lobectomy 2016) presents to the ED with 2 week hx of loss of appetite and fatigue. Pt was seen today by her PCP who advised prompt visit to the ED. She reports increase fatigue, depressed mood, chronic but worsening back pain as well as decreased appetite over the past 2 weeks. States she sees a psychiatrist and was recently prescribed anti-depressant med yesterday which she has not yet taken. Of not, Pt currently follows up with her oncologist at [facility] and has recently undergone 1 session of chemotherapy in March 2019 as well as 5 sessions of radiation therapy in April 2019. Also admits to recent onset cough. Doroteo f/c. Was recently started on Ciprofloxacin for treatment of UTI today; complains of dysuria. 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) Cardio/Vascular: Yes: HTN, Other (tachycardia) Pulmonary: Yes: Other (resection of metasttic lung nodules on left , January 21, 2016;) Gastrointestinal: Yes: Constipation, GERD Hepatobiliary: Yes: Other (liver mets s/p resection 2014.) ...LMP: 03/04/17 ...: No Psych: Yes: Anxiety Endocrine: Yes: Other (Thyroid Nodules) - Past Surgical History Past Surgical History: Yes: Colectomy (partial) - Alcohol/Substance Use Hx Alcohol Use: No History of Substance Use: reports: None - Smoking History Smoking history: Never smoked Have you smoked in the past 12 months: No Aproximately how many cigarettes per day: 0 - Social History Usual Living Arrangement: With Spouse ADL: Independent 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 History of Recent Travel: No Home Medications - Allergies Allergies/Adverse Reactions: Allergies Allergy/AdvReac Type Severity Reaction Status Date / Time latex Allergy Severe Itching Verified 04/25/19 21:44 carrot Allergy Verified 04/25/19 21:44 nut - unspecified Allergy Verified 04/25/19 21:44 Sulfa (Sulfonamide AdvReac generalized Verified 04/25/19 21:44 Antibiotics) weakness - Home Medications Home Medications: Ambulatory Orders Metoprolol Tartrate [Lopressor -] 25 mg PO DAILY 02/03/16 Pantoprazole Sodium [Protonix -] 40 mg PO DAILY #30 tablet.ec 02/06/16 LORazepam [Ativan] 2 mg PO BID MDD 3mg 11/18/16 Gabapentin 300 mg PO DAILY 04/25/19 Review of Systems - Review of Systems Constitutional: reports: Unintentional Wgt. Loss. denies: Chills, Fever Eyes: denies: Blind Spots, Recent Change in Vision HENT: denies: Difficult Swallowing, Throat Pain Neck: denies: Decreased ROM Cardiovascular: denies: Chest Pain, Palpitations Respiratory: denies: Cough, SOB Gastrointestinal: reports: Abdominal Pain, Constipation, Nausea Genitourinary: denies: Burning, Discharge, Lesions Breasts: reports: No Symptoms Reported. denies: Pain Musculoskeletal: denies: Joint Swelling, Muscle Pain Integumentary: denies: Lesions, Lump, Pallor Neurological: denies: Seizure, Syncope, Tremors Endocrine: denies: Unexplained Weight Gain, Unexplained Weight Loss Hematology/Lymphatic: denies: Easily Bruised, Excessive Bleeding Psychiatric: denies: Anxiety, Depression Physical Exam Vital Signs: Vital Signs Temperature 98.4 F 06/02/19 07:40 Pulse Rate 105 H 06/02/19 07:40 Respiratory Rate 18 06/02/19 07:40 Blood Pressure 132/66 06/02/19 07:40 O2 Sat by Pulse Oximetry (%) 97 06/02/19 09:00 Constitutional: Yes: Well Nourished, No Distress, Calm Eyes: Yes: Conjunctiva Clear, EOM Intact HENT: Yes: Atraumatic, Normocephalic Neck: Yes: Supple, Trachea Midline Cardiovascular: Yes: Regular Rate and Rhythm, S1, S2 Respiratory: Yes: Regular, CTA Bilaterally Gastrointestinal: Yes: Normal Bowel Sounds, Soft, Distention, Hepatomegaly, Tenderness (diffuse mild tenderness). No: Vomiting ...Rectal Exam: Yes: Sphincter Tone Normal. No: Hemorrhoids/External, Hemorrhoids/Internal, Mass Renal/: No: CVA Tenderness - Left, CVA Tenderness - Right Breast(s): No: Discharge from Nipple, Nipple Inversion Musculoskeletal: No: Joint Swelling, Muscle Pain Extremities: No: Cool, Cyanosis Edema: No Peripheral Pulses WNL: Yes Integumentary: No: Incision, Jaundice Wound/Incision: No: Draining, Reddened Neurological: Yes: Alert, Oriented Psychiatric: Yes: Alert, Oriented Labs: CBC, BMP 06/02/19 05:25 06/02/19 05:25 Imaging - Results Cat Scan: Report Reviewed, Image Reviewed Problem List - Problems (1) Colon cancer metastasized to multiple sites Assessment/Plan: 48yo female with Metastatic Colon cancer There is no role for general surgery All decisions per primary team consider transfer to [facility] (she has a referral pending) if worsening clinically Pain management recall as needed Thank you for the opportunity to participate in the care of this patient. Code(s): C18.9 - MALIGNANT NEOPLASM OF COLON, UNSPECIFIED (2) Anxiety disorder Code(s): F41.9 - ANXIETY DISORDER, UNSPECIFIED Qualifiers: Anxiety disorder type: unspecified anxiety disorder Qualified Code(s): F41.9 - Anxiety disorder, unspecified (3) Depressed Code(s): F32.9 - MAJOR DEPRESSIVE DISORDER, SINGLE EPISODE, UNSPECIFIED Qualifiers: Depression Type: unspecified Qualified Code(s): F32.9 - Major depressive disorder, single episode, unspecified (4) Intractable pain Code(s): R52 - PAIN, UNSPECIFIED (5) Lung cancer Code(s): C34.90 - MALIGNANT NEOPLASM OF UNSP PART OF UNSP BRONCHUS OR LUNG (6) S/P lobectomy of lung Code(s): Z90.2 - ACQUIRED ABSENCE OF LUNG [PART OF] (7) Colon cancer Code(s): C18.9 - MALIGNANT NEOPLASM OF COLON, UNSPECIFIED
[2019-06-02] MEDS: LORazepam 1 MG TABLET PO PRN (14:44)
[2019-06-02] MEDS: PANTOPRAZOLE 40 MG TABLET (FP) PO SCH (14:44)
--- NOTE | 2019-06-02 15:22 | PN ---
Physical Exam: SUBJECTIVE: Patient seen and examined, weakness fatigue better today. Reports some dysuria but improved. No fevers or chills, no abdominal pain, nausea, vomiting or diarrhea. No back pain. OBJECTIVE: Vital Signs Period Temp Pulse Resp BP Sys/Kaiser Pulse Ox Last 24 Hr 98.1 F-98.4 F 86-115 18-24 111-132/62-81 97-98 Intake & Output 05/30/19 05/31/19 06/01/19 06/02/19 23:59 23:59 23:59 23:59 Intake Total 250 Balance 250 Weight 198 lb 170 lb 12.8 oz GENERAL: lying in bed in no acute distress CVS:S1S2 regular Chest: no rales or wheezing appreciated, pos air entry Abdomen:soft, obese, midline surgical scar, non tenderness throughout, no CVA or suprapubic tenderness Extremities: no edema neck: soft, supple, no JVD Psych: appropriate, smiling by the end of interview, more conversant, no active SI Musculoskeletal: no spinal tenderness, SLR upto 50 degrees Laboratory Results - last 24 hr 06/01/19 06/01/19 06/01/19 17:26 17:26 17:26 WBC 15.8 H RBC 3.81 Hgb 9.1 L Hct 28.7 L MCV 75.3 L MCH 23.9 L MCHC 31.8 L RDW 22.8 H Plt Count 288 MPV 9.3 Absolute Neuts (auto) 13.1 H Neutrophils % 83.1 H Lymphocytes % 6.9 L D Monocytes % 8.8 Eosinophils % 0.6 Basophils % 0.6 Nucleated RBC % 0 Platelet Estimate Adequate Platelet Comment Polychromasia 1+ Poikilocytosis 1+ Anisocytosis 3+ Microcytosis 1+ Macrocytosis 1+ Ovalocytes 1+ Retic Count D-Dimer Sodium 138 Potassium 3.9 Chloride 105 Carbon Dioxide 24 Anion Gap 9 BUN 12.2 Creatinine 0.7 Est GFR (CKD-EPI)AfAm 120.43 Est GFR (CKD-EPI)NonAf 103.90 Random Glucose 96 Calcium 9.5 Magnesium Iron 29 L TIBC 304 Iron Saturation 9 L Unsaturated IBC 275 Ferritin Total Bilirubin 0.5 AST 24 ALT 21 Alkaline Phosphatase 65 Creatine Kinase 88 Troponin I < 0.02 < 0.02 Total Protein 7.4 Albumin 3.5 Vitamin B12 2455 H Serum Folate TSH Cancelled 0.38 Serum , Qual Salicylates < 1.7 L Opiates Screen Methadone Screen Acetaminophen < 2.0 L Barbiturate Screen Phencyclidine Screen Ur Amphetamines Screen MDMA (Ecstasy) Screen Benzodiazepines Screen Cocaine Screen U Marijuana (THC) Screen 06/01/19 06/01/19 06/02/19 17:35 18:00 00:20 WBC RBC Hgb Hct MCV MCH MCHC RDW Plt Count MPV Absolute Neuts (auto) Neutrophils % Lymphocytes % Monocytes % Eosinophils % Basophils % Nucleated RBC % Platelet Estimate Platelet Comment Polychromasia Poikilocytosis Anisocytosis Microcytosis Macrocytosis Ovalocytes Retic Count D-Dimer 830 H Sodium Potassium Chloride Carbon Dioxide Anion Gap BUN Creatinine Est GFR (CKD-EPI)AfAm Est GFR (CKD-EPI)NonAf Random Glucose Calcium Magnesium Iron TIBC Iron Saturation Unsaturated IBC Ferritin Total Bilirubin AST ALT Alkaline Phosphatase Creatine Kinase Troponin I Total Protein Albumin Vitamin B12 Serum Folate 18 H TSH Serum , Qual Negative Salicylates Opiates Screen Methadone Screen Acetaminophen Barbiturate Screen Phencyclidine Screen Ur Amphetamines Screen MDMA (Ecstasy) Screen Benzodiazepines Screen Cocaine Screen U Marijuana (THC) Screen 06/02/19 06/02/19 06/02/19 00:20 00:20 05:25 WBC 10.9 H RBC 3.49 L Hgb 8.5 L Hct 26.2 L MCV 74.9 L MCH 24.3 L MCHC 32.4 RDW 22.6 H Plt Count 279 MPV 9.2 Absolute Neuts (auto) Neutrophils % Lymphocytes % Monocytes % Eosinophils % Basophils % Nucleated RBC % Platelet Estimate Platelet Comment Polychromasia Poikilocytosis Anisocytosis Microcytosis Macrocytosis Ovalocytes Retic Count 1.40 D D-Dimer Sodium Potassium Chloride Carbon Dioxide Anion Gap BUN Creatinine Est GFR (CKD-EPI)AfAm Est GFR (CKD-EPI)NonAf Random Glucose Calcium Magnesium Iron TIBC Iron Saturation Unsaturated IBC Ferritin 18.2 Total Bilirubin AST ALT Alkaline Phosphatase Creatine Kinase Troponin I Total Protein Albumin Vitamin B12 Serum Folate TSH Serum , Qual Salicylates Opiates Screen Methadone Screen Acetaminophen Barbiturate Screen Phencyclidine Screen Ur Amphetamines Screen MDMA (Ecstasy) Screen Benzodiazepines Screen Cocaine Screen U Marijuana (THC) Screen 06/02/19 06/02/19 05:25 11:15 WBC RBC Hgb Hct MCV MCH MCHC RDW Plt Count MPV Absolute Neuts (auto) Neutrophils % Lymphocytes % Monocytes % Eosinophils % Basophils % Nucleated RBC % Platelet Estimate Platelet Comment Polychromasia Poikilocytosis Anisocytosis Microcytosis Macrocytosis Ovalocytes Retic Count D-Dimer Sodium 139 Potassium 3.5 Chloride 106 Carbon Dioxide 27 Anion Gap 6 L BUN 12.3 Creatinine 0.8 Est GFR (CKD-EPI)AfAm 102.47 Est GFR (CKD-EPI)NonAf 88.41 Random Glucose 136 H Calcium 8.9 Magnesium 2.2 Iron TIBC Iron Saturation Unsaturated IBC Ferritin Total Bilirubin 0.4 AST 20 ALT 16 Alkaline Phosphatase 56 Creatine Kinase Troponin I Total Protein 6.2 L Albumin 2.9 L Vitamin B12 Serum Folate TSH Serum , Qual Salicylates Opiates Screen Positive A* Methadone Screen Negative Acetaminophen Barbiturate Screen Negative Phencyclidine Screen Negative Ur Amphetamines Screen Negative MDMA (Ecstasy) Screen Negative Benzodiazepines Screen Negative Cocaine Screen Negative U Marijuana (THC) Screen Positive A* Active Medications Generic Name Dose Route Start Last Admin Trade Name Freq PRN Reason Stop Dose Admin Enoxaparin Sodium 40 mg 06/02/19 10:00 06/02/19 09:54 Lovenox - SQ 40 mg DAILY RUTH Administration Piperacillin Sod/Tazobactam 50 mls @ 100 mls/hr 06/01/19 22:45 Sod 3.375 gm/ Dextrose IVPB Q8H-IV RUTH Protocol Piperacillin Sod/Tazobactam 50 mls @ 100 mls/hr 06/02/19 02:00 06/02/19 09:55 Sod 3.375 gm/ Dextrose IVPB 06/02/19 18:29 100 mls/hr Q8H-IV RUTH Administration Lactated Ringer's 1,000 mls @ 100 mls/hr 06/01/19 23:30 06/02/19 13:05 Lactated Ringers Solution IV 100 mls/hr ASDIR RUTH Administration Lorazepam 2 mg 06/02/19 13:01 06/02/19 14:44 Ativan - PO 2 mg TID PRN Administration ANXIETY Mirtazapine 15 mg 06/02/19 00:38 06/02/19 01:39 Remeron - PO Not Given HS RUTH Oxycodone HCl 5 mg 06/01/19 23:09 06/02/19 10:26 Roxicodone - PO 5 mg Q6H PRN Administration PAIN LEVEL 6-10 Pantoprazole Sodium 40 mg 06/02/19 13:15 06/02/19 14:44 Protonix - PO 40 mg DAILY [facility] Administration Home Medications Medication Instructions Recorded Metoprolol Tartrate [Lopressor -] 25 mg PO DAILY 02/03/16 Pantoprazole Sodium [Protonix -] 40 mg PO DAILY #30 tablet.ec 02/06/16 LORazepam [Ativan] 2 mg PO BID MDD 3mg 11/18/16 Gabapentin 300 mg PO DAILY 04/25/19 Active Medications Enoxaparin Sodium (Lovenox -) 40 mg SQ DAILY [facility] Last Admin: 06/02/19 09:54 Dose: 40 mg Piperacillin Sod/Tazobactam (Sod 3.375 gm/ Dextrose) 50 mls @ 100 mls/hr IVPB Q8H-IV RUTH; Protocol Piperacillin Sod/Tazobactam (Sod 3.375 gm/ Dextrose) 50 mls @ 100 mls/hr IVPB Q8H-IV RUTH Stop: 06/02/19 18:29 Last Admin: 06/02/19 09:55 Dose: 100 mls/hr Lactated Ringer's (Lactated Ringers Solution) 1,000 mls @ 100 mls/hr IV ASDIR RUTH Last Admin: 06/02/19 13:05 Dose: 100 mls/hr Lorazepam (Ativan -) 2 mg PO TID PRN PRN Reason: ANXIETY Last Admin: 06/02/19 14:44 Dose: 2 mg Mirtazapine (Remeron -) 15 mg PO HS [facility] Last Admin: 06/02/19 01:39 Dose: Not Given Oxycodone HCl (Roxicodone -) 5 mg PO Q6H PRN PRN Reason: PAIN LEVEL 6-10 Last Admin: 06/02/19 10:26 Dose: 5 mg Pantoprazole Sodium (Protonix -) 40 mg PO DAILY [facility] Last Admin: 06/02/19 14:44 Dose: [address] chest results/images reviewed ASSESSMENT/PLAN: 48 yof with PMHx of Colon ca 2013 s/p left hemicolectomy, Liver and lung mets 2017 s/p VATS RLL resection/chemotherapy, now with lung disease on Radiation in 04/2019, chemotherapy last in 03/2019, recently started on treatment for UTI, comes with abdominal pain, fatigue -SIRS, ?lower uncomplicated UTI, vs post obstructive PNA (less likely given no new pulmonary process) vs GB etiology (low suspicion) -Cavitary metastatic lung lessions on chemoradiation -?Left eye lid droop -S/p VATS/RLL lobectomy -Colon Ca s/p left hemicolectomy -Generalized anxiety disorder -Major Depression/SI Plan: Zosyn, follow up blood cultures. Abdominal exam benign, normal LFTs, low suspicion for gall bladder etiology. Follow up surgery input. Pulmonary input appreciated. per discussion by admitting team with [facility], known findings. Also patient with no pulmonary symptoms, making post obstructive infectious process low on suspicion. +dysuria, follow up urine studies. Follow up ID input CT brain neg, no active concerns, monitor for now. 1:1, psych input. Continue ativan, PPI, gabapentin. resume metoprolol in 24 hours based on hemodynamics. DVTPPX add lovenox Dispo pending clinical improvement. Plan discussed with patient and nursing, all questions answered. Visit type - Emergency Visit Emergency Visit: Yes ED Registration Date: 06/01/19 Care time: The patient presented to the Emergency Department on the above date and was hospitalized for further evaluation of their emergent condition. - New Patient This patient is new to me today: Yes Date on this admission: 06/02/19 - Critical Care Critical Care patient: No - Discharge Referral Referred to [facility] Med [facility] No
--- NOTE | 2019-06-02 15:34 | CON.ID ---
Consult - History of Present Illness History of Present Illness: 48 y.o. female with PMH of Colon CA with metastasis to the liver s/p Lt hemicolectomy and resection, Lung CA s/p RLL lobectomy, s/p chemotherapy 03/2019 and RT x 5 rounds in 04/2019, anxiety, and HTN presenting with c/o SOB x 2wks associated with generally feeling weak, not feeling like her normal self, increased anxiety, and decreased appetite. Pt states she has been having intermittent cough with occasional clear sputum production. Also reports that she developed dysuria about 5 days ago which worsened with suprapubic pain/ bilateral flank pain for which she was prescribed Cipro. She took 1 dose prior to presenting to the ER for worsening weakness. Upon presentation she was noted to have leukocytosis ( wbc 15.8K) and anemia. She denies fever/chills, chest pain, abd pain/n/v/d. Pt states her dysuria has improved since yesterday. She has been constipated, last BM 2 days ago but no abd pain/n/v. No other specific complaints at this time. 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) Cardio/Vascular: Yes: HTN, Other (tachycardia) Pulmonary: Yes: Other (resection of metasttic lung nodules on left , January 21, 2016;) Gastrointestinal: Yes: Constipation, GERD Hepatobiliary: Yes: Other (liver mets s/p resection 2014.) ...LMP: 03/04/17 ...: No Psych: Yes: Anxiety Endocrine: Yes: Other (Thyroid Nodules) - Past Surgical History Past Surgical History: Yes: Colectomy (partial) Additional Surgical History: RLL lobectomy, liver mets resection - Alcohol/Substance Use Hx Alcohol Use: No History of Substance Use: reports: None - Smoking History Smoking history: Never smoked Have you smoked in the past 12 months: No Aproximately how many cigarettes per day: 0 - Social History Usual Living Arrangement: With Spouse ADL: Independent 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 History of Recent Travel: No Home Medications - Allergies Allergies/Adverse Reactions: Allergies Allergy/AdvReac Type Severity Reaction Status Date / Time latex Allergy Severe Itching Verified 04/25/19 21:44 carrot Allergy Verified 04/25/19 21:44 nut - unspecified Allergy Verified 04/25/19 21:44 Sulfa (Sulfonamide AdvReac generalized Verified 04/25/19 21:44 Antibiotics) weakness - Home Medications Home Medications: Ambulatory Orders Metoprolol Tartrate [Lopressor -] 25 mg PO DAILY 02/03/16 Pantoprazole Sodium [Protonix -] 40 mg PO DAILY #30 tablet.ec 02/06/16 LORazepam [Ativan] 2 mg PO BID MDD 3mg 11/18/16 Gabapentin 300 mg PO DAILY 04/25/19 Review of Systems - Review of Systems Constitutional: reports: Loss of Appetite, Weakness Eyes: reports: No Symptoms HENT: reports: No Symptoms Neck: reports: No Symptoms Cardiovascular: reports: No Symptoms Respiratory: reports: Cough (occasionally in the morning and nighttime), SOB Gastrointestinal: reports: Constipation Genitourinary: reports: Dysuria, Flank Pain Musculoskeletal: reports: No Symptoms Integumentary: reports: No Symptoms Neurological: reports: Confusion Endocrine: reports: No Symptoms Hematology/Lymphatic: reports: No Symptoms Psychiatric: reports: Anxiety Physical Exam Vital Signs: Vital Signs Temperature 98.4 F 06/02/19 07:40 Pulse Rate 105 H 06/02/19 07:40 Respiratory Rate 18 06/02/19 07:40 Blood Pressure 132/66 06/02/19 07:40 O2 Sat by Pulse Oximetry (%) 97 06/02/19 09:00 Constitutional: Yes: No Distress, Calm Eyes: Yes: Conjunctiva Clear, EOM Intact HENT: Yes: Atraumatic Neck: Yes: Supple Cardiovascular: Yes: Regular Rate and Rhythm Respiratory: Yes: Diminished (on RT), Wheezes (on Rt side) Gastrointestinal: Yes: Normal Bowel Sounds, Soft Renal/: Yes: CVA Tenderness - Left, CVA Tenderness - Right (decreasing), Other (suprapubic pain) Breast(s): Yes: WNL Musculoskeletal: Yes: WNL Extremities: Yes: WNL Edema: No Peripheral Pulses WNL: Yes Integumentary: Yes: WNL Wound/Incision: Yes: Other (abd/thoracic surgical sites healed) Psychiatric: Yes: Alert, Oriented Labs: CBC, BMP 06/02/19 05:25 06/02/19 05:25 Microbiology 06/02/19 11:15 Urine For Antigen Detection Legionella Antigen - Final 08/03/19 11:15 Urine For Antigen Detection Streptococcus pneumoniae Antigen (M - Final Laboratory Tests 06/01/19 06/01/19 06/01/19 17:26 17:26 17:26 WBC 15.8 H RBC 3.81 Hgb 9.1 L Hct 28.7 L MCV 75.3 L MCH 23.9 L MCHC 31.8 L RDW 22.8 H Plt Count 288 MPV 9.3 Absolute Neuts (auto) 13.1 H Neutrophils % 83.1 H Lymphocytes % 6.9 L D Monocytes % 8.8 Eosinophils % 0.6 Basophils % 0.6 Nucleated RBC % 0 Platelet Estimate Adequate Platelet Comment Polychromasia 1+ Poikilocytosis 1+ Anisocytosis 3+ Microcytosis 1+ Macrocytosis 1+ Ovalocytes 1+ Retic Count D-Dimer Sodium 138 Potassium 3.9 Chloride 105 Carbon Dioxide 24 Anion Gap 9 BUN 12.2 Creatinine 0.7 Est GFR (CKD-EPI)AfAm 120.43 Est GFR (CKD-EPI)NonAf 103.90 Random Glucose 96 Calcium 9.5 Magnesium Iron 29 L TIBC 304 Iron Saturation 9 L Unsaturated IBC 275 Ferritin Total Bilirubin 0.5 AST 24 ALT 21 Alkaline Phosphatase 65 Creatine Kinase 88 Troponin I < 0.02 < 0.02 Total Protein 7.4 Albumin 3.5 Vitamin B12 2455 H Serum Folate TSH Cancelled 0.38 Serum , Qual Salicylates < 1.7 L Opiates Screen Methadone Screen Acetaminophen < 2.0 L Barbiturate Screen Phencyclidine Screen Ur Amphetamines Screen MDMA (Ecstasy) Screen Benzodiazepines Screen Cocaine Screen U Marijuana (THC) Screen 06/01/19 06/01/19 06/02/19 17:35 18:00 00:20 WBC RBC Hgb Hct MCV MCH MCHC RDW Plt Count MPV Absolute Neuts (auto) Neutrophils % Lymphocytes % Monocytes % Eosinophils % Basophils % Nucleated RBC % Platelet Estimate Platelet Comment Polychromasia Poikilocytosis Anisocytosis Microcytosis Macrocytosis Ovalocytes Retic Count D-Dimer 830 H Sodium Potassium Chloride Carbon Dioxide Anion Gap BUN Creatinine Est GFR (CKD-EPI)AfAm Est GFR (CKD-EPI)NonAf Random Glucose Calcium Magnesium Iron TIBC Iron Saturation Unsaturated IBC Ferritin Total Bilirubin AST ALT Alkaline Phosphatase Creatine Kinase Troponin I Total Protein Albumin Vitamin B12 Serum Folate 18 H TSH Serum , Qual Negative Salicylates Opiates Screen Methadone Screen Acetaminophen Barbiturate Screen Phencyclidine Screen Ur Amphetamines Screen MDMA (Ecstasy) Screen Benzodiazepines Screen Cocaine Screen U Marijuana (THC) Screen 06/02/19 06/02/19 06/02/19 00:20 00:20 05:25 WBC 10.9 H RBC 3.49 L Hgb 8.5 L Hct 26.2 L MCV 74.9 L MCH 24.3 L MCHC 32.4 RDW 22.6 H Plt Count 279 MPV 9.2 Absolute Neuts (auto) Neutrophils % Lymphocytes % Monocytes % Eosinophils % Basophils % Nucleated RBC % Platelet Estimate Platelet Comment Polychromasia Poikilocytosis Anisocytosis Microcytosis Macrocytosis Ovalocytes Retic Count 1.40 D D-Dimer Sodium Potassium Chloride Carbon Dioxide Anion Gap BUN Creatinine Est GFR (CKD-EPI)AfAm Est GFR (CKD-EPI)NonAf Random Glucose Calcium Magnesium Iron TIBC Iron Saturation Unsaturated IBC Ferritin 18.2 Total Bilirubin AST ALT Alkaline Phosphatase Creatine Kinase Troponin I Total Protein Albumin Vitamin B12 Serum Folate TSH Serum , Qual Salicylates Opiates Screen Methadone Screen Acetaminophen Barbiturate Screen Phencyclidine Screen Ur Amphetamines Screen MDMA (Ecstasy) Screen Benzodiazepines Screen Cocaine Screen U Marijuana (THC) Screen 06/02/19 06/02/19 05:25 11:15 WBC RBC Hgb Hct MCV MCH MCHC RDW Plt Count MPV Absolute Neuts (auto) Neutrophils % Lymphocytes % Monocytes % Eosinophils % Basophils % Nucleated RBC % Platelet Estimate Platelet Comment Polychromasia Poikilocytosis Anisocytosis Microcytosis Macrocytosis Ovalocytes Retic Count D-Dimer Sodium 139 Potassium 3.5 Chloride 106 Carbon Dioxide 27 Anion Gap 6 L BUN 12.3 Creatinine 0.8 Est GFR (CKD-EPI)AfAm 102.47 Est GFR (CKD-EPI)NonAf 88.41 Random Glucose 136 H Calcium 8.9 Magnesium 2.2 Iron TIBC Iron Saturation Unsaturated IBC Ferritin Total Bilirubin 0.4 AST 20 ALT 16 Alkaline Phosphatase 56 Creatine Kinase Troponin I Total Protein 6.2 L Albumin 2.9 L Vitamin B12 Serum Folate TSH Serum , Qual Salicylates Opiates Screen Positive A* Methadone Screen Negative Acetaminophen Barbiturate Screen Negative Phencyclidine Screen Negative Ur Amphetamines Screen Negative MDMA (Ecstasy) Screen Negative Benzodiazepines Screen Negative Cocaine Screen Negative U Marijuana (THC) Screen Positive A* Imaging - Results Cat Scan: Report Reviewed (b/l pulmonary nodules, LLL nodules with cavitation. mediastinal LUPE, RLL bronchus compression/narrowing. Liver nodule.) Assessment/Plan 48 y.o. female with PMH of Colon CA with metastasis to the liver s/p Lt hemicolectomy and resection, Lung CA s/p RLL lobectomy, s/p chemotherapy 03/2019 and RT x 5 rounds in 04/2019, anxiety, and HTN presenting with c/o SOB x 2wks, weakness, dysuria/suprapubic and flank pain. Leukocytosis Likely UTI Lung CA s/p lobectomy with multiple pulmonary nodules - s/p recent chemotherapy/ RT Metastatic Colon CA s/p Lt hemicolectomy/ liver nodule resection Anxiety Depression -- f/u UA results, collect urine culture, f/u blood culture -- continue Zosyn empirically for now -- wbc trending down, pt remains afebrile monitor closely Will follow Thank you
[2019-06-02] MEDS ORDERED: oxyCODONE HCL 5 MG TABLET PO PRN (16:01)
--- NOTE | 2019-06-02 16:33 | CON.PSY ---
Psychiatry Consult Chief Complaint: 48 Hans old female known to me from before, History of Colon CA with ongoing complications. She was sent to Er by her PMD for paion and in the ER she got upsdet when she was put with some aptients shr did not like. She complained loudly and roxana, i might as well dfis. [id number] denies any suicid al ideas or plans. No Psych Illness or Hospitalizations in the past. I want to live to see my Grand Childern. Symptoms: reports: Depressed Mood - Previous Psychiatric Treatment Outpatient: None Inpatient: None - Previous Substance Abuse Treatment Outpatient: None Inpatient: None - Current Medications Current Medications: Active Medications Enoxaparin Sodium (Lovenox -) 40 mg SQ DAILY [facility] Last Admin: 06/02/19 09:54 Dose: 40 mg Piperacillin Sod/Tazobactam (Sod 3.375 gm/ Dextrose) 50 mls @ 100 mls/hr IVPB Q8H-IV RUTH; Protocol Piperacillin Sod/Tazobactam (Sod 3.375 gm/ Dextrose) 50 mls @ 100 mls/hr IVPB Q8H-IV RUTH Stop: 06/02/19 18:29 Last Admin: 06/02/19 09:55 Dose: 100 mls/hr Lactated Ringer's (Lactated Ringers Solution) 1,000 mls @ 100 mls/hr IV ASDIR [facility] Last Admin: 06/02/19 13:05 Dose: 100 mls/hr Lorazepam (Ativan -) 2 mg PO TID PRN PRN Reason: ANXIETY Last Admin: 06/02/19 14:44 Dose: 2 mg Mirtazapine (Remeron -) 15 mg PO HS [facility] Last Admin: 06/02/19 01:39 Dose: Not Given Morphine Sulfate (Morphine Sulfate) 4 mg IVPUSH Q4H PRN PRN Reason: PAIN LEVEL 7 - 10 Oxycodone HCl (Roxicodone -) 5 mg PO Q6H PRN PRN Reason: PAIN LEVEL 1-5 Pantoprazole Sodium (Protonix -) 40 mg PO DAILY [facility] Last Admin: 06/02/19 14:44 Dose: 40 mg - Allergies Allergies: Allergies Allergy/AdvReac Type Severity Reaction Status Date / Time latex Allergy Severe Itching Verified 04/25/19 21:44 carrot Allergy Verified 04/25/19 21:44 nut - unspecified Allergy Verified 04/25/19 21:44 Sulfa (Sulfonamide AdvReac generalized Verified 04/25/19 21:44 Antibiotics) weakness - Current Living Status Usual Living Arrangement: With Significant Other - Current Mental Status Evaluation Appearance: Well Groomed Attitude: Cooperative - Affect Affect: Full Range Appropriateness: Appropriate to Content - Mood Mood: Anxious - Speech/Language Expressive: Coherent - Psychomotor Activity Psychomotor Activity: Normal - Thought Process Thought Process: Intact - Thought Content Hallucinations: Absent Delusions: Absent - Self Perception Self Perception: No Impairment - Cognition Attention: Alert Memory, Immediate Recall: Intact Memory, Short Term: 3/3 Memory, Remote with Promptin/3 - Concentration Serial Sevens Intact: Yes Simple Calculations Intact: Yes - Abstraction Proverb Interpretation: Intact Judgement: Minimally Impaired - Insight Insight: Intact - Impulse Control Impulse Control: Minimally Impaired - Suicidal Ideation Suicidal Ideation: No - Homicidal Ideation Homicidal Ideation: No Assessment/Plan 1) Patient is not suicidal.2) d/c 1:1 3) Continue with CUrrant meds. $0 Dischargeb when medically stable.
[2019-06-02] MEDS: morphine SULFATE 4 MG/ML VIAL IVPUSH PRN ×2 (17:02→22:01)
[2019-06-02 17:52] LABS: HYALINE CASTS 14 /lpf (0-8); PH,URINE 6.5 (5.0-8.0); URINE APPEARANCE CLEAR; URINE BACTERIA 6.3 /hpf (NEGATIVE); URINE BILIRUBIN NEGATIVE (NEGATIVE); URINE COLOR YELLOW; URINE GLUCOSE (UA) NEGATIVE (NEGATIVE); URINE KETONE NEGATIVE (NEGATIVE); URINE LEUK ESTERASE 2+ (NEGATIVE); URINE NITRITE NEGATIVE (NEGATIVE); URINE PROTEIN NEGATIVE (NEGATIVE); URINE RBC 3 /hpf (0-4); URINE UROBILINOGEN 0.2 mg/dL (0.2-1.0); URINE WBC 19 /hpf (0-5)
[2019-06-02] MEDS ORDERED: DOCUSATE SODIUM 100 MG CAPSULE (FP) PO ONE (20:50)
[2019-06-03] MEDS ORDERED: DEXTROSE 5%-WATER - 50 ML IVPB ONE ×3 (00:24→17:50)
[2019-06-03] MEDS ORDERED: PIPERACILLIN/TAZOBACTAM 3.375 GM VIAL IVPB ONE ×3 (00:24→17:49)
[2019-06-03] MEDS: PIPERACILLIN/TAZOB 3.375 GM 3.375 GM in DEXTROSE 5%-WATER - 50 ML IVPB SCH ×3 (01:04→17:51)
[2019-06-03] MEDS: LORazepam 1 MG TABLET PO PRN ×4 (01:14→18:01)
[2019-06-03] MEDS: LACTATED RINGERS SOLUTION 1,000 ML IV SCH ×2 (01:18→12:34)
[2019-06-03] MEDS: morphine SULFATE 4 MG/ML VIAL IVPUSH PRN (03:31)
[2019-06-03 08:30] LABS: HEMATOCRIT 27.3 % (32.4-45.2); HEMOGLOBIN 8.7 GM/dL (10.7-15.3); LYMPH % 15.6 % (8-40); MCH 23.9 pg (25.7-33.7); MCHC 31.7 g/dl (32.0-36.0); MEAN CELL VOLUME 75.3 fl (80-96); MEAN PLT VOLUME 9.1 fl (7.5-11.1); MONO % 11.6 % (3.8-10.2); NEUT % 69.8 % (42.8-82.8); PLATELET COUNT 278 K/MM3 (134-434); RBC 3.62 M/mm3 (3.60-5.2); RDW 22.2 % (11.6-15.6); WHITE BLOOD COUNT 8.3 K/mm3 (4.0-10.0)
[2019-06-03 08:31] LABS: BASO % 0.3 % (0-2.0); EOS % 2.7 % (0-4.5)
[2019-06-03 08:59] LABS: ALBUMIN 2.9 g/dl (3.4-5.0); BILIRUBIN,TOTAL 0.7 mg/dL (0.2-1); BLOOD UREA NITROGEN 7.2 mg/dL (7-18); CALCIUM 9.1 mg/dL (8.5-10.1); CREATININE 0.7 mg/dL (0.55-1.3); MAGNESIUM 2.1 mg/dL (1.8-2.4); PHOSPHOROUS 4.8 mg/dL (2.5-4.9); POTASSIUM 4.4 mmol/L (3.5-5.1); TOT PROT 6.5 g/dl (6.4-8.2)
[2019-06-03] MEDS: ENOXAPARIN NA (PORCINE) 40 MG/0.4 ML DISP.SYRIN SQ SCH (09:31)
[2019-06-03] MEDS: PANTOPRAZOLE 40 MG TABLET (FP) PO SCH (09:31)
--- NOTE | 2019-06-03 10:33 | EKG ---
Test Reason : Blood Pressure : / mmHG Vent. Rate : 109 BPM Atrial Rate : 109 BPM P-R Int : 148 ms QRS Dur : 070 ms QT Int : 338 ms P-R-T Axes : 027 043 023 degrees QTc Int : 455 ms SINUS TACHYCARDIA WITH PREMATURE VENTRICULAR COMPLEXES OR FUSION COMPLEXES OTHERWISE NORMAL ECG WHEN COMPARED WITH ECG OF 01-JUN-2019 18:34, FUSION COMPLEXES ARE NOW PRESENT ST LESS ELEVATED IN LATERAL LEADS Confirmed by Hannah Venegas ([id number]) on 06/03/2019 10:33:13 AM Referred By: Confirmed By:Hannah Venegas
--- NOTE | 2019-06-03 11:49 | PN ---
Progress Note (short form) - Note Progress Note: PULMONARY Feels better today. Some wheezing but no shortness of breath. Appetite better. Vital Signs Period Temp Pulse Resp BP Sys/Kaiser Pulse Ox Last 24 Hr 98 F-98.4 F 88-105 18-20 114-129/73-92 97 Gen: NAD at rest Heart: RRR Lung: scattered wheezes Abd: soft, nontender Ext: no edema CBC, BMP 06/03/19 07:22 06/03/19 07:22 Active Medications Enoxaparin Sodium (Lovenox -) 40 mg SQ DAILY [facility] Last Admin: 06/03/19 09:31 Dose: 40 mg Piperacillin Sod/Tazobactam (Sod 3.375 gm/ Dextrose) 50 mls @ 100 mls/hr IVPB Q8H-IV R[facility]; Protocol Last Admin: 06/03/19 09:31 Dose: 100 mls/hr Lactated Ringer's (Lactated Ringers Solution) 1,000 mls @ 100 mls/hr IV ASDIR [facility] Last Admin: 06/03/19 01:18 Dose: 100 mls/hr Lorazepam (Ativan -) 2 mg PO TID PRN PRN Reason: ANXIETY Last Admin: 06/03/19 09:58 Dose: 2 mg Mirtazapine (Remeron -) 15 mg PO HS [facility] Last Admin: 06/02/19 21:17 Dose: Not Given Morphine Sulfate (Morphine Sulfate) 4 mg IVPUSH Q4H PRN PRN Reason: PAIN LEVEL 7 - 10 Last Admin: 06/03/19 03:31 Dose: 4 mg Oxycodone HCl (Roxicodone -) 5 mg PO Q6H PRN PRN Reason: PAIN LEVEL 1-5 Pantoprazole Sodium (Protonix -) 40 mg PO DAILY [facility] Last Admin: 06/03/19 09:31 Dose: 40 mg A/P Metastatic Colon Cancer to Liver/Lung HTN UTI - start inhaled bronchodilators - continue antibiotics - f/u cultures - CT chest findings likely chronic progression of disease - unfortunately nothing to do at this time, will need [place] [facility] [place] - DVT prophylaxis Problem List - Problems (1) Colon cancer Code(s): C18.9 - MALIGNANT NEOPLASM OF COLON, UNSPECIFIED (2) HTN (hypertension) Code(s): I10 - ESSENTIAL (PRIMARY) HYPERTENSION (3) Metastatic colorectal cancer Code(s): C78.5 - SECONDARY MALIGNANT NEOPLASM OF LARGE INTESTINE AND RECTUM (4) Poor appetite Code(s): R63.0 - ANOREXIA
[2019-06-03] MEDS ORDERED: ALBUTEROL SO4 0.083% IH SOL 2.5 MG/3 ML VIAL.NEB. NEB PRN (11:50)
[2019-06-03] MEDS ORDERED: ACETAMINOPHEN 325 MG TABLET (FP) PO PRN (12:19)
[2019-06-03] MEDS ORDERED: PANTOPRAZOLE 40 MG TABLET (FP) PO SCH (12:30)
[2019-06-03] MEDS: GABAPENTIN 300 MG CAPSULE (FP) PO SCH (12:33)
[2019-06-03] MEDS: METOPROLOL TARTRATE 25 MG TABLET (FP) PO SCH (12:44)
[2019-06-03] MEDS: ALBUTEROL SO4 2.5/IPRATROPIUM 0.5 INH SOL 3 ML VIAL.NEB. NEB SCH ×2 (13:00→20:40)
--- NOTE | 2019-06-03 13:03 | PN ---
Physical Exam: SUBJECTIVE: Patient seen and examined, no pain currently. OBJECTIVE: Vital Signs Period Temp Pulse Resp BP Sys/Kaiser Pulse Ox Last 24 Hr 98 F-98.4 F 88-105 18-20 114-129/73-92 97 Intake & Output 05/31/19 06/01/19 06/02/19 06/03/19 23:59 23:59 23:59 23:59 Intake Total 1550 1500 Balance 1550 1500 Weight 198 lb 170 lb 12.8 oz GENERAL: lying in bed in no acute distress CVS:S1S2 regular Chest: no rales or wheezing appreciated, pos air entry Abdomen:soft, obese, midline surgical scar, non tenderness throughout, no CVA or suprapubic tenderness Extremities: no edema neck: soft, supple, no JVD Psych: appropriate, smiling by the end of interview, more conversant, no active SI Musculoskeletal: no spinal tenderness, SLR upto 50 degrees Neuro: AAOX3, no left eyelid droop noted, power 5/5 Laboratory Results - last 24 hr 06/02/19 06/03/19 06/03/19 11:15 07:22 07:22 WBC 8.3 RBC 3.62 Hgb 8.7 L Hct 27.3 L MCV 75.3 L MCH 23.9 L MCHC 31.7 L RDW 22.2 H Plt Count 278 MPV 9.1 Absolute Neuts (auto) 5.8 Neutrophils % 69.8 Lymphocytes % 15.6 D Monocytes % 11.6 H Eosinophils % 2.7 D Basophils % 0.3 Nucleated RBC % 0 Sodium 140 Potassium 4.4 Chloride 104 Carbon Dioxide 30 Anion Gap 6 L BUN 7.2 Creatinine 0.7 Est GFR (CKD-EPI)AfAm 120.43 Est GFR (CKD-EPI)NonAf 103.90 Random Glucose 97 Calcium 9.1 Phosphorus 4.8 Magnesium 2.1 Total Bilirubin 0.7 AST 24 ALT 21 Alkaline Phosphatase 64 Total Protein 6.5 Albumin 2.9 L Urine Color Yellow Urine Appearance Clear Urine pH 6.5 D Ur Specific Clyde 1.018 Urine Protein Negative Urine Glucose (UA) Negative Urine Ketones Negative Urine Blood Negative Urine Nitrite Negative Urine Bilirubin Negative Urine Urobilinogen 0.2 Ur Leukocyte Esterase 2+ H Urine WBC (Auto) 19 Urine RBC (Auto) 3 Urine Casts (Auto) 14 U Epithel Cells (Auto) 8.0 U Sm Round Cell (Auto) None seen Urine Bacteria (Auto) 6.3 Active Medications Generic Name Dose Route Start Last Admin Trade Name Freq PRN Reason Stop Dose Admin Acetaminophen 650 mg 06/03/19 12:19 06/03/19 12:33 Tylenol - PO 650 mg Q6H PRN Administration PAIN 1-3 Albuterol Sulfate 1 amp 06/03/19 11:50 Ventolin 0.083% Nebulizer Soln - NEB Q4H PRN SHORT OF BREATH/WHEEZING Albuterol/Ipratropium 1 amp 06/03/19 14:00 Duoneb - NEB RTID RUTH Enoxaparin Sodium 40 mg 06/02/19 10:00 06/03/19 09:31 Lovenox - SQ 40 mg DAILY [facility] Administration Gabapentin 300 mg 06/03/19 12:30 06/03/19 12:33 Neurontin - PO 300 mg DAILY [facility] Administration Piperacillin Sod/Tazobactam 50 mls @ 100 mls/hr 06/03/19 02:00 06/03/19 09:31 Sod 3.375 gm/ Dextrose IVPB 100 mls/hr Q8H-IV RUTH Administration Protocol Lactated Ringer's 1,000 mls @ 100 mls/hr 06/01/19 23:30 06/03/19 12:34 Lactated Ringers Solution IV 100 mls/hr ASDIR [facility] Administration Lorazepam 2 mg 06/02/19 13:01 06/03/19 09:58 Ativan - PO 2 mg TID PRN Administration ANXIETY Metoprolol Tartrate 25 mg 06/03/19 12:30 06/03/19 12:44 Lopressor - PO 25 mg DAILY [facility] Administration Mirtazapine 15 mg 06/02/19 00:38 06/02/19 21:17 Remeron - PO Not Given HS RUTH Pantoprazole Sodium 40 mg 06/02/19 13:15 06/03/19 09:31 Protonix - PO 40 mg DAILY [facility] Administration Microbiology 06/02/19 00:42 Blood - Peripheral Venous Blood Culture - Preliminary NO GROWTH OBTAINED AFTER 24 HOURS, INCUBATION TO CONTINUE FOR 4 DAYS. 06/02/19 00:42 Blood - Peripheral Venous Blood Culture - Preliminary NO GROWTH OBTAINED AFTER 24 HOURS, INCUBATION TO CONTINUE FOR 4 DAYS. 06/02/19 11:15 Urine For Antigen Detection Legionella Antigen - Final 06/02/19 11:15 Urine For Antigen Detection Streptococcus pneumoniae Antigen (M - Final ASSESSMENT/PLAN: 48 yof with PMHx of Colon ca 2013 s/p left hemicolectomy, Liver and lung mets 2017 s/p VATS RLL resection/chemotherapy, now with lung disease on Radiation in 04/2019, chemotherapy last in 03/2019, recently started on treatment for UTI, comes with abdominal pain, fatigue -SIRS, ?lower uncomplicated UTI, vs post obstructive PNA (less likely given no new pulmonary process) vs GB etiology (low suspicion) -Cavitary metastatic lung lessions on chemoradiation -?Left eye lid droop, none currently, CT brain -S/p VATS/RLL lobectomy -Colon Ca s/p left hemicolectomy -Generalized anxiety disorder -Major Depression/SI Plan: Zosyn day 2, afebrile. WBC normal. ID input noted. Follow up blood/urine cx. Abdominal exam benign, Office read of RUQ US noted. Surgery input noted, no clinical concerns. Pulmonary input appreciated. per discussion by admitting team with [facility] [place], known findings. Also patient with no pulmonary symptoms, making post obstructive infectious process low on suspicion. CT brain neg, no active concerns, monitor for now. Psych input noted, 1;1 d/anne Continue ativan, PPI, gabapentin. resume metoprolol. DVTPPX lovenox Dispo in 24-48 hours pending clinical improvement. PT eval. Plan discussed with patient and nursing, all questions answered. Visit type - Emergency Visit Emergency Visit: Yes ED Registration Date: 06/01/19 Care time: The patient presented to the Emergency Department on the above date and was hospitalized for further evaluation of their emergent condition. - New Patient This patient is new to me today: No - Critical Care Critical Care patient: No - Discharge Referral Referred to [facility] No
--- NOTE | 2019-06-03 16:10 | PN ---
Progress Note, Physician History of Present Illness: Pt states she has much less dysuria, suprapubic/CVA discomfort resolved. Feels less weak. Denies cough/shortness of breath. Afebrile. She is currently tearful stating she is going through a divorce. No current suicidal ideations/ denies plans to harm herself. Seen by Psychiatry. - Current Medication List Current Medications: Active Medications Acetaminophen (Tylenol -) 650 mg PO Q6H PRN PRN Reason: PAIN 1-3 Last Admin: 06/03/19 12:33 Dose: 650 mg Albuterol Sulfate (Ventolin 0.083% Nebulizer Soln -) 1 amp NEB Q4H PRN PRN Reason: SHORT OF BREATH/WHEEZING Albuterol/Ipratropium (Duoneb -) 1 amp NEB RTID [facility] Enoxaparin Sodium (Lovenox -) 40 mg SQ DAILY [facility] Last Admin: 06/03/19 09:31 Dose: 40 mg Gabapentin (Neurontin -) 300 mg PO DAILY [facility] Last Admin: 06/03/19 12:33 Dose: 300 mg Piperacillin Sod/Tazobactam (Sod 3.375 gm/ Dextrose) 50 mls @ 100 mls/hr IVPB Q8H-IV [facility]; Protocol Last Admin: 06/03/19 09:31 Dose: 100 mls/hr Lactated Ringer's (Lactated Ringers Solution) 1,000 mls @ 100 mls/hr IV ASDIR [facility] Last Admin: 06/03/19 12:34 Dose: 100 mls/hr Lorazepam (Ativan -) 2 mg PO TID PRN PRN Reason: ANXIETY Last Admin: 06/03/19 09:58 Dose: 2 mg Metoprolol Tartrate (Lopressor -) 25 mg PO DAILY [facility] Last Admin: 06/03/19 12:44 Dose: 25 mg Mirtazapine (Remeron -) 15 mg PO HS [facility] Last Admin: 06/02/19 21:17 Dose: Not Given Pantoprazole Sodium (Protonix -) 40 mg PO DAILY [facility] Last Admin: 06/03/19 09:31 Dose: 40 mg - Objective Vital Signs: Vital Signs Temperature 97.9 F 06/03/19 15:07 Pulse Rate 90 06/03/19 15:07 Respiratory Rate 20 06/03/19 09:27 Blood Pressure 126/86 06/03/19 15:07 O2 Sat by Pulse Oximetry (%) 91 L 06/03/19 09:00 Constitutional: Yes: No Distress Cardiovascular: Yes: Regular Rate and Rhythm Respiratory: Yes: Regular Gastrointestinal: Yes: Normal Bowel Sounds, Soft Genitourinary: Yes: WNL Extremities: Yes: WNL Integumentary: Yes: WNL Neurological: Yes: Alert, Oriented Labs: CBC, BMP 06/03/19 07:22 06/03/19 07:22 Microbiology 06/02/19 00:42 Blood - Peripheral Venous Blood Culture - Preliminary NO GROWTH OBTAINED AFTER 24 HOURS, INCUBATION TO CONTINUE FOR 4 DAYS. 06/02/19 00:42 Blood - Peripheral Venous Blood Culture - Preliminary NO GROWTH OBTAINED AFTER 24 HOURS, INCUBATION TO CONTINUE FOR 4 DAYS. 06/02/19 11:15 Urine For Antigen Detection Legionella Antigen - Final 06/02/19 11:15 Urine For Antigen Detection Streptococcus pneumoniae Antigen (M - Final Problem List - Problems (1) Anxiety disorder Code(s): F41.9 - ANXIETY DISORDER, UNSPECIFIED Qualifiers: Anxiety disorder type: unspecified anxiety disorder Qualified Code(s): F41.9 - Anxiety disorder, unspecified (2) Colon cancer metastasized to multiple sites Code(s): C18.9 - MALIGNANT NEOPLASM OF COLON, UNSPECIFIED (3) Anemia Code(s): D64.9 - ANEMIA, UNSPECIFIED Qualifiers: Anemia type: other cause Other causes of anemia: chronic disease, neoplastic Qualified Code(s): D63.0 - Anemia in neoplastic disease (4) HTN (hypertension) Code(s): I10 - ESSENTIAL (PRIMARY) HYPERTENSION (5) Lung cancer Code(s): C34.90 - MALIGNANT NEOPLASM OF UNSP PART OF UNSP BRONCHUS OR LUNG (6) S/P lobectomy of lung Code(s): Z90.2 - ACQUIRED ABSENCE OF LUNG [PART OF] Assessment/Plan 48 y.o. female with PMH of Colon CA with metastasis to the liver s/p Lt hemicolectomy and resection, Lung CA s/p RLL lobectomy, s/p chemotherapy 03/2019 and RT x 5 rounds in 04/2019, anxiety, and HTN presenting with c/o SOB x 2wks, weakness, dysuria/suprapubic and flank pain. Leukocytosis - resolved UTI Lung CA s/p lobectomy with multiple pulmonary nodules - s/p recent chemotherapy/ RT Metastatic Colon CA s/p Lt hemicolectomy/ liver nodule resection Anxiety Depression -- Blood cultures no growth/ Urinary Ag neg -- f/u Urine culture results -- continue Zosyn empirically for now -- wbc normal, afebrile now -- no respiratory symptoms -- Oncology f/u Vitals stable
[2019-06-03] MEDS: MIRTAZAPINE 15 MG TABLET (FP) PO SCH (22:26)
[2019-06-04] MEDS ORDERED: DEXTROSE 5%-WATER - 50 ML IVPB ONE ×3 (01:34→16:39)
[2019-06-04] MEDS ORDERED: PIPERACILLIN/TAZOBACTAM 3.375 GM VIAL IVPB ONE ×3 (01:34→16:39)
[2019-06-04] MEDS: PIPERACILLIN/TAZOB 3.375 GM 3.375 GM in DEXTROSE 5%-WATER - 50 ML IVPB SCH ×3 (01:48→17:08)
[2019-06-04] MEDS: LACTATED RINGERS SOLUTION 1,000 ML IV SCH (01:49)
[2019-06-04] MEDS: ALBUTEROL SO4 2.5/IPRATROPIUM 0.5 INH SOL 3 ML VIAL.NEB. NEB SCH ×3 (07:35→20:45)
[2019-06-04 07:37] LABS: ALBUMIN 2.9 g/dl (3.4-5.0); BILIRUBIN,TOTAL 0.4 mg/dL (0.2-1); BLOOD UREA NITROGEN 6.8 mg/dL (7-18); CALCIUM 9.4 mg/dL (8.5-10.1); CREATININE 0.7 mg/dL (0.55-1.3); MAGNESIUM 2.2 mg/dL (1.8-2.4); PHOSPHOROUS 4.8 mg/dL (2.5-4.9); POTASSIUM 3.8 mmol/L (3.5-5.1); TOT PROT 6.3 g/dl (6.4-8.2)
[2019-06-04 08:22] LABS: BASO % 0.4 % (0-2.0); EOS % 3.3 % (0-4.5); HEMATOCRIT 26.8 % (32.4-45.2); HEMOGLOBIN 8.7 GM/dL (10.7-15.3); LYMPH % 14.6 % (8-40); MCH 24.3 pg (25.7-33.7); MCHC 32.5 g/dl (32.0-36.0); MEAN CELL VOLUME 74.9 fl (80-96); MEAN PLT VOLUME 9.2 fl (7.5-11.1); MONO % 12.3 % (3.8-10.2); NEUT % 69.4 % (42.8-82.8); PLATELET COUNT 297 K/MM3 (134-434); RBC 3.58 M/mm3 (3.60-5.2); RDW 22.1 % (11.6-15.6); WHITE BLOOD COUNT 7.4 K/mm3 (4.0-10.0)
--- NOTE | 2019-06-04 09:02 | PN ---
Physical Exam: SUBJECTIVE: Patient seen and examined at bed side , eating wel , but No BM yet reports slight cough with clear sputum and some back pain on previous surgery sight. no fever no chills, no chest pain. on Zosyn and RL @ 100 CC/hr OBJECTIVE: Vital Signs Period Temp Pulse Resp BP Sys/[facility] Pulse Ox Last 24 Hr 97.4 F-99.4 F 90-104 18-20 118-146/72-93 94 GENERAL: AAOx3 in NAD HEAD: NC/AT EYES: EOMI, Conjunctiva clear, sclera anicteric ENT: moist mucous membrane NECK: Supple, no JVD LUNGS: fine reales HEART: RRR, NSR, normal s1, s2, murmur no M/R/G ABDOMEN: Soft, ND, NT, +BS 4 Q, no CVA Tenderness LOWER EXTREMITIES: no edema, +2DP pulse, NEUROLOGICAL: No focal deficit. Normal speech. gait not observed. PSYCHIATRIC: Cooperative. Good eye contact. Appropriate mood and affect. SKIN: Warm, dry, Laboratory Results - last 24 hr 06/04/19 06/04/19 06:02 06:02 WBC 7.4 RBC 3.58 L Hgb 8.7 L Hct 26.8 L MCV 74.9 L MCH 24.3 L MCHC 32.5 RDW 22.1 H Plt Count 297 MPV 9.2 Absolute Neuts (auto) 5.1 Neutrophils % 69.4 Lymphocytes % 14.6 Monocytes % 12.3 H Eosinophils % 3.3 Basophils % 0.4 Nucleated RBC % 0 Sodium 140 Potassium 3.8 Chloride 104 Carbon Dioxide 29 Anion Gap 7 L BUN 6.8 L Creatinine 0.7 Est GFR (CKD-EPI)AfAm 120.43 Est GFR (CKD-EPI)NonAf 103.90 Random Glucose 101 Calcium 9.4 Phosphorus 4.8 Magnesium 2.2 Total Bilirubin 0.4 AST 22 ALT 21 Alkaline Phosphatase 66 Total Protein 6.3 L Albumin 2.9 L Active Medications Generic Name Dose Route Start Last Admin Trade Name Freq PRN Reason Stop Dose Admin Acetaminophen 650 mg 06/03/19 12:19 06/03/19 12:33 Tylenol - PO 650 mg Q6H PRN Administration PAIN 1-3 Albuterol Sulfate 1 amp 06/03/19 11:50 Ventolin 0.083% Nebulizer Soln - NEB Q4H PRN SHORT OF BREATH/WHEEZING Albuterol/Ipratropium 1 amp 06/03/19 14:00 06/04/19 07:35 Duoneb - NEB Not Given RTID RUTH Enoxaparin Sodium 40 mg 06/02/19 10:00 06/03/19 09:31 Lovenox - SQ 40 mg DAILY RUTH Administration Gabapentin 300 mg 06/03/19 12:30 06/03/19 12:33 Neurontin - PO 300 mg DAILY RUTH Administration Piperacillin Sod/Tazobactam 50 mls @ 100 mls/hr 06/03/19 02:00 06/04/19 01:48 Sod 3.375 gm/ Dextrose IVPB 100 mls/hr Q8H-IV RUTH Administration Protocol Lactated Ringer's 1,000 mls @ 100 mls/hr 06/01/19 23:30 06/04/19 01:49 Lactated Ringers Solution IV 100 mls/hr ASDIR RUTH Administration Lorazepam 2 mg 06/02/19 13:01 06/03/19 18:01 Ativan - PO 2 mg TID PRN Administration ANXIETY Metoprolol Tartrate 25 mg 06/03/19 12:30 06/03/19 12:44 Lopressor - PO 25 mg DAILY RUTH Administration Mirtazapine 15 mg 06/02/19 00:38 06/03/19 22:26 Remeron - PO 15 mg HS RUTH Administration Pantoprazole Sodium 40 mg 06/02/19 13:15 06/03/19 09:31 Protonix - PO 40 mg DAILY RUTH Administration Microbiology 06/02/19 15:45 Urine - Urine Clean Catch Urine Culture - Final NO GROWTH OBTAINED 06/02/19 00:42 Blood - Peripheral Venous Blood Culture - Preliminary NO GROWTH OBTAINED AFTER 48 HOURS, INCUBATION TO CONTINUE FOR 3 DAYS. 06/02/19 00:42 Blood - Peripheral Venous Blood Culture - Preliminary NO GROWTH OBTAINED AFTER 48 HOURS, INCUBATION TO CONTINUE FOR 3 DAYS. 06/02/19 11:15 Urine For Antigen Detection Legionella Antigen - Final 06/02/19 11:15 Urine For Antigen Detection Streptococcus pneumoniae Antigen (M - Final CBC, BMP 06/04/19 06:02 06/04/19 06:02 IMAGING: * CTA: No CT evid of PE. Compared to 2017, development of numerous b/l u/l lobe pulm richy/nodules. Several LLL pulm nodules with central cavitation. Mediastinal and R hilar LAD noted with compression and narrowing of RLL bronchus and R pulm. 1.7 cm hepatic lobe lesion seen. * Head CT: (Initial read) No acute IC hemorrhage mass effect or midline shift. No evid of large territory of subacute stroke. Cannot exclude small acute stroke. ASSESSMENT/PLAN: 48F w/ significant pmhx for colon cx s/p resection 2013 with mets to liver and lung (s/p RLL lobectomy 2016) presents to the ED #SIRS likely 2/2 Post-obstructive PNA vs. UTI vs GB etiology less likely -CTA chest showed +compression of bronchus. Contacted [facility] and spoke to physician at facility regarding CT finding of compression on bronchus; they noted that this is not a new finding and emergent transfer was not needed at this time. -Abd U/S (prelim read) showed increased echogenicity c/w hepatic steatosis. Cholelithiasis in GB neck w/ mod GB distension borderline GB wall thickening most likely a/w GB dysmotility. HIDA scan recommended if clinically indicated. -Given Abd u/s findings, will consult surg (Dr. Mehta) no intervention -DC IVf -empiric Zosyn 3.375 Q8H; cont -BCx, UCx pending -ID consult (Dr. Skinner) #Anorexia; could be 2/2 depression vs. GB etiology -Mirtazapine to treat depression; also will help with appetite stimulant #Hx of Colon ca +mets to liver/lung -recently underwent chemo and RT at [facility]; follow up outpatient -Oxycodone 5 Q6H PO for pain -Pulm consulted note reviewed abx and inhaled bronchodilators likely from chronic process #GB wall thickening; found on abd U/S -Surg consulted (Dr. Mehta), no intervention at this point -Hepatic lesion noted, - US negative for acute cholecyttitis #Anemia; has had hx of multiples blood transfusions in the past -H/H stable continue to trend -Normal transfusion threshold; transfuse if <7 #Depression/Anxiety; expressed to ED staff that she does not want to live; however no suicidal ideation. -cont Mirtazipine 15 mg PO HS as it is also an appetite stimulant -dc 1:1 -Psych consult ordered (Dr. Chepuru) -Cont home med: Ativan 1 mg PO BID #R Eye Mild Droop -Head CT (prelim read) showed no evid of acute IC pathology; may consider MRI give history Prophylaxis DVT: Lovenox 40 FEN -DC fluids -monitor lytes -regular diet Dispo -Admit to med surg - possible in next 24 hour Visit type - Emergency Visit Emergency Visit: Yes ED Registration Date: 06/01/19 Care time: The patient presented to the Emergency Department on the above date and was hospitalized for further evaluation of their emergent condition. - New Patient This patient is new to me today: Yes Date on this admission: 06/04/19 - Critical Care Critical Care patient: No ATTENDING PHYSICIAN STATEMENT I saw and evaluated the patient. I reviewed the resident's note and discussed the case with the resident. I agree with the resident's findings and plan as documented. SUBJECTIVE: OBJECTIVE: ASSESSMENT AND PLAN:
[2019-06-04] MEDS: METOPROLOL TARTRATE 25 MG TABLET (FP) PO SCH (09:39)
[2019-06-04] MEDS: ENOXAPARIN NA (PORCINE) 40 MG/0.4 ML DISP.SYRIN SQ SCH (09:39)
[2019-06-04] MEDS: PANTOPRAZOLE 40 MG TABLET (FP) PO SCH (09:39)
[2019-06-04] MEDS: GABAPENTIN 300 MG CAPSULE (FP) PO SCH (09:39)
[2019-06-04] MEDS: LORazepam 1 MG TABLET PO PRN ×2 (09:44→21:13)
--- NOTE | 2019-06-04 09:51 | PN ---
Progress Note (short form) - Note Progress Note: Breathing feels better today. No wheezing or shortness of breath. Some incisional discomfort. Intake & Output 06/01/19 06/02/19 06/03/19 06/04/19 23:59 23:59 23:59 23:59 Intake Total 1550 3200 900 Balance 1550 3200 900 Weight 198 lb 170 lb 12.8 oz Last Vital Signs Temp Pulse Resp BP Pulse Ox 98.8 F 91 H 20 121/72 94 L 06/04/19 06:35 06/04/19 06:35 06/04/19 06:35 06/04/19 06:35 06/03/19 21:00 Active Medications Acetaminophen (Tylenol -) 650 mg PO Q6H PRN PRN Reason: PAIN 1-3 Last Admin: 06/03/19 12:33 Dose: 650 mg Albuterol Sulfate (Ventolin 0.083% Nebulizer Soln -) 1 amp NEB Q4H PRN PRN Reason: SHORT OF BREATH/WHEEZING Albuterol/Ipratropium (Duoneb -) 1 amp NEB RTID RUTH Last Admin: 06/04/19 07:35 Dose: Not Given Enoxaparin Sodium (Lovenox -) 40 mg SQ DAILY [facility] Last Admin: 06/04/19 09:39 Dose: 40 mg Gabapentin (Neurontin -) 300 mg PO DAILY [facility] Last Admin: 06/04/19 09:39 Dose: 300 mg Piperacillin Sod/Tazobactam (Sod 3.375 gm/ Dextrose) 50 mls @ 100 mls/hr IVPB Q8H-IV RUTH; Protocol Last Admin: 06/04/19 09:40 Dose: 100 mls/hr Lactated Ringer's (Lactated Ringers Solution) 1,000 mls @ 100 mls/hr IV ASDIR RUTH Last Admin: 06/04/19 01:49 Dose: 100 mls/hr Lorazepam (Ativan -) 2 mg PO TID PRN PRN Reason: ANXIETY Last Admin: 06/04/19 09:44 Dose: 2 mg Metoprolol Tartrate (Lopressor -) 25 mg PO DAILY [facility] Last Admin: 06/04/19 09:39 Dose: 25 mg Mirtazapine (Remeron -) 15 mg PO HS [facility] Last Admin: 08/04/19 22:26 Dose: 15 mg Pantoprazole Sodium (Protonix -) 40 mg PO DAILY [facility] Last Admin: 06/04/19 09:39 Dose: 40 mg Gen: NAD at rest Heart: RRR Lung: scattered rhonchi Abd: soft, nontender Ext: no edema Laboratory Results - last 24 hr 06/04/19 06/04/19 06:02 06:02 WBC 7.4 RBC 3.58 L Hgb 8.7 L Hct 26.8 L MCV 74.9 L MCH 24.3 L MCHC 32.5 RDW 22.1 H Plt Count 297 MPV 9.2 Absolute Neuts (auto) 5.1 Neutrophils % 69.4 Lymphocytes % 14.6 Monocytes % 12.3 H Eosinophils % 3.3 Basophils % 0.4 Nucleated RBC % 0 Sodium 140 Potassium 3.8 Chloride 104 Carbon Dioxide 29 Anion Gap 7 L BUN 6.8 L Creatinine 0.7 Est GFR (CKD-EPI)AfAm 120.43 Est GFR (CKD-EPI)NonAf 103.90 Random Glucose 101 Calcium 9.4 Phosphorus 4.8 Magnesium 2.2 Total Bilirubin 0.4 AST 22 ALT 21 Alkaline Phosphatase 66 Total Protein 6.3 L Albumin 2.9 L Problem List - Problems (1) Colon cancer Code(s): C18.9 - MALIGNANT NEOPLASM OF COLON, UNSPECIFIED (2) HTN (hypertension) Code(s): I10 - ESSENTIAL (PRIMARY) HYPERTENSION (3) Metastatic colorectal cancer Code(s): C78.5 - SECONDARY MALIGNANT NEOPLASM OF LARGE INTESTINE AND RECTUM (4) Poor appetite Code(s): R63.0 - ANOREXIA A/P Metastatic Colon Cancer to Liver/Lung HTN UTI - Inhaled bronchodilators - continue antibiotics - CT chest findings likely chronic progression of disease - Supportive treatment,. will need continued chemotherapy at [facility] upon discharge - DVT prophylaxis Dr Tate
--- NOTE | 2019-06-04 12:26 | PN ---
Progress Note, Physician History of Present Illness: patient still feeling very weak says no strength pain in left lower quadrant still constipated - Current Medication List Current Medications: Active Medications Acetaminophen (Tylenol -) 650 mg PO Q6H PRN PRN Reason: PAIN 1-3 Last Admin: 06/03/19 12:33 Dose: 650 mg Albuterol Sulfate (Ventolin 0.083% Nebulizer Soln -) 1 amp NEB Q4H PRN PRN Reason: SHORT OF BREATH/WHEEZING Albuterol/Ipratropium (Duoneb -) 1 amp NEB RTID [facility] Last Admin: 06/04/19 07:35 Dose: Not Given Enoxaparin Sodium (Lovenox -) 40 mg SQ DAILY [facility] Last Admin: 06/04/19 09:39 Dose: 40 mg Gabapentin (Neurontin -) 300 mg PO DAILY [facility] Last Admin: 06/04/19 09:39 Dose: 300 mg Piperacillin Sod/Tazobactam (Sod 3.375 gm/ Dextrose) 50 mls @ 100 mls/hr IVPB Q8H-IV RUTH; Protocol Last Admin: 06/04/19 09:40 Dose: 100 mls/hr Lactated Ringer's (Lactated Ringers Solution) 1,000 mls @ 100 mls/hr IV ASDIR RUTH Last Admin: 06/04/19 01:49 Dose: 100 mls/hr Lorazepam (Ativan -) 2 mg PO TID PRN PRN Reason: ANXIETY Last Admin: 06/04/19 09:44 Dose: 2 mg Metoprolol Tartrate (Lopressor -) 25 mg PO DAILY [facility] Last Admin: 06/04/19 09:39 Dose: 25 mg Mirtazapine (Remeron -) 15 mg PO HS [facility] Last Admin: 06/03/19 22:26 Dose: 15 mg Pantoprazole Sodium (Protonix -) 40 mg PO DAILY [facility] Last Admin: 06/04/19 09:39 Dose: 40 mg - Objective Vital Signs: Vital Signs Temperature 98.2 F 06/04/19 09:36 Pulse Rate 107 H 06/04/19 09:36 Respiratory Rate 17 06/04/19 09:36 Blood Pressure 128/76 06/04/19 09:36 O2 Sat by Pulse Oximetry (%) 96 06/04/19 09:38 Constitutional: Yes: Calm, Mild Distress Cardiovascular: Yes: S1, S2 Respiratory: Yes: Regular, CTA Bilaterally Gastrointestinal: Yes: Soft, Tenderness (left lower quadrant) Musculoskeletal: Yes: WNL Extremities: Yes: WNL Neurological: Yes: Alert, Oriented Psychiatric: Yes: Alert, Oriented Labs: CBC, BMP 06/04/19 06:02 06/04/19 06:02 Assessment/Plan Problem List - Problems (1) Anxiety disorder Code(s): F41.9 - ANXIETY DISORDER, UNSPECIFIED Qualifiers: Anxiety disorder type: unspecified anxiety disorder Qualified Code(s): F41.9 - Anxiety disorder, unspecified (2) Colon cancer metastasized to multiple sites Code(s): C18.9 - MALIGNANT NEOPLASM OF COLON, UNSPECIFIED (3) Anemia Code(s): D64.9 - ANEMIA, UNSPECIFIED Qualifiers: Anemia type: other cause Other causes of anemia: chronic disease, neoplastic Qualified Code(s): D63.0 - Anemia in neoplastic disease (4) HTN (hypertension) Code(s): I10 - ESSENTIAL (PRIMARY) HYPERTENSION (5) Lung cancer Code(s): C34.90 - MALIGNANT NEOPLASM OF UNSP PART OF UNSP BRONCHUS OR LUNG (6) S/P lobectomy of lung Code(s): Z90.2 - ACQUIRED ABSENCE OF LUNG [PART OF] Assessment/Plan 48 y.o. female with PMH of Colon CA with metastasis to the liver s/p Lt hemicolectomy and resection, Lung CA s/p RLL lobectomy, s/p chemotherapy 03/2019 and RT x 5 rounds in 04/2019, anxiety, and HTN presenting with c/o SOB x 2wks, weakness, dysuria/suprapubic and flank pain. Leukocytosis - resolved UTI Lung CA s/p lobectomy with multiple pulmonary nodules - s/p recent chemotherapy/ RT Metastatic Colon CA s/p Lt hemicolectomy/ liver nodule resection Anxiety Depression all cx results noted will d/w the team
--- NOTE | 2019-06-04 13:18 | PN ---
Teaching Attending Note Name of Resident: Taras Nichols ATTENDING PHYSICIAN STATEMENT I saw and evaluated the patient. I reviewed the resident's note and discussed the case with the resident. I agree with the resident's findings and plan as documented with exceptions below. SUBJECTIVE: Patient seen and examined, feels better, chronic cough, no new respiratory symptoms. Denies any pain or urinary symptoms, no fevers/chills. OBJECTIVE: Vital Signs Period Temp Pulse Resp BP Sys/[facility] Pulse Ox Last 24 Hr 97.4 F-99.4 F 90-107 17-20 118-146/72-93 94-96 Intake & Output 06/01/19 06/02/19 06/03/19 06/04/19 23:59 23:59 23:59 23:59 Intake Total 1550 3200 1050 Balance 1550 3200 1050 Weight 198 lb 170 lb 12.8 oz General: sitting in bed, pleasant, smiling, no acute distress Chest: unchanged fine rales CVS:S1S2 regular Abdomen:Soft, NT throughout, ND, pos bowel sounds, no CVA or suprapubic tenderness Extremities: no edema Home Medications Medication Instructions Recorded Metoprolol Tartrate [Lopressor -] 25 mg PO DAILY 02/03/16 Pantoprazole Sodium [Protonix -] 40 mg PO DAILY #30 tablet.ec 02/06/16 LORazepam [Ativan] 2 mg PO BID MDD 3mg 11/18/16 Gabapentin 300 mg PO DAILY 04/25/19 Active Medications Acetaminophen (Tylenol -) 650 mg PO Q6H PRN PRN Reason: PAIN 1-3 Last Admin: 06/03/19 12:33 Dose: 650 mg Albuterol Sulfate (Ventolin 0.083% Nebulizer Soln -) 1 amp NEB Q4H PRN PRN Reason: SHORT OF BREATH/WHEEZING Albuterol/Ipratropium (Duoneb -) 1 amp NEB RTID [facility] Last Admin: 06/04/19 07:35 Dose: Not Given Enoxaparin Sodium (Lovenox -) 40 mg SQ DAILY [facility] Last Admin: 06/04/19 09:39 Dose: 40 mg Gabapentin (Neurontin -) 300 mg PO DAILY [facility] Last Admin: 06/04/19 09:39 Dose: 300 mg Piperacillin Sod/Tazobactam (Sod 3.375 gm/ Dextrose) 50 mls @ 100 mls/hr IVPB Q8H-IV [facility]; Protocol Last Admin: 06/04/19 09:40 Dose: 100 mls/hr Lactated Ringer's (Lactated Ringers Solution) 1,000 mls @ 100 mls/hr IV ASDIR [facility] Last Admin: 06/04/19 01:49 Dose: 100 mls/hr Lorazepam (Ativan -) 2 mg PO TID PRN PRN Reason: ANXIETY Last Admin: 06/04/19 09:44 Dose: 2 mg Metoprolol Tartrate (Lopressor -) 25 mg PO DAILY [facility] Last Admin: 06/04/19 09:39 Dose: 25 mg Mirtazapine (Remeron -) 15 mg PO HS [facility] Last Admin: 06/03/19 22:26 Dose: 15 mg Pantoprazole Sodium (Protonix -) 40 mg PO DAILY [facility] Last Admin: 06/04/19 09:39 Dose: 40 mg Laboratory Results - last 24 hr 06/04/19 06/04/19 06:02 06:02 WBC 7.4 RBC 3.58 L Hgb 8.7 L Hct 26.8 L MCV 74.9 L MCH 24.3 L MCHC 32.5 RDW 22.1 H Plt Count 297 MPV 9.2 Absolute Neuts (auto) 5.1 Neutrophils % 69.4 Lymphocytes % 14.6 Monocytes % 12.3 H Eosinophils % 3.3 Basophils % 0.4 Nucleated RBC % 0 Sodium 140 Potassium 3.8 Chloride 104 Carbon Dioxide 29 Anion Gap 7 L BUN 6.8 L Creatinine 0.7 Est GFR (CKD-EPI)AfAm 120.43 Est GFR (CKD-EPI)NonAf 103.90 Random Glucose 101 Calcium 9.4 Phosphorus 4.8 Magnesium 2.2 Total Bilirubin 0.4 AST 22 ALT 21 Alkaline Phosphatase 66 Total Protein 6.3 L Albumin 2.9 L Microbiology 06/02/19 15:45 Urine - Urine Clean Catch Urine Culture - Final NO GROWTH OBTAINED 06/02/19 00:42 Blood - Peripheral Venous Blood Culture - Preliminary NO GROWTH OBTAINED AFTER 48 HOURS, INCUBATION TO CONTINUE FOR 3 DAYS. 06/02/19 00:42 Blood - Peripheral Venous Blood Culture - Preliminary NO GROWTH OBTAINED AFTER 48 HOURS, INCUBATION TO CONTINUE FOR 3 DAYS. 06/02/19 11:15 Urine For Antigen Detection Legionella Antigen - Final 06/02/19 11:15 Urine For Antigen Detection Streptococcus pneumoniae Antigen (M - Final ASSESSMENT AND PLAN: 48 yof with PMHx of Colon ca 2013 s/p left hemicolectomy, Liver and lung mets 2017 s/p VATS RLL resection/chemotherapy, now with lung disease on Radiation in 04/2019, chemotherapy last in 03/2019, recently started on treatment for UTI, comes with abdominal pain, fatigue -SIRS, ?lower uncomplicated UTI, vs post obstructive PNA (less likely given no new pulmonary process) vs GB etiology (low suspicion) -Cavitary metastatic lung lessions on chemoradiation -?Left eye lid droop, none currently, CT brain -S/p VATS/RLL lobectomy -Colon Ca s/p left hemicolectomy -Generalized anxiety disorder -Major Depression/SI Plan: Zosyn day 3, afebrile. WBC normal. ID input noted. Urine cx neg, blood cx neg so far. Chronic cough with no new respiratory symptoms. NO abdominal concerns, tolerating diet well. CT brain neg, no active concerns, monitor for now. Psych input noted, 1;1 d/anne Continue ativan, PPI, gabapentin. resume metoprolol. Follow up 2D echo, PT eval. DVTPPX lovenox Dispo dc home in 24 hours if no new concerns pending above w/u Plan discussed with patient and nursing, all questions answered.
--- NOTE | 2019-06-04 13:54 | ECHO ---
Name: KARLA MORENO Exam:Adult Echocardiogram Study Date: 06/04/2019 08:42 AM Age: 48 yrs Reason For Study: PA COMPRESSION Height: 68 in Weight: 198 lb BSA: 2.0 m2 MMode/2D Measurements & Calculations IVSd: 0.91 cm Ao root diam: 2.0 cm LVIDd: 4.1 cm LA dimension: 2.2 cm LVIDs: 2.2 cm LVPWd: 0.91 cm EDV(Teich): 72.7 ml LVOT diam: 2.0 cm ESV(Teich): 16.2 ml LAV (MOD-bp): 28.3 ml Doppler Measurements & Calculations MV E max joes: 86.8 cm/sec Ao V2 max: 142.5 cm/sec MV A max jose: 112.0 cm/sec Ao max P.1 mmHg MV E/A: 0.77 AI P1/2t: 504.0 msec MV dec time: 0.14 sec KATARINA(V,D): 2.2 cm2 AI max jose: 156.1 cm/sec LV V1 max P.3 mmHg AI max P.7 mmHg LV V1 max: 103.3 cm/sec AI dec slope: 90.7 cm/sec2 TR max jose: 310.5 cm/sec PA V2 max: 88.2 cm/sec TR max P.6 mmHg PA max P.1 mmHg Med Peak E' Jose: 8.4 cm/sec PI Vmax: 150.7 cm/sec Med E/e': 10.4 Lat Peak E' Jose: 11.4 cm/sec Lat E/e': 7.6 Procedure A complete two-dimensional transthoracic echocardiogram was performed (2D, M-mode, Doppler and color flow Doppler). Left Ventricle The left ventricle is normal in size. Left ventricular systolic function is normal. Ejection Fraction = 65- 70%. No regional wall motion abnormalities noted. Right Ventricle The right ventricle is normal size. The right ventricular systolic function is normal. Atria The left atrial size is normal. LA volume index is 14 ml/m2. Right atrial size is normal. Mitral Valve The mitral valve is normal in structure and function. There is trace mitral regurgitation. Tricuspid Valve The tricuspid valve is normal in structure and function. There is mild tricuspid regurgitation. Pulmo nary artery systolic pressure is at least 46 mmHg assuming RA pressure of 3 mmHg. Aortic Valve The aortic valve is normal in structure and function. No aortic regurgitation is present. Pulmonic Valve The pulmonic valve is not well visualized. Trace pulmonic valvular regurgitation. Great Vessels The aortic root is normal size. Pericardium/Pleura There is no pericardial effusion. Interpretation Summary The left ventricle is normal in size. Left ventricular systolic function is normal. No regional wall motion abnormalities noted. Ejection Fraction = 65-70%. The right ventricular systolic function is normal. The left atrial size is normal. Right atrial size is normal. There is trace mitral regurgitation. There is mild tricuspid regurgitation. Pulmonary artery systolic pressure is at least 46 mmHg assuming RA pressure of 3 mmHg Trace pulmonic valvular regurgitation. There is no pericardial effusion. Previous study is not available for comparison Teddy Kennedy MD 06/04/2019 01:53 PM
[2019-06-04] MEDS: DOCUSATE SODIUM 100 MG CAPSULE (FP) PO SCH (18:21)
[2019-06-04] MEDS: POLYETHYLENE GLYCOL 3350 119 GM BTL PO SCH (21:13)
[2019-06-04] MEDS: MIRTAZAPINE 15 MG TABLET (FP) PO SCH (21:13)
[2019-06-05] MEDS ORDERED: DEXTROSE 5%-WATER - 50 ML IVPB ONE (02:02)
[2019-06-05] MEDS ORDERED: PIPERACILLIN/TAZOBACTAM 3.375 GM VIAL IVPB ONE (02:02)
[2019-06-05] MEDS: PIPERACILLIN/TAZOB 3.375 GM 3.375 GM in DEXTROSE 5%-WATER - 50 ML IVPB SCH (02:41)
[2019-06-05] MEDS: ALBUTEROL SO4 2.5/IPRATROPIUM 0.5 INH SOL 3 ML VIAL.NEB. NEB SCH (07:35)
[2019-06-05 07:44] LABS: BASO % 0.4 % (0-2.0); EOS % 2.9 % (0-4.5); HEMATOCRIT 28.2 % (32.4-45.2); HEMOGLOBIN 9.1 GM/dL (10.7-15.3); LYMPH % 16.3 % (8-40); MCH 24.2 pg (25.7-33.7); MCHC 32.1 g/dl (32.0-36.0); MEAN CELL VOLUME 75.2 fl (80-96); MONO % 12.5 % (3.8-10.2); NEUT % 67.9 % (42.8-82.8); PLATELET COUNT 302 K/MM3 (134-434); RBC 3.76 M/mm3 (3.60-5.2); RDW 22.7 % (11.6-15.6)
[2019-06-05 09:20] VITALS: BP 121/74; PULSE 93; TEMP 98.5
--- NOTE | 2019-06-05 09:45 | DS ---
Physical Exam: SUBJECTIVE: Patient seen and examined, no pain or complaints. OBJECTIVE: Vital Signs Period Temp Pulse Resp BP Sys/[facility] Pulse Ox Last 24 Hr 98.4 F-99.6 F 88-110 17-20 110-135/67-90 100 PHYSICAL EXAM General: sitting in bed, pleasant, smiling, no acute distress Chest: unchanged fine rales CVS:S1S2 regular Abdomen:Soft, NT throughout, ND, pos bowel sounds, no CVA or suprapubic tenderness Extremities: no edema Psych: sleeping but arousable, appropriate, no SI HEENT: PERRL, EOMI Neck: soft, supple, no JVD LABS Laboratory Results - last 24 hr 06/05/19 06:15 WBC 7.0 RBC 3.76 Hgb 9.1 L Hct 28.2 L MCV 75.2 L MCH 24.2 L MCHC 32.1 RDW 22.7 H Plt Count 302 MPV 9.0 Absolute Neuts (auto) 4.7 Neutrophils % 67.9 Lymphocytes % 16.3 Monocytes % 12.5 H Eosinophils % 2.9 Basophils % 0.4 Nucleated RBC % 0 Microbiology 06/02/19 00:42 Blood - Peripheral Venous Blood Culture - Preliminary NO GROWTH OBTAINED AFTER 72 HOURS, INCUBATION TO CONTINUE FOR 2 DAYS. 06/02/19 00:42 Blood - Peripheral Venous Blood Culture - Preliminary NO GROWTH OBTAINED AFTER 72 HOURS, INCUBATION TO CONTINUE FOR 2 DAYS. 06/02/19 15:45 Urine - Urine Clean Catch Urine Culture - Final NO GROWTH OBTAINED 06/02/19 11:15 Urine For Antigen Detection Legionella Antigen - Final 06/02/19 11:15 Urine For Antigen Detection Streptococcus pneumoniae Antigen (M - Final CTA Chest: No discrete pulmonary embolus is noted. In comparison to a prior CT study of interval development of very numerous bilateral upper and lower lobe pulmonary masses/nodules is noted with a maximum diameter of 4.7 cm. Several of the left lower lobe pulmonary nodules demonstrate central cavitation. Development of mediastinal and right hilar lymphadenopathy is noted. There is resultant compression and narrowing of the right lower lobe bronchus and right pulmonary artery. As on the prior study the patient is status post right lower lobe resection. Left upper lobe surgical sutures are seen. Development of a 1.7 cm right hepatic lobe hypodense lesion is seen presumably on the basis of neoplastic disease. Surgical clips are again noted along the right hepatic lobe superiorly. No infiltrate or pleural effusion is identified. There is no definite cardiac enlargement. No pericardial effusion is seen. A medical port catheter is seen in place with the catheter tip within the superior vena cava. The osseous structures demonstrate no gross CT evidence of acute pathology or neoplastic disease. Note is again made of a 3 cm hypodense nodule within the partially imaged left thyroid lobe. Impression: No CT evidence of pulmonary embolism. In comparison to a 2017 CT study note is made of development of very numerous bilateral upper and lower lobe pulmonary masses/nodules. Several of the left lower lobe pulmonary nodules demonstrate central cavitation. Development of confluent mediastinal and right hilar lymphadenopathy is also noted with associated compression and narrowing of the right lower lobe bronchus and right pulmonary. A 1.7 cm right hepatic lobe lesion is seen. US abdomen: Right upper abdomen ultrasound. The liver measures 13.5 cm in sagittal length with a slightly coarse echotexture. Gallbladder is adequately distended with intraluminal stones the largest measuring 1.2 cm seen in the gallbladder neck region without wall thickening or pericholecystic free fluid. No intra or extrahepatic bile duct dilatation is seen. The right kidney measures 11.5 cm sagittal length and appears unremarkable. Nonvisualization of the pancreas. Visualized portion of the proximal abdominal aorta and inferior vena cava appear unremarkable. Normal flow in the main portal vein. There is suggestion of a trace of right pleural effusion IMPRESSION: Gallstones without sonographic evidence of acute cholecystitis. Correlate clinically to determine further evaluation. Slightly coarse echotexture of the liver. Please correlate with liver enzymes to rule out mild fatty infiltration. Nonvisualization of the pancreas likely due to overlying bowel gas. There is suggestion of a small right pleural effusion. CT head: CT scan of the brain without intravenous contrast. Compared to prior CT scan of the head dated 06/24/2013 The ventricles and basal cisterns appear unremarkable. No mass lesion, gross acute infarct or intracranial hemorrhage are identified. Both orbits appear unremarkable. There is no shift of the midline structures. The craniocervical junction appears unremarkable. Normal size pituitary gland. Visualized paranasal sinuses and mastoid air cells are well-aerated. The calvarium is intact. Impression: HOSPITAL COURSE: Date of Admission:06/01/19 Date of Discharge: 06/05/19 Minutes to complete discharge: 40 Discharge Summary Reason For Visit: FATIGUE,SHORTNESS OF BREATH,BACK PAIN Current Active Problems Anemia (Acute) Anxiety disorder (Chronic) Colon cancer metastasized to multiple sites (Chronic) Depressed (Chronic) Metastatic colorectal cancer (Chronic) Pain (Chronic) Poor appetite (Chronic) S/P lobectomy of lung (Chronic) Hospital Course: 48 yof with PMHx of Colon ca 2013 s/p left hemicolectomy, Liver and lung mets 2017 s/p VATS RLL resection/chemotherapy, now with lung disease on Radiation in 04/2019, chemotherapy last in 03/2019, recently started on treatment for UTI, comes with abdominal pain, fatigue. She had CTA chest with numerous bilateral mass/nodules with cavitation, which were known findings per discussion with Physicians at [facility]. Her respiratory status was stable with no new concerns. She had abdominal US and CT head as above. She was seen by infectious disease and emperically placed on zosyn for suspected UTI. Her urine cultures were negative and her symptoms resolved. She was ambulating well with physical therapy and had 2D echo with normal LV functin, EF 65-70% and pulmonary artery systolic pressure 46 mm hg. She also expressed suicidal ideation, was on 1:1 watch, seen by psychiatry and deemed not suicidal. She will be discharged in stable condition with outpatient follow up with PCP, oncology. Condition: Stable - Instructions Diet, Activity, Other Instructions: you presentes to the hospital due to uirnary symptoms , Urine analysis and urine culture come back negative Please follow up with your oncology within one week Please follow up with Dr Tate Lung Doctor within one week Please resume all home meds as before admission Please return to the hospital if you develop fever, chills,chest pain Sever pain or your symptoms worsen Referrals: Vic Tate MD [Staff Physician] - Hu Andrade MD [Staff Physician] - Disposition: HOME - Home Medications Comprehensive Discharge Medication List: Ambulatory Orders Metoprolol Tartrate [Lopressor -] 25 mg PO DAILY 02/03/16 Pantoprazole Sodium [Protonix -] 40 mg PO DAILY #30 tablet.ec 02/06/16 LORazepam [Ativan] 2 mg PO BID MDD 3mg 11/18/16 Gabapentin 300 mg PO DAILY 04/25/19 This patient is new to me today: No Emergency Visit: Yes ED Registration Date: 06/01/19 Care time: The patient presented to the Emergency Department on the above date and was hospitalized for further evaluation of their emergent condition. Critical Care patient: No - Discharge Referral Referred to [facility] Med P.C.: No
--- NOTE | 2019-06-05 09:59 | PN ---
Progress Note (short form) - Note Progress Note: Resting in NAD. No acute events overnight. Breathing overall better. Intake & Output 06/02/19 06/03/19 06/04/19 06/05/19 23:59 23:59 23:59 23:59 Intake Total 1550 3200 1670 Balance 1550 3200 1670 Weight 170 lb 12.8 oz 170 lb 8 oz Last Vital Signs Temp Pulse Resp BP Pulse Ox 98.5 F 93 H 17 121/74 100 06/05/19 09:18 06/05/19 09:18 06/05/19 09:18 06/05/19 09:18 06/04/19 21:00 Active Medications Acetaminophen (Tylenol -) 650 mg PO Q6H PRN PRN Reason: PAIN 1-3 Last Admin: 06/03/19 12:33 Dose: 650 mg Albuterol Sulfate (Ventolin 0.083% Nebulizer Soln -) 1 amp NEB Q4H PRN PRN Reason: SHORT OF BREATH/WHEEZING Albuterol/Ipratropium (Duoneb -) 1 amp NEB RTID [facility] [place] Last Admin: 06/05/19 07:35 Dose: Not Given Docusate Sodium (Colace -) 100 mg PO DAILY [facility] [place] Last Admin: 06/04/19 18:21 Dose: 100 mg Enoxaparin Sodium (Lovenox -) 40 mg SQ DAILY [facility] [place] Last Admin: 06/04/19 09:39 Dose: 40 mg Gabapentin (Neurontin -) 300 mg PO DAILY [facility] [place] Last Admin: 06/04/19 09:39 Dose: 300 mg Lorazepam (Ativan -) 2 mg PO TID PRN PRN Reason: ANXIETY Last Admin: 06/04/19 21:13 Dose: 2 mg Metoprolol Tartrate (Lopressor -) 25 mg PO DAILY [facility] [place] Last Admin: 06/04/19 09:39 Dose: 25 mg Mirtazapine (Remeron -) 15 mg PO HS [facility] [place] Last Admin: 06/04/19 21:13 Dose: 15 mg Pantoprazole Sodium (Protonix -) 40 mg PO DAILY [facility] [place] Last Admin: 06/04/19 09:39 Dose: 40 mg Polyethylene Glycol (Miralax (For Daily Use) -) 17 gm PO BID [facility] [place] Last Admin: 06/04/19 21:13 Dose: 17 grams Gen: NAD at rest Heart: RRR Lung: scattered rhonchi Abd: soft, nontender Ext: no edema Laboratory Results - last 24 hr 06/05/19 06:15 WBC 7.0 RBC 3.76 Hgb 9.1 L Hct 28.2 L MCV 75.2 L MCH 24.2 L MCHC 32.1 RDW 22.7 H Plt Count 302 MPV 9.0 Absolute Neuts (auto) 4.7 Neutrophils % 67.9 Lymphocytes % 16.3 Monocytes % 12.5 H Eosinophils % 2.9 Basophils % 0.4 Nucleated RBC % 0 Problem List - Problems (1) Colon cancer Code(s): C18.9 - MALIGNANT NEOPLASM OF COLON, UNSPECIFIED (2) HTN (hypertension) Code(s): I10 - ESSENTIAL (PRIMARY) HYPERTENSION (3) Metastatic colorectal cancer Code(s): C78.5 - SECONDARY MALIGNANT NEOPLASM OF LARGE INTESTINE AND RECTUM (4) Poor appetite Code(s): R63.0 - ANOREXIA A/P Metastatic Colon Cancer to Liver/Lung HTN UTI - Inhaled bronchodilators PRN - continue antibiotics - CT chest findings likely chronic progression of disease - Supportive treatment,. will need continued chemotherapy at [facility] upon discharge - DVT prophylaxis - D/C planning Dr Tate
[2019-06-05] MEDS: PANTOPRAZOLE 40 MG TABLET (FP) PO SCH (10:06)
[2019-06-05] MEDS: METOPROLOL TARTRATE 25 MG TABLET (FP) PO SCH (10:06)
[2019-06-05] MEDS: GABAPENTIN 300 MG CAPSULE (FP) PO SCH (10:06)
[2019-06-05] MEDS: DOCUSATE SODIUM 100 MG CAPSULE (FP) PO SCH (10:06)
[2019-06-05] MEDS: LORazepam 1 MG TABLET PO PRN (10:06)
[2019-06-05] MEDS: POLYETHYLENE GLYCOL 3350 119 GM BTL PO SCH (10:07)
[2019-06-05] MEDS: ENOXAPARIN NA (PORCINE) 40 MG/0.4 ML DISP.SYRIN SQ SCH (10:07)
[2019-06-05 11:21] LABS: ANISOCYTOSIS 2+; MACROCYTOSIS 0; PLATELET ESTIMATE NORMAL; TEAR DROP CELLS 1+
== END 2019-06-05 10:59 | disposition home or self-care (01) | DRG 872 ==
LOC: JER 15:47 → JERBED 21:51 → J6S 06-02 02:41 → J7W 06-03 16:51
PROVIDERS: ADMIT Internal Medicine; ATTEND Hospitalist
DX: A41.9 Sepsis, unspecified organism (principal); C18.9 Malignant neoplasm of colon, unspecified; C78.7 Secondary malignant neoplasm of liver and intrahepatic bile duct; C78.00 Secondary malignant neoplasm of unspecified lung; N39.0 Urinary tract infection, site not specified; R63.0 Anorexia; D64.9 Anemia, unspecified; F41.8 Other specified anxiety disorders; I10 Essential (primary) hypertension; D72.829 Elevated white blood cell count, unspecified; R00.0 Tachycardia, unspecified
CPT/HCPCS: 36415; 70450-TC; 71275-TC; 76705-TC; 80053; 80307; 81003; 82550; 82607; 82728; 82746; 83540; 83550; 83735; 84100; 84443; 84484; 84703; 85025; 85027; 85044; 85379; 87040; 87086; 87899; 93005; 93010; 93306-TC; 94640; 97116-GP; 97161-GP; 99284-25; J7030; Q9967

== ENCOUNTER 2019-08-10 07:57 | Inpatient (IN) | payer OTHER, BC ==
--- NOTE | 2019-08-10 08:19 | PDOC ---
Attending Attestation - Resident Resident Name: JayeshCara - ED Attending Attestation I have performed the following: I have examined & evaluated the patient, The case was reviewed & discussed with the resident, I agree w/resident's findings & plan, Exceptions are as noted - HPI HPI: 08/10/19 08:19 48y F hx of htn, colon ca s/p resection (2013 w/ mets to liver s/p resection in 2013, mets to lung s/ RLL lobectomy) presents to the ED for evaluation of sob and worsening cough. The patient notes she usually uses an o2 concentrator set at 5 during the day, however yesteday she felt that that wasnt sufficient. Per patient she recenly went to [facility] and had a CXR and a CT and was started on abx for pna, endorses worsening cough productive of yellow/greenish sputum and sob w palpitations, n/v, chills/sweats starting yesterday. PMD: Dr. Erickson - Physicial Exam PE: 08/10/19 08:28 GENERAL: The patient is awake, alert, HEAD: Normocephalic, atraumatic. EYES: extraocular movements intact, sclera anicteric, conjunctiva clear. ENT: Normal voice, Moist mucous membranes. NECK: Normal range of motion, supple LUNGS: b/l scattered wheezing, lightly tachypnic HEART: tachycardic, regular ABDOMEN: Soft, nontender, No guarding, no rebound. No CVA tenderness EXTREMITIES: Normal range of motion, no edema. NEUROLOGICAL: No facial assymetry, Normal speech PSYCH: l anxious appearing SKIN: Warm,Normal mood, normal turgor, large tender mass on R upper back measuring aound 5x5cm - Critical Care Time Total Critical Care Time: 35 Critical Care Statement: The care of this patient involved high complexity decision making to prevent further life threatening deterioration of the patient 's condition and/or to evaluate & treat vital organ system(s) failure or risk of failure. - Medical Decision Making 08/10/19 08:30 ap, 49y F hx of metastatic colon ca, recent dx of pna on abx, presents with acute onset sob, tachycardic - consider possible worsening pna, pulmonary embolism, anxiety pt notes she did nt take her morning metoprolol - was ercently increased to 50mg from 25 due to her tachycardia - will give her her morning dose raymond obtain blood work, cxr, anticipate advanced imaging including CTA 08/10/19 10:30 Pt persistently sob/tachypneic - states she feels sob even on 15L of NRB pt given anxiolytic 08/10/19 12:52 cta noted for worsening cancer burden. I suspect this may be the cause of the pts SOB. will admit for furthe mangaement Heart Score/ECG Review - ECG Impressions Comment:: 08/10/19 09:01 Twelve-lead EKG was performed and reviewed by me. There is normal sinus rhythm with rate of [address] changes suggestive of acute ischemia Impression sinus tachycardia
[2019-08-10] MEDS ORDERED: ALBUTEROL SO4 2.5/IPRATROPIUM 0.5 INH SOL 3 ML VIAL.NEB. NEB ONE ×2 (08:25→08:40)
[2019-08-10] MEDS ORDERED: FAMOTIDINE 20 MG/50 ML IVPB 20 MG/50 ML MG IVPB ONE ×2 (08:36→09:35)
[2019-08-10] MEDS ORDERED: METOCLOPRAMIDE HCL INJECTION 10 MG/2 ML VIAL IVPB ONE (08:36)
--- NOTE | 2019-08-10 08:46 | PDOC ---
History of Present Illness - General Chief Complaint: Chest Pain Stated Complaint: CHEST PAIN, DIFFICULTY BREATHING Time Seen by Provider: 08/10/19 08:15 History Source: Patient Exam Limitations: No Limitations - History of Present Illness Initial Comments: 08/10/19 08:33 49YOF with complex PMH of metastatic colon cancer (with mets to lungs and pulmonary necrosis now s/p lobectomy), recent PNA, recent visit at [facility] with respiratory distress, hypercalcemia of malignancy, UTI, depression , and anxiety who was BIBEMS for respiratory distress and substernal chest pain radiating to the right posterior chest, all worsening since last night despite DuoNebs at home. She additionally notes nausea and a few episodes of vomiting clear emesis. She notes having been discharged from [facility] recently, states she had a CXR and chest CT showing PNA, but otherwise is unable to provide information about that visit. Past History - Past Medical History Allergies/Adverse Reactions: Allergies Allergy/AdvReac Type Severity Reaction Status Date / Time latex Allergy Severe Itching Verified 08/10/19 08:15 carrot Allergy Verified 08/10/19 08:15 nut - unspecified Allergy Verified 08/10/19 08:15 Sulfa (Sulfonamide AdvReac generalized Verified 08/10/19 08:15 Antibiotics) weakness Home Medications: Ambulatory Orders Metoprolol Tartrate [Lopressor -] 50 mg PO DAILY 02/03/16 Pantoprazole Sodium [Protonix -] 40 mg PO DAILY #30 tablet.ec 02/06/16 LORazepam [Ativan] 1 mg PO TID PRN MDD 3mg 11/18/16 Docusate Sodium 100 mg PO TID 08/10/19 Mirtazapine [Remeron -] 30 mg PO HS 08/10/19 Quetiapine Fumarate [Quetiapine Fumarate ER] 50 mg PO HS 08/10/19 Sennosides [Senna] 8.6 mg PO DAILY 08/10/19 Anemia: Yes Asthma: No Cancer: Yes (Metastatic Colon) Cardiac Disorders: Yes (tachycardia) CVA: No COPD: No CHF: No Dementia: No Diabetes: No GI Disorders: Yes (GERD) Disorders: No HTN: No Hypercholesterolemia: No Liver Disease: Yes (Liver metastasis) Psychiatric Problems: Yes (ANXIETY) Seizures: No Thyroid Disease: No Lung CA: Yes (bilateral lung) - Surgical History Abdominal Surgery: Yes (Colon resection (2013), liver resection (2014)) Appendectomy: No Cardiac Surgery: No Cholecystectomy: No GI Surgery: Yes (COLON CA-SURGERY 09/11/2014) Lung Surgery: Yes (thoracoscopy 12/2015) Neurologic Surgery: No Orthopedic Surgery: No - Immunization History Immunization Up to Date: Yes - Psycho Social/Smoking Cessation Hx Smoking Status: No Smoking History: Unknown if ever smoked Have you smoked in the past 12 months: No Number of Cigarettes Smoked Daily: 0 Information on smoking cessation initiated: No Hx Alcohol Use: No Drug/Substance Use Hx: No Substance Use Type: None Hx Substance Use Treatment: No Cardiac Specific PMH - Complaint Specific PMHX Pacemaker: No Review of Systems - Review of Systems Able to Perform ROS?: Yes Comments:: 08/10/19 09:44 GEN: generalized weakness, malaise, no fever, chills, night sweats, or unintentional weight change HEENT: no ear pain, congestion, sore throat, rhinorrhea, nosebleed, vision change, or eye pain CV: chest pain, palpitations, lightheadedness, no syncope, edema, or exercise intolerance RESP: wheezing, SOB GI: nausea, vomiting, no abdominal pain, diarrhea, constipation, appetite change , or white/black/bloody stool : no dysuria, hematuria, frequency, incontinence, retention, pruritis, bleeding, or discharge MSK: no muscle weakness or pain, no muscle wasting, no joint swelling or pain NEURO: no headache, seizure, vertigo, imbalance, numbness, tingling, focal weakness, or difficulty walking/talking PSYCH: no insomnia, behavior change, SI, HI, or substance use SKIN: no prutitis, excessive dryness, jaundice, rash, cuts, or unexplained bruises ROS otherwise negative except as noted in HPI *Physical Exam - Vital Signs Last Vital Signs Temp Pulse Resp BP Pulse Ox 98.5 F 128 H 20 157/122 H 100 08/15/19 19:10 08/15/19 19:10 08/15/19 19:10 08/15/19 19:10 08/15/19 09:00 - Physical Exam Comments: 08/10/19 09:45 GENERAL: very anxious-appearing, A/Ox4, mild-moderate distress, answers questions appropriately, speaking full sentences, at bedside HEENT: PERRLA, EOMI, moist mucous membranes NECK/BACK: no midline ttp, no spinal stepoff or deformity, no hematoma, full ROM , neck supple CARDIOVASCULAR: regular rate/rhythm, normal S1S2, no MGR, strong peripheral pulses, capillary refill <2 seconds, extremities wwp, no edema CHEST WALL: posterior scars from prior surgery, there is a raised area of firm tissue overlying the right scapula (scar tissue?) which is large and raised about 8 cm at center and has about 14 cm diameter LUNGS/RESPIRATORY: mild respiratory distress, b/l expiratory wheezes and rhonchi , decreased breath sounds LLL GI/ABDOMEN: symmetric [id number], normoactive BS, soft, no ttp, no midline pulsatile masses : no CVA tenderness EXTREMITIES: no muscle atrophy, no acute deformity SKIN: warm and dry, no pallor, no jaundice, no rash, no bruising, no skin breakdown, no cuts, no lesions NEUROLOGICAL: GCS 15, CN II-XII grossly intact, 5/5 strength proximally and distally, no facial droop Heart Score/ECG Review - History History: Moderately suspicious - Electrocardiogram EKG: Normal - Age Age: 45-65 - Risk Factors Based on the list above the patient has:: No risk factors known - Troponin Troponin: </= normal limit - Score Heart Score - Total: 2 #1 Sinus tachycardia, rate 123, normal axis and intervals, right atrial enlargement , no ischemic ST-T changes ED Treatment Course - LABORATORY CBC & Chemistry Diagram: 08/14/19 06:30 08/11/19 07:45 - ADDITIONAL ORDERS Additional order review: 08/10/19 09:00 RBC 3.77 MCV 79.9 L MCHC 31.9 L RDW 20.0 H MPV 8.4 Neutrophils % 75.0 Lymphocytes % 12.7 D Monocytes % 10.8 H Eosinophils % 1.2 Basophils % 0.3 - RADIOLOGY Radiology Studies Ordered: Category Date Time Status CHEST CTA [CT] Stat CT Scan 08/10/19 09:34 Completed Radiograph Interpretation: EXAM#: TYPE/EXAM: RESULT: [id number] CT/CHEST CTA Rule out a pulmonary embolus. IMPRESSION: Diffuse bilateral lung confluent metastasis that have significantly worsened since the prior examination, as described above. Confluent metastasis is involving both latisha and significantly encasing the vessels and bronchi in the right lower lobe. Hypodense mass in the left thyroid lobe measuring 2 cm. Faintly visualized hypodense foci in the liver for which further evaluation is needed to rule out metastasis. There is also heterogeneous enhancement of the spleen with multiple low attenuation foci. Although this may be at least partially due to rapid intravenous contrast injection, further evaluation is needed rule out metastasis. Visualized osseous structures appear grossly intact. Reported By: Glen Garduno MD 08/10/19 11:58 - Medications Given in the ED: ED Medications Discontinued Medications Generic Name Dose Route Start Last Admin Trade Name Freq PRN Reason Stop Dose Admin Albuterol/Ipratropium 2 amp 08/10/19 08:25 08/10/19 08:45 Duoneb - NEB 08/10/19 08:26 2 amp ONCE ONE Administration Albuterol/Ipratropium 1 amp 08/10/19 16:00 08/15/19 14:10 Duoneb - NEB 1 amp RQID RUTH Administration Guaifenesin 10 ml 08/13/19 00:39 08/13/19 01:08 Robitussin - PO 08/13/19 00:40 10 ml ONCE ONE Administration Guaifenesin 10 ml 08/13/19 23:07 08/13/19 23:18 Robitussin - PO 08/13/19 23:08 10 ml ONCE ONE Administration Guaifenesin 10 ml 08/14/19 21:40 08/14/19 22:08 Robitussin - PO 08/14/19 21:41 10 ml ONCE ONE Administration Famotidine/Sodium Chloride 20 mg in 50 mls @ 100 mls/hr 08/10/19 08:36 09:45 Pepcid 20 Mg Premixed Ivpb - IVPB 08/10/19 09:05 100 mls/hr ONCE ONE Administration Azithromycin 500 mg/ Dextrose 250 mls @ 250 mls/hr 08/10/19 12:53 08/10/19 15 :36 IVPB 08/10/19 13:52 250 mls/hr ONCE ONE Administration Piperacillin Sod/Tazobactam 100 mls @ 200 mls/hr 08/10/19 12:53 08/10/19 15: 00 Sod 4.5 gm/ Dextrose IVPB 08/10/19 13:22 200 mls/hr ONCE ONE Administration Protocol Sodium Chloride 1,000 mls @ 100 mls/hr 08/10/19 14:45 08/13/19 08:48 Normal Saline - IV 100 mls/hr ASDIR RUTH Administration Vancomycin HCl 1,000 mg/ 250 mls @ 166.667 mls/hr 08/11/19 10:00 08/11/19 12: 03 Dextrose IVPB 08/11/19 11:29 Not Given ONCE ONE Protocol Piperacillin Sod/Tazobactam 100 mls @ 200 mls/hr 08/10/19 19:00 08/12/19 01: 03 Sod 4.5 gm/ Dextrose IVPB Not Given Q6H-IV RUTH Protocol Piperacillin Sod/Tazobactam 100 mls @ 200 mls/hr 08/10/19 21:00 08/11/19 14: 58 Sod 4.5 gm/ Dextrose IVPB 08/11/19 20:59 200 mls/hr Q6H-IV RUTH Administration Protocol Vancomycin HCl 1,000 mg in 250 mls @ 166.667 mls/hr 08/11/19 11:01 08/11/19 11:33 Vancomycin (Pre-Docked) IVPB 08/11/19 11:29 166.667 mls/hr ONCE ONE Administration Protocol Lorazepam 0.5 mg 08/10/19 08:37 08/10/19 09:05 Ativan Injection - IVPUSH 08/10/19 08:38 0.5 mg ONCE ONE Administration Lorazepam 1 mg 08/10/19 14:38 08/12/19 04:55 Ativan - PO 1 mg TID PRN Administration ANXIETY Lorazepam 0.5 mg 08/10/19 15:04 08/10/19 16:31 Ativan Injection - IVPUSH 08/10/19 15:05 Not Given ONCE ONE Methylprednisolone Sodium Succinate 125 mg 08/10/19 14:38 08/10/19 17:41 Solu-Medrol - IVPUSH 08/10/19 14:39 125 mg ONCE ONE Administration Metoclopramide HCl 10 mg 08/10/19 08:36 08/10/19 09:10 Reglan Injection - IVPB 08/10/19 08:37 10 mg ONCE ONE Administration Metoprolol Tartrate 50 mg 08/10/19 09:13 08/10/19 09:40 Lopressor - PO 08/10/19 09:14 50 mg ONCE ONE Administration Metoprolol Tartrate 25 mg 08/12/19 21:19 08/12/19 21:25 Lopressor - PO 08/12/19 21:20 25 mg ONCE ONE Administration Morphine Sulfate 4 mg 08/10/19 09:13 08/10/19 10:32 Morphine Injection - IVPUSH 08/10/19 09:14 Not Given ONCE ONE Morphine Sulfate 2 mg 08/10/19 09:53 08/10/19 10:23 Morphine Injection - IVPUSH 08/10/19 09:54 2 mg ONCE ONE Administration Morphine Sulfate 2 mg 08/10/19 15:04 08/10/19 16:31 Morphine Injection - IVPUSH 08/10/19 15:05 Not Given ONCE ONE Morphine Sulfate 1 mg 08/10/19 16:28 08/14/19 21:33 Morphine Sulfate IVPUSH 1 mg Q4H PRN Administration PAIN LEVEL 7 - 10 Morphine Sulfate 1 mg 08/14/19 21:26 08/14/19 21:38 Morphine Sulfate IVPUSH 08/14/19 21:27 Not Given ONCE ONE Morphine Sulfate 1 mg 08/15/19 11:00 08/15/19 11:14 Morphine Sulfate IM 08/15/19 11:01 1 mg ONCE ONE Administration Morphine Sulfate 1 mg 08/15/19 14:46 08/15/19 15:48 Morphine Sulfate IM 08/15/19 14:47 1 mg ONCE ONE Administration Ondansetron HCl 4 mg 08/10/19 15:05 08/10/19 17:41 Zofran Injection IVPUSH 08/10/19 15:06 4 mg ONCE ONE Administration Medical Decision Making - Medical Decision Making 08/10/19 08:49 49YOF with active metastatic malignancy p/w respiratory distress, chest pain, palpitations, nausea. Initial Vital Signs Temp Pulse Resp BP Pulse Ox 98.4 F 123 H 26 H 139/88 100 08/10/19 08:00 08/10/19 08:00 08/10/19 08:00 08/10/19 08:00 08/10/19 08:00 Repeat SpO2 on RA at 08:45 is 78% at which time she is immediately placed back on supplemental O2 with DuoNeb. Exam: As noted in Physical Exam section. DDX IBNLT: There is a likelihood that this may be d/t PE, also possibly could be 2/2 CHF, arrhythmia, metabolic derangement, PNA, bronchitis, viral URI, influenza, asthma/COPD, PTX, ACS, pericarditis, likely anxiety component but unlikely to be completely d/t anxiety given the patient's vitals and history. W/U ordered: CBCD CMP Mg Phos CXR EKG TX ordered: DuoNebs, Reglan, Pepcid, small dose ativan EKG: Reviewed; results as noted in ECG Review section. Laboratory Tests 08/10/19 08/10/19 08/10/19 09:00 09:00 09:00 WBC 14.6 H RBC 3.77 Hgb 9.6 L Hct 30.1 L MCV 79.9 L MCH 25.5 L MCHC 31.9 L RDW 20.0 H Plt Count 448 H D MPV 8.4 Absolute Neuts (auto) 11.0 H Neutrophils % 75.0 Lymphocytes % 12.7 D Monocytes % 10.8 H Eosinophils % 1.2 Basophils % 0.3 Nucleated RBC % 0 PT with INR INR Sodium 135 L Potassium 3.9 Chloride 100 Carbon Dioxide 28 Anion Gap 8 BUN 11.0 Creatinine 0.5 L Est GFR (CKD-EPI)AfAm 133.58 Est GFR (CKD-EPI)NonAf 115.25 Random Glucose 115 H Calcium 9.5 Phosphorus 4.0 Magnesium 1.7 L Total Bilirubin 0.3 AST 36 ALT 17 Alkaline Phosphatase 96 Creatine Kinase 92 Troponin I < 0.02 B-Natriuretic Peptide 33.5 Total Protein 7.3 Albumin 3.1 L Lipase 85 TSH 0.43 Serum , Qual Blood Type Antibody Screen 08/10/19 08/10/19 08/10/19 09:00 09:00 09:00 WBC RBC Hgb Hct MCV MCH MCHC RDW Plt Count MPV Absolute Neuts (auto) Neutrophils % Lymphocytes % Monocytes % Eosinophils % Basophils % Nucleated RBC % PT with INR 14.50 H INR 1.23 H Sodium Potassium Chloride Carbon Dioxide Anion Gap BUN Creatinine Est GFR (CKD-EPI)AfAm Est GFR (CKD-EPI)NonAf Random Glucose Calcium Phosphorus Magnesium Total Bilirubin AST ALT Alkaline Phosphatase Creatine Kinase Troponin I B-Natriuretic Peptide Total Protein Albumin Lipase TSH Serum , Qual Negative Blood Type O POSITIVE Antibody Screen Negative Reassessment: Patient appears improved, still on O2 via nonrebreather. The Pts symptoms persist despite ED treatments. The Pt has status asthmaticus and is not safe for discharge home from the ED. High for life-threatening complications (arrhythmia 2/2 hypoxia, tension PTX, decreased venous return). They require further hospital observation, workup, and treatment. Microblog sent to [facility] for admission. Blank Decision to Admit order is placed per ED protocol. Discharge - Discharge Information Problems reviewed: Yes Clinical Impression/Diagnosis: Respiratory distress, Colon cancer metastasized to multiple sites Pneumonia Qualifiers: Pneumonia type: due to unspecified organism Laterality: unspecified laterality Lung location: unspecified part of lung Qualified Code(s): J18.9 - Pneumonia, unspecified organism Condition: Guarded - Admission Yes - Follow up/Referral - Patient Discharge Instructions - Post Discharge Activity
[2019-08-10] MEDS ORDERED: LORazepam 2 MG/ML SDV VIAL ONE (08:57)
[2019-08-10] MEDS ORDERED: METOCLOPRAMIDE HCL INJECTION 10 MG/2 ML VIAL ONE (08:57)
[2019-08-10] MEDS ORDERED: METOPROLOL TARTRATE 50 MG TABLET (FP) PO ONE (09:13)
[2019-08-10] MEDS ORDERED: morphine CARPU-JECT 4 MG/1 ML DISP.SYRIN IVPUSH ONE (09:13)
[2019-08-10 09:30] LABS: BASO % 0.3 % (0-2.0); EOS % 1.2 % (0-4.5); HEMATOCRIT 30.1 % (32.4-45.2); HEMOGLOBIN 9.6 GM/dL (10.7-15.3); LYMPH % 12.7 % (8-40); MCH 25.5 pg (25.7-33.7); MCHC 31.9 g/dl (32.0-36.0); MEAN CELL VOLUME 79.9 fl (80-96); MEAN PLT VOLUME 8.4 fl (7.5-11.1); MONO % 10.8 % (3.8-10.2); PLATELET COUNT 448 K/MM3 (134-434); RBC 3.77 M/mm3 (3.60-5.2); WHITE BLOOD COUNT 14.6 K/mm3 (4.0-10.0)
[2019-08-10] MEDS ORDERED: METOPROLOL TARTRATE 50 MG TABLET (FP) ONE (09:35)
[2019-08-10] MEDS ORDERED: morphine SULFATE 4 MG/ML VIAL ONE (09:35)
[2019-08-10 09:42] LABS: INR 1.23 (0.83-1.09); PROTHROMBIN TIME (PATIENT) 14.5 SEC (9.7-13.0)
[2019-08-10] MEDS ORDERED: morphine CARPU-JECT 2 MG/1 ML DISP.SYRIN IVPUSH ONE ×2 (09:53→15:04)
[2019-08-10 09:57] LABS: ALBUMIN 3.1 g/dl (3.4-5.0); BILIRUBIN,TOTAL 0.3 mg/dL (0.2-1); CALCIUM 9.5 mg/dL (8.5-10.1); CREATININE 0.5 mg/dL (0.55-1.3); MAGNESIUM 1.7 mg/dL (1.8-2.4); N-TERMINAL BNP 33.5 pg/ml (5-125); POTASSIUM 3.9 mmol/L (3.5-5.1); TOT PROT 7.3 g/dl (6.4-8.2)
[2019-08-10] MEDS ORDERED: PIPERACILLIN/TAZOB 4.5 GM 4.5 GM in DEXTROSE 5%-WATER 100 ML IVPB ONE (12:53)
[2019-08-10] MEDS ORDERED: AZITHROMYCIN IVPB 500 MG in DEXTROSE 5%-WATER - 250 ML IVPB ONE (12:53)
[2019-08-10] MEDS ORDERED: VANCOMYCIN 1 GM in D5W (PRE-DOCKED) 1,000 MG/250 ML IVPB ONE (12:53)
--- NOTE | 2019-08-10 14:22 | EKG ---
Test Reason : Blood Pressure : / mmHG Vent. Rate : 123 BPM Atrial Rate : 123 BPM P-R Int : 140 ms QRS Dur : 068 ms QT Int : 306 ms P-R-T Axes : 055 056 046 degrees QTc Int : 438 ms SINUS TACHYCARDIA POSSIBLE LEFT ATRIAL ENLARGEMENT WHEN COMPARED WITH ECG OF 01-JUN-2019 18:34, FUSION COMPLEXES ARE NO LONGER PRESENT PREMATURE VENTRICULAR COMPLEXES ARE NO LONGER PRESENT Confirmed by FAUSTINO REINA MD ([id number]) on 08/10/2019 2:21:42 PM Referred By: Confirmed By:FAUSTINO REINA MD
--- NOTE | 2019-08-10 14:26 | HP ---
CHIEF COMPLAINT: SOB, pain PCP: Dr. Erickson HISTORY OF PRESENT ILLNESS: Patient is a 49 y.o female with a history of colon cancer s/p resection (2013), mets to the liver and lung ( RLL lobectomy 2017) who presents today for increased shortness of breath and chest and back pain. Patient was admitted to [facility] for 2 weeks for a pneumonia. She was discharged 3 weeks ago and was discharged on oxygen and a prednisone taper. Today was her last day of 5 mg of prednisone. Patient reports she is typically on 5L of oxygen, but yesterday she was feeling more shot of breath so she turned up the Liters. It did not help and she has also been feeling short of breath today. She reports she has chest pain that radiates to her back. this is not new but it hurt worse today. She takes tylenol at home. Patient has a hard time following up with her outpatient appointments due to limited oxygen and having to pay out of pocket for transportation. She has not been able to see her outpatient pulmonologst. Patient has had less of an appetitie and reports she has had a couple episodes of clear vomiting. Patient denies fevers, chills, nausea, diarrhea, dysuria, or hematuria. ER course was notable for: (1) (2) (3) Recent Travel: denies PAST MEDICAL HISTORY: colon cancer s/p resection (2013), mets to the liver and lung ( RLL lobectomy 2017) PAST SURGICAL HISTORY: colon resection, RLL lobectomy, liver resection Social History: Smoking: denies Alcohol: denies Drugs: denies Family hx: denies family hx of cancer Allergies latex Allergy (Severe, Verified 08/10/19 08:15) Itching carrot Allergy (Verified 08/10/19 08:15) cannot be raw nut - unspecified Allergy (Verified 08/10/19 08:15) Sulfa (Sulfonamide Antibiotics) Adverse Reaction (Verified 08/10/19 08:15) generalized weakness HOME MEDICATIONS: Home Medications Medication Instructions Recorded Metoprolol Tartrate [Lopressor -] 50 mg PO DAILY 02/03/16 Pantoprazole Sodium [Protonix -] 40 mg PO DAILY #30 tablet.ec 02/06/16 LORazepam [Ativan] 1 mg PO TID PRN MDD 3mg 11/18/16 Docusate Sodium 100 mg PO TID 08/10/19 Mirtazapine [Remeron -] 30 mg PO HS 08/10/19 Quetiapine Fumarate [Quetiapine 50 mg PO HS 08/10/19 Fumarate ER] Sennosides [Senna] 8.6 mg PO DAILY 08/10/19 REVIEW OF SYSTEMS CONSTITUTIONAL: Absent: fever, chills, diaphoresis, generalized weakness, malaise, loss of appetite, weight change HEENT: Absent: rhinorrhea, nasal congestion, throat pain, throat swelling, difficulty swallowing, mouth swelling, ear pain, eye pain, visual changes CARDIOVASCULAR: chest pain, msk back pain Absent: syncope, palpitations, irregular heart rate, lightheadedness, peripheral edema RESPIRATORY: shortness of breath, Absent: cough, dyspnea with exertion, orthopnea, wheezing, stridor, hemoptysis GASTROINTESTINAL: Absent: abdominal pain, abdominal distension, nausea, vomiting, diarrhea, constipation, melena, hematochezia GENITOURINARY: Absent: dysuria, frequency, urgency, hesitancy, hematuria, flank pain, genital pain MUSCULOSKELETAL: Absent: myalgia, arthralgia, joint swelling, back pain, neck pain SKIN: Absent: rash, itching, pallor HEMATOLOGIC/IMMUNOLOGIC: Absent: easy bleeding, easy bruising, lymphadenopathy, frequent infections ENDOCRINE: Absent: unexplained weight gain, unexplained weight loss, heat intolerance, cold intolerance NEUROLOGIC: Absent: headache, focal weakness or paresthesias, dizziness, unsteady gait, seizure, mental status changes, bladder or bowel incontinence PSYCHIATRIC: Absent: anxiety, depression, suicidal or homicidal ideation, hallucinations. PHYSICAL EXAMINATION Vital Signs Temperature 97.4 F L 08/10/19 13:08 Pulse Rate 112 H 08/10/19 13:08 Respiratory Rate 28 H 08/10/19 13:08 Blood Pressure 126/83 08/10/19 13:08 O2 Sat by Pulse Oximetry (%) 99 08/10/19 13:08 GENERAL: Awake, alert, and fully oriented, mild distress with mild tachypnia HEAD: Normal with no signs of trauma. EYES: Pupils equal, round and reactive to light, pterigyum on left eye EARS, NOSE, THROAT: Moist mucous membranes. LUNGS: expiratory wheezes, poor airation and air movement HEART: Regular rate and rhythm, normal S1 and S2 without murmur, rub or gallop. ABDOMEN: Soft, nontender, not distended, normoactive bowel sounds, no guarding, no rebound, no masses. MUSCULOSKELETAL: No CVA tenderness. LOWER EXTREMITIES: 2+ pulses, warm, well-perfused. No calf tenderness. No peripheral edema. SKIN: Warm, dry, normal turgor, no rashes or lesions noted, normal capillary refill. CBC, BMP 08/10/19 09:00 08/10/19 09:00 ASSESSMENT/PLAN: Patient is a 49 y.o female with a history of colon cancer s/p resection (2013), mets to the liver and lung ( RLL lobectomy 2016) who presents today for increased shortness of breath and chest and back pain. #shortness of breath - 2/2 to worsening of metastatic disease and PNA - continue Zosyn and Vanc - f/u with Dr. Skinner - solumedrol 125 given once - solumedrol 60 q6h daily - f/u with Dr. Maguire - korina and albuterol - f/u ABG, can put on bipap if needed - CTA: diffuse bilateral lung ocnfluent metastasis that have worsened from previous imaging, metastasis involving both latisha and bronchi of right lower lobe , hypodense mass in left htyroid, enhancement of spleen - maintain oxygen above 88%, monitor on nonrebreather - f/u blood cxs and urine cxs #colon cancer with metastasis to liver and lung - spoke with patients primary oncologist Dr. Luna Dc , patient has very poor follow up. She is more then happy to see her as an outpatient but patient routinely cancels appointments with her. Patient has not had treatment since March. Patient is likely a candidate for hospice - palliative consult - discussed with patient, she would like ot ocntinue chemotherapy and treatment as an outpatient - percocet 1 q4h prn for pain #anxiety/depression - lorazapam 1 tid prn - seroquel 50 hs - #constipation - continue senna and docusate FEN - full diet - NS @ 100 Dispo: monitor on med surg, patient FULL CODE Visit type - Emergency Visit Emergency Visit: Yes ED Registration Date: 08/10/19 Care time: The patient presented to the Emergency Department on the above date and was hospitalized for further evaluation of their emergent condition. - New Patient This patient is new to me today: Yes Date on this admission: 08/13/19 - Critical Care Critical Care patient: No ATTENDING PHYSICIAN STATEMENT I saw and evaluated the patient. I reviewed the resident's note and discussed the case with the resident. I agree with the resident's findings and plan as documented. SUBJECTIVE: OBJECTIVE: ASSESSMENT AND PLAN:
[2019-08-10] MEDS ORDERED: methylPREDNISolone NA SUCC 125 MG/2 ML VIAL IVPUSH ONE (14:38)
[2019-08-10] MEDS ORDERED: PIPERACILLIN/TAZOB 4.5 GM 4.5 GM/100 ML BAG IVPB ONE (14:47)
[2019-08-10] MEDS ORDERED: ONDANSETRON 4 MG/2 ML VIAL IVPUSH ONE (15:05)
--- NOTE | 2019-08-10 15:16 | CON.PULM ---
Consult Consult Specialty:: PULMONARY Referred by:: LARA Reason for Consultation:: LUNG METS - History of Present Illness Chief Complaint: SOB/COUGH/CHILLS History of Present Illness: 49 FEMALE COLON/LIVER/LUNG CANCER WITH PROGRESSION OF DISEASE. WAS TREATED AT [place] WITH CHEMOTX WHICH WAS PLACED ON HOLD FOR HER TO COMPLETE COURSE OF RT. PRESENTLY, NOT BEING TREATED WITH CHEMO. COMES TO HOSPITAL WITH FAILURE TO THRIVE,COUGH,SOB, SPUTUM DENIES HEMOPTYSIS. HAS MIDSTERNAL CP. 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) Cardio/Vascular: Yes: HTN, Other (tachycardia) Pulmonary: Yes: Other (resection of metasttic lung nodules on left , January 21, 2016;) Gastrointestinal: Yes: Constipation, GERD, Other (COLON CANCER) Hepatobiliary: Yes: Other (liver mets s/p resection 2014.) ...LMP: 03/04/17 Psych: Yes: Anxiety Endocrine: Yes: Other (Thyroid Nodules) - Past Surgical History Past Surgical History: Yes: Colectomy (partial) - Alcohol/Substance Use Hx Alcohol Use: No History of Substance Use: reports: None - Smoking History Smoking history: Unknown if ever smoked Have you smoked in the past 12 months: No Aproximately how many cigarettes per day: 0 - Social History Usual Living Arrangement: With Significant Other ADL: Independent 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 History of Recent Travel: No Home Medications - Allergies Allergies/Adverse Reactions: Allergies Allergy/AdvReac Type Severity Reaction Status Date / Time latex Allergy Severe Itching Verified 08/10/19 08:15 carrot Allergy Verified 08/10/19 08:15 nut - unspecified Allergy Verified 08/10/19 08:15 Sulfa (Sulfonamide AdvReac generalized Verified 08/10/19 08:15 Antibiotics) weakness - Home Medications Home Medications: Ambulatory Orders Metoprolol Tartrate [Lopressor -] 50 mg PO DAILY 02/03/16 Pantoprazole Sodium [Protonix -] 40 mg PO DAILY #30 tablet.ec 02/06/16 LORazepam [Ativan] 1 mg PO TID PRN MDD 3mg 11/18/16 Docusate Sodium 100 mg PO TID 08/10/19 Mirtazapine [Remeron -] 30 mg PO HS 08/10/19 Quetiapine Fumarate [Quetiapine Fumarate ER] 50 mg PO HS 08/10/19 Sennosides [Senna] 8.6 mg PO DAILY 08/10/19 Review of Systems - Review of Systems Constitutional: reports: Loss of Appetite, Unintentional Wgt. Loss, Weakness Eyes: denies: Blurred Vision HENT: denies: Difficult Swallowing Neck: denies: Decreased ROM Cardiovascular: reports: Chest Pain Respiratory: reports: Cough, Exercise Intolerance, SOB, SOB on Exertion, Wheezing. denies: Hemoptysis Gastrointestinal: denies: Abdominal Pain Genitourinary: denies: Burning Physical Exam Vital Sings: Vital Signs Temperature 97.4 F L 08/10/19 13:08 Pulse Rate 112 H 08/10/19 13:08 Respiratory Rate 28 H 08/10/19 13:08 Blood Pressure 126/83 08/10/19 13:08 O2 Sat by Pulse Oximetry (%) 99 08/10/19 13:08 Constitutional: Yes: Anxious Eyes: Yes: EOM Intact HENT: Yes: Normocephalic Neck: Yes: Trachea Midline Cardiovascular: Yes: Tachycardia, S1, S2 Respiratory: Yes: Diminished, Tachypnea Gastrointestinal: Yes: Normal Bowel Sounds Edema: No Labs: CBC, BMP 08/10/19 09:00 08/10/19 09:00 Imaging - Results Chest X-ray: Report Reviewed, Image Reviewed Cat Scan: Report Reviewed, Image Reviewed Assessment/Plan COLON CA WITH LIVER/LUNG METS LUNG METS HAVE PROGRESSED SINCE MAY ( LAST CT CHEST) FAILURE TO THRIVE R/O PNA - antibiotics/iv fluids/o2 supplementation - f/u cultures - CT chest findings likely chronic progression of disease - unfortunately nothing to do at this time, will need continued chemotherapy at [facility] upon discharge - DVT pro - consider palliative care consult Evelyne GALINDO MD
[2019-08-10] MEDS ORDERED: AZITHROMYCIN IVPB 500 MG/250 ML BAG IVPB ONE (15:22)
[2019-08-10] MEDS ORDERED: VANCOMYCIN 1 GRAM (PRE-DOCKED) 1,000 MG/250 ML BAG IVPB ONE (15:39)
[2019-08-10] MEDS ORDERED: oxyCODONE HCL 5 MG TABLET PO PRN (16:12)
[2019-08-10] MEDS ORDERED: ACETAMINOPHEN 325 MG TABLET (FP) PO PRN (16:13)
--- NOTE | 2019-08-10 16:39 | PN ---
Teaching Attending Note Name of Resident: Violeta Moore ATTENDING PHYSICIAN STATEMENT I saw and evaluated the patient. I reviewed the resident's note and discussed the case with the resident. I agree with the resident's findings and plan as documented with exceptions below. SUBJECTIVE: 49 yof with PMhx of Colon ca 2014 s/p left hemicolectomy, Liver and lung mets 2017 s/p VATS RLL resection/chemotherapy, now with metastatic lung disease s/p Radiation in 04/2019, chemotherapy last in 03/2019, recently reportedly admitted to [facility] for respiratory distress, treated with 2 weeks of antibiotics, discharged on home oxygen (5 liters), and prednisone taper, (last dose today), at home for the last 2 weeks, comes with progressive dyspnea, weakness, nausea, poor oral intake, cough with whitish sputum. Denies any fevers , chills, change in character of sputum, abdominal or urinary symptoms. OBJECTIVE: Vital Signs Period Temp Pulse Resp BP Sys/[facility] Pulse Ox Last 24 Hr 97.4 F-98.4 F 112-123 26-28 126-139/83-88 99-100 Intake & Output 08/07/19 08/08/19 08/09/19 08/10/19 23:59 23:59 23:59 23:59 Weight 150 lb GENERAL: Alert, awake, respiratory distress, on NRB, use of accessory muscles of respiration HEAD: Normal with no signs of trauma. EYES: Pupils equal, round and reactive to light, extraocular movements intact, sclera anicteric, conjunctiva clear. No lid lag. EARS, NOSE, THROAT: Ears normal, nares patent, oropharynx clear without exudates.Dry mucous membranes. NECK: Normal range of motion, supple, no JVD LUNGS: positive air entry bilaterally, scattered rales, no wheezing appreciated currently. HEART: S1S2 regular,tachycardic ABDOMEN: Soft, nontender, not distended, normoactive bowel sounds, no guarding, no rebound, no masses. MUSCULOSKELETAL: Normal range of motion at all joints. No bony deformities or tenderness. No CVA tenderness. UPPER EXTREMITIES: 2+ pulses, warm, well-perfused. No cyanosis. No clubbing. No peripheral edema. LOWER EXTREMITIES: 2+ pulses, warm, well-perfused. No calf tenderness. No peripheral edema. NEUROLOGICAL: AAOx3, facial symmetry, moves all extremities freely, sensation intact and symmetric to light touch, Cranial nerves II-XII intact. Normal speech. Gait not observed PSYCHIATRIC: Cooperative. Good eye contact. Anxious but appropriate SKIN: Warm, dry, decreased turgor, no rashes or lesions noted, normal capillary refill. Home Medications Medication Instructions Recorded Metoprolol Tartrate [Lopressor -] 50 mg PO DAILY 02/03/16 Pantoprazole Sodium [Protonix -] 40 mg PO DAILY #30 tablet.ec 02/06/16 LORazepam [Ativan] 1 mg PO TID PRN MDD 3mg 11/18/16 Docusate Sodium 100 mg PO TID 08/10/19 Mirtazapine [Remeron -] 30 mg PO HS 08/10/19 Quetiapine Fumarate [Quetiapine 50 mg PO HS 08/10/19 Fumarate ER] Sennosides [Senna] 8.6 mg PO DAILY 08/10/19 Active Medications Acetaminophen (Tylenol -) 650 mg PO Q6H PRN PRN Reason: PAIN LEVEL 1-5 Albuterol Sulfate (Ventolin 0.083% Nebulizer Soln -) 1 amp NEB Q4H PRN PRN Reason: SHORT OF BREATH/WHEEZING Albuterol/Ipratropium (Duoneb -) 1 amp NEB RQID [facility] Docusate Sodium (Colace -) 100 mg PO TID [facility] Enoxaparin Sodium (Lovenox -) 40 mg SQ DAILY [facility] Sodium Chloride (Normal Saline -) 1,000 mls @ 100 mls/hr IV ASDIR RUTH Vancomycin HCl 1,000 mg/ (Dextrose) 250 mls @ 166.667 mls/hr IVPB ONCE ONE; Protocol Stop: 08/11/19 11:29 Piperacillin Sod/Tazobactam (Sod 4.5 gm/ Dextrose) 100 mls @ 200 mls/hr IVPB Q6H-IV RUTH; Protocol Lorazepam (Ativan -) 1 mg PO TID PRN PRN Reason: ANXIETY Methylprednisolone Sodium Succinate (Solu-Medrol -) 125 mg IVPUSH ONCE ONE Stop: 08/10/19 14:39 Methylprednisolone Sodium Succinate (Solu-Medrol -) 60 mg IVPUSH Q6H-IV [facility] Metoprolol Tartrate (Lopressor -) 50 mg PO DAILY [facility] Mirtazapine (Remeron -) 30 mg PO HS [facility] Morphine Sulfate (Morphine Injection -) 1 mg IVPUSH Q4H PRN PRN Reason: PAIN LEVEL 7 - 10 Ondansetron HCl (Zofran Injection) 4 mg IVPUSH Q6H PRN PRN Reason: NAUSEA Pantoprazole Sodium (Protonix -) 40 mg PO DAILY [facility] Quetiapine Fumarate (Seroquel Xr -) 50 mg PO HS [facility] Senna (Senna -) tab PO DAILY [facility] Laboratory Results - last 24 hr 08/10/19 08/10/19 08/10/19 09:00 09:00 09:00 WBC 14.6 H RBC 3.77 Hgb 9.6 L Hct 30.1 L MCV 79.9 L MCH 25.5 L MCHC 31.9 L RDW 20.0 H Plt Count 448 H D MPV 8.4 Absolute Neuts (auto) 11.0 H Neutrophils % 75.0 Lymphocytes % 12.7 D Monocytes % 10.8 H Eosinophils % 1.2 Basophils % 0.3 Nucleated RBC % 0 PT with INR INR Sodium 135 L Potassium 3.9 Chloride 100 Carbon Dioxide 28 Anion Gap 8 BUN 11.0 Creatinine 0.5 L Est GFR (CKD-EPI)AfAm 133.58 Est GFR (CKD-EPI)NonAf 115.25 Random Glucose 115 H Calcium 9.5 Phosphorus 4.0 Magnesium 1.7 L Total Bilirubin 0.3 AST 36 ALT 17 Alkaline Phosphatase 96 Creatine Kinase 92 Troponin I < 0.02 B-Natriuretic Peptide 33.5 Total Protein 7.3 Albumin 3.1 L Lipase 85 TSH 0.43 Serum , Qual Blood Type Antibody Screen 08/10/19 08/10/19 08/10/19 09:00 09:00 09:00 WBC RBC Hgb Hct MCV MCH MCHC RDW Plt Count MPV Absolute Neuts (auto) Neutrophils % Lymphocytes % Monocytes % Eosinophils % Basophils % Nucleated RBC % PT with INR 14.50 H INR 1.23 H Sodium Potassium Chloride Carbon Dioxide Anion Gap BUN Creatinine Est GFR (CKD-EPI)AfAm Est GFR (CKD-EPI)NonAf Random Glucose Calcium Phosphorus Magnesium Total Bilirubin AST ALT Alkaline Phosphatase Creatine Kinase Troponin I B-Natriuretic Peptide Total Protein Albumin Lipase TSH Serum , Qual Negative Blood Type O POSITIVE Antibody Screen Negative CTA chest and CXr results and images reviewed EKG: sinus tachycardia 120s, no acute ST-T changes ASSESSMENT AND PLAN: 49 yof with PMhx of Colon cancer 2014 s/p left hemicolectomy, Liver and lung mets 2017 s/p VATS RLL resection/chemotherapy, now with metastatic lung disease s/p Radiation in 04/2019, chemotherapy last in 03/2019, recently reportedly admitted to [facility] for respiratory distress, treated with 2 weeks of antibiotics, discharged on home oxygen (5 liters), and prednisone taper , (last dose today), at home for the last 2 weeks, comes with progressive dyspnea -Acute hypoxic respiratory distress, suspect progression of metastatic lung disease, r/o post obstructive PNA/Bronchitis -dehydration -Sinus tachycardia -Colon cancer 2013 s/p left hemicolectomy, Liver and lung mets 2017 s/p VATS RLL resection/chemotherapy, now with metastatic lung disease s/p Radiation in 2018, chemotherapy last in 03/2019, Plan: Blood/sputum cx zosyn/vanco ID/pulmonary input. discussed with outpatient oncologist at [facility], poor follow up. No need for urgent transfer as discussed Check ABG. Nebs, IV solumedrol. taper oxygen as tolerated Morphine/ativan for comfort/respiratory distress, to be held for sedation. Continue home metoprolol/seroquel/remeron. IVF Nutrition input DVTPPX lovenox Prognosis guarded. Palliative care consult Dispo pending clinical course. discussed with patient and nursing. total admit time 65 min.
[2019-08-10 17:02] LABS: ARTERIAL BLD GAS O2 SATURATION 97.8 % (95-98); ARTERIAL BLOOD GAS PCO2 50.6 mmHg (35-45); ARTERIAL BLOOD GAS PO2 110 mmHg (80-100); ARTERIAL BLOOD GAS pH 7.39 (7.35-7.45)
[2019-08-10 17:03] LABS: ALLENS TEST POSITIVE
[2019-08-10] MEDS: ALBUTEROL SO4 2.5/IPRATROPIUM 0.5 INH SOL 3 ML VIAL.NEB. NEB SCH ×2 (17:03→20:30)
[2019-08-10] MEDS: SODIUM CHLORIDE 1,000 ML IV SCH (17:41)
[2019-08-10] MEDS: METOPROLOL TARTRATE 25 MG TABLET (FP) PO SCH (17:49)
[2019-08-10] MEDS: MORPHINE SULFATE 2 MG/ML VIAL IVPUSH PRN ×2 (18:03→22:00)
[2019-08-10] MEDS ORDERED: DEXTROSE 5%-WATER 100 ML IVPB ONE (20:09)
[2019-08-10] MEDS ORDERED: PIPERACILLIN/TAZOBACTAM 4.5 GM VIAL IVPB ONE (20:09)
[2019-08-10] MEDS: PIPERACILLIN/TAZOB 4.5 GM 4.5 GM in DEXTROSE 5%-WATER 100 ML IVPB SCH (20:22)
[2019-08-10] MEDS: LORazepam 1 MG TABLET PO PRN (20:22)
[2019-08-10] MEDS: MIRTAZAPINE 15 MG TABLET (FP) PO SCH (22:00)
[2019-08-10] MEDS: DOCUSATE SODIUM 100 MG CAPSULE (FP) PO SCH (22:00)
[2019-08-11] MEDS ORDERED: DEXTROSE 5%-WATER 100 ML IVPB ONE ×4 (01:35→20:34)
[2019-08-11] MEDS ORDERED: PIPERACILLIN/TAZOBACTAM 4.5 GM VIAL IVPB ONE ×4 (01:35→20:34)
[2019-08-11] MEDS: PIPERACILLIN/TAZOB 4.5 GM 4.5 GM in DEXTROSE 5%-WATER 100 ML IVPB SCH ×4 (02:17→20:41)
[2019-08-11] MEDS: DOCUSATE SODIUM 100 MG CAPSULE (FP) PO SCH ×3 (06:05→21:07)
[2019-08-11] MEDS: SODIUM CHLORIDE 1,000 ML IV SCH ×2 (06:55→16:26)
[2019-08-11] MEDS: ALBUTEROL SO4 2.5/IPRATROPIUM 0.5 INH SOL 3 ML VIAL.NEB. NEB SCH ×4 (07:15→20:40)
[2019-08-11] MEDS: LORazepam 1 MG TABLET PO PRN ×3 (07:46→20:50)
[2019-08-11 08:06] LABS: BASO % 0.3 % (0-2.0); HEMOGLOBIN 9.6 GM/dL (10.7-15.3); LYMPH % 9.7 % (8-40); MEAN CELL VOLUME 81.2 fl (80-96); MEAN PLT VOLUME 8.3 fl (7.5-11.1); MONO % 5.6 % (3.8-10.2); NEUT % 84.4 % (42.8-82.8); PLATELET COUNT 438 K/MM3 (134-434); RDW 19.7 % (11.6-15.6); WHITE BLOOD COUNT 13.8 K/mm3 (4.0-10.0)
[2019-08-11 08:28] LABS: BILIRUBIN,TOTAL 0.4 mg/dL (0.2-1); BLOOD UREA NITROGEN 8.7 mg/dL (7-18); CALCIUM 9.7 mg/dL (8.5-10.1); CREATININE 0.5 mg/dL (0.55-1.3); PHOSPHOROUS 3.8 mg/dL (2.5-4.9); POTASSIUM 4.1 mmol/L (3.5-5.1); TOT PROT 7.3 g/dl (6.4-8.2)
[2019-08-11] MEDS ORDERED: VANCOMYCIN 1,000 MG in DEXTROSE 5%-WATER - 250 ML IVPB ONE (10:00)
[2019-08-11] MEDS ORDERED: PT OWN MED DRAWER 7, Y5N ONE ×2 (10:08→20:47)
[2019-08-11] MEDS: methylPREDNISolone NA SUCC 40 MG/1 ML VIAL IVPUSH SCH ×3 (10:09→20:40)
[2019-08-11] MEDS: SENNOSIDES 8.6MG TABLET (FP) PO SCH (10:10)
[2019-08-11] MEDS: ENOXAPARIN NA (PORCINE) 40 MG/0.4 ML DISP.SYRIN SQ SCH (10:10)
[2019-08-11] MEDS: METOPROLOL TARTRATE 25 MG TABLET (FP) PO SCH (10:11)
[2019-08-11] MEDS: PANTOPRAZOLE 40 MG TABLET (FP) PO SCH (10:40)
[2019-08-11] MEDS: ONDANSETRON 4 MG/2 ML VIAL IVPUSH PRN ×2 (11:01→20:49)
[2019-08-11] MEDS ORDERED: VANCOMYCIN 1 GRAM (PRE-DOCKED) 1,000 MG/250 ML BAG IVPB ONE (11:01)
[2019-08-11] MEDS: MORPHINE SULFATE 2 MG/ML VIAL IVPUSH PRN ×3 (11:01→20:41)
--- NOTE | 2019-08-11 12:12 | PN ---
Progress Note (short form) - Note Progress Note: Awake and alert. Tachypneic on 100% NRBM. Did not want to use NIPPV overnight. Intake & Output 08/08/19 08/09/19 08/10/19 08/11/19 23:59 23:59 23:59 23:59 Intake Total 450 1200 Balance 450 1200 Weight 150 lb 137 lb 5 oz Last Vital Signs Temp Pulse Resp BP Pulse Ox 98.1 F 117 H 24 H 150/85 96 08/11/19 05:56 08/11/19 05:56 08/11/19 05:56 08/11/19 05:56 08/11/19 00:43 Active Medications Acetaminophen (Tylenol -) 650 mg PO Q6H PRN PRN Reason: PAIN LEVEL 1-5 Albuterol Sulfate (Ventolin 0.083% Nebulizer Soln -) 1 amp NEB Q4H PRN PRN Reason: SHORT OF BREATH/WHEEZING Albuterol/Ipratropium (Duoneb -) 1 amp NEB RQID [facility] Last Admin: 08/11/19 07:15 Dose: 1 amp Docusate Sodium (Colace -) 100 mg PO TID [facility] Last Admin: 08/11/19 06:05 Dose: 100 mg Enoxaparin Sodium (Lovenox -) 40 mg SQ DAILY [facility] Last Admin: 08/11/19 10:10 Dose: 40 mg Sodium Chloride (Normal Saline -) 1,000 mls @ 100 mls/hr IV ASDIR RUTH Last Admin: 08/11/19 06:55 Dose: 100 mls/hr Piperacillin Sod/Tazobactam (Sod 4.5 gm/ Dextrose) 100 mls @ 200 mls/hr IVPB Q6H-IV RUTH; Protocol Piperacillin Sod/Tazobactam (Sod 4.5 gm/ Dextrose) 100 mls @ 200 mls/hr IVPB Q6H-IV RUTH; Protocol Stop: 08/11/19 20:59 Last Admin: 08/11/19 10:04 Dose: 200 mls/hr Lorazepam (Ativan -) 1 mg PO TID PRN PRN Reason: ANXIETY Last Admin: 08/11/19 07:46 Dose: 1 mg Methylprednisolone Sodium Succinate (Solu-Medrol -) 60 mg IVPUSH Q6H-IV [facility] Last Admin: 08/11/19 10:09 Dose: 60 mg Metoprolol Tartrate (Lopressor -) 50 mg PO DAILY [facility] Last Admin: 08/11/19 10:11 Dose: 50 mg Mirtazapine (Remeron -) 30 mg PO HS [facility] Last Admin: 08/10/19 22:00 Dose: 30 mg Morphine Sulfate (Morphine Sulfate) 1 mg IVPUSH Q4H PRN PRN Reason: PAIN LEVEL 7 - 10 Last Admin: 08/11/19 11:01 Dose: 1 mg Ondansetron HCl (Zofran Injection) 4 mg IVPUSH Q6H PRN PRN Reason: NAUSEA Last Admin: 08/11/19 11:01 Dose: 4 mg Pantoprazole Sodium (Protonix -) 40 mg PO DAILY [facility] Last Admin: 08/11/19 10:40 Dose: 40 mg Quetiapine Fumarate (Seroquel Xr -) 50 mg PO HS [facility] Last Admin: 08/10/19 23:12 Dose: 50 mg Senna (Senna -) 1 tab PO DAILY [facility] Last Admin: 08/11/19 10:10 Dose: 1 tab Constitutional: Yes: Awake and alert, Tachypneic, Anxious Eyes: Yes: EOM Intact HENT: Yes: Normocephalic Neck: Yes: Trachea Midline Cardiovascular: Yes: Tachycardia, S1, S2 Respiratory: Yes: Diminished, Tachypnea Gastrointestinal: Yes: Normal Bowel Sounds Edema: No Labs: Laboratory Results - last 24 hr 08/10/19 08/11/19 08/11/19 16:40 07:45 07:45 WBC 13.8 H RBC 3.70 Hgb 9.6 L Hct 30.0 L MCV 81.2 MCH 26.0 MCHC 32.0 RDW 19.7 H Plt Count 438 H MPV 8.3 Absolute Neuts (auto) 11.6 H Neutrophils % 84.4 H Lymphocytes % 9.7 D Monocytes % 5.6 Eosinophils % 0.0 D Basophils % 0.3 Nucleated RBC % 0 Anticoagulation Therapy No Result Required. Puncture Site Right brachial ABG pH 7.39 ABG pCO2 at Pt Temp 50.6 H ABG pO2 at Pt Temp 110 H ABG HCO3 29.6 H ABG O2 Sat (Measured) 97.8 ABG O2 Content 18.2 ABG Base Excess 4.0 H Marcelino Test Positive O2 Delivery Device No Result Required. Oxygen Flow Rate 100 Vent Mode No Result Required. Vent Rate No Result Required. Mechanical Rate No Result Required. Pressure Support Vent No Result Required. Sodium 138 Potassium 4.1 Chloride 102 Carbon Dioxide 26 Anion Gap 11 BUN 8.7 Creatinine 0.5 L Est GFR (CKD-EPI)AfAm 133.58 Est GFR (CKD-EPI)NonAf 115.25 Random Glucose 147 H Calcium 9.7 Phosphorus 3.8 Magnesium 2.0 Total Bilirubin 0.4 AST 32 ALT 21 Alkaline Phosphatase 108 Total Protein 7.3 Albumin 3.0 L Assessment/Plan COLON CA WITH LIVER/LUNG METS LUNG METS HAVE PROGRESSED SINCE MAY ( LAST CT CHEST) FAILURE TO THRIVE R/O PNA NIPPV settings were adjusted ABX VTE prophylaxis Aspiration precautions Patient is DNR/DNI Overall prognosis is poor Dr Orozco
--- NOTE | 2019-08-11 14:54 | PN ---
Teaching Attending Note Name of Resident: Ana Erwin ATTENDING PHYSICIAN STATEMENT I saw and evaluated the patient. I reviewed the resident's note and discussed the case with the resident. I agree with the resident's findings and plan as documented with exceptions below. SUBJECTIVE: patient seen and examined. Breathing with some improvement, overall unchanged, no new concerns, did not want to use Bipap overnight. OBJECTIVE: Vital Signs Period Temp Pulse Resp BP Sys/[facility] Pulse Ox Last 24 Hr 97.6 F-98.1 F 116-136 20-26 119-150/73-94 95-100 Intake & Output 08/08/19 08/09/19 08/10/19 08/11/19 23:59 23:59 23:59 23:59 Intake Total 450 1200 Balance 450 1200 Weight 150 lb 137 lb 5 oz General: tachypneic on NRB Chest: pos air entry, scattered rhonchi Abdomen:soft, Nt Extremities: no edema Home Medications Medication Instructions Recorded Metoprolol Tartrate [Lopressor -] 50 mg PO DAILY 02/03/16 Pantoprazole Sodium [Protonix -] 40 mg PO DAILY #30 tablet.ec 02/06/16 LORazepam [Ativan] 1 mg PO TID PRN MDD 3mg 11/18/16 Docusate Sodium 100 mg PO TID 08/10/19 Mirtazapine [Remeron -] 30 mg PO HS 08/10/19 Quetiapine Fumarate [Quetiapine 50 mg PO HS 08/10/19 Fumarate ER] Sennosides [Senna] 8.6 mg PO DAILY 08/10/19 Active Medications Acetaminophen (Tylenol -) 650 mg PO Q6H PRN PRN Reason: PAIN LEVEL 1-5 Albuterol Sulfate (Ventolin 0.083% Nebulizer Soln -) 1 amp NEB Q4H PRN PRN Reason: SHORT OF BREATH/WHEEZING Albuterol/Ipratropium (Duoneb -) 1 amp NEB RQID [facility] Last Admin: 08/11/19 12:42 Dose: 1 amp Docusate Sodium (Colace -) 100 mg PO TID [facility] Last Admin: 08/11/19 06:05 Dose: 100 mg Enoxaparin Sodium (Lovenox -) 40 mg SQ DAILY [facility] Last Admin: 08/11/19 10:10 Dose: 40 mg Sodium Chloride (Normal Saline -) 1,000 mls @ 100 mls/hr IV ASDIR [facility] Last Admin: 08/11/19 06:55 Dose: 100 mls/hr Piperacillin Sod/Tazobactam (Sod 4.5 gm/ Dextrose) 100 mls @ 200 mls/hr IVPB Q6H-IV [facility]; Protocol Piperacillin Sod/Tazobactam (Sod 4.5 gm/ Dextrose) 100 mls @ 200 mls/hr IVPB Q6H-IV [facility]; Protocol Stop: 08/11/19 20:59 Last Admin: 08/11/19 10:04 Dose: 200 mls/hr Lorazepam (Ativan -) 1 mg PO TID PRN PRN Reason: ANXIETY Last Admin: 08/11/19 07:46 Dose: 1 mg Methylprednisolone Sodium Succinate (Solu-Medrol -) 60 mg IVPUSH Q6H-IV [facility] Last Admin: 08/11/19 10:09 Dose: 60 mg Metoprolol Tartrate (Lopressor -) 50 mg PO DAILY [facility] Last Admin: 08/11/19 10:11 Dose: 50 mg Mirtazapine (Remeron -) 30 mg PO HS [facility] Last Admin: 08/10/19 22:00 Dose: 30 mg Morphine Sulfate (Morphine Sulfate) 1 mg IVPUSH Q4H PRN PRN Reason: PAIN LEVEL 7 - 10 Last Admin: 08/11/19 11:01 Dose: 1 mg Ondansetron HCl (Zofran Injection) 4 mg IVPUSH Q6H PRN PRN Reason: NAUSEA Last Admin: 08/11/19 11:01 Dose: 4 mg Pantoprazole Sodium (Protonix -) 40 mg PO DAILY [facility] Last Admin: 08/11/19 10:40 Dose: 40 mg Quetiapine Fumarate (Seroquel Xr -) 50 mg PO HS [facility] Last Admin: 08/10/19 23:12 Dose: 50 mg Senna (Senna -) 1 tab PO DAILY [facility] Last Admin: 08/11/19 10:10 Dose: 1 tab Laboratory Results - last 24 hr 08/10/19 08/11/19 08/11/19 16:40 07:45 07:45 WBC 13.8 H RBC 3.70 Hgb 9.6 L Hct 30.0 L MCV 81.2 MCH 26.0 MCHC 32.0 RDW 19.7 H Plt Count 438 H MPV 8.3 Absolute Neuts (auto) 11.6 H Neutrophils % 84.4 H Lymphocytes % 9.7 D Monocytes % 5.6 Eosinophils % 0.0 D Basophils % 0.3 Nucleated RBC % 0 Anticoagulation Therapy No Result Required. Puncture Site Right brachial ABG pH 7.39 ABG pCO2 at Pt Temp 50.6 H ABG pO2 at Pt Temp 110 H ABG HCO3 29.6 H ABG O2 Sat (Measured) 97.8 ABG O2 Content 18.2 ABG Base Excess 4.0 H Marcelino Test Positive O2 Delivery Device No Result Required. Oxygen Flow Rate 100 Vent Mode No Result Required. Vent Rate No Result Required. Mechanical Rate No Result Required. Pressure Support Vent No Result Required. Sodium 138 Potassium 4.1 Chloride 102 Carbon Dioxide 26 Anion Gap 11 BUN 8.7 Creatinine 0.5 L Est GFR (CKD-EPI)AfAm 133.58 Est GFR (CKD-EPI)NonAf 115.25 Random Glucose 147 H Calcium 9.7 Phosphorus 3.8 Magnesium 2.0 Total Bilirubin 0.4 AST 32 ALT 21 Alkaline Phosphatase 108 Total Protein 7.3 Albumin 3.0 L ASSESSMENT AND PLAN: 49 yof with PMhx of Colon cancer 2014 s/p left hemicolectomy, Liver and lung mets 2017 s/p VATS RLL resection/chemotherapy, now with metastatic lung disease s/p Radiation in 04/2019, chemotherapy last in 03/2019, recently reportedly admitted to [facility] for respiratory distress, treated with 2 weeks of antibiotics, discharged on home oxygen (5 liters), and prednisone taper , (last dose today), at home for the last 2 weeks, comes with progressive dyspnea -Acute hypoxic/hypercapneic respiratory distress, suspect progression of metastatic lung disease, rather than infectious process -Dehydration -Sinus tachycardia -Colon cancer 2013 s/p left hemicolectomy, Liver and lung mets 2017 s/p VATS RLL resection/chemotherapy, now with metastatic lung disease s/p Radiation in 2018, chemotherapy last in 03/2019, Plan: Overall unchanged ABG noted, NIPPV prn. Steroids/nebs. Abx per ID. Blood /sputum cx. Morphine/ativan for comfort/respiratory distress, to be held for sedation. Continue home metoprolol/seroquel/remeron. IVF Nutrition input DVTPPX lovenox Prognosis guarded. Palliative care consult noted, DNR/DNI. Dispo pending clinical course. discussed with patient and sister at bedside.
--- NOTE | 2019-08-11 15:28 | CON.ID ---
Consult - History of Present Illness History of Present Illness: 49 y.o. female with PMH of Colon CA with metastasis to liver and lung s/p colon and resections/VATS/RLL lobectomy presents with c/o worsened SOB, sputum productive of green/yellow sputum. She last had RT and chemotherapy in 2018. She states she was hospitalized 3 1/2 wks ago at [facility] for hypotension and completed a course of IV antibiotics (uncertain which) for PNA. She was discharged home on prednisone and home oxygen. Pt reports initially feeling a bit better but developed worsening SOB and came to this ER. She vomited once in the ambulance but has had no abd pain/n/d, denies chest pain, has had no urinary symptoms. Currently she is in mild respiratory distress and tachycardic but fully responsive. Chest CT reveals progression of lung metastasis compared to previous imaging. - History Source History Provided By: Patient Limitations to Obtaining History: No Limitations - Past Medical History AUTOMATION LEAD: Yes: Other (near syncope) Cardio/Vascular: Yes: HTN, Other (tachycardia) Pulmonary: Yes: Other (resection of metasttic lung nodules on left , January 21, 2016;) Gastrointestinal: Yes: Constipation, GERD, Other (COLON CANCER) Hepatobiliary: Yes: Other (liver mets s/p resection 2014.) Reproductive: Yes: Fibroids ...LMP: 03/04/17 Psych: Yes: Anxiety Endocrine: Yes: Other (Thyroid Nodules) - Past Surgical History Past Surgical History: Yes: Colectomy (partial) Additional Surgical History: VATS/lobectomy - Alcohol/Substance Use Hx Alcohol Use: No History of Substance Use: reports: None - Smoking History Smoking history: Unknown if ever smoked Have you smoked in the past 12 months: No Aproximately how many cigarettes per day: 0 - Social History Usual Living Arrangement: With Significant Other ADL: Independent 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 History of Recent Travel: No Home Medications - Allergies Allergies/Adverse Reactions: Allergies Allergy/AdvReac Type Severity Reaction Status Date / Time latex Allergy Severe Itching Verified 08/10/19 08:15 carrot Allergy Verified 08/10/19 08:15 nut - unspecified Allergy Verified 08/10/19 08:15 Sulfa (Sulfonamide AdvReac generalized Verified 08/10/19 08:15 Antibiotics) weakness - Home Medications Home Medications: Ambulatory Orders Metoprolol Tartrate [Lopressor -] 50 mg PO DAILY 02/03/16 Pantoprazole Sodium [Protonix -] 40 mg PO DAILY #30 tablet.ec 02/06/16 LORazepam [Ativan] 1 mg PO TID PRN MDD 3mg 11/18/16 Docusate Sodium 100 mg PO TID 08/10/19 Mirtazapine [Remeron -] 30 mg PO HS 08/10/19 Quetiapine Fumarate [Quetiapine Fumarate ER] 50 mg PO HS 08/10/19 Sennosides [Senna] 8.6 mg PO DAILY 08/10/19 Review of Systems - Review of Systems Constitutional: reports: Chills. denies: No Symptoms, Diaphoresis, Fever, Lethargy, Loss of Appetite, Malaise, Night Sweats, Unintentional Wgt. Loss, Weakness, Other Eyes: reports: No Symptoms. denies: Blind Spots, Blurred Vision, Double Vision , Eye Pain, Floaters, Photophobia, Recent Change in Vision, Other HENT: reports: No Symptoms. denies: Difficult Swallowing, Ear Discharge, Ear Pain, Epistaxis, Gingival Bleeding, Hearing Loss, Mouth Swelling, Nasal Congestion, Ocular Prosthesis, Throat Pain, Toothache, Ringing in Ears, Other Neck: reports: No Symptoms. denies: Decreased ROM, Lumps, Pain on Movement, Stiffness, Swollen Glands, Tenderness, Other Cardiovascular: reports: No Symptoms. denies: Chest Pain, Edema, Palpitations, Shortness of Breath, Other Respiratory: reports: Cough, SOB Gastrointestinal: reports: No Symptoms. denies: Abdominal Pain, Bloating, Constipation, Diarrhea, Dysphagia, Indigestion, Melena, Nausea, Rectal Bleeding , Vomiting, Vomiting Blood, Other Genitourinary: reports: No Symptoms. denies: Burning, Discharge, Dysuria, Flank Pain, Frequency, Hematuria, Incontinence, Lesions, Menses, Pain, Testicular Mass, Testicular Pain, Testicular Swelling, Urgency, Vaginal Bleeding , Other Musculoskeletal: reports: No Symptoms. denies: Back Pain, Crepitus, Decreased ROM, Extremity Pain, Joint Pain, Joint Swelling, Muscle Pain, Muscle Cramps, Muscle Weakness, Other Integumentary: reports: No Symptoms. denies: Blister, Bruising, Change in Color , Eczema, Erythema, Incision, Lesions, Lump, Pallor, Pruritis, Rash, Wound, Other Neurological: reports: No Symptoms. denies: Change in LOC, Change in Speech, Confusion, Dizziness, Headache, Incoordination, Numbness, Parasthesia, Pre- Existing Deficit, Seizure, Syncope, Tremors, Unsteady Gait, Weakness, Other Endocrine: reports: No Symptoms. denies: Excessive Sweating, Flushing, Increased Hunger, Increased Thirst, Intolerance to Cold, Intolerance to Heat, Unexplained Weight Gain, Unexplained Weight Loss, Other Hematology/Lymphatic: reports: No Symptoms. denies: Easily Bruised, Excessive Bleeding, Swollen Glands, Other Psychiatric: reports: Anxiety Physical Exam Vital Signs: Vital Signs Temperature 98.0 F 08/11/19 10:00 Pulse Rate 136 H 08/11/19 10:00 Respiratory Rate 20 08/11/19 10:00 Blood Pressure 130/79 08/11/19 10:00 O2 Sat by Pulse Oximetry (%) 95 08/11/19 12:20 Constitutional: Yes: Mild Distress Eyes: Yes: WNL, Conjunctiva Clear, EOM Intact HENT: Yes: WNL Neck: Yes: Supple, Trachea Midline Cardiovascular: Yes: Tachycardia Respiratory: Yes: Rhonchi, Wheezes Gastrointestinal: Yes: Normal Bowel Sounds, Soft Renal/: Yes: WNL Musculoskeletal: Yes: WNL Extremities: Yes: WNL Edema: No Peripheral Pulses WNL: Yes Integumentary: Yes: WNL Neurological: Yes: Alert, Oriented Labs: CBC, BMP 08/11/19 07:45 08/11/19 07:45 Laboratory Tests 08/10/19 08/10/19 08/10/19 09:00 09:00 09:00 WBC 14.6 H RBC 3.77 Hgb 9.6 L Hct 30.1 L MCV 79.9 L MCH 25.5 L MCHC 31.9 L RDW 20.0 H Plt Count 448 H D MPV 8.4 Absolute Neuts (auto) 11.0 H Neutrophils % 75.0 Lymphocytes % 12.7 D Monocytes % 10.8 H Eosinophils % 1.2 Basophils % 0.3 Nucleated RBC % 0 PT with INR INR Anticoagulation Therapy Puncture Site ABG pH ABG pCO2 at Pt Temp ABG pO2 at Pt Temp ABG HCO3 ABG O2 Sat (Measured) ABG O2 Content ABG Base Excess Marcelino Test O2 Delivery Device Oxygen Flow Rate Vent Mode Vent Rate Mechanical Rate Pressure Support Vent Sodium 135 L Potassium 3.9 Chloride 100 Carbon Dioxide 28 Anion Gap 8 BUN 11.0 Creatinine 0.5 L Est GFR (CKD-EPI)AfAm 133.58 Est GFR (CKD-EPI)NonAf 115.25 Random Glucose 115 H Calcium 9.5 Phosphorus 4.0 Magnesium 1.7 L Total Bilirubin 0.3 AST 36 ALT 17 Alkaline Phosphatase 96 Creatine Kinase 92 Troponin I < 0.02 B-Natriuretic Peptide 33.5 Total Protein 7.3 Albumin 3.1 L Lipase 85 TSH 0.43 Serum , Qual Blood Type Antibody Screen 08/10/19 08/10/19 08/10/19 09:00 09:00 09:00 WBC RBC Hgb Hct MCV MCH MCHC RDW Plt Count MPV Absolute Neuts (auto) Neutrophils % Lymphocytes % Monocytes % Eosinophils % Basophils % Nucleated RBC % PT with INR 14.50 H INR 1.23 H Anticoagulation Therapy Puncture Site ABG pH ABG pCO2 at Pt Temp ABG pO2 at Pt Temp ABG HCO3 ABG O2 Sat (Measured) ABG O2 Content ABG Base Excess Marcelino Test O2 Delivery Device Oxygen Flow Rate Vent Mode Vent Rate Mechanical Rate Pressure Support Vent Sodium Potassium Chloride Carbon Dioxide Anion Gap BUN Creatinine Est GFR (CKD-EPI)AfAm Est GFR (CKD-EPI)NonAf Random Glucose Calcium Phosphorus Magnesium Total Bilirubin AST ALT Alkaline Phosphatase Creatine Kinase Troponin I B-Natriuretic Peptide Total Protein Albumin Lipase TSH Serum , Qual Negative Blood Type O POSITIVE Antibody Screen Negative 08/10/19 08/11/19 08/11/19 16:40 07:45 07:45 WBC 13.8 H RBC 3.70 Hgb 9.6 L Hct 30.0 L MCV 81.2 MCH 26.0 MCHC 32.0 RDW 19.7 H Plt Count 438 H MPV 8.3 Absolute Neuts (auto) 11.6 H Neutrophils % 84.4 H Lymphocytes % 9.7 D Monocytes % 5.6 Eosinophils % 0.0 D Basophils % 0.3 Nucleated RBC % 0 PT with INR INR Anticoagulation Therapy No Result Required. Puncture Site Right brachial ABG pH 7.39 ABG pCO2 at Pt Temp 50.6 H ABG pO2 at Pt Temp 110 H ABG HCO3 29.6 H ABG O2 Sat (Measured) 97.8 ABG O2 Content 18.2 ABG Base Excess 4.0 H Marcelino Test Positive O2 Delivery Device No Result Required. Oxygen Flow Rate 100 Vent Mode No Result Required. Vent Rate No Result Required. Mechanical Rate No Result Required. Pressure Support Vent No Result Required. Sodium 138 Potassium 4.1 Chloride 102 Carbon Dioxide 26 Anion Gap 11 BUN 8.7 Creatinine 0.5 L Est GFR (CKD-EPI)AfAm 133.58 Est GFR (CKD-EPI)NonAf 115.25 Random Glucose 147 H Calcium 9.7 Phosphorus 3.8 Magnesium 2.0 Total Bilirubin 0.4 AST 32 ALT 21 Alkaline Phosphatase 108 Creatine Kinase Troponin I B-Natriuretic Peptide Total Protein 7.3 Albumin 3.0 L Lipase TSH Serum , Qual Blood Type Antibody Screen Imaging - Results Cat Scan: Report Reviewed Problem List - Problems (1) Pneumonia Code(s): J18.9 - PNEUMONIA, UNSPECIFIED ORGANISM Qualifiers: Pneumonia type: due to unspecified organism Laterality: unspecified laterality Lung location: unspecified part of lung Qualified Code(s): J18.9 - Pneumonia, unspecified organism (2) Respiratory distress Code(s): R06.03 - ACUTE RESPIRATORY DISTRESS (3) Colon cancer metastasized to multiple sites Code(s): C18.9 - MALIGNANT NEOPLASM OF COLON, UNSPECIFIED (4) Anemia Code(s): D64.9 - ANEMIA, UNSPECIFIED Qualifiers: Anemia type: other cause Other causes of anemia: chronic disease, neoplastic Qualified Code(s): D63.0 - Anemia in neoplastic disease (5) Anxiety disorder Code(s): F41.9 - ANXIETY DISORDER, UNSPECIFIED Qualifiers: Anxiety disorder type: unspecified anxiety disorder Qualified Code(s): F41.9 - Anxiety disorder, unspecified (6) S/P lobectomy of lung Code(s): Z90.2 - ACQUIRED ABSENCE OF LUNG [PART OF] Assessment/Plan Possible Post-obstructive PNA Colon CA with mets to liver/lung s/p resection/lobectomy Anxiety SOB Leukocytosis - on steroids -- will start broad empiric coverage -- send sputum culture, follow up results of blood cultures -- CT Chest reveals progression of metastasis -- on O2, bronchodilators, steroids -- supportive care Continue monitor Will follow Thank you
--- NOTE | 2019-08-11 16:14 | PN ---
Physical Exam: SUBJECTIVE: Patient seen and examined. She reports improvement in shortness of breath. She denies chest pain or abdominal pain. Pt recently received Ativan that improved anxiety and breathing. OBJECTIVE: Vital Signs Period Temp Pulse Resp BP Sys/[facility] Pulse Ox Last 24 Hr 97.6 F-98.4 F 116-136 20-26 119-150/73-94 95-100 GENERAL: The patient is A&Ox3, not in current distress. Was sleeping on NIPPV prior to interview. HEAD: Normal with no signs of trauma. EYES: PERRL, extraocular movements intact ENT: Ears normal, nares patent, moist mucous membranes. NECK: Trachea midline, full range of motion LUNGS: Bilateral expiratory wheezing in inferior aspects of lungs, can only speak a few words before getting out of breath HEART: Tachycardia and regular rhythm, no murmur ABDOMEN: Soft, nontender, nondistended, normoactive bowel sounds EXTREMITIES: Warm, well-perfused, no edema. NEUROLOGICAL: Normal speech PSYCH: Normal mood, normal affect. SKIN: Warm, dry, normal turgor Laboratory Results - last 24 hr 08/10/19 08/11/19 08/11/19 16:40 07:45 07:45 WBC 13.8 H RBC 3.70 Hgb 9.6 L Hct 30.0 L MCV 81.2 MCH 26.0 MCHC 32.0 RDW 19.7 H Plt Count 438 H MPV 8.3 Absolute Neuts (auto) 11.6 H Neutrophils % 84.4 H Lymphocytes % 9.7 D Monocytes % 5.6 Eosinophils % 0.0 D Basophils % 0.3 Nucleated RBC % 0 Anticoagulation Therapy No Result Required. Puncture Site Right brachial ABG pH 7.39 ABG pCO2 at Pt Temp 50.6 H ABG pO2 at Pt Temp 110 H ABG HCO3 29.6 H ABG O2 Sat (Measured) 97.8 ABG O2 Content 18.2 ABG Base Excess 4.0 H Marcelino Test Positive O2 Delivery Device No Result Required. Oxygen Flow Rate 100 Vent Mode No Result Required. Vent Rate No Result Required. Mechanical Rate No Result Required. Pressure Support Vent No Result Required. Sodium 138 Potassium 4.1 Chloride 102 Carbon Dioxide 26 Anion Gap 11 BUN 8.7 Creatinine 0.5 L Est GFR (CKD-EPI)AfAm 133.58 Est GFR (CKD-EPI)NonAf 115.25 Random Glucose 147 H Calcium 9.7 Phosphorus 3.8 Magnesium 2.0 Total Bilirubin 0.4 AST 32 ALT 21 Alkaline Phosphatase 108 Total Protein 7.3 Albumin 3.0 L Active Medications Generic Name Dose Route Start Last Admin Trade Name Freq PRN Reason Stop Dose Admin Acetaminophen 650 mg 08/10/19 16:13 Tylenol - PO Q6H PRN PAIN LEVEL 1-5 Albuterol Sulfate 1 amp 08/10/19 14:15 Ventolin 0.083% Nebulizer Soln - NEB Q4H PRN SHORT OF BREATH/WHEEZING Albuterol/Ipratropium 1 amp 08/10/19 16:00 08/11/19 12:42 Duoneb - NEB 1 amp RQID RUTH Administration Docusate Sodium 100 mg 08/10/19 22:00 08/11/19 14:58 Colace - PO 100 mg TID RUTH Administration Enoxaparin Sodium 40 mg 08/11/19 10:00 08/11/19 10:10 Lovenox - SQ 40 mg DAILY RUTH Administration Sodium Chloride 1,000 mls @ 100 mls/hr 08/10/19 14:45 08/11/19 06:55 Normal Saline - IV 100 mls/hr ASDIR RUTH Administration Vancomycin HCl 1,000 mg in 250 mls @ 166.667 mls/hr 08/12/19 00:00 Vancomycin (Pre-Docked) IVPB BID@0000,1200 [facility] Protocol Piperacillin Sod/Tazobactam 100 mls @ 200 mls/hr 08/11/19 21:00 Sod 4.5 gm/ Dextrose IVPB Q6H-IV RUTH Protocol Lorazepam 1 mg 08/10/19 14:38 08/11/19 14:58 Ativan - PO 1 mg TID PRN Administration ANXIETY Methylprednisolone Sodium Succinate 60 mg 08/11/19 10:00 08/11/19 14:58 Solu-Medrol - IVPUSH 60 mg Q6H-IV RUTH Administration Metoprolol Tartrate 50 mg 08/10/19 14:14 08/11/19 10:11 Lopressor - PO 50 mg DAILY RUTH Administration Mirtazapine 30 mg 08/10/19 22:00 08/10/19 22:00 Remeron - PO 30 mg HS RUTH Administration Morphine Sulfate 1 mg 08/10/19 16:28 08/11/19 11:01 Morphine Sulfate IVPUSH 1 mg Q4H PRN Administration PAIN LEVEL 7 - 10 Ondansetron HCl 4 mg 08/10/19 14:07 08/11/19 11:01 Zofran Injection IVPUSH 4 mg Q6H PRN Administration NAUSEA Pantoprazole Sodium 40 mg 08/11/19 10:00 08/11/19 10:40 Protonix - PO 40 mg DAILY RUTH Administration Quetiapine Fumarate 50 mg 08/10/19 22:00 08/10/19 23:12 Seroquel Xr - PO 50 mg HS RUTH Administration Senna 1 tab 08/11/19 10:00 08/11/19 10:10 Senna - PO 1 tab DAILY RUTH Administration ASSESSMENT/PLAN: Ms. Arreaga is a 49 y/o female with a history of colon cancer s/p resection ( 2013), mets to the liver and lung (RLL lobectomy 2016) who presents today for increased shortness of breath and chest and back pain. #acute hypoxic respiratory failure with metastases in lungs Pt on non-rebreather. Refused BiPAP overnight. CTA: diffuse bilateral lung confluent metastasis that have worsened from previous imaging, metastasis involving both latisha and bronchi of right lower lobe, hypodense mass in left thyroid, enhancement of spleen -Solumedrol 60mg Q6H -duoneb Q6H -albuterol -ID consulted -pulm following- adjusted NIPPV settings -Vanc and Zosyn #colon cancer with metastasis to liver and lung Admitting resident spoke with patients primary oncologist Dr. Luna Dc [phone], patient has very poor follow up. She is more then happy to see her as an outpatient but patient routinely cancels appointments with her. Patient has not had treatment since March. Patient signed DNR/DNI yesterday for comfort measures and antibiotics. -palliative care -morphine #anxiety/depression -lorazapam 1mg TID PRN -Seroquel 50 HS -Remeron #constipation -continue senna and docusate FEN regular diet NS 100mL/hr GI Ppx protonix DVT Ppx lovenox Dispo: med/surg DNR/DNI Visit type - Emergency Visit Emergency Visit: Yes ED Registration Date: 08/10/19 Care time: The patient presented to the Emergency Department on the above date and was hospitalized for further evaluation of their emergent condition. - New Patient This patient is new to me today: Yes Date on this admission: 08/11/19 - Critical Care Critical Care patient: No - Discharge Referral Referred to [facility] Med [facility] No ATTENDING PHYSICIAN STATEMENT I saw and evaluated the patient. I reviewed the resident's note and discussed the case with the resident. I agree with the resident's findings and plan as documented. SUBJECTIVE: OBJECTIVE: ASSESSMENT AND PLAN:
[2019-08-11] MEDS: MIRTAZAPINE 15 MG TABLET (FP) PO SCH (21:07)
[2019-08-12] MEDS: PIPERACILLIN/TAZOB 4.5 GM 4.5 GM in DEXTROSE 5%-WATER 100 ML IVPB SCH ×6 (01:02→20:07)
[2019-08-12] MEDS: VANCOMYCIN 1 GRAM (PRE-DOCKED) 1,000 MG/250 ML BAG IVPB SCH ×2 (01:05→12:01)
[2019-08-12] MEDS ORDERED: PIPERACILLIN/TAZOBACTAM 4.5 GM VIAL IVPB ONE ×4 (03:12→20:04)
[2019-08-12] MEDS ORDERED: DEXTROSE 5%-WATER 100 ML IVPB ONE ×4 (03:12→20:04)
[2019-08-12] MEDS: methylPREDNISolone NA SUCC 40 MG/1 ML VIAL IVPUSH SCH ×4 (03:21→20:08)
[2019-08-12] MEDS: SODIUM CHLORIDE 1,000 ML IV SCH ×3 (03:22→18:14)
[2019-08-12] MEDS: MORPHINE SULFATE 2 MG/ML VIAL IVPUSH PRN ×4 (03:42→21:17)
[2019-08-12] MEDS: LORazepam 1 MG TABLET PO PRN ×3 (04:55→20:30)
[2019-08-12] MEDS: DOCUSATE SODIUM 100 MG CAPSULE (FP) PO SCH ×3 (05:01→21:26)
[2019-08-12 08:12] LABS: BASO % 0.1 % (0-2.0); HEMATOCRIT 27.5 % (32.4-45.2); HEMOGLOBIN 8.6 GM/dL (10.7-15.3); MCH 25.7 pg (25.7-33.7); MCHC 31.3 g/dl (32.0-36.0); MEAN CELL VOLUME 81.9 fl (80-96); MEAN PLT VOLUME 8.7 fl (7.5-11.1); MONO % 5.6 % (3.8-10.2); NEUT % 91.3 % (42.8-82.8); PLATELET COUNT 379 K/MM3 (134-434); RBC 3.36 M/mm3 (3.60-5.2); RDW 19.5 % (11.6-15.6); WHITE BLOOD COUNT 18.3 K/mm3 (4.0-10.0)
[2019-08-12] MEDS: ALBUTEROL SO4 2.5/IPRATROPIUM 0.5 INH SOL 3 ML VIAL.NEB. NEB SCH ×4 (08:46→21:56)
[2019-08-12 09:26] LABS: PH,URINE 5.5 (5.0-8.0); URINE APPEARANCE CLEAR; URINE BILIRUBIN NEGATIVE (NEGATIVE); URINE COLOR YELLOW; URINE GLUCOSE (UA) NEGATIVE (NEGATIVE); URINE KETONE NEGATIVE (NEGATIVE); URINE LEUK ESTERASE NEGATIVE (NEGATIVE); URINE NITRITE NEGATIVE (NEGATIVE); URINE PROTEIN NEGATIVE (NEGATIVE); URINE UROBILINOGEN 0.2 mg/dL (0.2-1.0)
[2019-08-12] MEDS: PANTOPRAZOLE 40 MG TABLET (FP) PO SCH (10:10)
[2019-08-12] MEDS: METOPROLOL TARTRATE 25 MG TABLET (FP) PO SCH (10:10)
[2019-08-12] MEDS: SENNOSIDES 8.6MG TABLET (FP) PO SCH (10:10)
[2019-08-12] MEDS: ENOXAPARIN NA (PORCINE) 40 MG/0.4 ML DISP.SYRIN SQ SCH (10:10)
[2019-08-12 10:57] LABS: ANISOCYTOSIS 2+; MACROCYTOSIS 1+; OVALOCYTE 1+; PLATELET ESTIMATE NORMAL; TEAR DROP CELLS 1+
--- NOTE | 2019-08-12 11:32 | PN ---
Progress Note (short form) - Note Progress Note: Awake and alert. Tachypneic on 100% NRBM. Used NIPPV for 1.5 hours during the daytime yesterday but not overnight. Intake & Output 08/09/19 08/10/19 08/11/19 08/12/19 23:59 23:59 23:59 23:59 Intake Total 450 1850 1350 Output Total 3 Balance 450 1847 1350 Weight 150 lb 137 lb 5 oz Last Vital Signs Temp Pulse Resp BP Pulse Ox 97.9 F 148 H 24 H 133/92 100 08/12/19 10:00 08/12/19 10:00 08/12/19 10:00 08/12/19 10:00 08/12/19 09:00 Active Medications Acetaminophen (Tylenol -) 650 mg PO Q6H PRN PRN Reason: PAIN LEVEL 1-5 Albuterol Sulfate (Ventolin 0.083% Nebulizer Soln -) 1 amp NEB Q4H PRN PRN Reason: SHORT OF BREATH/WHEEZING Albuterol/Ipratropium (Duoneb -) 1 amp NEB RQID [facility] Last Admin: 08/12/19 08:46 Dose: 1 amp Docusate Sodium (Colace -) 100 mg PO TID RUTH Last Admin: 08/12/19 05:01 Dose: 100 mg Enoxaparin Sodium (Lovenox -) 40 mg SQ DAILY [facility] Last Admin: 08/12/19 10:10 Dose: 40 mg Sodium Chloride (Normal Saline -) 1,000 mls @ 100 mls/hr IV ASDIR [facility] Last Admin: 08/12/19 03:22 Dose: 100 mls/hr Vancomycin HCl (Vancomycin (Pre-Docked)) 1,000 mg in 250 mls @ 166.667 mls/hr IVPB BID@0000,1200 [facility]; Protocol Last Admin: 08/12/19 01:05 Dose: 166.667 mls/hr Piperacillin Sod/Tazobactam (Sod 4.5 gm/ Dextrose) 100 mls @ 200 mls/hr IVPB Q6H-IV RUTH; Protocol Last Admin: 08/12/19 10:10 Dose: 200 mls/hr Lorazepam (Ativan -) 1 mg PO TID PRN PRN Reason: ANXIETY Last Admin: 08/12/19 04:55 Dose: 1 mg Methylprednisolone Sodium Succinate (Solu-Medrol -) 60 mg IVPUSH Q6H-IV [facility] Last Admin: 08/12/19 10:09 Dose: 60 mg Metoprolol Tartrate (Lopressor -) 50 mg PO DAILY [facility] Last Admin: 08/12/19 10:10 Dose: 50 mg Mirtazapine (Remeron -) 30 mg PO HS [facility] Last Admin: 08/11/19 21:07 Dose: 30 mg Morphine Sulfate (Morphine Sulfate) 1 mg IVPUSH Q4H PRN PRN Reason: PAIN LEVEL 7 - 10 Last Admin: 08/12/19 08:34 Dose: 1 mg Ondansetron HCl (Zofran Injection) 4 mg IVPUSH Q6H PRN PRN Reason: NAUSEA Last Admin: 08/11/19 20:49 Dose: 4 mg Pantoprazole Sodium (Protonix -) 40 mg PO DAILY [facility] Last Admin: 08/12/19 10:10 Dose: 40 mg Quetiapine Fumarate (Seroquel Xr -) 50 mg PO HS [facility] Last Admin: 08/11/19 21:07 Dose: 50 mg Senna (Senna -) 1 tab PO DAILY [facility] Last Admin: 08/12/19 10:10 Dose: 1 tab Constitutional: Yes: Awake and alert, Tachypneic, Anxious Eyes: Yes: EOM Intact HENT: Yes: Normocephalic Neck: Yes: Trachea Midline Cardiovascular: Yes: Tachycardia, S1, S2 Respiratory: Yes: Diminished, Tachypnea Gastrointestinal: Yes: Normal Bowel Sounds Edema: No Labs: Laboratory Results - last 24 hr 08/12/19 08/12/19 03:30 06:55 WBC 18.3 H RBC 3.36 L Hgb 8.6 L Hct 27.5 L MCV 81.9 MCH 25.7 MCHC 31.3 L RDW 19.5 H Plt Count 379 MPV 8.7 Absolute Neuts (auto) 16.7 H Neutrophils % 91.3 H Neutrophils % (Manual) 89.1 H Band Neutrophils % 2.0 Lymphocytes % 3.0 L D Lymphocytes % (Manual) 4.9 L Monocytes % 5.6 Monocytes % (Manual) 4 Eosinophils % 0.0 Eosinophils % (Manual) 0.0 Basophils % 0.1 Basophils % (Manual) 0.0 Myelocytes % (Man) 0 Promyelocytes % (Man) 0 Blast Cells % (Manual) 0 Nucleated RBC % 0 Metamyelocytes 0 Hypochromia 0 Platelet Estimate Normal Polychromasia 0 Poikilocytosis 1+ Anisocytosis 2+ Microcytosis 1+ Macrocytosis 1+ Spherocytes 1+ Tear Drop Cells 1+ Ovalocytes 1+ Stomatocytes 1+ Acanthocytes (Spur) 1+ Urine Color Yellow Urine Appearance Clear Urine pH 5.5 Ur Specific [place] 1.011 Urine Protein Negative Urine Glucose (UA) Negative Urine Ketones Negative Urine Blood Negative Urine Nitrite Negative Urine Bilirubin Negative Urine Urobilinogen 0.2 Ur Leukocyte Esterase Negative Assessment/Plan COLON CA WITH LIVER/LUNG METS LUNG METS HAVE PROGRESSED SINCE MAY ( LAST CT CHEST) FAILURE TO THRIVE R/O PNA NIPPV as tolerated ABX VTE prophylaxis Aspiration precautions Patient is DNR/DNI Overall prognosis is poor Dr Orozco
[2019-08-12] MEDS ORDERED: INSULIN (NOVOLOG) ASPART 100 UNITS/ML 10ML VIAL ONE (11:51)
--- NOTE | 2019-08-12 14:29 | PN ---
Physical Exam: SUBJECTIVE: Patient seen and examined, overall breathing unchanged, intermittently tries to comply with bipap , no new complaints. OBJECTIVE: Vital Signs Period Temp Pulse Resp BP Sys/[facility] Pulse Ox Last 24 Hr 97.4 F-98.8 F 120-148 20-24 131-147/78-99 97-100 Intake & Output 08/09/19 08/10/19 08/11/19 08/12/19 23:59 23:59 23:59 23:59 Intake Total 450 1850 1350 Output Total 3 Balance 450 1847 1350 Weight 150 lb 137 lb 5 oz General: smiling, pleasant, on 100% NRB, tachypneic, use of accessory muscles of breathing Neck: soft, supple CVS:S1S2 regular, tachycardic Chest: CTAB, no rales or wheezing Abdomen;soft, NT, ND extremities: no edema Laboratory Results - last 24 hr 08/12/19 08/12/19 03:30 06:55 WBC 18.3 H RBC 3.36 L Hgb 8.6 L Hct 27.5 L MCV 81.9 MCH 25.7 MCHC 31.3 L RDW 19.5 H Plt Count 379 MPV 8.7 Absolute Neuts (auto) 16.7 H Neutrophils % 91.3 H Neutrophils % (Manual) 89.1 H Band Neutrophils % 2.0 Lymphocytes % 3.0 L D Lymphocytes % (Manual) 4.9 L Monocytes % 5.6 Monocytes % (Manual) 4 Eosinophils % 0.0 Eosinophils % (Manual) 0.0 Basophils % 0.1 Basophils % (Manual) 0.0 Myelocytes % (Man) 0 Promyelocytes % (Man) 0 Blast Cells % (Manual) 0 Nucleated RBC % 0 Metamyelocytes 0 Hypochromia 0 Platelet Estimate Normal Polychromasia 0 Poikilocytosis 1+ Anisocytosis 2+ Microcytosis 1+ Macrocytosis 1+ Spherocytes 1+ Tear Drop Cells 1+ Ovalocytes 1+ Stomatocytes 1+ Acanthocytes (Spur) 1+ Urine Color Yellow Urine Appearance Clear Urine pH 5.5 Ur Specific [place] 1.011 Urine Protein Negative Urine Glucose (UA) Negative Urine Ketones Negative Urine Blood Negative Urine Nitrite Negative Urine Bilirubin Negative Urine Urobilinogen 0.2 Ur Leukocyte Esterase Negative Active Medications Generic Name Dose Route Start Last Admin Trade Name Freq PRN Reason Stop Dose Admin Acetaminophen 650 mg 08/10/19 16:13 Tylenol - PO Q6H PRN PAIN LEVEL 1-5 Albuterol Sulfate 1 amp 08/10/19 14:15 Ventolin 0.083% Nebulizer Soln - NEB Q4H PRN SHORT OF BREATH/WHEEZING Albuterol/Ipratropium 1 amp 08/10/19 16:00 08/12/19 12:31 Duoneb - NEB 1 amp RQID [facility] Administration Docusate Sodium 100 mg 08/10/19 22:00 08/12/19 05:01 Colace - PO 100 mg TID [facility] Administration Enoxaparin Sodium 40 mg 08/11/19 10:00 08/12/19 10:10 Lovenox - SQ 40 mg DAILY [facility] Administration Sodium Chloride 1,000 mls @ 100 mls/hr 08/10/19 14:45 08/12/19 03:22 Normal Saline - IV 100 mls/hr ASDIR [facility] Administration Vancomycin HCl 1,000 mg in 250 mls @ 166.667 mls/hr 08/12/19 00:00 08/12/19 12:01 Vancomycin (Pre-Docked) IVPB 166.667 mls/hr BID@0000,1200 [facility] Administration Protocol Piperacillin Sod/Tazobactam 100 mls @ 200 mls/hr 08/11/19 21:00 08/12/19 10: 10 Sod 4.5 gm/ Dextrose IVPB 200 mls/hr Q6H-IV [facility] Administration Protocol Lorazepam 1 mg 08/12/19 14:07 Ativan - PO QID PRN ANXIETY Methylprednisolone Sodium Succinate 60 mg 08/11/19 10:00 08/12/19 10:09 Solu-Medrol - IVPUSH 60 mg Q6H-IV [facility] Administration Metoprolol Tartrate 50 mg 08/10/19 14:14 08/12/19 10:10 Lopressor - PO 50 mg DAILY [facility] Administration Mirtazapine 30 mg 08/10/19 22:00 08/11/19 21:07 Remeron - PO 30 mg HS [facility] Administration Morphine Sulfate 1 mg 08/10/19 16:28 08/12/19 08:34 Morphine Sulfate IVPUSH 1 mg Q4H PRN Administration PAIN LEVEL 7 - 10 Ondansetron HCl 4 mg 08/10/19 14:07 08/11/19 20:49 Zofran Injection IVPUSH 4 mg Q6H PRN Administration NAUSEA Pantoprazole Sodium 40 mg 08/11/19 10:00 08/12/19 10:10 Protonix - PO 40 mg DAILY [facility] Administration Quetiapine Fumarate 50 mg 08/10/19 22:00 08/11/19 21:07 Seroquel Xr - PO 50 mg HS [facility] Administration Senna 1 tab 08/11/19 10:00 08/12/19 10:10 Senna - PO 1 tab DAILY [facility] Administration Microbiology 08/10/19 21:00 Blood - Peripheral Venous Blood Culture - Preliminary NO GROWTH OBTAINED AFTER 24 HOURS, INCUBATION TO CONTINUE FOR 4 DAYS. 08/10/19 20:00 Blood - Peripheral Venous Blood Culture - Preliminary NO GROWTH OBTAINED AFTER 24 HOURS, INCUBATION TO CONTINUE FOR 4 DAYS. ASSESSMENT/PLAN: 49 yof with PMhx of Colon cancer 2013 s/p left hemicolectomy, Liver and lung mets 2017 s/p VATS RLL resection/chemotherapy, now with metastatic lung disease s/p Radiation in 04/2019, chemotherapy last in 03/2019, recently reportedly admitted to [facility] for respiratory distress, treated with 2 weeks of antibiotics, discharged on home oxygen (5 liters), and prednisone taper , (last dose today), at home for the last 2 weeks, comes with progressive dyspnea -Acute hypoxic/hypercapneic respiratory distress, suspect progression of metastatic lung disease, rather than infectious process -Leucocytosis, suspect steroid induced margination -Dehydration -Sinus tachycardia -Colon cancer 2013 s/p left hemicolectomy, Liver and lung mets 2017 s/p VATS RLL resection/chemotherapy, now with metastatic lung disease s/p Radiation in 2018, chemotherapy last in 03/2019, Plan: Overall unchanged ABG noted, NIPPV prn. Steroids/nebs. Abx per ID. Blood /sputum cx. Trend CBC. Morphine/ativan for comfort/respiratory distress, to be held for sedation. Continue home metoprolol/seroquel/remeron. IVF Nutrition input DVTPPX lovenox Prognosis guarded. Palliative care consult noted, DNR/DNI. Dispo pending clinical course. Discussed with patient and nursing. Visit type - Emergency Visit Emergency Visit: Yes ED Registration Date: 08/10/19 Care time: The patient presented to the Emergency Department on the above date and was hospitalized for further evaluation of their emergent condition. - New Patient This patient is new to me today: No - Critical Care Critical Care patient: No - Discharge Referral Referred to [facility] Med P.C.: No
[2019-08-12] MEDS ORDERED: ALBUTEROL SO4 2.5/IPRATROPIUM 0.5 INH SOL 3 ML VIAL.NEB. NEB ONE (16:31)
[2019-08-12] MEDS: ONDANSETRON 4 MG/2 ML VIAL IVPUSH PRN (17:16)
--- NOTE | 2019-08-12 19:01 | PN ---
Progress Note, Physician History of Present Illness: Pt is alert, on NRB still with some tachypnea/tachycardia but states she feels better. Remains afebrile. - Current Medication List Current Medications: Active Medications Acetaminophen (Tylenol -) 650 mg PO Q6H PRN PRN Reason: PAIN LEVEL 1-5 Albuterol Sulfate (Ventolin 0.083% Nebulizer Soln -) 1 amp NEB Q4H PRN PRN Reason: SHORT OF BREATH/WHEEZING Albuterol/Ipratropium (Duoneb -) 1 amp NEB RQID [facility] Last Admin: 08/12/19 16:39 Dose: 1 amp Docusate Sodium (Colace -) 100 mg PO TID [facility] Last Admin: 08/12/19 14:49 Dose: 100 mg Enoxaparin Sodium (Lovenox -) 40 mg SQ DAILY [facility] Last Admin: 08/12/19 10:10 Dose: 40 mg Sodium Chloride (Normal Saline -) 1,000 mls @ 100 mls/hr IV ASDIR [facility] Last Admin: 08/12/19 18:14 Dose: 100 mls/hr Vancomycin HCl (Vancomycin (Pre-Docked)) 1,000 mg in 250 mls @ 166.667 mls/hr IVPB BID@0000,1200 [facility]; Protocol Last Admin: 08/12/19 12:01 Dose: 166.667 mls/hr Piperacillin Sod/Tazobactam (Sod 4.5 gm/ Dextrose) 100 mls @ 200 mls/hr IVPB Q6H-IV [facility]; Protocol Last Admin: 08/12/19 14:50 Dose: 200 mls/hr Lorazepam (Ativan -) 1 mg PO QID PRN PRN Reason: ANXIETY Last Admin: 08/12/19 14:47 Dose: 1 mg Methylprednisolone Sodium Succinate (Solu-Medrol -) 60 mg IVPUSH Q6H-IV [facility] Last Admin: 08/12/19 14:49 Dose: 60 mg Metoprolol Tartrate (Lopressor -) 50 mg PO DAILY [facility] Last Admin: 08/12/19 10:10 Dose: 50 mg Mirtazapine (Remeron -) 30 mg PO HS [facility] Last Admin: 08/11/19 21:07 Dose: 30 mg Morphine Sulfate (Morphine Sulfate) 1 mg IVPUSH Q4H PRN PRN Reason: PAIN LEVEL 7 - 10 Last Admin: 08/12/19 17:16 Dose: 1 mg Ondansetron HCl (Zofran Injection) 4 mg IVPUSH Q6H PRN PRN Reason: NAUSEA Last Admin: 08/12/19 17:16 Dose: 4 mg Pantoprazole Sodium (Protonix -) 40 mg PO DAILY [facility] Last Admin: 08/12/19 10:10 Dose: 40 mg Quetiapine Fumarate (Seroquel Xr -) 50 mg PO HS [facility] Last Admin: 08/11/19 21:07 Dose: 50 mg Senna (Senna -) 1 tab PO DAILY [facility] Last Admin: 08/12/19 10:10 Dose: 1 tab - Objective Vital Signs: Vital Signs Temperature 97.8 F 08/12/19 17:41 Pulse Rate 146 H 08/12/19 17:41 Respiratory Rate 20 08/12/19 17:41 Blood Pressure 155/97 08/12/19 17:41 O2 Sat by Pulse Oximetry (%) 100 08/12/19 09:00 Constitutional: Yes: Calm, Mild Distress Eyes: Yes: Conjunctiva Clear Cardiovascular: Yes: Tachycardia Respiratory: Yes: Rhonchi, Wheezes Gastrointestinal: Yes: Normal Bowel Sounds, Soft Genitourinary: Yes: WNL Extremities: Yes: WNL Integumentary: Yes: WNL Neurological: Yes: Alert, Oriented Labs: CBC, BMP 08/12/19 06:55 08/11/19 07:45 INR, PTT INR 1.23 (0.83-1.09) H 08/10/19 09:00 Microbiology 08/10/19 21:00 Blood - Peripheral Venous Blood Culture - Preliminary NO GROWTH OBTAINED AFTER 24 HOURS, INCUBATION TO CONTINUE FOR 4 DAYS. 08/10/19 20:00 Blood - Peripheral Venous Blood Culture - Preliminary NO GROWTH OBTAINED AFTER 24 HOURS, INCUBATION TO CONTINUE FOR 4 DAYS. U/A negative Problem List - Problems (1) Pneumonia Code(s): J18.9 - PNEUMONIA, UNSPECIFIED ORGANISM Qualifiers: Pneumonia type: due to unspecified organism Laterality: unspecified laterality Lung location: unspecified part of lung Qualified Code(s): J18.9 - Pneumonia, unspecified organism (2) Respiratory distress Code(s): R06.03 - ACUTE RESPIRATORY DISTRESS (3) Colon cancer metastasized to multiple sites Code(s): C18.9 - MALIGNANT NEOPLASM OF COLON, UNSPECIFIED (4) Anemia Code(s): D64.9 - ANEMIA, UNSPECIFIED Qualifiers: Anemia type: other cause Other causes of anemia: chronic disease, neoplastic Qualified Code(s): D63.0 - Anemia in neoplastic disease (5) Anxiety disorder Code(s): F41.9 - ANXIETY DISORDER, UNSPECIFIED Qualifiers: Anxiety disorder type: unspecified anxiety disorder Qualified Code(s): F41.9 - Anxiety disorder, unspecified (6) S/P lobectomy of lung Code(s): Z90.2 - ACQUIRED ABSENCE OF LUNG [PART OF] Assessment/Plan Possible Post-obstructive PNA Acute respiratory failure - on NRBM Colon CA with mets to liver/lung s/p resection/lobectomy Anxiety SOB Leukocytosis - on steroids -- CT Chest reveals progression of metastasis -- continue antibiotics for now -- check Vancomycin trough -- blood cultures neg 24h -- send sputum culture, u/a neg -- on O2, bronchodilators, steroids -- wbc elevated on steroids -- supportive care Continue monitor
[2019-08-12] MEDS ORDERED: METOPROLOL TARTRATE 25 MG TABLET (FP) PO ONE (21:19)
[2019-08-12] MEDS: MIRTAZAPINE 15 MG TABLET (FP) PO SCH (21:26)
[2019-08-13] MEDS ORDERED: guaiFENesin 200 MG/10 ML 10 ML UNIT-DOSE CUPS PO ONE ×2 (00:39→23:07)
[2019-08-13] MEDS: VANCOMYCIN 1 GRAM (PRE-DOCKED) 1,000 MG/250 ML BAG IVPB SCH ×2 (01:08→11:44)
[2019-08-13] MEDS: LORazepam 1 MG TABLET PO PRN ×4 (01:19→21:05)
[2019-08-13] MEDS ORDERED: DEXTROSE 5%-WATER 100 ML IVPB ONE ×4 (03:00→20:27)
[2019-08-13] MEDS ORDERED: PIPERACILLIN/TAZOBACTAM 4.5 GM VIAL IVPB ONE ×4 (03:00→20:27)
[2019-08-13] MEDS: methylPREDNISolone NA SUCC 40 MG/1 ML VIAL IVPUSH SCH ×4 (03:05→21:02)
[2019-08-13] MEDS: PIPERACILLIN/TAZOB 4.5 GM 4.5 GM in DEXTROSE 5%-WATER 100 ML IVPB SCH ×4 (03:05→21:03)
[2019-08-13] MEDS: SODIUM CHLORIDE 1,000 ML IV SCH ×3 (03:06→15:15)
[2019-08-13] MEDS: MORPHINE SULFATE 2 MG/ML VIAL IVPUSH PRN ×4 (04:21→21:06)
[2019-08-13] MEDS: DOCUSATE SODIUM 100 MG CAPSULE (FP) PO SCH ×3 (06:54→21:05)
[2019-08-13 07:20] LABS: HEMATOCRIT 28.5 % (32.4-45.2); LYMPH % 2.4 % (8-40); MCHC 31.7 g/dl (32.0-36.0); MEAN CELL VOLUME 81.9 fl (80-96); MEAN PLT VOLUME 8.9 fl (7.5-11.1); NEUT % 92.6 % (42.8-82.8); PLATELET COUNT 397 K/MM3 (134-434); RBC 3.48 M/mm3 (3.60-5.2); RDW 19.9 % (11.6-15.6)
[2019-08-13] MEDS: ALBUTEROL SO4 2.5/IPRATROPIUM 0.5 INH SOL 3 ML VIAL.NEB. NEB SCH ×4 (07:20→21:00)
[2019-08-13] MEDS: METOPROLOL TARTRATE 25 MG TABLET (FP) PO SCH (09:40)
[2019-08-13] MEDS: ENOXAPARIN NA (PORCINE) 40 MG/0.4 ML DISP.SYRIN SQ SCH (09:40)
[2019-08-13] MEDS: SENNOSIDES 8.6MG TABLET (FP) PO SCH (09:40)
[2019-08-13] MEDS: PANTOPRAZOLE 40 MG TABLET (FP) PO SCH (09:40)
--- NOTE | 2019-08-13 10:22 | PN ---
Progress Note (short form) - Note Progress Note: Awake and alert. Reports feeling a little better today but still tachypneic on 100% NRBM. Reports using NIPPV for almost 2 t o 3 hours overnight. Intake & Output 08/10/19 08/11/19 08/12/19 08/13/19 23:59 23:59 23:59 23:59 Intake Total 450 1850 2950 1582 Output Total 3 Balance 450 1847 2950 1582 Weight 150 lb 137 lb 5 oz Last Vital Signs Temp Pulse Resp BP Pulse Ox 98.0 F 131 H 20 126/79 98 08/13/19 05:55 08/13/19 05:55 08/13/19 05:55 08/13/19 05:55 08/13/19 00:25 Active Medications Acetaminophen (Tylenol -) 650 mg PO Q6H PRN PRN Reason: PAIN LEVEL 1-5 Albuterol Sulfate (Ventolin 0.083% Nebulizer Soln -) 1 amp NEB Q4H PRN PRN Reason: SHORT OF BREATH/WHEEZING Albuterol/Ipratropium (Duoneb -) 1 amp NEB RQID [facility] Last Admin: 08/13/19 07:20 Dose: 1 amp Docusate Sodium (Colace -) 100 mg PO TID [facility] Last Admin: 08/13/19 06:54 Dose: 100 mg Enoxaparin Sodium (Lovenox -) 40 mg SQ DAILY [facility] Last Admin: 08/13/19 09:40 Dose: 40 mg Sodium Chloride (Normal Saline -) 1,000 mls @ 100 mls/hr IV ASDIR [facility] Last Admin: 08/13/19 08:48 Dose: 100 mls/hr Vancomycin HCl (Vancomycin (Pre-Docked)) 1,000 mg in 250 mls @ 166.667 mls/hr IVPB BID@0000,1200 [facility]; Protocol Last Admin: 08/13/19 01:08 Dose: 166.667 mls/hr Piperacillin Sod/Tazobactam (Sod 4.5 gm/ Dextrose) 100 mls @ 200 mls/hr IVPB Q6H-IV [facility]; Protocol Last Admin: 08/13/19 08:48 Dose: 200 mls/hr Lorazepam (Ativan -) 1 mg PO QID PRN PRN Reason: ANXIETY Last Admin: 08/13/19 07:21 Dose: 1 mg Methylprednisolone Sodium Succinate (Solu-Medrol -) 60 mg IVPUSH Q6H-IV [facility] Last Admin: 08/13/19 08:48 Dose: 60 mg Metoprolol Tartrate (Lopressor -) 50 mg PO DAILY [facility] Last Admin: 08/13/19 09:40 Dose: 50 mg Mirtazapine (Remeron -) 30 mg PO HS [facility] Last Admin: 08/12/19 21:26 Dose: 30 mg Morphine Sulfate (Morphine Sulfate) 1 mg IVPUSH Q4H PRN PRN Reason: PAIN LEVEL 7 - 10 Last Admin: 08/13/19 09:39 Dose: 1 mg Ondansetron HCl (Zofran Injection) 4 mg IVPUSH Q6H PRN PRN Reason: NAUSEA Last Admin: 08/12/19 17:16 Dose: 4 mg Pantoprazole Sodium (Protonix -) 40 mg PO DAILY [facility] Last Admin: 08/13/19 09:40 Dose: 40 mg Quetiapine Fumarate (Seroquel Xr -) 50 mg PO HS [facility] Last Admin: 08/12/19 21:26 Dose: 50 mg Senna (Senna -) 1 tab PO DAILY [facility] Last Admin: 08/13/19 09:40 Dose: 1 tab Constitutional: Yes: Awake and alert, Tachypneic, Anxious Eyes: Yes: EOM Intact HENT: Yes: Normocephalic Neck: Yes: Trachea Midline Cardiovascular: Yes: Tachycardia, S1, S2 Respiratory: Yes: Diminished, Tachypnea Gastrointestinal: Yes: Normal Bowel Sounds Edema: No Labs: Laboratory Results - last 24 hr 08/12/19 08/13/19 06:55 06:13 WBC 20.0 H RBC 3.48 L Hgb 9.0 L Hct 28.5 L MCV 81.9 MCH 26.0 MCHC 31.7 L RDW 19.9 H Plt Count 397 MPV 8.9 Absolute Neuts (auto) 18.5 H Neutrophils % 92.6 H Neutrophils % (Manual) 89.1 H Band Neutrophils % 2.0 Lymphocytes % 2.4 L Lymphocytes % (Manual) 4.9 L Monocytes % 5.0 Monocytes % (Manual) 4 Eosinophils % 0.0 Eosinophils % (Manual) 0.0 Basophils % 0.0 Basophils % (Manual) 0.0 Myelocytes % (Man) 0 Promyelocytes % (Man) 0 Blast Cells % (Manual) 0 Nucleated RBC % 0 Metamyelocytes 0 Hypochromia 0 Platelet Estimate Normal Polychromasia 0 Poikilocytosis 1+ Anisocytosis 2+ Microcytosis 1+ Macrocytosis 1+ Spherocytes 1+ Tear Drop Cells 1+ Ovalocytes 1+ Stomatocytes 1+ Acanthocytes (Spur) 1+ Assessment/Plan COLON CA WITH LIVER/LUNG METS LUNG METS HAVE PROGRESSED SINCE MAY (LAST CT CHEST) FAILURE TO THRIVE R/O PNA NIPPV as tolerated ABX VTE prophylaxis Aspiration precautions Patient is DNR/DNI Overall prognosis is poor Dr Orozco
--- NOTE | 2019-08-13 10:41 | PN ---
Progress Note, Physician History of Present Illness: still sob on face mask - Current Medication List Current Medications: Active Medications Acetaminophen (Tylenol -) 650 mg PO Q6H PRN PRN Reason: PAIN LEVEL 1-5 Albuterol Sulfate (Ventolin 0.083% Nebulizer Soln -) 1 amp NEB Q4H PRN PRN Reason: SHORT OF BREATH/WHEEZING Albuterol/Ipratropium (Duoneb -) 1 amp NEB RQID [facility] Last Admin: 08/13/19 07:20 Dose: 1 amp Docusate Sodium (Colace -) 100 mg PO TID [facility] Last Admin: 08/13/19 06:54 Dose: 100 mg Enoxaparin Sodium (Lovenox -) 40 mg SQ DAILY [facility] Last Admin: 08/13/19 09:40 Dose: 40 mg Sodium Chloride (Normal Saline -) 1,000 mls @ 100 mls/hr IV ASDIR [facility] Last Admin: 08/13/19 08:48 Dose: 100 mls/hr Vancomycin HCl (Vancomycin (Pre-Docked)) 1,000 mg in 250 mls @ 166.667 mls/hr IVPB BID@0000,1200 [facility]; Protocol Last Admin: 08/13/19 01:08 Dose: 166.667 mls/hr Piperacillin Sod/Tazobactam (Sod 4.5 gm/ Dextrose) 100 mls @ 200 mls/hr IVPB Q6H-IV [facility]; Protocol Last Admin: 08/13/19 08:48 Dose: 200 mls/hr Lorazepam (Ativan -) 1 mg PO QID PRN PRN Reason: ANXIETY Last Admin: 08/13/19 07:21 Dose: 1 mg Methylprednisolone Sodium Succinate (Solu-Medrol -) 60 mg IVPUSH Q6H-IV [facility] Last Admin: 08/13/19 08:48 Dose: 60 mg Metoprolol Tartrate (Lopressor -) 50 mg PO DAILY [facility] Last Admin: 08/13/19 09:40 Dose: 50 mg Mirtazapine (Remeron -) 30 mg PO HS [facility] Last Admin: 08/12/19 21:26 Dose: 30 mg Morphine Sulfate (Morphine Sulfate) 1 mg IVPUSH Q4H PRN PRN Reason: PAIN LEVEL 7 - 10 Last Admin: 08/13/19 09:39 Dose: 1 mg Ondansetron HCl (Zofran Injection) 4 mg IVPUSH Q6H PRN PRN Reason: NAUSEA Last Admin: 08/12/19 17:16 Dose: 4 mg Pantoprazole Sodium (Protonix -) 40 mg PO DAILY [facility] Last Admin: 08/13/19 09:40 Dose: 40 mg Quetiapine Fumarate (Seroquel Xr -) 50 mg PO HS [facility] Last Admin: 08/12/19 21:26 Dose: 50 mg Senna (Senna -) 1 tab PO DAILY [facility] Last Admin: 08/13/19 09:40 Dose: 1 tab - Objective Vital Signs: Vital Signs Temperature 98.0 F 08/13/19 05:55 Pulse Rate 131 H 08/13/19 05:55 Respiratory Rate 20 08/13/19 05:55 Blood Pressure 126/79 08/13/19 05:55 O2 Sat by Pulse Oximetry (%) 98 08/13/19 00:25 Constitutional: Yes: Anxious, Mild Distress Eyes: Yes: Conjunctiva Clear Cardiovascular: Yes: S1, S2 Respiratory: Yes: Poor Air Entry, Other (on face mask) Gastrointestinal: Yes: Normal Bowel Sounds, Soft Musculoskeletal: Yes: WNL Extremities: Yes: WNL Neurological: Yes: Alert, Oriented Psychiatric: Yes: Alert, Oriented Labs: CBC, BMP 08/13/19 06:13 08/11/19 07:45 INR, PTT INR 1.23 (0.83-1.09) H 08/10/19 09:00 Assessment/Plan Problem List - Problems (1) Pneumonia Code(s): J18.9 - PNEUMONIA, UNSPECIFIED ORGANISM Qualifiers: Pneumonia type: due to unspecified organism Laterality: unspecified laterality Lung location: unspecified part of lung Qualified Code(s): J18.9 - Pneumonia, unspecified organism (2) Respiratory distress Code(s): R06.03 - ACUTE RESPIRATORY DISTRESS (3) Colon cancer metastasized to multiple sites Code(s): C18.9 - MALIGNANT NEOPLASM OF COLON, UNSPECIFIED (4) Anemia Code(s): D64.9 - ANEMIA, UNSPECIFIED Qualifiers: Anemia type: other cause Other causes of anemia: chronic disease, neoplastic Qualified Code(s): D63.0 - Anemia in neoplastic disease (5) Anxiety disorder Code(s): F41.9 - ANXIETY DISORDER, UNSPECIFIED Qualifiers: Anxiety disorder type: unspecified anxiety disorder Qualified Code(s): F41.9 - Anxiety disorder, unspecified (6) S/P lobectomy of lung Code(s): Z90.2 - ACQUIRED ABSENCE OF LUNG [PART OF] Assessment/Plan Possible Post-obstructive PNA Acute respiratory failure - on NRBM Colon CA with mets to liver/lung s/p resection/lobectomy Anxiety SOB Leukocytosis - on steroids plan continue abx resp support follow vanco trough rest as per the team
[2019-08-13] MEDS: ONDANSETRON 4 MG/2 ML VIAL IVPUSH PRN ×2 (11:45→18:08)
[2019-08-13 11:56] LABS: ANISOCYTOSIS 1+; MACROCYTOSIS 0; PLATELET ESTIMATE NORMAL; TEAR DROP CELLS 1+
--- NOTE | 2019-08-13 13:09 | PN ---
Teaching Attending Note Name of Resident: Ana Erwin ATTENDING PHYSICIAN STATEMENT I saw and evaluated the patient. I reviewed the resident's note and discussed the case with the resident. I agree with the resident's findings and plan as documented with exceptions below. SUBJECTIVE: Patient seen and examined. using bipap intermittently, overall unchanged breathing, po intake not well. no new complaints otherwise. OBJECTIVE: Vital Signs Period Temp Pulse Resp BP Sys/[facility] Pulse Ox Last 24 Hr 97.5 F-98.2 F 131-146 20-24 126-156/79-104 98-100 Intake & Output 08/10/19 08/11/19 08/12/19 08/13/19 23:59 23:59 23:59 23:59 Intake Total 450 1850 2950 1702 Output Total 3 Balance 450 1847 2950 1702 Weight 150 lb 137 lb 5 oz General: sitting in bed, on NRB, tachypnea, use of accessory muscles of respiration Neck: soft, supple CVS:S1S2 regular, tachycardic Chest: improved air entry, scattered rhonchi Abomen:soft, NT Extremities: no edema Home Medications Medication Instructions Recorded Metoprolol Tartrate [Lopressor -] 50 mg PO DAILY 02/03/16 Pantoprazole Sodium [Protonix -] 40 mg PO DAILY #30 tablet.ec 02/06/16 LORazepam [Ativan] 1 mg PO TID PRN MDD 3mg 11/18/16 Docusate Sodium 100 mg PO TID 08/10/19 Mirtazapine [Remeron -] 30 mg PO HS 08/10/19 Quetiapine Fumarate [Quetiapine 50 mg PO HS 08/10/19 Fumarate ER] Sennosides [Senna] 8.6 mg PO DAILY 08/10/19 Active Medications Acetaminophen (Tylenol -) 650 mg PO Q6H PRN PRN Reason: PAIN LEVEL 1-5 Albuterol Sulfate (Ventolin 0.083% Nebulizer Soln -) 1 amp NEB Q4H PRN PRN Reason: SHORT OF BREATH/WHEEZING Albuterol/Ipratropium (Duoneb -) 1 amp NEB RQID [facility] Last Admin: 08/13/19 11:46 Dose: 1 amp Docusate Sodium (Colace -) 100 mg PO TID [facility] Last Admin: 08/13/19 06:54 Dose: 100 mg Enoxaparin Sodium (Lovenox -) 40 mg SQ DAILY [facility] Last Admin: 08/13/19 09:40 Dose: 40 mg Vancomycin HCl (Vancomycin (Pre-Docked)) 1,000 mg in 250 mls @ 166.667 mls/hr IVPB BID@0000,1200 [facility]; Protocol Last Admin: 08/13/19 11:44 Dose: 166.667 mls/hr Piperacillin Sod/Tazobactam (Sod 4.5 gm/ Dextrose) 100 mls @ 200 mls/hr IVPB Q6H-IV [facility]; Protocol Last Admin: 08/13/19 08:48 Dose: 200 mls/hr Sodium Chloride (Normal Saline -) 1,000 mls @ 50 mls/hr IV ASDIR [facility] Lorazepam (Ativan -) 1 mg PO QID PRN PRN Reason: ANXIETY Last Admin: 08/13/19 07:21 Dose: 1 mg Methylprednisolone Sodium Succinate (Solu-Medrol -) 60 mg IVPUSH Q6H-IV [facility] Last Admin: 08/13/19 08:48 Dose: 60 mg Metoprolol Tartrate (Lopressor -) 50 mg PO DAILY [facility] Last Admin: 08/13/19 09:40 Dose: 50 mg Mirtazapine (Remeron -) 30 mg PO HS [facility] Last Admin: 08/12/19 21:26 Dose: 30 mg Morphine Sulfate (Morphine Sulfate) 1 mg IVPUSH Q4H PRN PRN Reason: PAIN LEVEL 7 - 10 Last Admin: 08/13/19 09:39 Dose: 1 mg Ondansetron HCl (Zofran Injection) 4 mg IVPUSH Q6H PRN PRN Reason: NAUSEA Last Admin: 08/13/19 11:45 Dose: 4 mg Pantoprazole Sodium (Protonix -) 40 mg PO DAILY [facility] Last Admin: 08/13/19 09:40 Dose: 40 mg Quetiapine Fumarate (Seroquel Xr -) 50 mg PO HS [facility] Last Admin: 08/12/19 21:26 Dose: 50 mg Senna (Senna -) 1 tab PO DAILY [facility] Last Admin: 08/13/19 09:40 Dose: 1 tab Laboratory Results - last 24 hr 08/13/19 06:13 WBC 20.0 H RBC 3.48 L Hgb 9.0 L Hct 28.5 L MCV 81.9 MCH 26.0 MCHC 31.7 L RDW 19.9 H Plt Count 397 MPV 8.9 Absolute Neuts (auto) 18.5 H Neutrophils % 92.6 H Neutrophils % (Manual) 97.0 H Band Neutrophils % 0.0 Lymphocytes % 2.4 L Lymphocytes % (Manual) 1.0 L D Monocytes % 5.0 Monocytes % (Manual) 2 L Eosinophils % 0.0 Eosinophils % (Manual) 0.0 Basophils % 0.0 Basophils % (Manual) 0.0 Myelocytes % (Man) 0 Promyelocytes % (Man) 0 Blast Cells % (Manual) 0 Nucleated RBC % 0 Metamyelocytes 0 Hypochromia 0 Platelet Estimate Normal Polychromasia 1+ Poikilocytosis 0 Basophilic Stippling 1+ Anisocytosis 1+ Microcytosis 1+ Macrocytosis 0 Tear Drop Cells 1+ Microbiology 08/12/19 03:30 Urine - Urine Clean Catch Urine Culture - Final NO GROWTH OBTAINED 08/10/19 21:00 Blood - Peripheral Venous Blood Culture - Preliminary NO GROWTH OBTAINED AFTER 48 HOURS, INCUBATION TO CONTINUE FOR 3 DAYS. 08/10/19 20:00 Blood - Peripheral Venous Blood Culture - Preliminary NO GROWTH OBTAINED AFTER 48 HOURS, INCUBATION TO CONTINUE FOR 3 DAYS. ASSESSMENT AND PLAN: 49 yof with PMhx of Colon cancer 2014 s/p left hemicolectomy, Liver and lung mets 2017 s/p VATS RLL resection/chemotherapy, now with metastatic lung disease s/p Radiation in 04/2019, chemotherapy last in 03/2019, recently reportedly admitted to [facility] for respiratory distress, treated with 2 weeks of antibiotics, discharged on home oxygen (5 liters), and prednisone taper , (last dose today), at home for the last 2 weeks, comes with progressive dyspnea -Acute hypoxic/hypercapneic respiratory distress, suspect progression of metastatic lung disease, rather than infectious process -Leucocytosis, suspect steroid induced margination -Dehydration -Sinus tachycardia -Colon cancer 2014 s/p left hemicolectomy, Liver and lung mets 2017 s/p VATS RLL resection/chemotherapy, now with metastatic lung disease s/p Radiation in 2018, chemotherapy last in 03/2019, Plan: Some improvement in air entry but overall unchanegd. NIPPV prn. Steroids/nebs. Abx per ID. Blood /sputum cx. Trend CBC. Morphine/ativan for comfort/respiratory distress, to be held for sedation. Continue home metoprolol/seroquel/remeron. IVF Nutrition input DVTPPX lovenox Prognosis guarded. Palliative care consult noted, DNR/DNI. Dispo address home hospice vs [facility] based on clinical course. Discussed with patient and nursing.
[2019-08-13 14:58] VITALS: BMI 23.5
--- NOTE | 2019-08-13 17:37 | PN ---
Physical Exam: SUBJECTIVE: Patient seen and examined. She used BiPAP intermittently overnight. She was on non-rebreather during interview. She reports feeling "fine." She has shortness of breath, mild cough, and wheezing. She has been able to tolerate diet. OBJECTIVE: Vital Signs Period Temp Pulse Resp BP Sys/[facility] Pulse Ox Last 24 Hr 97.5 F-98.2 F 102-146 20-24 126-156/68-104 98-100 GENERAL: The patient is A&Ox3, cannot speak in full sentences HEAD: Normal with no signs of trauma. EYES: PERRL, extraocular movements intact ENT: Ears normal, nares patent, moist mucous membranes. NECK: Trachea midline, full range of motion LUNGS: Left side expiratory wheezing, right side rhonchi HEART: Tachycardia and regular rhythm, no murmur ABDOMEN: Soft, nontender, nondistended, normoactive bowel sounds EXTREMITIES: Warm, well-perfused, bilateral LE pitting edema--wearing compression stockings NEUROLOGICAL: Normal speech PSYCH: Normal mood, normal affect. SKIN: Warm, dry, normal turgor Laboratory Results - last 24 hr 08/13/19 08/13/19 06:13 12:56 WBC 20.0 H RBC 3.48 L Hgb 9.0 L Hct 28.5 L MCV 81.9 MCH 26.0 MCHC 31.7 L RDW 19.9 H Plt Count 397 MPV 8.9 Absolute Neuts (auto) 18.5 H Neutrophils % 92.6 H Neutrophils % (Manual) 97.0 H Band Neutrophils % 0.0 Lymphocytes % 2.4 L Lymphocytes % (Manual) 1.0 L D Monocytes % 5.0 Monocytes % (Manual) 2 L Eosinophils % 0.0 Eosinophils % (Manual) 0.0 Basophils % 0.0 Basophils % (Manual) 0.0 Myelocytes % (Man) 0 Promyelocytes % (Man) 0 Blast Cells % (Manual) 0 Nucleated RBC % 0 Metamyelocytes 0 Hypochromia 0 Platelet Estimate Normal Polychromasia 1+ Poikilocytosis 0 Basophilic Stippling 1+ Anisocytosis 1+ Microcytosis 1+ Macrocytosis 0 Tear Drop Cells 1+ Vancomycin Pre-Dose 47.4 H* Active Medications Generic Name Dose Route Start Last Admin Trade Name Freq PRN Reason Stop Dose Admin Acetaminophen 650 mg 08/10/19 16:13 Tylenol - PO Q6H PRN PAIN LEVEL 1-5 Albuterol Sulfate 1 amp 08/10/19 14:15 Ventolin 0.083% Nebulizer Soln - NEB Q4H PRN SHORT OF BREATH/WHEEZING Albuterol/Ipratropium 1 amp 08/10/19 16:00 08/13/19 15:57 Duoneb - NEB 1 amp RQID RUTH Administration Docusate Sodium 100 mg 08/10/19 22:00 08/13/19 13:35 Colace - PO Not Given TID RUTH Enoxaparin Sodium 40 mg 08/11/19 10:00 08/13/19 09:40 Lovenox - SQ 40 mg DAILY RUTH Administration Vancomycin HCl 1,000 mg in 250 mls @ 166.667 mls/hr 08/12/19 00:00 08/13/19 11:44 Vancomycin (Pre-Docked) IVPB 166.667 mls/hr BID@0000,1200 RUTH Administration Protocol Piperacillin Sod/Tazobactam 100 mls @ 200 mls/hr 08/11/19 21:00 08/13/19 15: 15 Sod 4.5 gm/ Dextrose IVPB 200 mls/hr Q6H-IV RUTH Administration Protocol Sodium Chloride 1,000 mls @ 50 mls/hr 08/13/19 12:01 08/13/19 15:15 Normal Saline - IV 50 mls/hr ASDIR RUTH Administration Lorazepam 1 mg 08/12/19 14:07 08/13/19 07:21 Ativan - PO 1 mg QID PRN Administration ANXIETY Methylprednisolone Sodium Succinate 60 mg 08/11/19 10:00 08/13/19 15:15 Solu-Medrol - IVPUSH 60 mg Q6H-IV RUTH Administration Metoprolol Tartrate 50 mg 08/10/19 14:14 08/13/19 09:40 Lopressor - PO 50 mg DAILY RUTH Administration Mirtazapine 30 mg 08/10/19 22:00 08/12/19 21:26 Remeron - PO 30 mg HS RUTH Administration Morphine Sulfate 1 mg 08/10/19 16:28 08/13/19 15:18 Morphine Sulfate IVPUSH 1 mg Q4H PRN Administration PAIN LEVEL 7 - 10 Ondansetron HCl 4 mg 08/10/19 14:07 08/13/19 11:45 Zofran Injection IVPUSH 4 mg Q6H PRN Administration NAUSEA Pantoprazole Sodium 40 mg 08/11/19 10:00 08/13/19 09:40 Protonix - PO 40 mg DAILY RUTH Administration Quetiapine Fumarate 50 mg 08/10/19 22:00 08/12/19 21:26 Seroquel Xr - PO 50 mg HS RUTH Administration Senna 1 tab 08/11/19 10:00 08/13/19 09:40 Senna - PO 1 tab DAILY RUTH Administration ASSESSMENT/PLAN: Ms. Arreaga is a 49 y/o female with a history of colon cancer s/p resection ( 2013), mets to the liver and lung (RLL lobectomy 2016) who presents for increased shortness of breath and chest and back pain. CTA showed worsening lungs mets from May. She was given solumedrol, duo-nebs, albuterol, and treated empirically with Vanc and Zosyn. Palliative care was consulted and pt signed DNR/DNI form. She is being given morphine for comfort. She uses BiPAP intermittently with non-rebreather as backup. #acute hypoxic respiratory failure with metastases in lungs Pt on non-rebreather. Refused BiPAP overnight. CTA: diffuse bilateral lung confluent metastasis that have worsened from previous imaging, metastasis involving both latisha and bronchi of right lower lobe, hypodense mass in left thyroid, enhancement of spleen -Solumedrol 60mg Q6H -duoneb Q6H -albuterol -ID consulted -pulm following- adjusted NIPPV settings -Vanc and Zosyn -O2 -BiPAP -Vanc level pending- will hold night dose if elevated #colon cancer with metastasis to liver and lung Admitting resident spoke with patients primary oncologist Dr. Luna Dc , patient has very poor follow up. She is more then happy to see her as an outpatient but patient routinely cancels appointments with her. Patient has not had treatment since March. Patient signed DNR/DNI for comfort measures and antibiotics. -palliative care -morphine -will speak to pt about hospice #leukocytosis Likely 2/2 steroid use -monitor CBC #anxiety/depression -lorazapam 1mg TID PRN -Seroquel -Remeron #constipation -continue senna and docusate FEN regular diet NS 100mL/hr GI Ppx protonix DVT Ppx lovenox Dispo: med/surg DNR/DNI Visit type - Emergency Visit Emergency Visit: Yes ED Registration Date: 08/10/19 Care time: The patient presented to the Emergency Department on the above date and was hospitalized for further evaluation of their emergent condition. - New Patient This patient is new to me today: No - Critical Care Critical Care patient: No - Discharge Referral Referred to [facility] Med P.C[facility] No ATTENDING PHYSICIAN STATEMENT I saw and evaluated the patient. I reviewed the resident's note and discussed the case with the resident. I agree with the resident's findings and plan as documented. SUBJECTIVE: OBJECTIVE: ASSESSMENT AND PLAN:
[2019-08-13] MEDS: MIRTAZAPINE 15 MG TABLET (FP) PO SCH (21:05)
[2019-08-14] MEDS ORDERED: PIPERACILLIN/TAZOBACTAM 4.5 GM VIAL IVPB ONE ×4 (01:06→19:45)
[2019-08-14] MEDS ORDERED: DEXTROSE 5%-WATER 100 ML IVPB ONE ×4 (01:07→19:46)
[2019-08-14] MEDS: MORPHINE SULFATE 2 MG/ML VIAL IVPUSH PRN ×4 (02:37→21:33)
[2019-08-14] MEDS: methylPREDNISolone NA SUCC 40 MG/1 ML VIAL IVPUSH SCH ×4 (02:51→20:17)
[2019-08-14] MEDS: PIPERACILLIN/TAZOB 4.5 GM 4.5 GM in DEXTROSE 5%-WATER 100 ML IVPB SCH ×4 (02:52→20:17)
[2019-08-14] MEDS: LORazepam 1 MG TABLET PO PRN ×3 (06:21→18:41)
[2019-08-14] MEDS: DOCUSATE SODIUM 100 MG CAPSULE (FP) PO SCH ×3 (06:21→21:29)
[2019-08-14 07:36] LABS: HEMATOCRIT 28.6 % (32.4-45.2); HEMOGLOBIN 9.1 GM/dL (10.7-15.3); MCH 26.3 pg (25.7-33.7); MEAN CELL VOLUME 82.3 fl (80-96); MEAN PLT VOLUME 8.6 fl (7.5-11.1); MONO % 5.9 % (3.8-10.2); NEUT % 92.1 % (42.8-82.8); PLATELET COUNT 360 K/MM3 (134-434); RBC 3.48 M/mm3 (3.60-5.2); WHITE BLOOD COUNT 16.5 K/mm3 (4.0-10.0)
[2019-08-14] MEDS: ALBUTEROL SO4 2.5/IPRATROPIUM 0.5 INH SOL 3 ML VIAL.NEB. NEB SCH ×4 (07:40→20:05)
[2019-08-14] MEDS: ENOXAPARIN NA (PORCINE) 40 MG/0.4 ML DISP.SYRIN SQ SCH (09:27)
[2019-08-14] MEDS: SENNOSIDES 8.6MG TABLET (FP) PO SCH (09:28)
[2019-08-14] MEDS: PANTOPRAZOLE 40 MG TABLET (FP) PO SCH (09:28)
[2019-08-14] MEDS: METOPROLOL TARTRATE 25 MG TABLET (FP) PO SCH (09:57)
[2019-08-14] MEDS: SODIUM CHLORIDE 1,000 ML IV SCH ×2 (10:01→14:58)
--- NOTE | 2019-08-14 11:02 | PN ---
Progress Note (short form) - Note Progress Note: Awake and alert. Reports feeling a little better today but still tachypneic on 100% NRBM. Reports using NIPPV for almost 2 hours overnight. Clinically seems to have plateaued. Intake & Output 08/11/19 08/12/19 08/13/19 08/14/19 23:59 23:59 23:59 23:59 Intake Total 1850 2950 2302 550 Output Total 3 Balance 1847 2950 2302 550 Weight 137 lb 5 oz 137 lb Last Vital Signs Temp Pulse Resp BP Pulse Ox 98.6 F 135 H 20 131/93 95 08/14/19 06:04 08/14/19 06:32 08/14/19 06:04 08/14/19 06:04 08/14/19 08:34 Active Medications Acetaminophen (Tylenol -) 650 mg PO Q6H PRN PRN Reason: PAIN LEVEL 1-5 Albuterol Sulfate (Ventolin 0.083% Nebulizer Soln -) 1 amp NEB Q4H PRN PRN Reason: SHORT OF BREATH/WHEEZING Albuterol/Ipratropium (Duoneb -) 1 amp NEB RQID COUNT INCLUDES [facility] Last Admin: 08/14/19 07:40 Dose: 1 amp Docusate Sodium (Colace -) 100 mg PO TID RUTH Last Admin: 08/14/19 06:21 Dose: 100 mg Enoxaparin Sodium (Lovenox -) 40 mg SQ DAILY COUNT INCLUDES [facility] Last Admin: 08/14/19 09:27 Dose: 40 mg Vancomycin HCl (Vancomycin (Pre-Docked)) 1,000 mg in 250 mls @ 166.667 mls/hr IVPB BID@0000,1200 COUNT INCLUDES [facility]; Protocol Last Admin: 08/13/19 11:44 Dose: 166.667 mls/hr Piperacillin Sod/Tazobactam (Sod 4.5 gm/ Dextrose) 100 mls @ 200 mls/hr IVPB Q6H-IV RUTH; Protocol Last Admin: 08/14/19 09:26 Dose: 200 mls/hr Sodium Chloride (Normal Saline -) 1,000 mls @ 50 mls/hr IV ASDIR RUTH Last Admin: 08/14/19 10:01 Dose: 50 mls/hr Lorazepam (Ativan -) 1 mg PO QID PRN PRN Reason: ANXIETY Last Admin: 08/14/19 06:21 Dose: 1 mg Methylprednisolone Sodium Succinate (Solu-Medrol -) 60 mg IVPUSH Q6H-IV COUNT INCLUDES [facility] Last Admin: 08/14/19 09:26 Dose: 60 mg Metoprolol Tartrate (Lopressor -) 50 mg PO DAILY COUNT [facility]CLUDES [facility] Last Admin: 08/14/19 09:57 Dose: 50 mg Mirtazapine (Remeron -) 30 mg PO HS COUNT [facility]CLUDES [facility] Last Admin: 08/13/19 21:05 Dose: 30 mg Morphine Sulfate (Morphine Sulfate) 1 mg IVPUSH Q4H PRN PRN Reason: PAIN LEVEL 7 - 10 Last Admin: 08/14/19 02:37 Dose: 1 mg Ondansetron HCl (Zofran Injection) 4 mg IVPUSH Q6H PRN PRN Reason: NAUSEA Last Admin: 08/13/19 18:08 Dose: 4 mg Pantoprazole Sodium (Protonix -) 40 mg PO DAILY COUNT [facility]CLUD[facility] Last Admin: 08/14/19 09:28 Dose: 40 mg Quetiapine Fumarate (Seroquel Xr -) 50 mg PO HS COUNT [facility]CLUD[facility] Last Admin: 08/13/19 21:01 Dose: 50 mg Senna (Senna -) 1 tab PO DAILY [facility] Last Admin: 08/14/19 09:28 Dose: 1 tab Constitutional: Yes: Awake and alert, Tachypneic, Anxious Eyes: Yes: EOM Intact HENT: Yes: Normocephalic Neck: Yes: Trachea Midline Cardiovascular: Yes: Tachycardia, S1, S2 Respiratory: Yes: Diminished, Tachypnea Gastrointestinal: Yes: Normal Bowel Sounds Edema: No Labs: Laboratory Results - last 24 hr 08/13/19 08/13/19 08/13/19 06:13 12:56 14:35 WBC RBC Hgb Hct MCV MCH MCHC RDW Plt Count MPV Absolute Neuts (auto) Neutrophils % Neutrophils % (Manual) 97.0 H Band Neutrophils % 0.0 Lymphocytes % Lymphocytes % (Manual) 1.0 L D Monocytes % Monocytes % (Manual) 2 L Eosinophils % Eosinophils % (Manual) 0.0 Basophils % Basophils % (Manual) 0.0 Myelocytes % (Man) 0 Promyelocytes % (Man) 0 Blast Cells % (Manual) 0 Nucleated RBC % Metamyelocytes 0 Hypochromia 0 Platelet Estimate Normal Polychromasia 1+ Poikilocytosis 0 Basophilic Stippling 1+ Anisocytosis 1+ Microcytosis 1+ Macrocytosis 0 Tear Drop Cells 1+ Random Vancomycin 23.6 Vancomycin Pre-Dose 47.4 H* 08/14/19 08/14/19 06:30 06:30 WBC 16.5 H RBC 3.48 L Hgb 9.1 L Hct 28.6 L MCV 82.3 MCH 26.3 MCHC 32.0 RDW 20.0 H Plt Count 360 MPV 8.6 Absolute Neuts (auto) 15.2 H Neutrophils % 92.1 H Neutrophils % (Manual) Band Neutrophils % Lymphocytes % 2.0 L Lymphocytes % (Manual) Monocytes % 5.9 Monocytes % (Manual) Eosinophils % 0.0 Eosinophils % (Manual) Basophils % 0.0 Basophils % (Manual) Myelocytes % (Man) Promyelocytes % (Man) Blast Cells % (Manual) Nucleated RBC % 0 Metamyelocytes Hypochromia Platelet Estimate Polychromasia Poikilocytosis Basophilic Stippling Anisocytosis Microcytosis Macrocytosis Tear Drop Cells Random Vancomycin 11.0 L Vancomycin Pre-Dose Assessment/Plan COLON CA WITH LIVER/LUNG METS LUNG METS HAVE PROGRESSED SINCE MAY (LAST CT CHEST) FAILURE TO THRIVE R/O PNA Check saturation on tapering % of FiO2 to assess supplemental O2 need NIPPV as tolerated ABX VTE prophylaxis Aspiration precautions Patient is DNR/DNI Overall prognosis is poor (?) LTAC transfer Dr Orozco
--- NOTE | 2019-08-14 11:47 | PN ---
Progress Note, Physician History of Present Illness: feels a bit better still very sob on face mask - Current Medication List Current Medications: Active Medications Acetaminophen (Tylenol -) 650 mg PO Q6H PRN PRN Reason: PAIN LEVEL 1-5 Albuterol Sulfate (Ventolin 0.083% Nebulizer Soln -) 1 amp NEB Q4H PRN PRN Reason: SHORT OF BREATH/WHEEZING Albuterol/Ipratropium (Duoneb -) 1 amp NEB RQID RUTH Last Admin: 08/14/19 07:40 Dose: 1 amp Docusate Sodium (Colace -) 100 mg PO TID RUTH Last Admin: 08/14/19 06:21 Dose: 100 mg Enoxaparin Sodium (Lovenox -) 40 mg SQ DAILY [facility] Last Admin: 08/14/19 09:27 Dose: 40 mg Vancomycin HCl (Vancomycin (Pre-Docked)) 1,000 mg in 250 mls @ 166.667 mls/hr IVPB BID@0000,1200 [facility]; Protocol Last Admin: 08/13/19 11:44 Dose: 166.667 mls/hr Piperacillin Sod/Tazobactam (Sod 4.5 gm/ Dextrose) 100 mls @ 200 mls/hr IVPB Q6H-IV RUTH; Protocol Last Admin: 08/14/19 09:26 Dose: 200 mls/hr Sodium Chloride (Normal Saline -) 1,000 mls @ 50 mls/hr IV ASDIR RUTH Last Admin: 08/14/19 10:01 Dose: 50 mls/hr Lorazepam (Ativan -) 1 mg PO QID PRN PRN Reason: ANXIETY Last Admin: 08/14/19 06:21 Dose: 1 mg Methylprednisolone Sodium Succinate (Solu-Medrol -) 60 mg IVPUSH Q6H-IV RUTH Last Admin: 08/14/19 09:26 Dose: 60 mg Metoprolol Tartrate (Lopressor -) 50 mg PO DAILY [facility] Last Admin: 08/14/19 09:57 Dose: 50 mg Mirtazapine (Remeron -) 30 mg PO HS [facility] Last Admin: 08/13/19 21:05 Dose: 30 mg Morphine Sulfate (Morphine Sulfate) 1 mg IVPUSH Q4H PRN PRN Reason: PAIN LEVEL 7 - 10 Last Admin: 08/14/19 02:37 Dose: 1 mg Ondansetron HCl (Zofran Injection) 4 mg IVPUSH Q6H PRN PRN Reason: NAUSEA Last Admin: 08/13/19 18:08 Dose: 4 mg Pantoprazole Sodium (Protonix -) 40 mg PO DAILY [facility] Last Admin: 08/14/19 09:28 Dose: 40 mg Quetiapine Fumarate (Seroquel Xr -) 50 mg PO HS [facility] Last Admin: 08/13/19 21:01 Dose: 50 mg Senna (Senna -) 1 tab PO DAILY [facility] Last Admin: 08/14/19 09:28 Dose: 1 tab - Objective Vital Signs: Vital Signs Temperature 98.6 F 08/14/19 06:04 Pulse Rate 135 H 08/14/19 06:32 Respiratory Rate 20 08/14/19 06:04 Blood Pressure 131/93 08/14/19 06:04 O2 Sat by Pulse Oximetry (%) 95 08/14/19 08:34 Constitutional: Yes: Calm, Moderate Distress Cardiovascular: Yes: S1, S2 Respiratory: Yes: Regular, On Venti-Mask, Poor Air Entry, Other Gastrointestinal: Yes: Normal Bowel Sounds, Soft Musculoskeletal: Yes: WNL Extremities: Yes: WNL Neurological: Yes: Alert, Oriented Psychiatric: Yes: Alert, Oriented Labs: CBC, BMP 08/14/19 06:30 08/11/19 07:45 INR, PTT INR 1.23 (0.83-1.09) H 08/10/19 09:00 Assessment/Plan Problem List - Problems (1) Pneumonia Code(s): J18.9 - PNEUMONIA, UNSPECIFIED ORGANISM Qualifiers: Pneumonia type: due to unspecified organism Laterality: unspecified laterality Lung location: unspecified part of lung Qualified Code(s): J18.9 - Pneumonia, unspecified organism (2) Respiratory distress Code(s): R06.03 - ACUTE RESPIRATORY DISTRESS (3) Colon cancer metastasized to multiple sites Code(s): C18.9 - MALIGNANT NEOPLASM OF COLON, UNSPECIFIED (4) Anemia Code(s): D64.9 - ANEMIA, UNSPECIFIED Qualifiers: Anemia type: other cause Other causes of anemia: chronic disease, neoplastic Qualified Code(s): D63.0 - Anemia in neoplastic disease (5) Anxiety disorder Code(s): F41.9 - ANXIETY DISORDER, UNSPECIFIED Qualifiers: Anxiety disorder type: unspecified anxiety disorder Qualified Code(s): F41.9 - Anxiety disorder, unspecified (6) S/P lobectomy of lung Code(s): Z90.2 - ACQUIRED ABSENCE OF LUNG [PART OF] Assessment/Plan Possible Post-obstructive PNA Acute respiratory failure - on NRBM Colon CA with mets to liver/lung s/p resection/lobectomy Anxiety SOB Leukocytosis - on steroids plan continue abx will restart vanco rest as per the team resp support
[2019-08-14 11:53] LABS: ANISOCYTOSIS 1+; MACROCYTOSIS 0; PLATELET ESTIMATE NORMAL
--- NOTE | 2019-08-14 13:29 | PN ---
Teaching Attending Note Name of Resident: Ana Erwin ATTENDING PHYSICIAN STATEMENT I saw and evaluated the patient. I reviewed the resident's note and discussed the case with the resident. I agree with the resident's findings and plan as documented with exceptions below. SUBJECTIVE: Patient seen and examined, Overall unchanged, on NRB. OBJECTIVE: Vital Signs Period Temp Pulse Resp BP Sys/[facility] Pulse Ox Last 24 Hr 97.3 F-98.6 F 102-140 20-20 131-147/68-108 95-100 Intake & Output 08/11/19 08/12/19 08/13/19 08/14/19 23:59 23:59 23:59 23:59 Intake Total 1850 2950 2302 550 Output Total 3 Balance 1847 2950 2302 550 Weight 137 lb 5 oz 137 lb General: sitting in bed, on NRB, tachypnea, use of accessory muscles of respiration Neck: soft, supple CVS:S1S2 regular, tachycardic Chest: improved air entry, scattered rhonchi Abomen:soft, NT Extremities: no edema Active Medications Acetaminophen (Tylenol -) 650 mg PO Q6H PRN PRN Reason: PAIN LEVEL 1-5 Albuterol Sulfate (Ventolin 0.083% Nebulizer Soln -) 1 amp NEB Q4H PRN PRN Reason: SHORT OF BREATH/WHEEZING Albuterol/Ipratropium (Duoneb -) 1 amp NEB RQID [facility] Last Admin: 08/14/19 11:54 Dose: 1 amp Docusate Sodium (Colace -) 100 mg PO TID [facility] Last Admin: 08/14/19 06:21 Dose: 100 mg Enoxaparin Sodium (Lovenox -) 40 mg SQ DAILY [facility] Last Admin: 08/14/19 09:27 Dose: 40 mg Vancomycin HCl (Vancomycin (Pre-Docked)) 1,000 mg in 250 mls @ 166.667 mls/hr IVPB BID@0000,1200 [facility]; Protocol Last Admin: 08/13/19 11:44 Dose: 166.667 mls/hr Piperacillin Sod/Tazobactam (Sod 4.5 gm/ Dextrose) 100 mls @ 200 mls/hr IVPB Q6H-IV [facility]; Protocol Last Admin: 08/14/19 09:26 Dose: 200 mls/hr Sodium Chloride (Normal Saline -) 1,000 mls @ 50 mls/hr IV ASDIR [facility] Last Admin: 08/14/19 10:01 Dose: 50 mls/hr Lorazepam (Ativan -) 1 mg PO QID PRN PRN Reason: ANXIETY Last Admin: 08/14/19 12:23 Dose: 1 mg Methylprednisolone Sodium Succinate (Solu-Medrol -) 60 mg IVPUSH Q6H-IV [facility] Last Admin: 08/14/19 09:26 Dose: 60 mg Metoprolol Tartrate (Lopressor -) 50 mg PO DAILY [facility] Last Admin: 08/14/19 09:57 Dose: 50 mg Mirtazapine (Remeron -) 30 mg PO HS [facility] Last Admin: 08/13/19 21:05 Dose: 30 mg Morphine Sulfate (Morphine Sulfate) 1 mg IVPUSH Q4H PRN PRN Reason: PAIN LEVEL 7 - 10 Last Admin: 08/14/19 12:20 Dose: 1 mg Ondansetron HCl (Zofran Injection) 4 mg IVPUSH Q6H PRN PRN Reason: NAUSEA Last Admin: 08/13/19 18:08 Dose: 4 mg Pantoprazole Sodium (Protonix -) 40 mg PO DAILY [facility] Last Admin: 08/14/19 09:28 Dose: 40 mg Quetiapine Fumarate (Seroquel Xr -) 50 mg PO HS [facility] Last Admin: 08/13/19 21:01 Dose: 50 mg Senna (Senna -) 1 tab PO DAILY [facility] Last Admin: 08/14/19 09:28 Dose: 1 tab Laboratory Results - last 24 hr 08/13/19 08/13/19 08/14/19 12:56 14:35 06:30 WBC RBC Hgb Hct MCV MCH MCHC RDW Plt Count MPV Absolute Neuts (auto) Neutrophils % Neutrophils % (Manual) Band Neutrophils % Lymphocytes % Lymphocytes % (Manual) Monocytes % Monocytes % (Manual) Eosinophils % Eosinophils % (Manual) Basophils % Basophils % (Manual) Myelocytes % (Man) Promyelocytes % (Man) Blast Cells % (Manual) Nucleated RBC % Metamyelocytes Hypochromia Platelet Estimate Polychromasia Poikilocytosis Anisocytosis Microcytosis Macrocytosis Random Vancomycin 23.6 11.0 L Vancomycin Pre-Dose 47.4 H* 08/14/19 06:30 WBC 16.5 H RBC 3.48 L Hgb 9.1 L Hct 28.6 L MCV 82.3 MCH 26.3 MCHC 32.0 RDW 20.0 H Plt Count 360 MPV 8.6 Absolute Neuts (auto) 15.2 H Neutrophils % 92.1 H Neutrophils % (Manual) 89.5 H Band Neutrophils % 0.0 Lymphocytes % 2.0 L Lymphocytes % (Manual) 4.0 L D Monocytes % 5.9 Monocytes % (Manual) 7 D Eosinophils % 0.0 Eosinophils % (Manual) 0.0 Basophils % 0.0 Basophils % (Manual) 0.0 Myelocytes % (Man) 0 Promyelocytes % (Man) 0 Blast Cells % (Manual) 0 Nucleated RBC % 0 Metamyelocytes 0 Hypochromia 1+ Platelet Estimate Normal Polychromasia 0 Poikilocytosis 0 Anisocytosis 1+ Microcytosis 0 Macrocytosis 0 Random Vancomycin Vancomycin Pre-Dose Microbiology 08/13/19 06:00 Sputum - Expectorated Gram Stain - Final 08/13/19 06:00 Sputum - Expectorated Sputum Culture - Preliminary NORMAL RESPIRATORY COLEEN 08/10/19 21:00 Blood - Peripheral Venous Blood Culture - Preliminary NO GROWTH OBTAINED AFTER 72 HOURS, INCUBATION TO CONTINUE FOR 2 DAYS. 08/10/19 20:00 Blood - Peripheral Venous Blood Culture - Preliminary NO GROWTH OBTAINED AFTER 72 HOURS, INCUBATION TO CONTINUE FOR 2 DAYS. 08/12/19 03:30 Urine - Urine Clean Catch Urine Culture - Final NO GROWTH OBTAINED ASSESSMENT AND PLAN: 49 yof with PMhx of Colon cancer 2013 s/p left hemicolectomy, Liver and lung mets 2017 s/p VATS RLL resection/chemotherapy, now with metastatic lung disease s/p Radiation in 04/2019, chemotherapy last in 03/2019, recently reportedly admitted to [facility] for respiratory distress, treated with 2 weeks of antibiotics, discharged on home oxygen (5 liters), and prednisone taper , (last dose today), at home for the last 2 weeks, comes with progressive dyspnea -Acute hypoxic/hypercapneic respiratory distress, suspect progression of metastatic lung disease, rather than infectious process -Leucocytosis, suspect steroid induced margination -Dehydration -Sinus tachycardia -Colon cancer 2014 s/p left hemicolectomy, Liver and lung mets 2017 s/p VATS RLL resection/chemotherapy, now with metastatic lung disease s/p Radiation in 2018, chemotherapy last in 03/2019, Plan: Overall unchanged NIPPV prn. Steroids/nebs. Abx per ID. Blood /sputum cx. Trend CBC. Morphine/ativan for comfort/respiratory distress, to be held for sedation. Continue home metoprolol/seroquel/remeron. IVF Nutrition input DVTPPX lovenox Prognosis guarded. Palliative care consult noted, DNR/DNI. Discussed in patient and pulmonary at bedside, overall unchanged with broad spectrum abx, more likely progression of underlying disease, declines [place], wants to go home when better. Will continue to address goals of care based on clinical course and response. Prognosis guarded currently.
--- NOTE | 2019-08-14 13:55 | PN ---
Physical Exam: SUBJECTIVE: Patient seen and examined. She reports just having taken off the BiPAP from overnight and is on non-rebreather now. She is feeling the same as yesterday. No chest pain, fever or chills. She is tolerating diet and eats preferrably at night. OBJECTIVE: Vital Signs Period Temp Pulse Resp BP Sys/[facility]aiser Pulse Ox Last 24 Hr 97.3 F-98.6 F 102-140 20-20 131-147/68-108 95-100 GENERAL: The patient is A&Ox3, lethargic HEAD: Normal with no signs of trauma. EYES: PERRL, extraocular movements intact ENT: Ears normal, nares patent, moist mucous membranes. NECK: Trachea midline, full range of motion LUNGS: Left side expiratory wheezing, right side rhonchi and wheezing, on non- rebreather HEART: Tachycardia and regular rhythm, no murmur ABDOMEN: Soft, nontender, nondistended, normoactive bowel sounds EXTREMITIES: Warm, well-perfused, bilateral LE edema improved and wearing compression stockings NEUROLOGICAL: Normal speech PSYCH: Normal mood, normal affect. SKIN: Warm, dry, normal turgor FiO2 on non-rebreather was reduced to 50% and pt is sating at 100%. @1400 Laboratory Results - last 24 hr 08/13/19 08/13/19 08/14/19 12:56 14:35 06:30 WBC RBC Hgb Hct MCV MCH MCHC RDW Plt Count MPV Absolute Neuts (auto) Neutrophils % Neutrophils % (Manual) Band Neutrophils % Lymphocytes % Lymphocytes % (Manual) Monocytes % Monocytes % (Manual) Eosinophils % Eosinophils % (Manual) Basophils % Basophils % (Manual) Myelocytes % (Man) Promyelocytes % (Man) Blast Cells % (Manual) Nucleated RBC % Metamyelocytes Hypochromia Platelet Estimate Polychromasia Poikilocytosis Anisocytosis Microcytosis Macrocytosis Random Vancomycin 23.6 11.0 L Vancomycin Pre-Dose 47.4 H* 08/14/19 06:30 WBC 16.5 H RBC 3.48 L Hgb 9.1 L Hct 28.6 L MCV 82.3 MCH 26.3 MCHC 32.0 RDW 20.0 H Plt Count 360 MPV 8.6 Absolute Neuts (auto) 15.2 H Neutrophils % 92.1 H Neutrophils % (Manual) 89.5 H Band Neutrophils % 0.0 Lymphocytes % 2.0 L Lymphocytes % (Manual) 4.0 L D Monocytes % 5.9 Monocytes % (Manual) 7 D Eosinophils % 0.0 Eosinophils % (Manual) 0.0 Basophils % 0.0 Basophils % (Manual) 0.0 Myelocytes % (Man) 0 Promyelocytes % (Man) 0 Blast Cells % (Manual) 0 Nucleated RBC % 0 Metamyelocytes 0 Hypochromia 1+ Platelet Estimate Normal Polychromasia 0 Poikilocytosis 0 Anisocytosis 1+ Microcytosis 0 Macrocytosis 0 Random Vancomycin Vancomycin Pre-Dose Active Medications Generic Name Dose Route Start Last Admin Trade Name Freq PRN Reason Stop Dose Admin Acetaminophen 650 mg 08/10/19 16:13 Tylenol - PO Q6H PRN PAIN LEVEL 1-5 Albuterol Sulfate 1 amp 08/10/19 14:15 Ventolin 0.083% Nebulizer Soln - NEB Q4H PRN SHORT OF BREATH/WHEEZING Albuterol/Ipratropium 1 amp 08/10/19 16:00 08/14/19 11:54 Duoneb - NEB 1 amp RQID [facility] Administration Docusate Sodium 100 mg 08/10/19 22:00 08/14/19 06:21 Colace - PO 100 mg TID [facility] Administration Enoxaparin Sodium 40 mg 08/11/19 10:00 08/14/19 09:27 Lovenox - SQ 40 mg DAILY [facility] Administration Vancomycin HCl 1,000 mg in 250 mls @ 166.667 mls/hr 08/12/19 00:00 08/13/19 11:44 Vancomycin (Pre-Docked) IVPB 166.667 mls/hr BID@0000,1200 [facility] Administration Protocol Piperacillin Sod/Tazobactam 100 mls @ 200 mls/hr 08/11/19 21:00 08/14/19 09: 26 Sod 4.5 gm/ Dextrose IVPB 200 mls/hr Q6H-IV [facility] Administration Protocol Sodium Chloride 1,000 mls @ 50 mls/hr 08/13/19 12:01 08/14/19 10:01 Normal Saline - IV 50 mls/hr ASDIR [facility] Administration Lorazepam 1 mg 08/12/19 14:07 08/14/19 12:23 Ativan - PO 1 mg QID PRN Administration ANXIETY Methylprednisolone Sodium Succinate 60 mg 08/11/19 10:00 08/14/19 09:26 Solu-Medrol - IVPUSH 60 mg Q6H-IV [facility] Administration Metoprolol Tartrate 50 mg 08/10/19 14:14 08/14/19 09:57 Lopressor - PO 50 mg DAILY [facility] Administration Mirtazapine 30 mg 08/10/19 22:00 08/13/19 21:05 Remeron - PO 30 mg HS [facility] Administration Morphine Sulfate 1 mg 08/10/19 16:28 08/14/19 12:20 Morphine Sulfate IVPUSH 1 mg Q4H PRN Administration PAIN LEVEL 7 - 10 Ondansetron HCl 4 mg 08/10/19 14:07 08/13/19 18:08 Zofran Injection IVPUSH 4 mg Q6H PRN Administration NAUSEA Pantoprazole Sodium 40 mg 08/11/19 10:00 08/14/19 09:28 Protonix - PO 40 mg DAILY [facility] Administration Quetiapine Fumarate 50 mg 08/10/19 22:00 08/13/19 21:01 Seroquel Xr - PO 50 mg HS [facility] Administration Senna 1 tab 08/11/19 10:00 08/14/19 09:28 Senna - PO 1 tab DAILY [facility] Administration ASSESSMENT/PLAN: Ms. Arreaga is a 49 y/o female with a history of colon cancer s/p resection ( 2013), mets to the liver and lung (RLL lobectomy 2016) who presents for increased shortness of breath and chest and back pain. CTA showed worsening lungs mets from May. She was given solumedrol, duo-nebs, albuterol, and treated empirically with Vanc and Zosyn. Palliative care was consulted and pt signed DNR/DNI form. She is being given morphine for comfort. She uses BiPAP intermittently with non-rebreather as backup. #acute hypoxic respiratory failure with metastases in lungs Pt on non-rebreather. BiPAP intermittently overnight. CTA: diffuse bilateral lung confluent metastasis that have worsened from previous imaging, metastasis involving both latisha and bronchi of right lower lobe, hypodense mass in left thyroid, enhancement of spleen -Solumedrol 60mg Q6H -duoneb Q6H -albuterol -ID consulted-restart vanc -continue Zosyn -pulm following- adjusted NIPPV settings -Vanc held overnight for vanc level -O2 -BiPAP #colon cancer with metastasis to liver and lung Admitting resident spoke with patients primary oncologist Dr. Luna Dc , patient has very poor follow up. She is more then happy to see her as an outpatient but patient routinely cancels appointments with her. Patient has not had treatment since March. Patient signed DNR/DNI for comfort measures and antibiotics. -palliative care -morphine -continuing discussion of care plan #leukocytosis Likely 2/2 steroid use -monitor CBC #anxiety/depression -lorazapam 1mg TID PRN -Seroquel -Remeron #constipation -continue senna and docusate FEN regular diet NS 50mL/hr GI Ppx protonix DVT Ppx lovenox Dispo: med/surg DNR/DNI Visit type - Emergency Visit Emergency Visit: Yes ED Registration Date: 08/10/19 Care time: The patient presented to the Emergency Department on the above date and was hospitalized for further evaluation of their emergent condition. - New Patient This patient is new to me today: No - Critical Care Critical Care patient: No - Discharge Referral Referred to [facility] No ATTENDING PHYSICIAN STATEMENT I saw and evaluated the patient. I reviewed the resident's note and discussed the case with the resident. I agree with the resident's findings and plan as documented. SUBJECTIVE: OBJECTIVE: ASSESSMENT AND PLAN:
[2019-08-14] MEDS: ONDANSETRON 4 MG/2 ML VIAL IVPUSH PRN (18:44)
--- NOTE | 2019-08-14 19:58 | CON.PSL ---
Psychology Consult Consult Specialty:: Clinical Psychology History Provided By: Patient, Family Member Limitations to Obtaining History: Clinical Condition Current Medications: Active Medications Acetaminophen (Tylenol -) 650 mg PO Q6H PRN PRN Reason: PAIN LEVEL 1-5 Albuterol Sulfate (Ventolin 0.083% Nebulizer Soln -) 1 amp NEB Q4H PRN PRN Reason: SHORT OF BREATH/WHEEZING Albuterol/Ipratropium (Duoneb -) 1 amp NEB RQID [facility] Last Admin: 08/14/19 16:47 Dose: 1 amp Docusate Sodium (Colace -) 100 mg PO TID [facility] Last Admin: 08/14/19 15:59 Dose: 100 mg Enoxaparin Sodium (Lovenox -) 40 mg SQ DAILY [facility] Last Admin: 08/14/19 09:27 Dose: 40 mg Vancomycin HCl (Vancomycin (Pre-Docked)) 1,000 mg in 250 mls @ 166.667 mls/hr IVPB BID@0000,1200 [facility]; Protocol Last Admin: 08/13/19 11:44 Dose: 166.667 mls/hr Piperacillin Sod/Tazobactam (Sod 4.5 gm/ Dextrose) 100 mls @ 200 mls/hr IVPB Q6H-IV [facility]; Protocol Last Admin: 08/14/19 15:59 Dose: 200 mls/hr Sodium Chloride (Normal Saline -) 1,000 mls @ 50 mls/hr IV ASDIR [facility] Last Admin: 08/14/19 14:58 Dose: Not Given Lorazepam (Ativan -) 1 mg PO QID PRN PRN Reason: ANXIETY Last Admin: 08/14/19 18:41 Dose: 1 mg Methylprednisolone Sodium Succinate (Solu-Medrol -) 60 mg IVPUSH Q6H-IV [facility] Last Admin: 08/14/19 15:59 Dose: 60 mg Metoprolol Tartrate (Lopressor -) 50 mg PO DAILY [facility] Last Admin: 08/14/19 09:57 Dose: 50 mg Mirtazapine (Remeron -) 30 mg PO HS [facility] Last Admin: 08/13/19 21:05 Dose: 30 mg Ondansetron HCl (Zofran Injection) 4 mg IVPUSH Q6H PRN PRN Reason: NAUSEA Last Admin: 08/14/19 18:44 Dose: 4 mg Pantoprazole Sodium (Protonix -) 40 mg PO DAILY [facility] Last Admin: 08/14/19 09:28 Dose: 40 mg Quetiapine Fumarate (Seroquel Xr -) 50 mg PO HS [facility] Last Admin: 08/13/19 21:01 Dose: 50 mg Senna (Senna -) 1 tab PO DAILY [facility] Last Admin: 08/14/19 09:28 Dose: 1 tab Allergies: Allergies Allergy/AdvReac Type Severity Reaction Status Date / Time latex Allergy Severe Itching Verified 08/10/19 08:15 carrot Allergy Verified 08/10/19 08:15 nut - unspecified Allergy Verified 08/10/19 08:15 Sulfa (Sulfonamide AdvReac generalized Verified 08/10/19 08:15 Antibiotics) weakness Does patient have pain?: No (Not at the time of the evaluation.) Hx Alcohol Use: No Hx Substance Use: No Substance Use Type: None Hx Substance Use Treatment: No Current Medical Exam-Psy Orientation: Time, Person, Place Immediate Term Memory: 12/31 Expressive: Coherent Receptive: Age Appropriate Comprehension of Spoken Words Hallucinations: Absent Thought Process: [place] Depression: Severe Hopelessness: Yes Anxiety Level: Panic Danger to Self and Others: No Sleep: Poorly Appetite: Poor, Weight loss Support System: Family Problem List - Problem (1) Depressed Code(s): F32.9 - MAJOR DEPRESSIVE DISORDER, SINGLE EPISODE, UNSPECIFIED Qualifiers: Depression Type: unspecified Qualified Code(s): F32.9 - Major depressive disorder, single episode, unspecified (2) Panic anxiety syndrome Code(s): F41.0 - PANIC DISORDER [EPISODIC PAROXYSMAL ANXIETY] Assessment/Plan An attempt to perform a comprehensive evaluation was difficult as the patient was obsessed with not getting the oxygen she felt she needed. Her cousin was present and tried to explain to her that she was being titrated down so she would be less dependent on the oxygen. 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 The patient was distressed crying throughout the entire evaluation but was quite aware of all the medications she was on. Her memory and attention in that regard was more than adequate. However, both the patient and the cousin were opposed to consideration of [facility]. The patient will be followed while she is here.
[2019-08-14] MEDS ORDERED: PT OWN MED DRAWER 7, Y5N ONE (20:30)
[2019-08-14] MEDS ORDERED: MORPHINE SULFATE 2 MG/ML VIAL IVPUSH ONE (21:26)
[2019-08-14] MEDS: MIRTAZAPINE 15 MG TABLET (FP) PO SCH (21:29)
[2019-08-14] MEDS ORDERED: guaiFENesin 200 MG/10 ML 10 ML UNIT-DOSE CUPS PO ONE (21:40)
[2019-08-15] MEDS: VANCOMYCIN 1 GRAM (PRE-DOCKED) 1,000 MG/250 ML BAG IVPB SCH ×2 (00:54→13:05)
[2019-08-15] MEDS: methylPREDNISolone NA SUCC 40 MG/1 ML VIAL IVPUSH SCH ×4 (02:05→20:07)
[2019-08-15] MEDS: LORazepam 1 MG TABLET PO PRN ×4 (02:05→21:38)
[2019-08-15] MEDS ORDERED: DEXTROSE 5%-WATER 100 ML IVPB ONE ×4 (03:21→19:43)
[2019-08-15] MEDS ORDERED: PIPERACILLIN/TAZOBACTAM 4.5 GM VIAL IVPB ONE ×4 (03:21→19:43)
[2019-08-15] MEDS: PIPERACILLIN/TAZOB 4.5 GM 4.5 GM in DEXTROSE 5%-WATER 100 ML IVPB SCH ×4 (03:26→20:07)
[2019-08-15] MEDS: SODIUM CHLORIDE 1,000 ML IV SCH ×3 (03:29→14:22)
[2019-08-15] MEDS: DOCUSATE SODIUM 100 MG CAPSULE (FP) PO SCH ×3 (05:37→21:38)
[2019-08-15] MEDS: ALBUTEROL SO4 2.5/IPRATROPIUM 0.5 INH SOL 3 ML VIAL.NEB. NEB SCH ×3 (09:00→21:00)
[2019-08-15] MEDS: METOPROLOL TARTRATE 25 MG TABLET (FP) PO SCH (09:56)
[2019-08-15] MEDS: ENOXAPARIN NA (PORCINE) 40 MG/0.4 ML DISP.SYRIN SQ SCH (09:58)
[2019-08-15] MEDS: PANTOPRAZOLE 40 MG TABLET (FP) PO SCH (09:58)
[2019-08-15] MEDS: SENNOSIDES 8.6MG TABLET (FP) PO SCH (09:59)
[2019-08-15] MEDS: ONDANSETRON 4 MG/2 ML VIAL IVPUSH PRN ×2 (10:29→20:05)
[2019-08-15] MEDS ORDERED: MORPHINE SULFATE 2 MG/ML VIAL IM ONE ×2 (11:00→14:46)
[2019-08-15] MEDS ORDERED: morphine CARPU-JECT 2 MG/1 ML DISP.SYRIN IM ONE (11:00)
--- NOTE | 2019-08-15 12:00 | PN ---
Progress Note, Physician History of Present Illness: feeling slightly better wbc trending down still high - Current Medication List Current Medications: Active Medications Acetaminophen (Tylenol -) 650 mg PO Q6H PRN PRN Reason: PAIN LEVEL 1-5 Albuterol Sulfate (Ventolin 0.083% Nebulizer Soln -) 1 amp NEB Q4H PRN PRN Reason: SHORT OF BREATH/WHEEZING Albuterol/Ipratropium (Duoneb -) 1 amp NEB RQID [facility] Last Admin: 08/14/19 20:05 Dose: 1 amp Docusate Sodium (Colace -) 100 mg PO TID [facility] Last Admin: 08/15/19 05:37 Dose: Not Given Enoxaparin Sodium (Lovenox -) 40 mg SQ DAILY [facility] Last Admin: 08/15/19 09:58 Dose: 40 mg Vancomycin HCl (Vancomycin (Pre-Docked)) 1,000 mg in 250 mls @ 166.667 mls/hr IVPB BID@0000,1200 [facility]; Protocol Last Admin: 08/15/19 00:54 Dose: 166.667 mls/hr Piperacillin Sod/Tazobactam (Sod 4.5 gm/ Dextrose) 100 mls @ 200 mls/hr IVPB Q6H-IV [facility]; Protocol Last Admin: 08/15/19 09:59 Dose: 200 mls/hr Sodium Chloride (Normal Saline -) 1,000 mls @ 50 mls/hr IV ASDIR [facility] Last Admin: 08/15/19 10:28 Dose: 50 mls/hr Lorazepam (Ativan -) 1 mg PO QID PRN PRN Reason: ANXIETY Last Admin: 08/15/19 09:56 Dose: 1 mg Methylprednisolone Sodium Succinate (Solu-Medrol -) 60 mg IVPUSH Q6H-IV [facility] Last Admin: 08/15/19 09:58 Dose: 60 mg Metoprolol Tartrate (Lopressor -) 50 mg PO DAILY [facility] Last Admin: 08/15/19 09:56 Dose: 50 mg Mirtazapine (Remeron -) 30 mg PO HS [facility] Last Admin: 08/14/19 21:29 Dose: 30 mg Ondansetron HCl (Zofran Injection) 4 mg IVPUSH Q6H PRN PRN Reason: NAUSEA Last Admin: 08/15/19 10:29 Dose: 4 mg Pantoprazole Sodium (Protonix -) 40 mg PO DAILY [facility] Last Admin: 08/15/19 09:58 Dose: 40 mg Quetiapine Fumarate (Seroquel Xr -) 50 mg PO HS [facility] Last Admin: 08/14/19 21:30 Dose: 50 mg Senna (Senna -) 1 tab PO DAILY [facility] Last Admin: 08/15/19 09:59 Dose: 1 tab - Objective Vital Signs: Vital Signs Temperature 97.6 F 08/15/19 06:10 Pulse Rate 124 H 08/15/19 06:10 Respiratory Rate 23 H 08/15/19 06:10 Blood Pressure 124/88 08/15/19 06:10 O2 Sat by Pulse Oximetry (%) 99 08/15/19 04:05 Constitutional: Yes: Calm, Mild Distress Eyes: Yes: Conjunctiva Clear Cardiovascular: Yes: Regular Rate and Rhythm Respiratory: Yes: Poor Air Entry (bases), Other (on face mask) Gastrointestinal: Yes: Normal Bowel Sounds, Soft Musculoskeletal: Yes: WNL Extremities: Yes: WNL Neurological: Yes: Alert, Oriented Labs: CBC, BMP 08/14/19 06:30 08/11/19 07:45 INR, PTT INR 1.23 (0.83-1.09) H 08/10/19 09:00 Assessment/Plan Problem List - Problems (1) Pneumonia Code(s): J18.9 - PNEUMONIA, UNSPECIFIED ORGANISM Qualifiers: Pneumonia type: due to unspecified organism Laterality: unspecified laterality Lung location: unspecified part of lung Qualified Code(s): J18.9 - Pneumonia, unspecified organism (2) Respiratory distress Code(s): R06.03 - ACUTE RESPIRATORY DISTRESS (3) Colon cancer metastasized to multiple sites Code(s): C18.9 - MALIGNANT NEOPLASM OF COLON, UNSPECIFIED (4) Anemia Code(s): D64.9 - ANEMIA, UNSPECIFIED Qualifiers: Anemia type: other cause Other causes of anemia: chronic disease, neoplastic Qualified Code(s): D63.0 - Anemia in neoplastic disease (5) Anxiety disorder Code(s): F41.9 - ANXIETY DISORDER, UNSPECIFIED Qualifiers: Anxiety disorder type: unspecified anxiety disorder Qualified Code(s): F41.9 - Anxiety disorder, unspecified (6) S/P lobectomy of lung Code(s): Z90.2 - ACQUIRED ABSENCE OF LUNG [PART OF] Assessment/Plan Possible Post-obstructive PNA Acute respiratory failure - on NRBM Colon CA with mets to liver/lung s/p resection/lobectomy Anxiety SOB Leukocytosis - on steroids plan continue abx will check vanco trough
--- NOTE | 2019-08-15 13:28 | PN ---
Progress Note (short form) - Note Progress Note: PULMONARY States breathing about the same. Remains on NRB. Vital Signs Period Temp Pulse Resp BP Sys/[facility] Pulse Ox Last 24 Hr 97.6 F-98.7 F 124-140 20-23 124-161/83-116 99-100 Gen: tachypneic at rest Heart: tachycardic, regular Lung: distant breath sounds Abd: soft, nontender Ext: no edema CBC, BMP 08/14/19 06:30 08/11/19 07:45 Active Medications Acetaminophen (Tylenol -) 650 mg PO Q6H PRN PRN Reason: PAIN LEVEL 1-5 Albuterol Sulfate (Ventolin 0.083% Nebulizer Soln -) 1 amp NEB Q4H PRN PRN Reason: SHORT OF BREATH/WHEEZING Albuterol/Ipratropium (Duoneb -) 1 amp NEB RQID [facility] Last Admin: 08/15/19 09:00 Dose: 1 amp Docusate Sodium (Colace -) 100 mg PO TID [facility] Last Admin: 08/15/19 05:37 Dose: Not Given Enoxaparin Sodium (Lovenox -) 40 mg SQ DAILY [facility] Last Admin: 08/15/19 09:58 Dose: 40 mg Vancomycin HCl (Vancomycin (Pre-Docked)) 1,000 mg in 250 mls @ 166.667 mls/hr IVPB BID@0000,1200 [facility]; Protocol Last Admin: 08/15/19 13:05 Dose: 166.667 mls/hr Piperacillin Sod/Tazobactam (Sod 4.5 gm/ Dextrose) 100 mls @ 200 mls/hr IVPB Q6H-IV [facility]; Protocol Last Admin: 08/15/19 09:59 Dose: 200 mls/hr Sodium Chloride (Normal Saline -) 1,000 mls @ 50 mls/hr IV ASDIR [facility] Last Admin: 08/15/19 10:28 Dose: 50 mls/hr Lorazepam (Ativan -) 1 mg PO QID PRN PRN Reason: ANXIETY Last Admin: 08/15/19 09:56 Dose: 1 mg Methylprednisolone Sodium Succinate (Solu-Medrol -) 60 mg IVPUSH Q6H-IV [facility] Last Admin: 08/15/19 09:58 Dose: 60 mg Metoprolol Tartrate (Lopressor -) 50 mg PO DAILY [facility] Last Admin: 08/15/19 09:56 Dose: 50 mg Mirtazapine (Remeron -) 30 mg PO HS [facility] Last Admin: 08/14/19 21:29 Dose: 30 mg Ondansetron HCl (Zofran Injection) 4 mg IVPUSH Q6H PRN PRN Reason: NAUSEA Last Admin: 08/15/19 10:29 Dose: 4 mg Pantoprazole Sodium (Protonix -) 40 mg PO DAILY [facility] Last Admin: 08/15/19 09:58 Dose: 40 mg Quetiapine Fumarate (Seroquel Xr -) 50 mg PO HS [facility] Last Admin: 08/14/19 21:30 Dose: 50 mg Senna (Senna -) 1 tab PO DAILY [facility] Last Admin: 08/15/19 09:59 Dose: 1 tab A/P Acute on Chronic Hypoxic Respiratory Failure Metastatic Colon Ca to Lung and Liver s/p R VATS/RLL resection/chemo/RT Anemia - continue medrol at current dose - inhaled bronchodilators - empiric antibiotics - O2 to keep SpO2 >90% - pain control/anxiolytics - DVT prophylaxis - poor overall prognosis
--- NOTE | 2019-08-15 15:13 | PN ---
Teaching Attending Note Name of Resident: Ana Erwin ATTENDING PHYSICIAN STATEMENT I saw and evaluated the patient. I reviewed the resident's note and discussed the case with the resident. I agree with the resident's findings and plan as documented with exceptions below. SUBJECTIVE: Patient seen and examined, still on NRB, overall the same. OBJECTIVE: Vital Signs Period Temp Pulse Resp BP Sys/[facility] Pulse Ox Last 24 Hr 97.6 F-98.7 F 118-140 20-23 124-161/88-120 99-100 Intake & Output 08/12/19 08/13/19 08/14/19 08/15/19 23:59 23:59 23:59 23:59 Intake Total 2950 2302 550 1180 Output Total 900 500 Balance 2950 2302 -350 680 Weight 137 lb General: sitting in bed, on NRB, tachypnea, use of accessory muscles of respiration Neck: soft, supple CVS:S1S2 regular, tachycardic Chest: improved air entry, scattered rhonchi Abomen:soft, NT Extremities: no edema Active Medications Acetaminophen (Tylenol -) 650 mg PO Q6H PRN PRN Reason: PAIN LEVEL 1-5 Albuterol Sulfate (Ventolin 0.083% Nebulizer Soln -) 1 amp NEB Q4H PRN PRN Reason: SHORT OF BREATH/WHEEZING Albuterol/Ipratropium (Duoneb -) 1 amp NEB RQID [facility] Last Admin: 08/15/19 14:10 Dose: 1 amp Docusate Sodium (Colace -) 100 mg PO TID [facility] Last Admin: 08/15/19 14:22 Dose: Not Given Enoxaparin Sodium (Lovenox -) 40 mg SQ DAILY [facility] Last Admin: 08/15/19 09:58 Dose: 40 mg Vancomycin HCl (Vancomycin (Pre-Docked)) 1,000 mg in 250 mls @ 166.667 mls/hr IVPB BID@0000,1200 [facility]; Protocol Last Admin: 08/15/19 13:05 Dose: 166.667 mls/hr Piperacillin Sod/Tazobactam (Sod 4.5 gm/ Dextrose) 100 mls @ 200 mls/hr IVPB Q6H-IV [facility]; Protocol Last Admin: 08/15/19 09:59 Dose: 200 mls/hr Sodium Chloride (Normal Saline -) 1,000 mls @ 50 mls/hr IV ASDIR [facility] Last Admin: 08/15/19 14:22 Dose: Not Given Lorazepam (Ativan -) 1 mg PO QID PRN PRN Reason: ANXIETY Last Admin: 08/15/19 14:23 Dose: 1 mg Methylprednisolone Sodium Succinate (Solu-Medrol -) 60 mg IVPUSH Q6H-IV [facility] Last Admin: 08/15/19 09:58 Dose: 60 mg Metoprolol Tartrate (Lopressor -) 50 mg PO DAILY [facility] Last Admin: 08/15/19 09:56 Dose: 50 mg Mirtazapine (Remeron -) 30 mg PO HS [facility] Last Admin: 08/14/19 21:29 Dose: 30 mg Ondansetron HCl (Zofran Injection) 4 mg IVPUSH Q6H PRN PRN Reason: NAUSEA Last Admin: 08/15/19 10:29 Dose: 4 mg Pantoprazole Sodium (Protonix -) 40 mg PO DAILY [facility] Last Admin: 08/15/19 09:58 Dose: 40 mg Quetiapine Fumarate (Seroquel Xr -) 50 mg PO HS [facility] Last Admin: 08/14/19 21:30 Dose: 50 mg Senna (Senna -) 1 tab PO DAILY [facility] Last Admin: 08/15/19 09:59 Dose: 1 tab ASSESSMENT AND PLAN: 49 yof with PMhx of Colon cancer 2014 s/p left hemicolectomy, Liver and lung mets 2017 s/p VATS RLL resection/chemotherapy, now with metastatic lung disease s/p Radiation in 04/2019, chemotherapy last in 03/2019, recently reportedly admitted to [facility] for respiratory distress, treated with 2 weeks of antibiotics, discharged on home oxygen (5 liters), and prednisone taper , (last dose today), at home for the last 2 weeks, comes with progressive dyspnea -Acute hypoxic/hypercapneic respiratory distress, suspect progression of metastatic lung disease, rather than infectious process -Leucocytosis, suspect steroid induced margination -Dehydration -Sinus tachycardia -Colon cancer 2014 s/p left hemicolectomy, Liver and lung mets 2017 s/p VATS RLL resection/chemotherapy, now with metastatic lung disease s/p Radiation in 2018, chemotherapy last in 03/2019, Plan: Overall unchanged NIPPV prn. Steroids/nebs. Abx per ID. Blood /sputum cx. Trend CBC. Morphine/ativan for comfort/respiratory distress, to be held for sedation. Continue home metoprolol/seroquel/remeron. IVF Nutrition input DVTPPX lovenox Prognosis guarded. Palliative care consult noted, DNR/DNI. Will continue to address goals of care based on clinical course and response.
--- NOTE | 2019-08-15 16:22 | PN ---
Physical Exam: SUBJECTIVE: Patient seen and examined. She reports feeling well. She also reports getting used to the BiPAP and used it several hours overnight. She reports minor productive cough with light yellow sputum on towel. She denies fever, chills, nausea, or vomiting. OBJECTIVE: Vital Signs Period Temp Pulse Resp BP Sys/[facility]aiser Pulse Ox Last 24 Hr 97.6 F-98.7 F 118-140 20-23 124-161/88-120 99-100 GENERAL: The patient is A&Ox3, sitting in bed HEAD: Normal with no signs of trauma. EYES: PERRL, extraocular movements intact ENT: Ears normal, nares patent, moist mucous membranes. NECK: Trachea midline, full range of motion LUNGS: Left side expiratory wheezing, right side rhonchi and wheezing HEART: Tachycardia and regular rhythm, no murmur ABDOMEN: Soft, nontender, nondistended, normoactive bowel sounds EXTREMITIES: Warm, well-perfused, bilateral LE edema stable and wearing compression stockings NEUROLOGICAL: Normal speech PSYCH: Normal mood, normal affect. SKIN: Warm, dry, normal turgor Active Medications Generic Name Dose Route Start Last Admin Trade Name Freq PRN Reason Stop Dose Admin Acetaminophen 650 mg 08/10/19 16:13 Tylenol - PO Q6H PRN PAIN LEVEL 1-5 Albuterol Sulfate 1 amp 08/10/19 14:15 Ventolin 0.083% Nebulizer Soln - NEB Q4H PRN SHORT OF BREATH/WHEEZING Docusate Sodium 100 mg 08/10/19 22:00 08/15/19 14:22 Colace - PO Not Given TID RUTH Enoxaparin Sodium 40 mg 08/11/19 10:00 08/15/19 09:58 Lovenox - SQ 40 mg DAILY RUTH Administration Vancomycin HCl 1,000 mg in 250 mls @ 166.667 mls/hr 08/12/19 00:00 08/15/19 13:05 Vancomycin (Pre-Docked) IVPB 166.667 mls/hr BID@0000,1200 [facility] Administration Protocol Piperacillin Sod/Tazobactam 100 mls @ 200 mls/hr 08/11/19 21:00 08/15/19 15: 49 Sod 4.5 gm/ Dextrose IVPB 200 mls/hr Q6H-IV RUTH Administration Protocol Sodium Chloride 1,000 mls @ 50 mls/hr 08/13/19 12:01 08/15/19 14:22 Normal Saline - IV Not Given ASDIR [facility] Lorazepam 1 mg 08/12/19 14:07 08/15/19 14:23 Ativan - PO 1 mg QID PRN Administration ANXIETY Methylprednisolone Sodium Succinate 60 mg 08/11/19 10:00 08/15/19 15:49 Solu-Medrol - IVPUSH 60 mg Q6H-IV RUTH Administration Metoprolol Tartrate 50 mg 08/10/19 14:14 08/15/19 09:56 Lopressor - PO 50 mg DAILY RUTH Administration Mirtazapine 30 mg 08/10/19 22:00 08/14/19 21:29 Remeron - PO 30 mg HS RUTH Administration Ondansetron HCl 4 mg 08/10/19 14:07 08/15/19 10:29 Zofran Injection IVPUSH 4 mg Q6H PRN Administration NAUSEA Pantoprazole Sodium 40 mg 08/11/19 10:00 08/15/19 09:58 Protonix - PO 40 mg DAILY RUTH Administration Quetiapine Fumarate 50 mg 08/10/19 22:00 08/14/19 21:30 Seroquel Xr - PO 50 mg HS RUTH Administration Senna 1 tab 08/11/19 10:00 08/15/19 09:59 Senna - PO 1 tab DAILY RUTH Administration ASSESSMENT/PLAN: Ms. Arreaga is a 49 y/o female with a history of colon cancer s/p resection ( 2013), mets to the liver and lung (RLL lobectomy 2016) who presents for increased shortness of breath and chest and back pain. CTA showed worsening lungs mets from May. She was given solumedrol, duo-nebs, albuterol, and treated empirically with Vanc and Zosyn. Palliative care was consulted and pt signed DNR/DNI form. She is being given morphine for comfort. She uses BiPAP intermittently with non-rebreather as backup. #acute hypoxic respiratory failure with metastases in lungs Pt on non-rebreather. BiPAP intermittently. CTA: diffuse bilateral lung confluent metastasis that have worsened from previous imaging, metastasis involving both latisha and bronchi of right lower lobe, hypodense mass in left thyroid, enhancement of spleen -Solumedrol 60mg Q6H -duoneb Q6H -albuterol -ID consulted- vanc -continue Zosyn -pulm following- adjusted NIPPV settings -O2 -BiPAP #colon cancer with metastasis to liver and lung Admitting resident spoke with patients primary oncologist Dr. Luna Dc , patient has very poor follow up. She is more then happy to see her as an outpatient but patient routinely cancels appointments with her. Patient has not had treatment since March. Patient signed DNR/DNI for comfort measures and antibiotics. -palliative care -morphine PRN -continuing discussion of care plan #leukocytosis Likely 2/2 steroid use -monitor CBC #anxiety/depression -lorazapam 1mg TID PRN -Seroquel -Remeron #constipation -continue senna and docusate FEN regular diet NS 50mL/hr GI Ppx protonix DVT Ppx lovenox Dispo: med/surg DNR/DNI Visit type - Emergency Visit Emergency Visit: Yes ED Registration Date: 08/10/19 Care time: The patient presented to the Emergency Department on the above date and was hospitalized for further evaluation of their emergent condition. - New Patient This patient is new to me today: No - Critical Care Critical Care patient: No - Discharge Referral Referred to [facility] Med P.C.: No ATTENDING PHYSICIAN STATEMENT I saw and evaluated the patient. I reviewed the resident's note and discussed the case with the resident. I agree with the resident's findings and plan as documented. SUBJECTIVE: OBJECTIVE: ASSESSMENT AND PLAN:
--- NOTE | 2019-08-15 17:38 | PN ---
Progress Note (short form) - Note Progress Note: Pt. seen briefly. She was calmer and felt better. She stated that she was pleased with the support of Palliative Care and Pastoral Care. Problem List - Problems (1) Depressed Code(s): F32.9 - MAJOR DEPRESSIVE DISORDER, SINGLE EPISODE, UNSPECIFIED Qualifiers: Depression Type: unspecified Qualified Code(s): F32.9 - Major depressive disorder, single episode, unspecified (2) Panic anxiety syndrome Code(s): F41.0 - PANIC DISORDER [EPISODIC PAROXYSMAL ANXIETY]
[2019-08-15] MEDS: ALBUTEROL SO4 0.083% IH SOL 2.5 MG/3 ML VIAL.NEB. NEB PRN (18:03)
[2019-08-15] MEDS ORDERED: PT OWN MED DRAWER 7, Y5N ONE (21:27)
[2019-08-15] MEDS: MIRTAZAPINE 15 MG TABLET (FP) PO SCH (21:38)
[2019-08-15] MEDS ORDERED: guaiFENesin 200 MG/10 ML 10 ML UNIT-DOSE CUPS PO ONE (21:45)
[2019-08-15] MEDS ORDERED: MORPHINE SULFATE 2 MG/ML VIAL IVPUSH ONE (21:45)
[2019-08-16] MEDS: VANCOMYCIN 1 GRAM (PRE-DOCKED) 1,000 MG/250 ML BAG IVPB SCH ×2 (00:48→14:10)
[2019-08-16] MEDS ORDERED: PIPERACILLIN/TAZOBACTAM 4.5 GM VIAL IVPB ONE ×4 (01:49→19:47)
[2019-08-16] MEDS ORDERED: DEXTROSE 5%-WATER 100 ML IVPB ONE ×4 (01:49→19:47)
[2019-08-16] MEDS: PIPERACILLIN/TAZOB 4.5 GM 4.5 GM in DEXTROSE 5%-WATER 100 ML IVPB SCH ×4 (02:02→20:18)
[2019-08-16] MEDS: methylPREDNISolone NA SUCC 40 MG/1 ML VIAL IVPUSH SCH ×4 (02:02→20:18)
[2019-08-16] MEDS: LORazepam 1 MG TABLET PO PRN (03:26)
[2019-08-16] MEDS: ALBUTEROL SO4 0.083% IH SOL 2.5 MG/3 ML VIAL.NEB. NEB PRN (03:45)
[2019-08-16] MEDS: DOCUSATE SODIUM 100 MG CAPSULE (FP) PO SCH ×3 (05:49→22:17)
[2019-08-16] MEDS: SODIUM CHLORIDE 1,000 ML IV SCH ×2 (05:49→12:14)
[2019-08-16] MEDS: ALBUTEROL SO4 2.5/IPRATROPIUM 0.5 INH SOL 3 ML VIAL.NEB. NEB SCH ×4 (08:00→20:40)
[2019-08-16] MEDS ORDERED: LORazepam 2 MG/ML SDV VIAL IVPUSH ONE (08:30)
--- NOTE | 2019-08-16 09:16 | PN ---
Progress Note (short form) - Note Progress Note: Awake and alert. Tachypneic on 100% NRBM. Reports using NIPPV for almost 3 hours overnight. Insomnia. Clinically seems worse. Intake & Output 08/13/19 08/14/19 08/15/19 08/16/19 23:59 23:59 23:59 23:59 Intake Total 2302 550 2730 1050 Output Total 900 1000 Balance 2302 -350 1730 1050 Weight 137 lb Last Vital Signs Temp Pulse Resp BP Pulse Ox 97.5 F L 135 H 24 H 147/92 97 08/16/19 06:32 08/16/19 06:32 08/16/19 06:32 08/16/19 06:32 08/16/19 04:15 Active Medications Acetaminophen (Tylenol -) 650 mg PO Q6H PRN PRN Reason: PAIN LEVEL 1-5 Albuterol Sulfate (Ventolin 0.083% Nebulizer Soln -) 1 amp NEB Q4H PRN PRN Reason: SHORT OF BREATH/WHEEZING Last Admin: 08/16/19 03:45 Dose: 1 amp Albuterol/Ipratropium (Duoneb -) 1 amp NEB RQID RUTH Last Admin: 08/15/19 21:00 Dose: 1 amp Docusate Sodium (Colace -) 100 mg PO TID RUTH Last Admin: 08/16/19 05:49 Dose: 100 mg Enoxaparin Sodium (Lovenox -) 40 mg SQ DAILY RUTH Last Admin: 08/15/19 09:58 Dose: 40 mg Vancomycin HCl (Vancomycin (Pre-Docked)) 1,000 mg in 250 mls @ 166.667 mls/hr IVPB BID@0000,1200 [facility]; Protocol Last Admin: 08/16/19 00:48 Dose: 166.667 mls/hr Piperacillin Sod/Tazobactam (Sod 4.5 gm/ Dextrose) 100 mls @ 200 mls/hr IVPB Q6H-IV RUTH; Protocol Last Admin: 08/16/19 02:02 Dose: 200 mls/hr Sodium Chloride (Normal Saline -) 1,000 mls @ 50 mls/hr IV ASDIR RUTH Last Admin: 08/16/19 05:49 Dose: 50 mls/hr Lorazepam (Ativan -) 1 mg PO QID PRN PRN Reason: ANXIETY Last Admin: 08/16/19 03:26 Dose: 1 mg Methylprednisolone Sodium Succinate (Solu-Medrol -) 60 mg IVPUSH Q6H-IV RUTH Last Admin: 08/16/19 02:02 Dose: 60 mg Metoprolol Succinate (Toprol Xl -) 50 mg PO DAILY RUTH Mirtazapine (Remeron -) 30 mg PO HS [facility] Last Admin: 08/15/19 21:38 Dose: 30 mg Ondansetron HCl (Zofran Injection) 4 mg IVPUSH Q6H PRN PRN Reason: NAUSEA Last Admin: 08/15/19 20:05 Dose: 4 mg Pantoprazole Sodium (Protonix -) 40 mg PO DAILY RUTH Last Admin: 08/15/19 09:58 Dose: 40 mg Quetiapine Fumarate (Seroquel Xr -) 50 mg PO HS [facility] Last Admin: 08/15/19 21:38 Dose: 50 mg Senna (Senna -) 1 tab PO DAILY [facility] Last Admin: 08/15/19 09:59 Dose: 1 tab Constitutional: Yes: Awake and alert, Tachypneic, Anxious Eyes: Yes: EOM Intact HENT: Yes: Normocephalic Neck: Yes: Trachea Midline Cardiovascular: Yes: Tachycardia, S1, S2 Respiratory: Yes: Diminished, Tachypnea Gastrointestinal: Yes: Normal Bowel Sounds Edema: No Labs: Assessment/Plan COLON CA WITH LIVER/LUNG METS LUNG METS HAVE PROGRESSED SINCE MAY (LAST CT CHEST) FAILURE TO THRIVE R/O PNA 100% NRBM NIPPV as tolerated ABX per ID VTE prophylaxis Aspiration precautions Patient is DNR/DNI Overall prognosis is poor: focus should be on comfort measures Dr Orozco
[2019-08-16] MEDS: PANTOPRAZOLE 40 MG TABLET (FP) PO SCH (09:18)
[2019-08-16] MEDS: SENNOSIDES 8.6MG TABLET (FP) PO SCH ×2 (09:18→09:34)
[2019-08-16] MEDS: ENOXAPARIN NA (PORCINE) 40 MG/0.4 ML DISP.SYRIN SQ SCH (09:19)
[2019-08-16 09:46] LABS: BASO % 0.2 % (0-2.0); HEMATOCRIT 30.5 % (32.4-45.2); HEMOGLOBIN 9.5 GM/dL (10.7-15.3); LYMPH % 1.8 % (8-40); MCH 25.8 pg (25.7-33.7); MCHC 31.2 g/dl (32.0-36.0); MEAN CELL VOLUME 82.7 fl (80-96); MEAN PLT VOLUME 8.6 fl (7.5-11.1); MONO % 7.8 % (3.8-10.2); NEUT % 90.2 % (42.8-82.8); PLATELET COUNT 333 K/MM3 (134-434); RBC 3.69 M/mm3 (3.60-5.2); RDW 20.2 % (11.6-15.6); WHITE BLOOD COUNT 18.8 K/mm3 (4.0-10.0)
[2019-08-16] MEDS: ONDANSETRON 4 MG/2 ML VIAL IVPUSH PRN ×2 (09:48→20:40)
[2019-08-16 09:58] LABS: CALCIUM 9.9 mg/dL (8.5-10.1); CREATININE 0.7 mg/dL (0.55-1.3); POTASSIUM 3.8 mmol/L (3.5-5.1)
[2019-08-16] MEDS: MORPHINE SULFATE 2 MG/ML VIAL IVPUSH PRN ×4 (12:13→22:23)
--- NOTE | 2019-08-16 12:49 | PN ---
Progress Note, Physician History of Present Illness: continues to require 100 percent sob very depressed - Current Medication List Current Medications: Active Medications Acetaminophen (Tylenol -) 650 mg PO Q6H PRN PRN Reason: PAIN LEVEL 1-5 Albuterol Sulfate (Ventolin 0.083% Nebulizer Soln -) 1 amp NEB Q4H PRN PRN Reason: SHORT OF BREATH/WHEEZING Last Admin: 08/16/19 03:45 Dose: 1 amp Albuterol/Ipratropium (Duoneb -) 1 amp NEB RQID [facility] Last Admin: 08/16/19 12:29 Dose: Not Given Docusate Sodium (Colace -) 100 mg PO TID [facility] Last Admin: 08/16/19 05:49 Dose: 100 mg Enoxaparin Sodium (Lovenox -) 40 mg SQ DAILY [facility] Last Admin: 08/16/19 09:19 Dose: 40 mg Vancomycin HCl (Vancomycin (Pre-Docked)) 1,000 mg in 250 mls @ 166.667 mls/hr IVPB BID@0000,1200 [facility]; Protocol Last Admin: 08/16/19 00:48 Dose: 166.667 mls/hr Piperacillin Sod/Tazobactam (Sod 4.5 gm/ Dextrose) 100 mls @ 200 mls/hr IVPB Q6H-IV [facility]; Protocol Last Admin: 08/16/19 09:20 Dose: 200 mls/hr Sodium Chloride (Normal Saline -) 1,000 mls @ 50 mls/hr IV ASDIR [facility] Last Admin: 08/16/19 12:14 Dose: Not Given Lorazepam (Ativan Injection -) 0.5 mg IVPUSH Q6H PRN PRN Reason: ANXIETY Methylprednisolone Sodium Succinate (Solu-Medrol -) 60 mg IVPUSH Q6H-IV [facility]UTH Last Admin: 08/16/19 09:19 Dose: 60 mg Metoprolol Succinate (Toprol Xl -) 50 mg PO DAILY [facility] Last Admin: 08/16/19 09:18 Dose: 50 mg Mirtazapine (Remeron -) 30 mg PO HS [facility] Last Admin: 08/15/19 21:38 Dose: 30 mg Morphine Sulfate (Morphine Sulfate) 1 mg IVPUSH Q3H PRN PRN Reason: PAIN LEVEL 6-10 Last Admin: 08/16/19 12:13 Dose: 1 mg Ondansetron HCl (Zofran Injection) 4 mg IVPUSH Q6H PRN PRN Reason: NAUSEA Last Admin: 08/16/19 09:48 Dose: 4 mg Pantoprazole Sodium (Protonix -) 40 mg PO DAILY [facility] Last Admin: 08/16/19 09:18 Dose: 40 mg Quetiapine Fumarate (Seroquel Xr -) 50 mg PO HS [facility] Last Admin: 08/15/19 21:38 Dose: 50 mg Senna (Senna -) 1 tab PO DAILY [facility] Last Admin: 08/16/19 09:34 Dose: Not Given - Objective Vital Signs: Vital Signs Temperature 97.7 F 08/16/19 10:00 Pulse Rate 135 H 08/16/19 10:00 Respiratory Rate 25 H 08/16/19 10:00 Blood Pressure 170/118 H 08/16/19 10:00 O2 Sat by Pulse Oximetry (%) 97 08/16/19 09:00 Constitutional: Yes: Anxious, Moderate Distress, Other (depressed) Neck: Yes: Supple Cardiovascular: Yes: Regular Rate and Rhythm Respiratory: Yes: On BiPap, Other (on non rebreather) Gastrointestinal: Yes: Normal Bowel Sounds, Soft Musculoskeletal: Yes: WNL Extremities: Yes: WNL Neurological: Yes: Alert, Oriented Psychiatric: Yes: Alert, Oriented Labs: CBC, BMP 08/16/19 08:52 08/16/19 08:52 INR, PTT INR 1.23 (0.83-1.09) H 08/10/19 09:00 Assessment/Plan Problem List - Problems (1) Pneumonia Code(s): J18.9 - PNEUMONIA, UNSPECIFIED ORGANISM Qualifiers: Pneumonia type: due to unspecified organism Laterality: unspecified laterality Lung location: unspecified part of lung Qualified Code(s): J18.9 - Pneumonia, unspecified organism (2) Respiratory distress Code(s): R06.03 - ACUTE RESPIRATORY DISTRESS (3) Colon cancer metastasized to multiple sites Code(s): C18.9 - MALIGNANT NEOPLASM OF COLON, UNSPECIFIED (4) Anemia Code(s): D64.9 - ANEMIA, UNSPECIFIED Qualifiers: Anemia type: other cause Other causes of anemia: chronic disease, neoplastic Qualified Code(s): D63.0 - Anemia in neoplastic disease (5) Anxiety disorder Code(s): F41.9 - ANXIETY DISORDER, UNSPECIFIED Qualifiers: Anxiety disorder type: unspecified anxiety disorder Qualified Code(s): F41.9 - Anxiety disorder, unspecified (6) S/P lobectomy of lung Code(s): Z90.2 - ACQUIRED ABSENCE OF LUNG [PART OF] Assessment/Plan Possible Post-obstructive PNA Acute respiratory failure - on NRBM Colon CA with mets to liver/lung s/p resection/lobectomy Anxiety SOB Leukocytosis - on steroids plan continue abx await for vanco trough resp support rest as per the team
[2019-08-16] MEDS: LORazepam 2 MG/ML SDV VIAL IVPUSH PRN ×2 (13:41→20:05)
[2019-08-16 13:43] LABS: PLATELET ESTIMATE NORMAL
[2019-08-16] MEDS: guaiFENesin 200 MG/10 ML 10 ML UNIT-DOSE CUPS PO PRN ×2 (14:10→20:40)
--- NOTE | 2019-08-16 16:55 | PN ---
Teaching Attending Note Name of Resident: Ana Erwin ATTENDING PHYSICIAN STATEMENT I saw and evaluated the patient. I reviewed the resident's note and discussed the case with the resident. I agree with the resident's findings and plan as documented with exceptions below. SUBJECTIVE: patient seen and examined, overall unchanged. OBJECTIVE: Vital Signs Period Temp Pulse Resp BP Sys/[facility] Pulse Ox Last 24 Hr 97.5 F-98.5 F 128-135 20-25 141-170/92-122 97-100 Intake & Output 08/13/19 08/14/19 08/15/19 08/16/19 23:59 23:59 23:59 23:59 Intake Total 2302 550 2730 1820 Output Total 900 1000 Balance 2302 -350 1730 1820 Weight 137 lb General: sitting in bed, on NRB, tachypnea, use of accessory muscles of respiration Neck: soft, supple CVS:S1S2 regular, tachycardic Chest: improved air entry, scattered rhonchi Abomen:soft, NT Extremities: no edema Home Medications Medication Instructions Recorded Metoprolol Tartrate [Lopressor -] 50 mg PO DAILY 02/03/16 Pantoprazole Sodium [Protonix -] 40 mg PO DAILY #30 tablet.ec 02/06/16 LORazepam [Ativan] 1 mg PO TID PRN MDD 3mg 11/18/16 Docusate Sodium 100 mg PO TID 08/10/19 Mirtazapine [Remeron -] 30 mg PO HS 08/10/19 Quetiapine Fumarate [Quetiapine 50 mg PO HS 08/10/19 Fumarate ER] Sennosides [Senna] 8.6 mg PO DAILY 08/10/19 Metoprolol Succinate [Toprol Xl] 50 mg PO DAILY 08/15/19 Active Medications Acetaminophen (Tylenol -) 650 mg PO Q6H PRN PRN Reason: PAIN LEVEL 1-5 Albuterol Sulfate (Ventolin 0.083% Nebulizer Soln -) 1 amp NEB Q4H PRN PRN Reason: SHORT OF BREATH/WHEEZING Last Admin: 08/16/19 03:45 Dose: 1 amp Albuterol/Ipratropium (Duoneb -) 1 amp NEB RQID [facility] Last Admin: 08/16/19 16:49 Dose: Not Given Docusate Sodium (Colace -) 100 mg PO TID [facility] Last Admin: 08/16/19 13:41 Dose: 100 mg Enoxaparin Sodium (Lovenox -) 40 mg SQ DAILY [facility] Last Admin: 08/16/19 09:19 Dose: 40 mg Guaifenesin (Robitussin -) 10 ml PO Q4H PRN PRN Reason: COUGH Last Admin: 08/16/19 14:10 Dose: 10 ml Vancomycin HCl (Vancomycin (Pre-Docked)) 1,000 mg in 250 mls @ 166.667 mls/hr IVPB BID@0000,1200 [facility]; Protocol Last Admin: 08/16/19 14:10 Dose: 166.667 mls/hr Piperacillin Sod/Tazobactam (Sod 4.5 gm/ Dextrose) 100 mls @ 200 mls/hr IVPB Q6H-IV [facility]; Protocol Last Admin: 08/16/19 14:11 Dose: 200 mls/hr Sodium Chloride (Normal Saline -) 1,000 mls @ 50 mls/hr IV ASDIR [facility] Last Admin: 08/16/19 12:14 Dose: Not Given Lorazepam (Ativan Injection -) 0.5 mg IVPUSH Q6H PRN PRN Reason: ANXIETY Last Admin: 08/16/19 13:41 Dose: 0.5 mg Methylprednisolone Sodium Succinate (Solu-Medrol -) 60 mg IVPUSH Q6H-IV [facility] Last Admin: 08/16/19 14:10 Dose: 60 mg Metoprolol Succinate (Toprol Xl -) 50 mg PO DAILY [facility] Last Admin: 08/16/19 09:18 Dose: 50 mg Mirtazapine (Remeron -) 30 mg PO HS [facility] Last Admin: 08/15/19 21:38 Dose: 30 mg Morphine Sulfate (Morphine Sulfate) 1 mg IVPUSH Q3H PRN PRN Reason: PAIN LEVEL 6-10 Last Admin: 08/16/19 15:55 Dose: 1 mg Ondansetron HCl (Zofran Injection) 4 mg IVPUSH Q6H PRN PRN Reason: NAUSEA Last Admin: 08/16/19 09:48 Dose: 4 mg Pantoprazole Sodium (Protonix -) 40 mg PO DAILY [facility] Last Admin: 08/16/19 09:18 Dose: 40 mg Quetiapine Fumarate (Seroquel Xr -) 50 mg PO HS [facility] Last Admin: 08/15/19 21:38 Dose: 50 mg Senna (Senna -) 1 tab PO DAILY [facility] Last Admin: 08/16/19 09:34 Dose: Not Given ASSESSMENT AND PLAN: 49 yof with PMhx of Colon cancer 2013 s/p left hemicolectomy, Liver and lung mets 2017 s/p VATS RLL resection/chemotherapy, now with metastatic lung disease s/p Radiation in 04/2019, chemotherapy last in 03/2019, recently reportedly admitted to [facility] for respiratory distress, treated with 2 weeks of antibiotics, discharged on home oxygen (5 liters), and prednisone taper , (last dose today), at home for the last 2 weeks, comes with progressive dyspnea -Acute hypoxic/hypercapneic respiratory distress, suspect progression of metastatic lung disease, rather than infectious process -Leucocytosis, suspect steroid induced margination -Dehydration -Sinus tachycardia -Colon cancer 2013 s/p left hemicolectomy, Liver and lung mets 2016 s/p VATS RLL resection/chemotherapy, now with metastatic lung disease s/p Radiation in 2018, chemotherapy last in 03/2019, Plan: Overall unchanged NIPPV prn. Steroids/nebs. Abx per ID. Blood /sputum cx. Trend CBC. Morphine/ativan for comfort/respiratory distress, to be held for sedation. Continue home metoprolol/seroquel/remeron. IVF Nutrition input DVTPPX lovenox Prognosis guarded. Palliative care consult noted, DNR/DNI. Extensive discussion held again about overall unimproved clinical status and high oxygen needs, need for IV medications. patient more agreable to discussion today, wants to discuss with her sister and her family. Care co-ordinated with PCP. Will continue to follow and address goals of care based on clinical course and response.
--- NOTE | 2019-08-16 18:33 | PN ---
Physical Exam: SUBJECTIVE: Patient seen and examined. She used BiPAP intermittently overnight. She reports feeling well. She denies fever, chills, shortness of breath, n/v/d. OBJECTIVE: Vital Signs Period Temp Pulse Resp BP Sys/[facility] Pulse Ox Last 24 Hr 97.5 F-98.6 F 123-135 20-25 141-170/92-122 97-100 GENERAL: The patient is A&Ox3, sitting in bed HEAD: Normal with no signs of trauma. EYES: PERRL, extraocular movements intact ENT: Ears normal, nares patent, moist mucous membranes. NECK: Trachea midline, full range of motion LUNGS: Bilateral expiratory wheezing, right side rhonchi, on non-rebreather HEART: Tachycardia and regular rhythm, no murmur ABDOMEN: Soft, nontender, nondistended, normoactive bowel sounds EXTREMITIES: Warm, well-perfused, bilateral LE edema stable NEUROLOGICAL: Normal speech PSYCH: Normal mood, normal affect. SKIN: Warm, dry, normal turgor Laboratory Results - last 24 hr 08/16/19 08/16/19 08/16/19 08:52 08:52 12:40 WBC 18.8 H RBC 3.69 Hgb 9.5 L Hct 30.5 L MCV 82.7 MCH 25.8 MCHC 31.2 L RDW 20.2 H Plt Count 333 MPV 8.6 Absolute Neuts (auto) 17.0 H Neutrophils % 90.2 H Lymphocytes % 1.8 L Monocytes % 7.8 Eosinophils % 0.0 Basophils % 0.2 D Nucleated RBC % 0 Platelet Estimate Normal Platelet Comment Present Sodium 143 Potassium 3.8 Chloride 99 Carbon Dioxide 37 H Anion Gap 7 L BUN 17.0 Creatinine 0.7 Est GFR (CKD-EPI)AfAm 119.58 Est GFR (CKD-EPI)NonAf 103.18 Random Glucose 121 H Calcium 9.9 Vancomycin Pre-Dose 12.2 L Active Medications Generic Name Dose Route Start Last Admin Trade Name Freq PRN Reason Stop Dose Admin Acetaminophen 650 mg 08/10/19 16:13 Tylenol - PO Q6H PRN PAIN LEVEL 1-5 Albuterol Sulfate 1 amp 08/10/19 14:15 08/16/19 03:45 Ventolin 0.083% Nebulizer Soln - NEB 1 amp Q4H PRN Administration SHORT OF BREATH/WHEEZING Albuterol/Ipratropium 1 amp 08/15/19 20:00 08/16/19 16:49 Duoneb - NEB Not Given RQID RUTH Docusate Sodium 100 mg 08/10/19 22:00 08/16/19 13:41 Colace - PO 100 mg TID RUTH Administration Enoxaparin Sodium 40 mg 08/11/19 10:00 08/16/19 09:19 Lovenox - SQ 40 mg DAILY [facility] Administration Guaifenesin 10 ml 08/16/19 13:44 08/16/19 14:10 Robitussin - PO 10 ml Q4H PRN Administration COUGH Vancomycin HCl 1,000 mg in 250 mls @ 166.667 mls/hr 08/12/19 00:00 08/16/19 14:10 Vancomycin (Pre-Docked) IVPB 166.667 mls/hr BID@0000,1200 [facility] Administration Protocol Piperacillin Sod/Tazobactam 100 mls @ 200 mls/hr 08/11/19 21:00 08/16/19 14: 11 Sod 4.5 gm/ Dextrose IVPB 200 mls/hr Q6H-IV [facility] Administration Protocol Sodium Chloride 1,000 mls @ 50 mls/hr 08/13/19 12:01 08/16/19 12:14 Normal Saline - IV Not Given ASDIR [facility] Lorazepam 0.5 mg 08/16/19 11:45 08/16/19 13:41 Ativan Injection - IVPUSH 0.5 mg Q6H PRN Administration ANXIETY Methylprednisolone Sodium Succinate 60 mg 08/11/19 10:00 08/16/19 14:10 Solu-Medrol - IVPUSH 60 mg Q6H-IV [facility] Administration Metoprolol Succinate 50 mg 08/16/19 10:00 08/16/19 09:18 Toprol Xl - PO 50 mg DAILY [facility] Administration Mirtazapine 30 mg 08/10/19 22:00 08/15/19 21:38 Remeron - PO 30 mg HS [facility] Administration Morphine Sulfate 1 mg 08/16/19 11:45 08/16/19 15:55 Morphine Sulfate IVPUSH 1 mg Q3H PRN Administration PAIN LEVEL 6-10 Ondansetron HCl 4 mg 08/10/19 14:07 08/16/19 09:48 Zofran Injection IVPUSH 4 mg Q6H PRN Administration NAUSEA Pantoprazole Sodium 40 mg 08/11/19 10:00 08/16/19 09:18 Protonix - PO 40 mg DAILY [facility] Administration Quetiapine Fumarate 50 mg 08/10/19 22:00 08/15/19 21:38 Seroquel Xr - PO 50 mg HS [facility] Administration Senna 1 tab 08/11/19 10:00 08/16/19 09:34 Senna - PO Not Given DAILY [facility] ASSESSMENT/PLAN: Ms. Arreaga is a 49 y/o female with a history of colon cancer s/p resection ( 2013), mets to the liver and lung (RLL lobectomy 2016) who presents for increased shortness of breath and chest and back pain. CTA showed worsening lungs mets from May. She was given solumedrol, duo-nebs, albuterol, and treated empirically with Vanc and Zosyn. Palliative care was consulted and pt signed DNR/DNI form. She is being given morphine for comfort. She uses BiPAP intermittently with non-rebreather as backup. #acute hypoxic respiratory failure with metastases in lungs Pt on non-rebreather. BiPAP intermittently. CTA: diffuse bilateral lung confluent metastasis that have worsened from previous imaging, metastasis involving both latisha and bronchi of right lower lobe, hypodense mass in left thyroid, enhancement of spleen -Solumedrol 60mg Q6H -duoneb Q6H -albuterol -ID consulted- vanc -continue Zosyn -pulm following- adjusted NIPPV settings -O2 -BiPAP #colon cancer with metastasis to liver and lung Admitting resident spoke with patients primary oncologist Dr. Luna Dc [phone], patient has very poor follow up. She is more then happy to see her as an outpatient but patient routinely cancels appointments with her. Patient has not had treatment since March. Patient signed DNR/DNI for comfort measures and antibiotics. -palliative care following -morphine PRN #leukocytosis Likely 2/2 steroid use -monitor CBC #anxiety/depression -lorazapam 1mg PRN -Seroquel -Remeron #constipation -continue senna and docusate FEN regular diet NS 50mL/hr GI Ppx protonix DVT Ppx lovenox Dispo: med/surg DNR/DNI Visit type - Emergency Visit Emergency Visit: Yes ED Registration Date: 08/10/19 Care time: The patient presented to the Emergency Department on the above date and was hospitalized for further evaluation of their emergent condition. - New Patient This patient is new to me today: No - Critical Care Critical Care patient: No - Discharge Referral Referred to [facility] Med P.C.: No ATTENDING PHYSICIAN STATEMENT I saw and evaluated the patient. I reviewed the resident's note and discussed the case with the resident. I agree with the resident's findings and plan as documented. SUBJECTIVE: OBJECTIVE: ASSESSMENT AND PLAN:
[2019-08-16] MEDS ORDERED: diphenhydrAMINE HCL 25 MG CAPSULE (FP) PO ONE (21:34)
[2019-08-16] MEDS: MIRTAZAPINE 15 MG TABLET (FP) PO SCH (22:16)
[2019-08-17] MEDS: VANCOMYCIN 1 GRAM (PRE-DOCKED) 1,000 MG/250 ML BAG IVPB SCH (00:50)
[2019-08-17] MEDS: MORPHINE SULFATE 2 MG/ML VIAL IVPUSH PRN ×2 (01:08→04:14)
[2019-08-17] MEDS: LORazepam 2 MG/ML SDV VIAL IVPUSH PRN (01:50)
[2019-08-17] MEDS: methylPREDNISolone NA SUCC 40 MG/1 ML VIAL IVPUSH SCH (01:59)
[2019-08-17] MEDS ORDERED: PIPERACILLIN/TAZOBACTAM 4.5 GM VIAL IVPB ONE (02:17)
[2019-08-17] MEDS ORDERED: DEXTROSE 5%-WATER 100 ML IVPB ONE (02:17)
[2019-08-17] MEDS: PIPERACILLIN/TAZOB 4.5 GM 4.5 GM in DEXTROSE 5%-WATER 100 ML IVPB SCH (03:16)
[2019-08-17] MEDS ORDERED: LORazepam 2 MG/ML SDV VIAL IVPUSH ONE (05:02)
[2019-08-17] MEDS: DOCUSATE SODIUM 100 MG CAPSULE (FP) PO SCH (05:19)
[2019-08-17 06:32] VITALS: BP 157/117; PULSE 155; TEMP 97.5
--- NOTE | 2019-08-17 07:22 | PN ---
Progress Note (short form) - Note Progress Note: NOTE Nurse Dione contacted me to examine the patient at 0705. Pt was unresponsive, even to painful stimuli. Pupils fixed and non-reactive. Pt has no spontaneous breathing, no heart sounds, and no breath sounds. No carotid or femoral pulses present. No heart sounds or breath sounds heard. Time of pronounced at 0714 on 08/17/19.
--- NOTE | 2019-08-17 14:34 | DS ---
Physical Exam: SUBJECTIVE: Nurse Dione contacted me to examine the pt at 0705. On arrival, she was unresponsive. OBJECTIVE: Vital Signs Period Temp Pulse Resp BP Sys/[facility] Pulse Ox Last 24 Hr 97.5 F-98.6 F 123-155 21-23 150-167/95-117 94-95 PHYSICAL EXAM Unresponsive, even to painful stimuli Pupils fixed and non-reactive Pt has no spontaneous breathing, no breath sounds No heart sounds, carotid or femoral pulses present Time of pronounced at 0714 on 08/17/19 LABS HOSPITAL COURSE: Ms. Arreaga is a 49 y/o female with a history of colon cancer, mets to the liver and lung (RLL lobectomy 2017) who presented for increased shortness of breath and chest/back pain. She was treated with duo-nebs, solumedrol, vancomycin, zosyn, morphine, and oxygen. Pt became unresponsive and on 08/17/19 at 7:14am. Date of Admission:08/10/19 Date of Discharge: 08/17/19 Minutes to complete discharge: 35 Discharge Summary Problems reviewed: Yes Reason For Visit: CARCINOMA OF COLON METATSTATIC TO [facility] Condition: Guarded - Instructions Referrals: Martin Erickson MD [Primary Care Provider] - Disposition: - Home Medications Comprehensive Discharge Medication List: Ambulatory Orders Metoprolol Tartrate [Lopressor -] 50 mg PO DAILY 02/03/16 Pantoprazole Sodium [Protonix -] 40 mg PO DAILY #30 tablet.ec 02/06/16 LORazepam [Ativan] 1 mg PO TID PRN MDD 3mg 11/18/16 Docusate Sodium 100 mg PO TID 08/10/19 Mirtazapine [Remeron -] 30 mg PO HS 08/10/19 Quetiapine Fumarate [Quetiapine Fumarate ER] 50 mg PO HS 08/10/19 Sennosides [Senna] 8.6 mg PO DAILY 08/10/19 Metoprolol Succinate [Toprol Xl] 50 mg PO DAILY 08/15/19 This patient is new to me today: No Emergency Visit: Yes ED Registration Date: 08/10/19 Care time: The patient presented to the Emergency Department on the above date and was hospitalized for further evaluation of their emergent condition. Critical Care patient: No - Discharge Referral Referred to [facility] No ATTENDING PHYSICIAN STATEMENT I saw and evaluated the patient. I reviewed the resident's note and discussed the case with the resident. I agree with the resident's findings and plan as documented. SUBJECTIVE: OBJECTIVE: ASSESSMENT AND PLAN:
== END 2019-08-17 11:19 | disposition expired | DRG 180 ==
LOC: JER 07:57 → JERBED 13:00 → J7W 16:05
PROVIDERS: ADMIT Hospitalist; ATTEND Hospitalist
DX: C78.00 Secondary malignant neoplasm of unspecified lung (principal); J96.01 Acute respiratory failure with hypoxia; J18.9 Pneumonia, unspecified organism; C18.9 Malignant neoplasm of colon, unspecified; C78.7 Secondary malignant neoplasm of liver and intrahepatic bile duct; D72.829 Elevated white blood cell count, unspecified; F32.9 Major depressive disorder, single episode, unspecified; K59.00 Constipation, unspecified; R62.7 Adult failure to thrive; E86.0 Dehydration; R00.0 Tachycardia, unspecified; D64.9 Anemia, unspecified
CPT/HCPCS: 36415; 36600; 71275-TC; 80048; 80053; 81003; 82550; 82803; 83690; 83735; 83880; 84100; 84443; 84484; 84703; 85025; 85610; 86850; 86900; 86901; 87040; 87070; 87086; 87205; 93005; 93010; 94640; 94660; 99283-25; G0480; J7030